=== PATIENT | female | born 1960 ===

== ENCOUNTER 2020-04-10 09:08 | Outpatient (REF) | payer MEDICAID, SELFPAY ==
--- NOTE | 2020-04-10 09:00 | EMG_ITS ---
HISTORY OF PRESENT ILLNESS: This is a 59-year-old woman with a 30-year history of bilateral hand pain and numbness. She also has pain in her upper arms. MEDICATIONS: List of medications not known. PHYSICAL EXAMINATION: On examination, she is alert and oriented with normal intellectual functions. Cranial nerves II through XII are normal. Muscle tone and strength are normal in all 4 extremities. No Tinel or Phalen sign. IMPRESSION: Rule out carpal tunnel syndrome, rule out trigger finger and tendinitis. Nerve conduction EMG study: Normal electrodiagnostic study of both upper extremities with no evidence of carpal tunnel syndrome or nerve entrapment. Normal EMG of the C5-T1 innervated muscles bilaterally. MD RONALD Meadows/ZAHEER / [id number]
== END 2020-04-10 09:09 | disposition home or self-care (01) ==
LOC: HO.NEURO 09:08
PROVIDERS: Visit Provider Family Medicine
DX: M25.532 Pain in left wrist (principal)
CPT/HCPCS: 95886; 95913

== ENCOUNTER 2020-07-25 08:40 | Outpatient (REF) | payer MEDICAID, SELFPAY ==
[2020-07-25 10:48] LABS: Glucose Urine UA NEG (NEG); Leukocyte Esterase Urine NEG (NEG); Nitrite Urine NEG (NEG); PH 7.5 (5.0-8.0); Specific Gravity - Urine 1.015 (1.005-1.025); Urine Blood NEG (NEG); Urine Ketones NEG (NEG); Urine Protein NEG (NEG-TRACE)
[2020-07-25 10:49] LABS: Appearance Urine CLEAR; Color Urine YELLOW
[2020-07-25 10:49] LABS: MANUAL DIFF FLAG NO
[2020-07-25 10:58] LABS: Basophils Absolute Auto 0.1 X10*3/uL (0.0-0.2); Basophils Percent Auto 1.1 % (0-2); Eosinophils Absolute Auto 0.4 X10*3/uL (0.0-0.4); Eosinophils Percent Auto 3.9 % (0-4); Imm Gran Abs Auto 0.07 X10*3/uL (0.00-0.03); Imm Gran Pct Auto 0.8 % (0.0-0.4); Lymphocytes Absolute Auto 3.3 X10*3/uL (1.2-4.9); Lymphocytes Percent Auto 35.6 % (20-40); Mean Corpuscular HGB Conc 31.7 g/dl (31.0-35.0); Mean Corpuscular Hemoglobin 26.2 pg (27.0-33.0); Mean Corpuscular Volume 82.7 fL (80-98); Mean Platelet Volume 10.9 fL (9.4-12.3); Monocytes Absolute Auto 0.6 X10*3/uL (0.1-1.2); Monocytes Percent Auto 6.8 % (2-11); Neutrophils Absolute Auto 4.8 X10*3/uL (2.0-8.3); Neutrophils Percent Auto 51.8 % (45-73); Platelet Count 348 X10*3/uL (160-400); Red Blood Count 4.96 X10*6/uL (4.20-5.50); Red Cell Distribution Width 15.6 % (11.0-16.0); White Blood Count 9.2 X10*3/uL (4.8-10.8)
[2020-07-25 11:05] LABS: RBC Urine 0 /HPF (0); Squamous Epithelial Cell Urine 2+ /LPF; WBC Urine 0 /HPF (0-4)
[2020-07-25 11:19] LABS: Alanine Aminotransferase 24 U/L (0-31); Albumin Level 4.4 g/dL (3.5-5.0); Alkaline Phosphatase 120 U/L (39-117); Anion Gap 12 (12-20); Aspartate Amino Transferase 21 U/L (5-31); Blood Urea Nitrogen 12 mg/dL (9-16); C Reactive Protein 0.25 mg/dL (< or = 0.50); Calcium 9.9 mg/dL (8.4-10.2); Carbon Dioxide 29 mmol/L (22-29); Chloride 104 mmol/L (96-108); Estimated Glomerular Filt Rate > 60; Glucose Random 91 mg/dL (60-115); Potassium 4.3 mmol/L (3.3-5.1); Rheumatoid Factor < 15.0 IU/mL (<15.0); Sodium 141 mmol/L (135-145); Total Protein 7.1 g/dL (6.5-8.0)
[2020-07-25 12:24] LABS: Erythrocyte Sedimentation Rate 9 MM/HR (0-20)
[2020-07-26 11:26] LABS: Complement C3 155 mg/dL (83-193)
[2020-07-26 13:27] LABS: Beta-2 Microglobulin, Serum 1.98 mg/L (< OR = 2.51); Thyroglobulin Antibodies <1 IU/mL (< or = 1); Thyroid Peroxidase Antibodies <1 IU/mL (<9)
[2020-07-26 19:56] LABS: Cyclic Citrullinated Peptide <16 UNITS
[2020-07-29 14:57] LABS: Cardiolipin IgG Ab <14 GPL; Cardiolipin IgM Ab <12 MPL; PTT (LAC) Screen 31 sec (< OR = 40)
[2020-07-30 12:06] LABS: Anti DNA DS Antibody 1 IU/mL; Antibody to SS-A Antigen <1.0 NEG AI (<1.0 NEG); Antibody to SS-B Antigen <1.0 NEG AI (<1.0 NEG); SM/Ribonucleoprotein Ab <1.0 NEG AI (<1.0 NEG); Smith Protein <1.0 NEG AI (<1.0 NEG)
[2020-07-30 15:22] LABS: Anti Nuclear Antibody Screen POSITIVE (NEGATIVE)
== END 2020-07-25 08:41 | disposition home or self-care (01) ==
LOC: HO.LAB 08:40
PROVIDERS: PCP Family Medicine; Referring Provider Family Medicine; Visit Provider Student in an Organized Health Care Education/Training Program
DX: R76.8 Other specified abnormal immunological findings in serum (principal); M25.50 Pain in unspecified joint; F32.9 Major depressive disorder, single episode, unspecified; E78.5 Hyperlipidemia, unspecified; I10 Essential (primary) hypertension; F17.210 Nicotine dependence, cigarettes, uncomplicated; Z88.6 Allergy status to analgesic agent; Z79.899 Other long term (current) drug therapy
CPT/HCPCS: 36415; 80053; 81001; 82232; 85025; 85597; 85613; 85652; 85730; 86038; 86039; 86140; 86147; 86160; 86200; 86225; 86235; 86376; 86431; 86800; 99202

== ENCOUNTER → 2020-08-20 09:05 | Outpatient (BNVA) | payer MEDICAID, SELFPAY | PROVIDERS: PCP Family Medicine; Visit Provider Student in an Organized Health Care Education/Training Program | DX: R76.8 Other specified abnormal immunological findings in serum (principal); F17.200 Nicotine dependence, unspecified, uncomplicated; Z79.899 Other long term (current) drug therapy; Z71.6 Tobacco abuse counseling | CPT/HCPCS: 99212 ==

== ENCOUNTER → 2020-09-19 08:49 | Outpatient (BNVA) | payer MEDICAID, SELFPAY | PROVIDERS: PCP Family Medicine; Visit Provider Internal Medicine Pulmonary Disease | DX: G47.33 Obstructive sleep apnea (adult) (pediatric) (principal); J44.9 Chronic obstructive pulmonary disease, unspecified | CPT/HCPCS: 99212 ==

== ENCOUNTER 2020-12-09 10:19 | Outpatient (REF) | payer MEDICAID, SELFPAY ==
--- NOTE | ~2020-12-09 | CT_ITS ---
EXAMINATION: CT CHEST SCREENING CLINICAL INFORMATION: Nicotine dependence COMPARISON: None. TECHNIQUE: Multidetector volumetric CT imaging of the chest is performed without contrast using low dose technique. Additional 2D coronal and sagittal reformatted images and axial 3D maximum intensity projection (MIP) images are generated on the CT workstation. This CT examination was performed using dose optimization techniques as appropriate, variously including the following: *Automated exposure control *Adjustment of mA and/or kV according to patient size (this includes techniques or standardized protocols for targeted exams where dose is matched to indication/reason for exam; i.e. extremities or head) *Use of iterative reconstruction technique DLP: 62 mGy-cm FINDINGS: LUNGS: The lungs are well-expanded and clear of acute pneumonic process. There is no pulmonary nodule, mass or consolidation. Minimal atelectatic changes are seen in the lingula and right middle lobe MEDIASTINUM: The thyroid lobes are symmetric and normal. The central trachea and the bronchi are widely patent. The heart size and the great vessels are normal caliber. There is no pericardial effusion. No abnormal size mediastinal or hilar lymphadenopathy seen. PLEURA: There is no pleural effusion. No pleural mass or thickening. AXILLA: There are small shotty axillary lymph nodes. The chest wall is unremarkable. UPPER ABDOMEN: Visualized liver, spleen, pancreas and bilateral adrenal glands are unremarkable. OSSEOUS STRUCTURES: No lytic or sclerotic process seen. There is mild ventral spondylosis mid and lower dorsal spine. No lytic or sclerotic process seen. CT/CT lung screening IMPRESSION: Unremarkable examination. ASSESSMENT: Lung-RADS category 1: Negative RECOMMENDATION: Low-dose annual CT chest.
== END 2020-12-09 10:20 | disposition home or self-care (01) ==
LOC: HO.CT 10:19
PROVIDERS: PCP Family Medicine; Visit Provider Physician Assistant Medical
DX: Z12.2 Encounter for screening for malignant neoplasm of respiratory organs (principal); F17.210 Nicotine dependence, cigarettes, uncomplicated
CPT/HCPCS: 71271

== ENCOUNTER → 2021-01-27 09:42 | Outpatient (BNVA) | payer MEDICAID, SELFPAY | PROVIDERS: PCP Family Medicine; Visit Provider Internal Medicine Pulmonary Disease | DX: J44.9 Chronic obstructive pulmonary disease, unspecified (principal); G47.33 Obstructive sleep apnea (adult) (pediatric) | CPT/HCPCS: 99212 ==

== ENCOUNTER 2021-06-12 08:38 | Outpatient (REF) | payer MEDICAID, SELFPAY ==
--- NOTE | ~2021-06-12 | MM_ITS ---
EXAMINATION: MM SCREENING DIGITAL BREAST TOMOSYNTHESIS, BILATERAL CLINICAL INFORMATION: Screening. Asymptomatic. The lifetime risk of breast cancer based on the Tyrer-Cuzick Model is 5.9%. COMPARISON: Mammography: April 20, 2018 and studies dating back to August 05, 2013 TECHNIQUE: Digital breast tomosynthesis is performed in both the craniocaudal and mediolateral oblique views along with computer-aided detection (CAD). Synthesized 2D images are generated from the tomosynthesis. FINDINGS: The breasts are almost entirely fatty (ACR BI-RADS breast composition Category a). There are no significant masses, abnormal calcifications, or other abnormalities. MM/MM tomosynthesis screening BI IMPRESSION: There are no significant changes from prior study. ASSESSMENT: BI-RADS 1: Negative RECOMMENDATION: Routine annual mammography screening. This patient's information was entered into a reminder system with a target due date for their next mammogram.
== END 2021-06-12 08:39 | disposition home or self-care (01) ==
LOC: HO.MAMMO 08:38
PROVIDERS: PCP Family Medicine; Visit Provider Family Medicine
DX: Z12.31 Encounter for screening mammogram for malignant neoplasm of breast (principal)
CPT/HCPCS: 77063; 77067

== ENCOUNTER → 2021-06-27 09:52 | Outpatient (BNVA) | payer MEDICAID, SELFPAY | PROVIDERS: PCP Family Medicine; Visit Provider Hospitalist | DX: J44.9 Chronic obstructive pulmonary disease, unspecified (principal); G47.33 Obstructive sleep apnea (adult) (pediatric) | CPT/HCPCS: 99212 ==

== ENCOUNTER 2021-08-07 08:36 | Outpatient (REF) | payer MEDICAID, SELFPAY ==
--- NOTE | ~2021-08-07 | XR_ITS ---
EXAMINATION: XR CHEST CLINICAL INFORMATION: Dyspnea, shortness of breath. Prior history left lower lobectomy. COMPARISON: Chest radiographs 09/08/2019, CT lung screening 12/09/2020 TECHNIQUE: 2 views of the chest were obtained. FINDINGS: Heart size normal. Vascularity normal. No lobar or segmental airspace consolidation, effusion, or definite groundglass opacity. There is minor scarring left base. Hilar and mediastinal contours are unremarkable. There is mild levocurvature upper and mid thoracic spine. XR/XR chest 2V IMPRESSION: No acute intrathoracic disease.
== END 2021-08-07 08:37 | disposition home or self-care (01) ==
LOC: HO.XRAY 08:36
PROVIDERS: PCP Family Medicine; Visit Provider Family Medicine
DX: R06.00 Dyspnea, unspecified (principal); J44.9 Chronic obstructive pulmonary disease, unspecified; R05.9 Cough, unspecified; G47.33 Obstructive sleep apnea (adult) (pediatric)
CPT/HCPCS: 71046; 99212

== ENCOUNTER → 2021-10-01 08:44 | Outpatient (BNVA) | payer MEDICAID, SELFPAY | PROVIDERS: PCP Family Medicine; Visit Provider Internal Medicine Pulmonary Disease | DX: J44.9 Chronic obstructive pulmonary disease, unspecified (principal); J84.9 Interstitial pulmonary disease, unspecified; R05.9 Cough, unspecified; G47.33 Obstructive sleep apnea (adult) (pediatric); Z90.2 Acquired absence of lung [part of] | CPT/HCPCS: 99212 ==

== ENCOUNTER 2021-10-10 09:36 | Outpatient (REF) | payer MEDICAID, SELFPAY ==
--- NOTE | ~2021-10-10 | CT_ITS ---
EXAMINATION: CT CHEST WITHOUT CONTRAST CLINICAL INFORMATION: J84.9 - Interstitial pulmonary disease, unspecified. Additional information provided: History lobectomy. COMPARISON: CT screening 12/09/2020, CT chest noncontrast 05/31/2019, CT abdomen noncontrast 12/31/2016 TECHNIQUE: Multidetector volumetric CT imaging of the chest is performed without intravenous contrast. Axial MIP volume rendering provided. Sagittal and coronal reformatted images were obtained. Additional axial high resolution images are obtained through the upper, mid, and lower zones, respectively. This CT examination was performed using dose optimization techniques as appropriate, variously including the following: *Automated exposure control *Adjustment of mA and/or kV according to patient size (this includes techniques or standardized protocols for targeted exams where dose is matched to indication/reason for exam; i.e. extremities or head) *Use of iterative reconstruction technique DLP: 220 mGy-cm FINDINGS: LUNGS: The central airways are clear and there is no endobronchial lesion or bronchiectasis. There is no lobar or segmental airspace consolidation or groundglass opacity. There are some small right apical blebs. There is no interstitial fibrotic change and no air trapping. The 6 x 8 mm nodule described on prior CT 05/31/2019 is no longer demonstrated, likely resected. There is no recurrent mass. No interval new pulmonary nodule or mass. MEDIASTINUM: No hilar or mediastinal lymphadenopathy or mass. No pericardial effusion. There are some scattered atherosclerotic calcifications coronary arteries. Thoracic aorta are normal in caliber. PLEURA: There is no pleural effusion. No pleural mass or thickening. AXILLA: No lymphadenopathy. UPPER ABDOMEN: Unremarkable. OSSEOUS STRUCTURES: Unremarkable. CT/CT chest wo con IMPRESSION: -Lungs clear. No nodule, mass, infiltrate, or fibrotic changes. -No hilar or mediastinal adenopathy on noncontrast exam.
== END 2021-10-10 09:37 | disposition home or self-care (01) ==
LOC: HO.CT 09:36
PROVIDERS: PCP Family Medicine; Visit Provider Internal Medicine Pulmonary Disease
DX: J84.9 Interstitial pulmonary disease, unspecified (principal)
CPT/HCPCS: 71250

== ENCOUNTER 2021-10-10 11:55 | Emergency (ER) | payer MEDICAID, SELFPAY ==
--- NOTE | 2021-10-10 | ECG_ITS ---
Test Reason : chest pain Blood Pressure : / mmHG Vent. Rate : 078 BPM Atrial Rate : 078 BPM P-R Int : 176 ms QRS Dur : 090 ms QT Int : 418 ms P-R-T Axes : 028 077 069 degrees QTc Int : 476 ms Normal sinus rhythm Normal ECG When compared with ECG of 19-JUN-2003 15:10, No significant change was found Referred By: Generic ED Physician Electronically Signed By:Waylon Sanchez
--- NOTE | ~2021-10-10 | XR_ITS ---
EXAMINATION: XR CHEST CLINICAL INFORMATION: Chest pain COMPARISON: September 08, 2019 TECHNIQUE: PA view of the chest was obtained. FINDINGS: There is some pleural-parenchymal scarring seen at the left base. No new confluent parenchymal disease identified. No pneumothorax or significant pleural effusion. The cardiopericardial silhouette is upper limits of normal in size. No evidence of pulmonary edema. XR/XR chest 1V IMPRESSION: No significant acute parenchymal disease.
[2021-10-10 12:02] VITALS: BP 164/86; PULSE 78; RESP 20; TEMP 36.7; O2SAT 100; BMI 35.6
[2021-10-10 12:22] LABS: Basophils Absolute Auto 0.1 X10*3/uL (0.0-0.2); Basophils Percent Auto 0.5 % (0-2); Eosinophils Absolute Auto 0.1 X10*3/uL (0.0-0.4); Eosinophils Percent Auto 0.5 % (0-4); Hematocrit 45.3 % (37.0-47.0); Hemoglobin 14.8 g/dl (12.0-16.0); Imm Gran Abs Auto 0.12 X10*3/uL (0.00-0.03); Imm Gran Pct Auto 0.9 % (0.0-0.4); Lymphocytes Absolute Auto 2.8 X10*3/uL (1.2-4.9); MANUAL DIFF FLAG NO; Mean Corpuscular HGB Conc 32.7 g/dl (31.0-35.0); Mean Corpuscular Hemoglobin 27.8 pg (27.0-33.0); Mean Corpuscular Volume 85.2 fL (80.0-98.0); Mean Platelet Volume 9.9 fL (9.4-12.3); Monocytes Absolute Auto 0.7 X10*3/uL (0.1-1.2); Monocytes Percent Auto 5.1 % (2-11); Neutrophils Absolute Auto 9.5 x10*3/uL (2.0-8.3); Platelet Count 391 X10*3/uL (160-400); Red Blood Count 5.32 X10*6/uL (4.20-5.50); Red Cell Distribution Width 14.1 % (11.0-16.0); White Blood Count 13.2 X10*3/uL (4.8-10.8)
[2021-10-10 12:38] LABS: Anion Gap 12 (12-20); Blood Urea Nitrogen 13 mg/dL (9-16); Calcium 9.6 mg/dL (8.4-10.2); Carbon Dioxide 28 mmol/L (22-29); Chloride 104 mmol/L (96-108); Creatinine Clr Calc Pharmacy 85.1; Estimated Glomerular Filt Rate > 60; Glucose Random 114 mg/dL (60-115); Potassium 4.2 mmol/L (3.3-5.1); Sodium 140 mmol/L (135-145)
[2021-10-10 12:48] LABS: Troponin-I High Sensitivity 10.9 ng/L (<3.5-17.0)
--- NOTE | 2021-10-10 15:15 | ED_ITS ---
HPI - Chest Pain General Chief Complaint: Chest Pain Stated Complaint: chest pain ,L side body pain Time Seen by Provider: 10/10/21 15:15 Source: patient Mode of arrival: ambulatory Limitations: no limitations History of Present Illness HPI narrative: 60-year-old female who presents emergency department for evaluation of chest pain. The patient states she has been having intermittent chest pain since August 2021. She states she gets this chest pain daily. She states she gets 3 episodes per day. She states that the episodes last seconds and then resolved. She points to her left anterior chest wall asked to localize the pain. She states that yesterday she had disagreement with her son and this caused her to have chest pain which lasted approximately 1 hour. She states that she also felt very anxious and sad after the disagreement. She states that her left arm became numb and she also developed shortness of breath. She felt weak lightheaded and dizzy with that episode. She states this morning she again has chest pain which lasted seconds. She went to the [facility] and was evaluated for chest pain. She had an EKG and was referred to emergency department for evaluation. MD complaint: chest pain Pertinent past history: other (COPD) Onset (ago): month(s) (1) Timing of current episode: episodic Prior episodes: Yes Onset: during rest and during exertion Pain location: left chest Pain radiation: left arm Severity: severe Pain scale (0-10): 8 Quality: other (Stabbing) Relieving factors: nothing Exacerbating factors: nothing Associated symptoms: palpitations and other (Dizziness) Treatment prior to arrival: none Risk Factors Coronary artery disease risk factors: smoking history, hyperlipidemia and hypertension Related Data On Oral Contraceptives: No Home Medications Medication Instructions Recorded Confirmed albuterol sulfate 90 mcg/actuation 2 puff inhalation Q6H PRN 07/25/20 07/25/20 aerosol inhaler aspirin 81 mg tablet,delayed 81 mg PO DAILY 07/25/20 07/25/20 release atorvastatin 20 mg tablet 20 mg PO DAILY 07/25/20 07/25/20 lisinopril 40 mg tablet 40 mg PO DAILY 07/25/20 07/25/20 loratadine 10 mg tablet (Allergy 10 mg PO DAILY 07/25/20 07/25/20 Relief (loratadine)) pantoprazole 40 mg tablet,delayed 40 mg PO DAILY 07/25/20 07/25/20 release sertraline 50 mg tablet (Zoloft) 50 mg PO DAILY 07/25/20 07/25/20 Previous Rx's Medication Instructions Recorded arm brace (Wrist Brace) #1 ea 01/25/20 levofloxacin 750 mg tablet 750 mg PO DAILY 7 days #7 tabs 06/27/21 codeine 10 mg-guaifenesin 100 mg/5 10 ml PO Q4-6H PRN cold symptoms 08/07/21 mL oral liquid 15 days #473 mL fluticasone fur. 200 mcg-umeclid 1 inh inhalation DAILY 30 days #1 08/07/21 62.5 mcg-vilant 25 mcg ea inhalat.powder (Trelegy Ellipta) prednisone 10 mg tablet See Rx Instructions PO DAILY 28 10/01/21 days #70 tabs Allergies Allergy/AdvReac Type Severity Reaction Status Date / Time morphine [MORPHINE] Allergy Unknown HIVES AND Verified 10/01/21 08:57 RASH, hives Review of Systems Review of Systems: Yes all other systems are reviewed and are negative [facility] Past Medical History [facility] Narrative: Past medical history: Reviewed below, asthma COPD, obstructive sleep apnea. Past surgical history: Lung nodule removal, colon surgery. Social history: The patient smokes 15 cigarettes per day times many years. Denies alcohol use. She denies drug use. Medical History Depression Dyslipidemia Hypertension Surgical History History of carpal tunnel release S/P left rotator cuff repair Family History Family History (Updated 08/20/20 @ 09:15 by Cristel Stevens CMA) Mother HTN (hypertension) Maternal Grandfather HTN (hypertension) Son HTN (hypertension) Diabetes Father Diabetes Social History Social History (Updated 08/20/20 @ 09:16 by Cristel Stevens CMA) Household Members: Children Housing: House Alcohol intake: never Patient Tobacco Use Status: Current everyday Tobacco user Cigarettes Per Day: 8 Years Smoked: 40 Advance Directives: No Advance Directives Information Provided: Yes Physical Exam Vital Signs: Vital Signs: Last Vital Signs Temp 98.0 F 10/10/21 12:02 Pulse 78 10/10/21 12:02 Resp 20 10/10/21 12:02 BP 164/86 H 10/10/21 12:02 Pulse Ox 100 10/10/21 12:02 O2 Del Method 10/10/21 12:02 BMI result Body Mass Index 35.6 Const: Other: Awake, alert, he is a patient, very pleasant and cooperative, in no distress, elevated BMI 35.6. HEENT: Head: Yes normal to inspection, Yes normocephalic and Yes atraumatic Ears: external ears normal General nose exam: Normal external nose present Face and sinus: Yes normal facial exam Mouth: Normal oral and palatal muc shaggy present Throat: Yes posterior oropharynx normal Eyes: General: appearance normal, both eyes and all related structures Pupils: Equal, round and reactive pupils present Neck: Neck: Yes normal visual inspection, Yes no lymphadenopathy, Yes trachea midline and Yes supple Chest: Chest palpation & inspection: normal inspection of the chest, normal palpation of entire chest wall and tenderness (Left anterior chest) Resp: Effort & Inspection: normal respiratory effort and able to speak in complete sentences Auscultation: clear to auscultation bilaterally Cardio: Rate: regular rate Rhythm: regular rhythm Heart sounds: S1 normal heart sound present, S2 normal heart sound present and no murmurs GI: Inspection: Yes normal to inspection Palpation (GI): Soft to palpation, nontender and no guarding Auscultation: normal bowel sounds : General: Yes no CVA tenderness Back/Spine/Pelvis: Back: no CVA tenderness Skin: General skin exam: no rashes or lesions noted Neuro: Cranial nerves: Yes CN's II-XII intact bilaterally and Yes Equal, round and reactive pupils present Cognition (Neuro): normal cognition Motor exam (neuro): 5/5 motor strength present throughout Extrem: General: Yes normal to inspection Psych: Appearance: grossly normal Speech and movement: Normal speech and mo vement present Affect: normal affect Attitude: cooperative Thought process: Normal thought process present Thought content: Normal thought content present Course Course Course Narrative: 60-year-old female who presents emergency department for evaluation of intermittent, daily chest pain x1 month, patient states she has 3 episodes per day, they can come on at rest or with exertion and lasts seconds. She states that yesterday she had a misunderstanding with her son this caused her to have an episode of chest pain the last approximately 1 hour. She was seen at [facility] and referred to the emergency department for evaluation. The patient's vital signs did reveal an elevated blood pressure of 164/87 otherwise were unremarkable. Physical examination did reveal left-sided chest wall tenderness. 1545: Laboratory evaluation: WBC was elevated 13,200 but the patient states she was started on prednisone recently by her doctor for her lung problem. BMP was normal. High sensitivity troponin I was detectable but not elevated at 10.9. Radiology evaluation: Chest x-ray revealed no acute disease. EKG was unremarkable. Patient's chest pain most likely caused by musculoskeletal pain/costochondritis. I did discuss this with her. Patient was advised to take Tylenol and ibuprofen. She was given printed and verbal instructions and discharged home. MDM - Chest Pain Medical Records Data Attestation: I reviewed the patient's medical records. Lab Data Attestation: I reviewed the patient's lab results. Result diagrams: 10/10/21 12:17 10/10/21 12:17 Labs: Lab Results 10/10/21 10/10/21 10/10/21 Range/Units 12:17 12:17 12:17 WBC 13.2 H (4.8-10.8) X10*3/uL RBC 5.32 (4.20-5.50) X10*6/uL Hgb 14.8 (12.0-16.0) g/dl Hct 45.3 (37.0-47.0) % MCV 85.2 (80.0-98.0) fL MCH 27.8 (27.0-33.0) pg MCHC 32.7 (31.0-35.0) g/dl RDW 14.1 (11.0-16.0) % Plt Count 391 (160-400) X10*3/uL MPV 9.9 (9.4-12.3) fL Immature Gran % (Auto) 0.9 H (0.0-0.4) % Neut % (Auto) 72.0 (45-73) % Lymph % (Auto) 21.0 (20-40) % Spink % (Auto) 5.1 (2-11) % Eos % (Auto) 0.5 (0-4) % Baso % (Auto) 0.5 (0-2) % Lymph # (Auto) 2.8 (1.2-4.9) X10*3/uL Spink # (Auto) 0.7 (0.1-1.2) X10*3/uL Eos # (Auto) 0.1 (0.0-0.4) X10*3/uL Baso # (Auto) 0.1 (0.0-0.2) X10*3/uL Abs Immat Gran (auto) 0.12 H (0.00-0.03) X10*3/uL Absolute Neuts (auto) 9.5 H (2.0-8.3) x10*3/uL Absolute Nucleated RBC 0.000 (0.0-0.012) X10*3/uL Nucleated RBC % (auto) 0.0 (0.0-0.2) /100WBC Sodium 140 (135-145) mmol/L Potassium 4.2 (3.3-5.1) mmol/L Chloride 104 (96-108) mmol/L Carbon Dioxide 28 (22-29) mmol/L Anion Gap 12 (12-20) BUN 13 (9-16) mg/dL Creatinine 0.80 (0.5-1.4) mg/dL Estim Creat Clear Calc 85.1 Estimated GFR > 60 Random Glucose 114 (60-115) mg/dL Calcium 9.6 (8.4-10.2) mg/dL Troponin I High Sens 10.9 (<3.5-17.0) ng/L ECG Data ECG #1: Attestation: I personally reviewed and interpreted this ECG as follows: Interpretation: 1200: Normal sinus rhythm rate of 78, normal OK interval, QRS duration and QTC interval, no ST segment elevation, no ST segment depression, no PACs, no PVCs, this is a normal EKG Discharge Plan Discharge Clinical Impression: Chest pain Patient Disposition: Home, Self-Care Instructions: Costochondritis (ED) Additional Instructions: Your EKG was unremarkable. Your chest x-ray was unremarkable. Your white blood cell count was slightly elevated at 13,200 thousand two hundred but this is probably caused by the prednisone that you taking. Your troponin (marker of heart damage/heart attack) was not elevated which is reassuring. At this time, I believe that the chest pain that your experiencing is due to inflammation of the joints of your chest or muscles of your chest (costochondritis). Take ibuprofen 200 mg pills, 2 pills every 6 hours as needed for pain. Take Tylenol (acetaminophen) 500 mg pills, 2 pills every 4 to 6 hours as needed for pain. Follow-up with your doctor in 2 days. Please return to the emergency department if your symptoms get worse or if you develop any symptoms that are concerning to you. Prescriptions: No Action (DME) Wrist Brace Misc See Rx Instructions .MEDSUPPLY Qty: 1 0RF Rx Instructions: comfort form wrist/thumb, lt,m m65.321 lisinopril 40 mg tablet 40 mg PO DAILY aspirin 81 mg tablet,delayed release (DR/EC) 81 mg PO DAILY pantoprazole 40 mg tablet,delayed release (DR/EC) 40 mg PO DAILY albuterol sulfate 90 mcg/actuation HFA aerosol inhaler 2 puff inhalation Q6H PRN sertraline [Zoloft] 50 mg tablet 50 mg PO DAILY loratadine [Allergy Relief (loratadine)] 10 mg tablet 10 mg PO DAILY atorvastatin 20 mg tablet 20 mg PO DAILY levofloxacin 750 mg tablet 750 mg PO DAILY 7 Days Qty: 7 0RF Trelegy Ellipta 200-62.5-25 mcg blister with device 1 inh inhalation DAILY 30 Days Qty: 1 6RF codeine-guaifenesin 10-100 mg/5 mL liquid 10 ml PO Q4-6H PRN (Reason: cold symptoms) 15 Days Qty: 473 0RF prednisone 10 mg tablet See Rx Instructions PO DAILY 28 Days Qty: 70 0RF Rx Instructions: Take 4 tabs daily for 7 days, then go down by 1 tab every 7 days.
== END 2021-10-10 16:18 | disposition home or self-care (01) ==
PROVIDERS: Emergency Provider Emergency Medicine Emergency Medical Services; PCP Family Medicine
DX: R07.9 Chest pain, unspecified (principal); F41.9 Anxiety disorder, unspecified; F32.A Depression, unspecified; I10 Essential (primary) hypertension; E78.5 Hyperlipidemia, unspecified; F17.210 Nicotine dependence, cigarettes, uncomplicated; Z79.02 Long term (current) use of antithrombotics/antiplatelets; Z79.899 Other long term (current) drug therapy
CPT/HCPCS: 36415; 71045; 80048; 84484; 85025; 93005; 99283

== ENCOUNTER → 2021-11-12 09:09 | Outpatient (BNVA) | payer MEDICAID, SELFPAY | PROVIDERS: PCP Family Medicine; Visit Provider Internal Medicine Pulmonary Disease | DX: J44.9 Chronic obstructive pulmonary disease, unspecified (principal); G47.33 Obstructive sleep apnea (adult) (pediatric); R06.09 Other forms of dyspnea; R05.9 Cough, unspecified; Z79.899 Other long term (current) drug therapy; Z99.81 Dependence on supplemental oxygen | CPT/HCPCS: 99212 ==

== ENCOUNTER → 2022-01-29 12:50 | Outpatient (BNVA) | payer MEDICAID, SELFPAY | PROVIDERS: PCP Family Medicine; Visit Provider Internal Medicine Pulmonary Disease | DX: J44.9 Chronic obstructive pulmonary disease, unspecified (principal); G47.33 Obstructive sleep apnea (adult) (pediatric); R05.9 Cough, unspecified; R06.09 Other forms of dyspnea | CPT/HCPCS: 99212 ==

== ENCOUNTER → 2022-02-04 08:47 | Outpatient (BNVA) | payer MEDICAID, SELFPAY | PROVIDERS: PCP Family Medicine; Visit Provider Orthopaedic Surgery | DX: M79.641 Pain in right hand (principal) | CPT/HCPCS: 99202 ==

== ENCOUNTER 2022-02-09 08:52 | Outpatient (REF) | payer MEDICAID, SELFPAY ==
--- NOTE | ~2022-02-09 | XR_ITS ---
EXAMINATION: XR PELVIS CLINICAL INFORMATION: Pain COMPARISON: None TECHNIQUE: AP view of the pelvis. FINDINGS: Bone alignment is normal. No fracture or dislocation. Mild arthritis at both hip joints with small osteophytes. Bones of the pelvis are normal. Degenerative changes of the visualized lower lumbar spine. Atherosclerotic disease. Surgical clips in the left lower quadrant and pelvis. XR/XR pelvis 1-2V IMPRESSION: Mild bilateral hip osteoarthritis.
== END 2022-02-09 08:53 | disposition home or self-care (01) ==
LOC: HO.HOSX 08:52
PROVIDERS: Visit Provider Orthopaedic Surgery
DX: M16.0 Bilateral primary osteoarthritis of hip (principal); M70.71 Other bursitis of hip, right hip; M70.72 Other bursitis of hip, left hip
CPT/HCPCS: 72170; 99212

== ENCOUNTER → 2022-03-31 11:54 | Outpatient (BNVA) | payer MEDICAID, SELFPAY | PROVIDERS: PCP Family Medicine; Visit Provider Orthopaedic Surgery | DX: M79.641 Pain in right hand (principal); M79.89 Other specified soft tissue disorders | CPT/HCPCS: 99212 ==

== ENCOUNTER → 2022-04-07 11:05 | Outpatient (BNVA) | payer MEDICAID, SELFPAY | PROVIDERS: PCP Family Medicine; Visit Provider Orthopaedic Surgery | DX: M79.641 Pain in right hand (principal); M79.89 Other specified soft tissue disorders | CPT/HCPCS: 20550; 99212; J1100 ==

== ENCOUNTER 2022-04-17 10:37 | Outpatient (REF) | payer MEDICAID, SELFPAY ==
--- NOTE | ~2022-04-17 | XR_ITS ---
EXAMINATION: XR HAND, RIGHT CLINICAL INFORMATION: Pain COMPARISON: None TECHNIQUE: PA, lateral, and oblique views of the right hand. FINDINGS: Mild degenerative osteoarthritic changes distal interphalangeal joints. No fracture or dislocations. The bones and soft tissues are normal. No fracture. Alignment is anatomic. Joint spaces are maintained. No erosions or soft tissue calcifications. XR/XR hand RT min 3V IMPRESSION: * No fracture. * Mild DJD.
== END 2022-04-17 10:38 | disposition home or self-care (01) ==
LOC: HO.HOSX 10:37
PROVIDERS: PCP Family Medicine; Visit Provider Orthopaedic Surgery
DX: M79.641 Pain in right hand (principal)
CPT/HCPCS: 73130; 99212

== ENCOUNTER → 2022-05-07 08:47 | Outpatient (BNVA) | payer MEDICAID, SELFPAY | PROVIDERS: PCP Family Medicine; Visit Provider Internal Medicine Pulmonary Disease | DX: J44.9 Chronic obstructive pulmonary disease, unspecified (principal); G47.33 Obstructive sleep apnea (adult) (pediatric); Z79.899 Other long term (current) drug therapy; Z99.89 Dependence on other enabling machines and devices | CPT/HCPCS: 99212 ==

== ENCOUNTER 2022-06-09 12:42 | Outpatient (REF) | payer MEDICAID, SELFPAY ==
--- NOTE | ~2022-06-09 | XR_ITS ---
EXAMINATION: XR HAND, RIGHT CLINICAL INFORMATION: Pain COMPARISON: Hand radiographs 04/17/2022 TECHNIQUE: 3 views of the hand FINDINGS: No acute fracture or dislocation. Stable well corticated osseous fragment adjacent to the ulnar styloid which may reflect sequelae of remote avulsion injury. Minimal degenerative changes of the distal interphalangeal joints, similar to prior. No cortical erosion. Soft tissues are unremarkable. XR/XR hand RT min 3V IMPRESSION: 1. Minimal degenerative changes of the hand, similar to prior. 2. Stable well corticated osseous fragment adjacent to the ulnar styloid which may reflect sequelae of remote avulsion injury.
== END 2022-06-09 12:43 | disposition home or self-care (01) ==
LOC: HO.HOSX 12:42
PROVIDERS: Visit Provider Orthopaedic Surgery
DX: M79.641 Pain in right hand (principal)
CPT/HCPCS: 73130; 99212

== ENCOUNTER → 2022-06-10 08:55 | Outpatient (BNVA) | payer MEDICAID, SELFPAY | PROVIDERS: PCP Family Medicine; Visit Provider Orthopaedic Surgery | DX: M79.641 Pain in right hand (principal) | CPT/HCPCS: 99212 ==

== ENCOUNTER 2022-07-06 09:21 | Emergency (ER) | payer MEDICAID, SELFPAY ==
[2022-07-06 09:23] VITALS: BP 188/96; PULSE 76; RESP 18; TEMP 36.4; O2SAT 95; BMI 38.2
--- NOTE | 2022-07-06 10:09 | ED.GENADULT ---
HPI - General Adult General Chief complaint: Extremity Problem Stated complaint: Swollen R hand Time Seen by Provider: 07/06/22 09:42 Source: patient Mode of arrival: ambulatory Limitations: no limitations History of Present Illness HPI narrative: 61-year-old female with past medical history of COPD, obstructive sleep apnea, posterior arthritis, HARI positive, and bursitis of the hips presents to ED for chronic exacerbation of right hand swelling. Patient states this has been going on since December of last year has been followed up with Orthopedics. Patient states she has MRI scheduled for this . Patient states swelling had improved 3 weeks ago while being on steroids at prescribed from [facility] but now pain and swelling reoccurred. Patient states having normal x-rays at [facility] and normal blood work. Patient denies any forearm/arm swelling, fever, chest pain, shortness of breath, recent long travel, recent surgery, calf pain, or any history of blood clots. Patient requesting another steroid prescription. Patient states workup for lupus osteoarthritis has been negative. Patient states workup For gout and upper extremity DVT has been negative in the past. Patient has 1-2 episodes of physical therapy. Patient denies any trauma. Related Data Home Medications Medication Instructions Recorded Confirmed albuterol sulfate 90 mcg/actuation 2 puff inhalation Q6H PRN 07/25/20 07/25/20 aerosol inhaler aspirin 81 mg tablet,delayed 81 mg PO DAILY 07/25/20 07/25/20 release atorvastatin 20 mg tablet 20 mg PO DAILY 07/25/20 07/25/20 loratadine 10 mg tablet (Allergy 10 mg PO DAILY 07/25/20 07/25/20 Relief (loratadine)) pantoprazole 40 mg tablet,delayed 40 mg PO DAILY 07/25/20 07/25/20 release sertraline 50 mg tablet (Zoloft) 50 mg PO DAILY 07/25/20 07/25/20 acetaminophen 325 mg capsule 325 mg PO QID PRN 02/09/22 cyclobenzaprine 15 mg 15 mg PO BEDTIME PRN 02/09/22 capsule,extended release 24 hr oxycodone 5 mg capsule 5 mg PO BID PRN 02/09/22 Previous Rx's Medication Instructions Recorded arm brace (Wrist Brace) #1 ea 01/25/20 budesonide-formoterol HFA 160 2 puff inhalation BID 30 days 02/16/22 mcg-4.5 mcg/actuation aerosol #10.2 grams inhaler (Symbicort) tiotropium bromide 2.5 2 puff inhalation QAM 30 days #4 02/16/22 mcg/actuation mist for inhalation grams (Spiriva Respimat) prednisone 10 mg tablet 40 mg PO DAILY 5 days #20 tabs 05/07/22 prednisone 20 mg tablet 40 mg PO DAILY 7 days #14 tabs 07/06/22 Allergies Allergy/AdvReac Type Severity Reaction Status Date / Time morphine [MORPHINE] Allergy Unknown HIVES AND Verified 06/10/22 09:31 RASH, hives Review of Systems Review of Systems: Right hand swollen. Yes all other systems are reviewed and are negative [facility] Past Medical History Medical History Depression Dyslipidemia Hypertension Surgical History History of carpal tunnel release S/P left rotator cuff repair Family History Family History Mother HTN (hypertension) Maternal Grandfather HTN (hypertension) Son HTN (hypertension) Diabetes Father Diabetes Social History Social History Household Members: Children Housing: House Alcohol intake: never Patient Tobacco Use Status: Current everyday Tobacco user Cigarettes Per Day: 8 Years Smoked: 40 Advance Directives: No Advance Directives Information Provided: Yes Physical Exam ED Vital Signs: Vital Signs - 24 hr 07/06/22 09:23 Temperature 97.6 F Pulse Rate 76 Respiratory Rate 18 Blood Pressure 188/96 H Pulse Oximetry 95 Oxygen Delivery Method Room Air BMI result Body Mass Index 38.2 Const General: cooperative, healthy appearing, comfortable, no acute distress, well developed, alert, awake and Physically active Orientation/consciousness: oriented to person, oriented to place, oriented to time and patient oriented x3 HENMT Head: Yes normal to inspection, Yes No palpable skull fracture present, Yes normocephalic, Yes atraumatic and Yes abrasion Eyes General: appearance normal, both eyes and all related structures Neck Neck: Yes normal visual inspection, Yes full ROM, Yes no lymphadenopathy, Yes no meningeal signs, Yes trachea midline, Yes supple, No anterior neck swelling and No tender Chest Chest palpation & inspection: normal inspection of the chest and normal palpation of entire chest wall Resp Effort & Inspection: normal respiratory effort and able to speak in complete sentences Auscultation: clear to auscultation bilaterally Cardio Jugular venous distension: no JVD Heart sounds: S1 normal heart sound present and S2 normal heart sound present GI Inspection: Yes normal to inspection and No abdominal wall ecchymosis Palpation (GI): Soft to palpation, not firm, nontender, no guarding and not rigid General: No CVA tenderness and Yes no CVA tenderness Back/Spine/Pelvis Back: no CVA tenderness, No CVA tenderness and No back tenderness Skin General skin exam: no rashes or lesions noted and elasticity normal Neuro General: oriented to person, oriented to place, oriented to time, patient oriented x3, gait normal, tone normal, moves all extremities and no meningeal signs Extrem Other: Right Upper extremity: Swelling of right hand only ( middle finger and below it rest, of hand is normal). Negative for warmth or redness/stiffness of the hand. Negative for ecchymosis. Patient able to move fingers. Radial pulse intact. Capillary refills intact. Negative for blue blackness. Rest of upper extremity forearm, humerus, and shoulder negative for tenderness, swelling, redness, stiffness, bluish black discoloration, deformity, or ecchymosis. Brachial pulses intact. Motor/neuro/vascular exam of whole upper extremity intact. General: Yes normal to inspection and Yes full ROM Hand/finger images: 1. Swelling. Negative for erythema, deformity, bluish black discoloration, coolness, or de Quervain sign. Rest of hand and upper extremity is normal Psych Appearance: grossly normal, well kempt and not disheveled Course Course Course Narrative: Right hand swelling Reevaluation(s) Reevaluation #1: Patient will be discharged with another course of steroids. Not suspecting DVT, cellulitis, osteomyelitis, tenosynovitis, fracture, or arterial occlusion. Time: 10:19 Medical Decision Making Medical Decision Making [facility] Narrative: 61 yold female with chronic intermittent right hand swelling/right middle finger trigger pain since ocotober requesting another dose of steroids. Patient denies any recent trauma, fever, chills, redness, bluish black discoloration, chest pain, shortness of breath. Patient states swelling has improved before with steroids per patient Differential Diagnosis Differential Diagnoses: The differential diagnosis associated with the presentation includes (Fracture, cellulitis, osteomyelitis, DVT) Admission/Observation Consideration of admission/observation: Escalation of care including admission/observation considered Prescription Management I considered prescription management with: Pain Medication Patient already taking oxycodone and baclofen at home. Discharge Plan Discharge Clinical Impression: Finger pain, Swelling of right hand Patient Disposition: Home, Self-Care Instructions: Arthralgia (ED) Additional Instructions: Return to the ED immediately for increased swelling of extremity, redness, bluish black discoloration, red streaks, swelling of the forearm and humerus, chest pain, shortness of breath, weakness, dizziness, inability to move extremity, or any other concerning symptoms. Continue taking oxycodone have a home with baclofen. You will be discharged with steroids. Please follow-up with your primary care provider. Please keep your appointment for MRI this . Prescriptions: New prednisone 20 mg tablet 40 mg PO DAILY 7 Days Qty: 14 0RF No Action (DME) Wrist Brace Misc See Rx Instructions .MEDSUPPLY Qty: 1 0RF Rx Instructions: comfort form wrist/thumb, lt,m m65.321 budesonide-formoterol [Symbicort] 160-4.5 mcg/actuation HFA aerosol inhaler 2 puff inhalation BID 30 Days Qty: 10.2 6RF Spiriva Respimat 2.5 mcg/actuation mist 2 puff inhalation QAM 30 Days Qty: 4 6RF aspirin 81 mg tablet,delayed release (DR/EC) 81 mg PO DAILY pantoprazole 40 mg tablet,delayed release (DR/EC) 40 mg PO DAILY albuterol sulfate 90 mcg/actuation HFA aerosol inhaler 2 puff inhalation Q6H PRN sertraline [Zoloft] 50 mg tablet 50 mg PO DAILY loratadine [Allergy Relief (loratadine)] 10 mg tablet 10 mg PO DAILY atorvastatin 20 mg tablet 20 mg PO DAILY prednisone 10 mg tablet 40 mg PO DAILY 5 Days Qty: 20 0RF oxycodone 5 mg capsule 5 mg PO BID PRN acetaminophen 325 mg capsule 325 mg PO QID PRN cyclobenzaprine 15 mg capsule,extended release 24hr 15 mg PO BEDTIME PRN Stand Alone Forms: Work/School Release Interventions: ED Discharge Assessment Last Done: 07/06/22 10:40 Discharge Date/Time: 07/06/22 10:40 Print Language: German
== END 2022-07-06 10:40 | disposition home or self-care (01) ==
PROVIDERS: Emergency Provider Emergency Medicine; PCP Family Medicine
DX: M79.644 Pain in right finger(s) (principal); M79.89 Other specified soft tissue disorders; I10 Essential (primary) hypertension; E78.5 Hyperlipidemia, unspecified; F17.200 Nicotine dependence, unspecified, uncomplicated
CPT/HCPCS: 99282; 99283

== ENCOUNTER 2022-07-09 09:29 | Outpatient (REF) | payer MEDICAID, SELFPAY ==
--- NOTE | ~2022-07-09 | MR_ITS ---
EXAMINATION: MR HAND WITHOUT AND WITH CONTRAST, RIGHT CLINICAL INFORMATION: Third digit pain at the interphalangeal joint. Stiffness. Pain and swelling. Recurrent pain and swelling associated with the right third finger and flexor tendon sheath. Trigger finger surgery in 2017. COMPARISON: Most recent right hand radiographs dated 06/10/2022 and right wrist MRI dated 02/28/2016. TECHNIQUE: Multisequence MR images of the right hand were obtained before and after the IV administration of 10 mL Gadavist contrast on a high-field strength scanner. FINDINGS: BONE: No acute fracture or dislocation. Mild degenerative cystic change within the 3rd metacarpal head. No marrow edema or evidence of acute osseous injury. No post contrast marrow enhancement. MUSCLES/TENDONS: Prominent fluid within the 3rd flexor digitorum tendon sheath with mild adjacent soft tissue edema and prominent post contrast enhancement. No transverse tendon tear or tendon retraction. The remaining visualized flexor and extensor tendons are intact. LIGAMENTS: The collateral ligaments are intact. SOFT TISSUES: Trace 1st metacarpophalangeal joint effusion with circumferential soft tissue edema and mild postcontrast enhancement. MR/MR hand RT wo/w con IMPRESSION: 1. Prominent 3rd flexor digitorum tenosynovitis with mild adjacent soft tissue edema and enhancement. No transverse tendon tear or tendon retraction. 2. Trace 1st metacarpophalangeal joint effusion with circumferential soft tissue edema and mild postcontrast enhancement. 3. Mild degenerative cystic change within the 3rd metacarpal head.
== END 2022-07-09 09:30 | disposition home or self-care (01) ==
LOC: HO.MRI 09:29
PROVIDERS: PCP Family Medicine; Visit Provider Orthopaedic Surgery
DX: R60.0 Localized edema (principal); M79.89 Other specified soft tissue disorders
CPT/HCPCS: 73220; A9585

== ENCOUNTER 2022-07-20 08:48 | Outpatient (REF) | payer MEDICAID, SELFPAY ==
--- NOTE | ~2022-07-20 | US_ITS ---
EXAMINATION: US ABDOMEN COMPLETE CLINICAL INFORMATION: Fatty liver. COMPARISON: Ultrasound abdomen 11/09/2018. Renal ultrasound 12/07/2017. CT abdomen and pelvis 12/31/2016. TECHNIQUE: Real-time imaging of the abdominal viscera. FINDINGS: PANCREAS: Visualized portions of the pancreas are unremarkable. The pancreatic tail is obscured by bowel gas. ABDOMINAL AORTA: Visualized aorta is normal in caliber however portions are obscured by bowel gas. INFERIOR VENA CAVA: Visualized portions are normal. LIVER: Liver is enlarged measuring 18.5 cm in span. The liver contour is normal. There is diffuse increased liver parenchymal echogenicity, consistent with infiltrative hepatocellular disease. No focal hepatic lesion. There is no intrahepatic biliary duct dilatation seen. GALLBLADDER: Surgically absent. COMMON BILE DUCT: Common bile duct measures normal in caliber at 7 mm. RIGHT KIDNEY: Normal. No hydronephrosis. No renal calculi or focal parenchymal lesions. The kidney measures 11.3 cm in maximum dimension. LEFT KIDNEY: No hydronephrosis or focal parenchymal lesions. The kidney measures 11.0 cm in maximum dimension. 6 mm nonobstructing lower pole renal stone. SPLEEN: Normal. The spleen measures 7.8 cm in maximum dimension. FREE FLUID: None. US/US abdomen complete IMPRESSION: 1. Hepatomegaly and diffuse increased liver parenchymal echogenicity which can be seen in the setting of hepatic steatosis or underlying liver disease. 2. A 6 mm nonobstructing left lower pole renal stone.
== END 2022-07-20 08:49 | disposition home or self-care (01) ==
LOC: HO.US 08:48
PROVIDERS: PCP Family Medicine; Visit Provider Family Medicine
DX: K76.0 Fatty (change of) liver, not elsewhere classified (principal)
CPT/HCPCS: 76700

== ENCOUNTER → 2022-07-22 08:32 | Outpatient (BNVA) | payer MEDICAID, SELFPAY | PROVIDERS: PCP Family Medicine; Visit Provider Orthopaedic Surgery | DX: M79.641 Pain in right hand (principal); M65.9 Synovitis and tenosynovitis, unspecified | CPT/HCPCS: 99212 ==

== ENCOUNTER 2022-08-06 05:47 | Day surgery (SDC) | payer MEDICAID, SELFPAY ==
[2022-08-04 10:05] VITALS: BMI 38.3
--- NOTE | 2022-08-05 08:25 | HO.ANESPROP2 ---
Documented by User: Virginia Gary NP 08/05/22 12:24 HPI - Anesthesia Eval Consult details Narrative: 61yo F for Right I&D middle finger Telephone eval 08/05/22 - Pt states pulmo status at baseline. Denies chest pain with minimal activity, only with cough. No obvious SOB during phone call. Able to speak in complete sentences. COPD - follows [facility] [place] Pulmo - Last seen 04/2022 with [facility], prednisone rx. Continues to smoke. Follows [facility] cardiology. Per 11/2021 eval, unlikely chest pain is r/t CAD. Musculoskeletal component. Cardiopulm stress pending (pt scheduled 01/2022 but equipment issue). Case reviewed with Dr Akhtar. [facility] Active Problems Active Problems: All Active Problems (Updated 08/04/22 @ 10:09 by Sally Suarez RN) HARI positive (Acute) COPD (chronic obstructive pulmonary disease) (Acute) DANDRE (obstructive sleep apnea) (Acute) Cough (Acute) Dyspnea on exertion (Acute) Requires supplemental oxygen (Acute) Right hand pain (Acute) Bilateral hip bursitis (Acute) Bilateral primary osteoarthritis of hip (Acute) Swelling of right hand (Acute) Flexor tenosynovitis of finger (Acute) Past Medical History Medical History (Updated 08/06/22 @ 06:07 by Janet Carney RN) Asthma Costochondritis Depression Diabetes Dyslipidemia GERD (gastroesophageal reflux disease) History of salivary gland disease Hx of sleep apnea Hypertension Family History Family History Mother HTN (hypertension) Maternal Grandfather HTN (hypertension) Son HTN (hypertension) Diabetes Father Diabetes Surgical History Surgical History (Updated 08/06/22 @ 06:05 by Janet Carney RN) History of carpal tunnel release History of lung surgery History of surgery on arm Hx of arthroscopy of left knee Hx of cholecystectomy Hx of elbow surgery S/P left rotator cuff repair Social History Social History Household Members: Children Housing: House Alcohol intake: never Patient Tobacco Use Status: Current everyday Tobacco user Tobacco use type: Cigarette Cigarettes Per Day: 13 Years Smoked: 40 Use of substances other than those prescribed or required for medical reasons: No Are you DNR?: No Advance Directives: No Advance Directives Information Provided: Yes Meds Allergies Allergy/AdvReac Type Severity Reaction Status Date / Time morphine [MORPHINE] Allergy Unknown HIVES AND Verified 08/06/22 06:18 RASH, hives Home Medications Medication Instructions Recorded Confirmed Last Taken Type albuterol sulfate 90 mcg/actuation 2 puff inhalation Q6H PRN 07/25/20 08/06/22 Unknown History aerosol inhaler Shortness Of Breath Or Wheezing aspirin 81 mg tablet,delayed 81 mg PO DAILY 07/25/20 08/06/22 07/30/22 History release atorvastatin 20 mg tablet 20 mg PO DAILY 07/25/20 08/06/22 Unknown History loratadine 10 mg tablet (Allergy 10 mg PO DAILY 07/25/20 08/06/22 Unknown History Relief (loratadine)) pantoprazole 40 mg tablet,delayed 40 mg PO DAILY 07/25/20 08/06/22 Unknown History release acetaminophen 325 mg capsule 325 mg PO QID PRN Pain 02/09/22 08/06/22 Unknown History cyclobenzaprine 15 mg 15 mg PO BEDTIME PRN Muscle Spasm 02/09/22 08/06/22 Unknown History capsule,extended release 24 hr oxycodone 5 mg capsule 5 mg PO BID PRN Pain 02/09/22 08/06/22 Unknown History docusate sodium 100 mg capsule 100 mg PO BID PRN Constipation 08/06/22 08/06/22 Unknown History fluticasone propionate 50 2 spray intranasal DAILY 08/06/22 08/06/22 Unknown History mcg/actuation nasal spray,suspension hydralazine 50 mg tablet 75 mg PO 08/06/22 Unknown History hydrochlorothiazide 12.5 mg tablet 12.5 mg PO QAM 08/06/22 08/06/22 Unknown History lisinopril 40 mg tablet 40 mg PO BEDTIME 08/06/22 08/06/22 Unknown History metformin 500 mg tablet,extended 500 mg PO QPM 08/06/22 08/06/22 Unknown History release 24 hr zolpidem 10 mg tablet 10 mg PO BEDTIME insomnia 08/06/22 08/06/22 Unknown History Exam Exam Date and Time: August 05, 2022 0825 Height,Weight and Vital Signs: Height 5 ft 5 in Weight 104.326 kg Narrative Narrative: EKG 11/2021 NSR Poor R wave progression ECHO 07/2021 LV poorly visualized. LV size is nml. LV wall thickness moderately increased. LV systolic function appears low nml. Cannot assess LVEF d/t poor image quality. No /AR RV poorly visualized. RV nml in size/ RV systolic function is nml. Assessment and Plan Assessment Anesthesia Assessment: Chart Reviewed Documented by User: Yvette Aly MD 08/06/22 08:24 PMFSH Past Medical History Medical History (Updated 08/06/22 @ 06:07 by Janet Carney, RN) Asthma Costochondritis Depression Diabetes Dyslipidemia GERD (gastroesophageal reflux disease) History of salivary gland disease Hx of sleep apnea Hypertension Family History Family History Mother HTN (hypertension) Maternal Grandfather HTN (hypertension) Son HTN (hypertension) Diabetes Father Diabetes Family history of problems with anesthesia: No Surgical History Surgical History (Updated 08/06/22 @ 06:05 by Janet Carney RN) History of carpal tunnel release History of lung surgery History of surgery on arm Hx of arthroscopy of left knee Hx of cholecystectomy Hx of elbow surgery S/P left rotator cuff repair History of Problems with Anesthesia: No Social History Social History Household Members: Children Housing: House Alcohol intake: never Patient Tobacco Use Status: Current everyday Tobacco user Tobacco use type: Cigarette Cigarettes Per Day: 13 Years Smoked: 40 Use of substances other than those prescribed or required for medical reasons: No Are you DNR?: No Advance Directives: No Advance Directives Information Provided: Yes Meds Allergies Allergy/AdvReac Type Severity Reaction Status Date / Time morphine [MORPHINE] Allergy Unknown HIVES AND Verified 08/06/22 06:18 RASH, hives Home Medications Medication Instructions Recorded Confirmed Last Taken Type albuterol sulfate 90 mcg/actuation 2 puff inhalation Q6H PRN 07/25/20 08/06/22 Unknown History aerosol inhaler Shortness Of Breath Or Wheezing aspirin 81 mg tablet,delayed 81 mg PO DAILY 07/25/20 08/06/22 07/30/22 History release atorvastatin 20 mg tablet 20 mg PO DAILY 07/25/20 08/06/22 Unknown History loratadine 10 mg tablet (Allergy 10 mg PO DAILY 07/25/20 08/06/22 Unknown History Relief (loratadine)) pantoprazole 40 mg tablet,delayed 40 mg PO DAILY 07/25/20 08/06/22 Unknown History release acetaminophen 325 mg capsule 325 mg PO QID PRN Pain 02/09/22 08/06/22 Unknown History cyclobenzaprine 15 mg 15 mg PO BEDTIME PRN Muscle Spasm 02/09/22 08/06/22 Unknown History capsule,extended release 24 hr oxycodone 5 mg capsule 5 mg PO BID PRN Pain 02/09/22 08/06/22 Unknown History docusate sodium 100 mg capsule 100 mg PO BID PRN Constipation 08/06/22 08/06/22 Unknown History fluticasone propionate 50 2 spray intranasal DAILY 08/06/22 08/06/22 Unknown History mcg/actuation nasal spray,suspension hydralazine 50 mg tablet 75 mg PO 08/06/22 Unknown History hydrochlorothiazide 12.5 mg tablet 12.5 mg PO QAM 08/06/22 08/06/22 Unknown History lisinopril 40 mg tablet 40 mg PO BEDTIME 08/06/22 08/06/22 Unknown History metformin 500 mg tablet,extended 500 mg PO QPM 08/06/22 08/06/22 Unknown History release 24 hr zolpidem 10 mg tablet 10 mg PO BEDTIME insomnia 08/06/22 08/06/22 Unknown History Exam Airway Mallampati Class: II TM Dist: >3cm Neck ROM: Limited Heart: rrr Lungs: cta dim sounds Assessment and Plan Assessment Anesthesia Assessment: Anesthesia Plan Discussed and Smoking Cess. Discussed Final Anesthetic Review Family History of Problems with Anesthesia: No History of Problems with Anesthesia: No ASA Class: III Final Preanesthetic Review: No Changes in Pt Med Stat, Meds/Allgs Chart Reviewed, Consent Obtained/Reviewed and Anes Risks/Benef Reviewed Patient Risk: Intermediate Procedure Risk: Low Anesthetic Plan Anesthetic Plan: GA Disposition: Standard PACU
[2022-08-06] VITALS (10 sets, daily range): BP systolic 130–158; BP diastolic 71–97; PULSE 71–86; RESP 14–20; TEMP 36.2–36.4; O2SAT 93–97; BMI 35.6
[2022-08-06] MEDS: Lactated Ringers 1,000 ML 100 ML IVCONT (06:44)
[2022-08-06 06:50] LABS: Glucose, Whole Blood 125 mg/dL (60-115)
--- NOTE | 2022-08-06 07:57 | P.OP_ITS ---
Operative Note Operative Note Date of Service: 08/06/22 Narrative: Operative Note Narrative: Preop diagnosis: 1. Right middle finger flexor tenosynovitis, chronic 2. Right middle finger MCP joint synovitis Postop diagnosis: Same Procedure: 1. Right middle finger flexor tenosynovectomy of FDP and FDS tendons 2. Right middle finger MCP joint synovectomy Surgeon: Larisa Collins MD Anesthesia: General Anesthesia Findings: Barker-yellow soft tissue and more pigmented vascular looking soft tissue about the FDP and FDS tendons within the flexor tendon sheath of the right middle finger extending from the A1 sandy distally to distal to the A4 sandy. Tendons themselves appear to be in good condition. The tissue push through the proximal half of the A2 sandy, however the distal half of the A2 sandy was intact. A4 sandy also intact. Small amount of barker colored tissue also removed from right middle finger MCP joint Implants: None Tourniquet time: Tourniquet time 1. Sixty-three minutes, tourniquet time 2. 10 minutes for total of 73 minute tourniquet time with about 10 minutes of down time in between EBL: 5.0 ml Specimen: From the right middle finger flexor tendon sheath I sent a swab for routine culture of fluid. I also sent soft tissue specimens for AFB and fungus, anaerobic cultures, and then another specimen for histopathology. From the right 3rd MCP joint I sent a small amount of tissue for AFB and fungus. Drains: None Complications: None Disposition: Brought to the recovery room in stable condition Plan: Follow-up in about 5-10 days for wound check, suture removal and to check pathology and cultures She will in all likelihood need a consult with Infectious Disease, as I believe this is a good chance this is a mycobacterial infection. Early OT for range of motion if she is not moving her hand early on. Indications: The patient is a 61 year old woman with 6 months of swelling in her right middle finger and MCP joint . The risks and benefits of operative treatment, including but not limited to risk of damage to blood vessels, nerves, tendons, infection, recurrence, persistent pain or numbness, incomplete resolution of preoperative symptoms, or need for further surgery were discussed with the patient and they wished to proceed with surgery. Procedure: Once consent was obtained patient was brought back to the operating suite and placed in the operating table in a supine position. . Perioperative antibiotics and anesthesia was administered by the anesthesia team. A tourniquet was applied to the proximal aspect of the right upper extremity and the limb was prepped and draped in a standard surgical fashion. The limb was elevated exsanguinated with Esmarch bandage and the tourniquet inflated to 250 mm of mercury for a total tourniquet time of 73 minutes. A Zoey site incision was made over the volar aspect of the right middle finger extending from the A1 sandy to the middle phalanx. Incision was made through the skin the subcutaneous tissues using 15. Blade. I then dissected do wn to the level of the flexor sheath over the A1 sandy. The A1 sandy and tendon sheath were rather distended from the soft tissue growing within the flexor tendon sheath. Routine swab cultures were taken of the fluid from within the tendon sheath. Tannish pink tissue appeared to be pushing out from within the flexor tendon sheath along the course of the flexor tendon sheath extending distal to the A4 sandy from the A1 sandy. I began my flexor tenosynovectomy removing barker and pink soft tissue from about the FDP tendon and the FDS tendon. The tissue was placed on the back table to be sent for histopathology and then also for anaerobic and then AFB and fungal cultures. The proximal aspect of the A2 sandy was violated with this soft tissue pushing through that part of the A2 sandy. However the distal half of the A2 sandy appear to be intact. The A4 sandy was intact. Once our tenosynovectomy was complete the wound and flexor tendon sheath were copiously irrigated with normal saline. The tourniquet was deflated for 1st her to get time of 63 minutes. About 10 minutes later the tourniquet was reinflated. My tension was then turned to the dorsal aspect of the hand. I made a 2 cm slightly curved longitudinally oriented incision over the dorsal aspect of the 3rd MCP joint. I only opened a small amount of the sagittal band to allowed me to enter the dorsal aspect of the MCP joint. I obtained a small amount of inflamed synovial tissue this was removed and placed on the back table to be sent for AFB and fungal cultures. I was glad to see that there was not abundant inflamed synovial more tissue within the joint. The tourniquet was then deflated for a 2nd tourniquet time of 10 minutes and total tourniquet time of 73. Hemostasis obtained with a brief period of local pressure and bipolar electrocautery. The wounds were copiously irrigated with normal saline. The skin edges were reapproximated with 5-0 nylon suture. A carpal tunnel block had been performed by infiltrating at the carpal tunnel with 0.5% ropivacaine for intraoperative pain control. I then also infiltrated both wounds with 0.5% ropivacaine for postop pain control . A sterile dressing and volar splint holding the MCP joints in flexion was applied. The patient appears to have tolerated the procedure well and with no complications. All digits were well vascularized conclusion of the case.
--- NOTE | 2022-08-06 07:57 | MHC.SHP ---
Pre-Procedural Eval Section A Date of Service: 08/06/22 The patient is an INPATIENT: No Changes since office visit: No Cold of Flu in the past 2 weeks, No New Medical Problems, No Changes in Medication and No Patient answered all questions The History & Physical has been completed within 30 days and I have reviewed it.: Yes Section B Chief Complaint: Synovitis and tenosynovitis, unspecified Allergies: Allergies Allergy/AdvReac Type Severity Reaction Status Date / Time morphine [MORPHINE] Allergy Unknown HIVES AND Verified 08/06/22 06:18 RASH, hives Plan I have reviewed the history and physical and performed a pertinent physical examination on my patient. No changes have occurred unless specified. Time Spent With Patient Time: Total time managing care of this patient today ____ minutes.
[2022-08-06] MEDS: oxyCODONE HCl Immed Release 5 MG TABLET PO (11:09)
[2022-08-06] MEDS: fentaNYL citrate/PF 100 MCG/2 ML VIAL 25 MCG IVPUSH (11:11)
== END 2022-08-06 12:20 | disposition home or self-care (01) ==
PROVIDERS: PCP Family Medicine; Visit Provider Orthopaedic Surgery
PROC: (CPT 26145; principal; 2022-08-06 07:30)
DX: M65.841 Other synovitis and tenosynovitis, right hand (principal); M79.641 Pain in right hand; F32.A Depression, unspecified; E78.5 Hyperlipidemia, unspecified; I10 Essential (primary) hypertension; E11.9 Type 2 diabetes mellitus without complications; G47.33 Obstructive sleep apnea (adult) (pediatric); J44.9 Chronic obstructive pulmonary disease, unspecified; Z79.82 Long term (current) use of aspirin; Z79.84 Long term (current) use of oral hypoglycemic drugs; Z79.51 Long term (current) use of inhaled steroids; Z79.899 Other long term (current) drug therapy; Z99.81 Dependence on supplemental oxygen; F17.210 Nicotine dependence, cigarettes, uncomplicated; Z88.8 Allergy status to other drugs, medicaments and biological substances; Z98.890 Other specified postprocedural states
CPT/HCPCS: 26145 ×2; 26135; 82947; 87070; 87073; 87102; 87116; 87205; 87206; 88304; J0171; J0690; J1100; J2370; J2405; J2795; J3010

== ENCOUNTER → 2022-08-12 09:14 | Outpatient (BNVA) | payer MEDICAID, SELFPAY | PROVIDERS: PCP Family Medicine; Visit Provider Orthopaedic Surgery | DX: M25.641 Stiffness of right hand, not elsewhere classified (principal); M65.9 Synovitis and tenosynovitis, unspecified; R76.8 Other specified abnormal immunological findings in serum | CPT/HCPCS: 99212 ==

== ENCOUNTER → 2022-08-19 09:25 | Outpatient (BNVA) | payer MEDICAID, SELFPAY | PROVIDERS: PCP Family Medicine; Visit Provider Orthopaedic Surgery | DX: M25.641 Stiffness of right hand, not elsewhere classified (principal); M65.9 Synovitis and tenosynovitis, unspecified; R76.8 Other specified abnormal immunological findings in serum | CPT/HCPCS: 99212 ==

== ENCOUNTER 2022-08-21 11:07 | Outpatient (REF) | payer MEDICAID, SELFPAY ==
--- NOTE | ~2022-08-21 | XR_ITS ---
EXAMINATION: XR knee standing BI, XR knee LT 2V CLINICAL INFORMATION: Female of 61 years with history of Pain in left knee COMPARISON: Most recent left knee radiograph: 07/21/2017 TECHNIQUE: Four views of the left knee. . FINDINGS: Weightbearing view of both knees revealed mild narrowing of medial compartment of left knee joint with minimal valgus deformity. There is mild marginal spurring of the medial tibial plateau and medial femoral condyle. There is faint chondrocalcinosis in the medial compartment of right knee joint and less prominent left knee joint due to CPPD arthropathy. There is area of diffuse sclerosis in the medial aspect of the left tibial metaphysis. XR/XR knee LT 2V IMPRESSION: Degenerative changes in the medial compartment of left knee joint and CPPD arthropathy. Area of sclerosis in the medial aspect of the tibial metaphysis.
--- NOTE | ~2022-08-21 | XR_ITS ---
EXAMINATION: XR knee standing BI, XR knee LT 2V CLINICAL INFORMATION: Female of 61 years with history of Pain in left knee COMPARISON: Most recent left knee radiograph: 07/21/2017 TECHNIQUE: Four views of the left knee. . FINDINGS: Weightbearing view of both knees revealed mild narrowing of medial compartment of left knee joint with minimal valgus deformity. There is mild marginal spurring of the medial tibial plateau and medial femoral condyle. There is faint chondrocalcinosis in the medial compartment of right knee joint and less prominent left knee joint due to CPPD arthropathy. There is area of diffuse sclerosis in the medial aspect of the left tibial metaphysis. XR/XR knee standing BI IMPRESSION: Degenerative changes in the medial compartment of left knee joint and CPPD arthropathy. Area of sclerosis in the medial aspect of the tibial metaphysis.
== END 2022-08-21 11:08 | disposition home or self-care (01) ==
LOC: HO.HOSX 11:07
PROVIDERS: PCP Family Medicine; Visit Provider Orthopaedic Surgery
DX: M17.12 Unilateral primary osteoarthritis, left knee (principal); M25.462 Effusion, left knee; E11.9 Type 2 diabetes mellitus without complications; Z98.890 Other specified postprocedural states
CPT/HCPCS: 20610; 73560; 73565; 99212; J1100

== ENCOUNTER → 2022-08-28 10:49 | Outpatient (BNVA) | payer MEDICAID, SELFPAY | PROVIDERS: PCP Family Medicine; Visit Provider Internal Medicine | DX: M25.641 Stiffness of right hand, not elsewhere classified (principal) | CPT/HCPCS: 99202 ==

== ENCOUNTER 2022-09-03 09:47 | Outpatient (REF) | payer MEDICAID, SELFPAY ==
--- NOTE | ~2022-09-03 | MM_ITS ---
EXAMINATION: MM SCREENING DIGITAL BREAST TOMOSYNTHESIS, BILATERAL CLINICAL INFORMATION: Screening. Asymptomatic. The lifetime risk of breast cancer based on the Tyrer-Cuzick Model is 4%. COMPARISON: Mammography: 06/12/2021, 04/20/2018, 04/07/2017 TECHNIQUE: Digital breast tomosynthesis is performed in both the craniocaudal and mediolateral oblique views along with computer-aided detection (CAD). Synthesized 2D images are generated from the tomosynthesis. FINDINGS: There are scattered areas of fibroglandular density (ACR BI-RADS breast composition Category b). Breast tissue composition borders on predominantly fatty. No developing density or architectural abnormality. There are no significant masses, abnormal calcifications, or other abnormalities. There is minor deodorant artifact high right axilla on MLO view. The axilla and skin contours are unremarkable. No significant changes. MM/MM tomosynthesis screening BI IMPRESSION: No mammographic evidence of malignancy. ASSESSMENT: BI-RADS 2: Benign RECOMMENDATION: Routine annual mammography screening. This patient's information was entered into a reminder system with a target due date for their next mammogram.
== END 2022-09-03 09:48 | disposition home or self-care (01) ==
LOC: HO.MAMMO 09:47
PROVIDERS: PCP Family Medicine; Visit Provider Family Medicine
DX: Z12.31 Encounter for screening mammogram for malignant neoplasm of breast (principal)
CPT/HCPCS: 77063; 77067

== ENCOUNTER 2022-09-09 08:29 | Outpatient (REF) | payer MEDICAID, SELFPAY ==
--- NOTE | ~2022-09-09 | XR_ITS ---
EXAMINATION: XR HAND, RIGHT CLINICAL INFORMATION: Pain in right hand COMPARISON: X-rays of the right hand May 2022 and February 2016 TECHNIQUE: PA, lateral, and oblique views of the right hand. FINDINGS: Focal area of calcification or ossification along the ulnar carpal articulation unchanged dating back to 2015. Bones joints and soft tissues are unremarkable. XR/XR hand RT min 3V IMPRESSION: Stable focal calcification/ossification along the ulnar aspect of the wrist unchanged perhaps reflecting a small ossicle or old trauma No new or acute abnormality
== END 2022-09-09 08:30 | disposition home or self-care (01) ==
LOC: HO.HOSX 08:29
PROVIDERS: Visit Provider Orthopaedic Surgery
DX: M79.641 Pain in right hand (principal); M25.641 Stiffness of right hand, not elsewhere classified; M65.9 Synovitis and tenosynovitis, unspecified; R76.8 Other specified abnormal immunological findings in serum
CPT/HCPCS: 73130; 99212

== ENCOUNTER 2022-10-06 10:30 | Outpatient (RCR) | payer MEDICAID, SELFPAY ==
--- NOTE | 2022-09-03 16:31 | MHC.OT.EP ---
[address] [phone] Occupational Therapy Plan of Care Patient Name: Daly Neal Date of Evaluation: 09/03/22 Diagnosis: s/p R middle finger flexor tenosynovectomy s/p R middle finger MCP joint synovectomy Pain Location: Pain right dorsal hand and middle finger Current: 6/10 Best: 2/10 with medication Worst: 6/10 Pain Score: 6 Pain Scale Used: Numeric (0 - 10) Aggravating Factors: Grasp, full flex/ext of middle finger Alleviating Factors: Pain medication Heat, stretching, massage Assessment: Pt is a 61 y/o female w/ history of trigger finger surgery in 2017. Pt with ongoing pain and swelling in right middle finger, dorsal hand edema, and decreased joint ROM. Pt. underwent R middle finger MCP joint synovectomy and flexor tenosynovectomy on 08/06/[address] Collins. Pt reports she was unable to follow up sooner with OT following the surgery. She has been doing exercises on her own and has been experiencing stiffness, swelling, and pain in her right middle finger. A 54.5% limitation is reported per the Quick DASH assessment. Daly would benefit from skilled OT services to address noted barriers and assist in return to PLOF. Frequency and Duration: The patient will be seen 2x/wk for 6 weeks Short Term Goals: Decrease right hand pain >3/10 with functional activity IND with thermal modalities for pain management IND with scar massage and HEP Improve R middle finger MP/PIP flex by 10 degrees each Usp Goals: Pain free with ADL/IADL's Improve D3 AROM to be able to make full composite fist IND with progression of HEP Improve R gross grasp by 5# Quick DASH < 25% Treatment Plan: Therapeutic Exercise Therapeutic Activity Home Exercise Program Splinting Patient Education Edema Control Ultrasound Iontophoresis Paraffin Fluidotherapy MHP Joint Mobilization Soft Tissue Mobilization Kinesiotaping Electronically Signed By: Netta Urbano MS OTR/L Please Sign and return to therapist. Thank you once again for your referral.
--- NOTE | 2022-10-06 11:44 | MHC.OT.DC ---
[address] [phone] F: [phone] Occupational Therapy Discharge Note Patient Name: Daly Neal Provider: Larisa Collins Diagnosis: s/p R middle finger flexor tenosynovectomy s/p R middle finger MCP joint synovectomy Date of Surgery: 08/06/22 Date of Evaluation: 09/03/22 Date of Discharge: 10/06/22 Treatments to Date: 7 Discharge Status: Achieved Goals Improved Function Independent with HEP Discharge Summary: Daly has progressed well in OT. Improved edema of dorsal hand today. Pt with less pain and increased ease of movement. Veneer Drier Tailer strength improved to 25# bilaterally. Daly is able to make a full composite fist with ease and reports pain free at rest, slight pain with consistent use. At this time, pt. demonstrates good understanding of HEP and is in agreement with discharge. Electronically Signed By: Netta Urbano, MS OTR/L Reviewed/agree with student documentation: Therapist: Please Sign and return to therapist, thank you for your referral.
== END 2022-10-06 11:45 | disposition home or self-care (01) ==
LOC: HO.OT 10:30
PROVIDERS: PCP Family Medicine; Visit Provider Orthopaedic Surgery
DX: M25.641 Stiffness of right hand, not elsewhere classified (principal)
CPT/HCPCS: 97033; 97035; 97110; 97165

== ENCOUNTER 2022-10-27 13:49 | Outpatient (AMB) | payer MEDICAID, SELFPAY ==
--- NOTE | 2022-10-27 13:55 | A.OFFVIS_ITS ---
Intake Intake Visit Reasons: OV- RT MF I&D ROM check, 08/06/22 Intake Note: Daly 61 yr old female presents today for her P/O visit of her right MF I&D ROM check, 08/06/22. Patient states that she has completed OT and has had a little improvement with closing her fist. Allergies morphine [MORPHINE] Allergy (Unknown, Verified 10/27/22 13:57) HIVES AND RASH, hives HPI OV- RT MF I&D ROM check, 08/06/22 HPI Details Daly is a 61 year old right hand dominant woman who presents S/P Right middle finger flexor tenosynovectomy of FDP and FDS tendons & MCP joint synovectomy, DOS: 08/06/22.? She has completed OT and says she had some improvement in making a fist She continues to have pain and swelling mostly in her MCP joints, worse in the mornings. She is happy that her ROM has improved and her swelling is better overall however. As per her OT discharge note form 10/06/22 Improved edema of dorsal hand today. Pt with less pain and increased ease of movement. Consulting Solution Manager strength improved to 25# bilaterally. Daly is able to make a full composite fist with ease and reports pain free at rest, slight pain with consistent use. At this time, pt. demonstrates good understanding of HEP and is in agreement with discharge. She has polyarthralgia and is HARI positive. She complains of pain in her left shoulder, and says she had a shoulder in ~2003 at an outside clinic. [facility] Medical History Asthma Costochondritis Depression Diabetes Dyslipidemia GERD (gastroesophageal reflux disease) History of salivary gland disease Hx of sleep apnea Hypertension Surgical History History of carpal tunnel release History of lung surgery History of surgery on arm Hx of arthroscopy of left knee Hx of cholecystectomy Hx of elbow surgery S/P left rotator cuff repair Family History Mother HTN (hypertension) Maternal Grandfather HTN (hypertension) Son HTN (hypertension) Diabetes Father Diabetes Social History Household Members: Children Housing: House Alcohol intake: never Patient Tobacco Use Status: Current everyday Tobacco user Tobacco use type: Cigarette Cigarettes Per Day: 13 Years Smoked: 40 Physical Exam Const General: no acute distress and alert Orientation/consciousness: patient oriented x3 Neuro General: patient oriented x3 Extrem Other: The patient was alert oriented and in no acute distress She could actively bring her middle finger down to touch her thenar mass When her thenar mass is moved out of the way, she can bring her finger ~1cm from her palm actively Passively her fingertip can be brought down to touch her palm She has good wrinkles on the dorsum of her middle finger Her middle finger swelling has resolved. Her middle finger actually looks like it is normal, and this is the best it has looked since I have met her. All incisions well healed with no evidence of infection She has a well-healed longitudinal scar measuring ~7cm along the distal ulnar shaft She has a well-healed scar from a carpal tunnel surgery and middle trigger finger release. Pathology from 08/06/22: Diagnosis Flexor tendon sheath, right middle finger, excision:? Tenosynovium with chronic inflammation, focal myxoid degeneration, and fibrin. Microbiology from 08/06/22 AFB cultures negative AFB smear was negative All other cultures negative for any growth Psych Appearance: grossly normal Affect: normal affect Attitude: cooperative Assessment & Plan Assessment & Plan (1) Stiffness of right hand joint: Comment: Do not see infection evidence at this time Possible gout or other Follow with Orthopedics Code(s): M25.641 - Stiffness of right hand, not elsewhere classified (2) Flexor tenosynovitis of finger: Code(s): M65.9 - Synovitis and tenosynovitis, unspecified (3) HARI positive: Code(s): R76.8 - Other specified abnormal immunological findings in serum Plan Assessment & Plan: 1. Right middle finger flexor tenosynovitis, worrisome for possible my cobacterial infection No growth from any cultures 2. Right middle finger MCP joint synovitis S/P flexor tenosynovectomy of FDP and FDS tendons & MCP joint synovectomy DOS: 08/06/22 The patient appears to be doing well post-operatively Her swelling has almost completely resolved and she has significantly improved her ROM All cultures are negative for any infection, including AFB culture & smear I discussed activity modifications, she is to continue to work on ROM exercises at home I again stressed the importance of working on ROM She can follow up prn She has some left shoulder and arm pain, and would like to see Dr. Gipson for this problem She will make an appointment with him on her way out. Scribed for Larisa Collins MD by Meir Crane, medical services manager, on 10/27/22 at 2:10 PM, EST. Coding Level of Care Code Est Pt Level 3 (46553) Diagnoses Stiffness of right hand joint M25.641 Flexor tenosynovitis of finger M65.9 HARI positive R76.8
== END 2022-10-27 14:20 | disposition home or self-care (01) ==
PROVIDERS: PCP Family Medicine; Visit Provider Orthopaedic Surgery
DX: M25.641 Stiffness of right hand, not elsewhere classified (principal); M65.9 Synovitis and tenosynovitis, unspecified; R76.8 Other specified abnormal immunological findings in serum
CPT/HCPCS: 99024

== ENCOUNTER → 2022-10-27 13:49 | Outpatient (BNVA) | payer MEDICAID, SELFPAY | PROVIDERS: PCP Family Medicine; Visit Provider Orthopaedic Surgery ==

== ENCOUNTER 2022-10-29 09:53 | Outpatient (AMB) | payer MEDICAID, SELFPAY ==
[2022-10-29 10:12] VITALS: BP 178/102; PULSE 71; O2SAT 97
--- NOTE | 2022-10-29 10:12 | MHC.OFFVIS ---
Intake Vital Signs 10/29/22 10:12 Weight 214 lb 15.211 oz BP 178/102 H Blood Pressure Location Lt brachial Position Sitting Pulse 71 Pulse Source Pulse Oximeter Pulse Oximetry (%) 97 Oxygen Delivery Method Room Air Intake Visit Reasons: COPD Allergies morphine [MORPHINE] Allergy (Unknown, Verified 10/29/22 10:15) HIVES AND RASH, hives Medication List - Last Reconciled 10/29/22 by Vera Matthews LPN acetaminophen 325 mg PO QID PRN albuterol sulfate 90 mcg/actuation 2 puffs inhalation Q6H PRN aspirin 81 mg PO DAILY budesonide-formoterol 160-4.5 mcg/actuation (Symbicort) 2 puffs inhalation BID cyclobenzaprine ER 15 mg PO BEDTIME PRN docusate sodium 100 mg PO BID PRN fluticasone propionate 50 mcg/actuation 2 sprays intranasal DAILY hydralazine 75 mg PO hydrochlorothiazide 12.5 mg PO QAM lisinopril 40 mg PO BEDTIME loratadine (Allergy Relief (loratadine)) 10 mg PO DAILY metformin ER 500 mg PO QPM oxycodone 5 mg PO BID PRN oxycodone-acetaminophen 5-325 mg 1 - 2 tabs PO Q6H PRN zolpidem 10 mg PO BEDTIME HPI COPD HPI Details 61-year-old lady, active 45 pack-years+ smoker, status post left lower lobectomy in July of 2019 for growing pulmonary nodule (atypical adenomatous hyperplasia), followed for moderate COPD and obstructive sleep apnea. ? Patient continues to have significant cough, only control by systemic glucocorticoids.? Her CT chest showed no evidence of underlying interstitial lung disease.? She also complains of dyspnea on exertion after walking 1 block.? She continues to follow-up with her cardiology at [facility].? She has been using BrezTri, Spiriva, Flovent, and albuterol MDI with reasonable baseline control his symptoms.? Today she complains of bronchitic exacerbation with worsening productive cough. ? [facility] Medical History Asthma Costochondritis Depression Diabetes Dyslipidemia GERD (gastroesophageal reflux disease) History of salivary gland disease Hx of sleep apnea Hypertension Surgical History History of carpal tunnel release History of lung surgery History of surgery on arm Hx of arthroscopy of left knee Hx of cholecystectomy Hx of elbow surgery S/P left rotator cuff repair Family History Mother HTN (hypertension) Maternal Grandfather HTN (hypertension) Son HTN (hypertension) Diabetes Father Diabetes Social History Household Members: Children Housing: House Alcohol intake: never Patient Tobacco Use Status: Current everyday Tobacco user Tobacco use type: Cigarette Cigarettes Per Day: 13 Years Smoked: 40 Review of Systems Const Denies daytime sleepiness, Denies excessive sweating, Denies fatigue, Denies fever(s), Denies lethargy, Denies malaise, Denies night sweats, Denies snoring and Denies weight loss Eyes Denies blurry vision and Denies itchy eyes ENT Denies nasal congestion, Denies post nasal drip, Denies sinus pain, Denies sinus pressure and Denies other ( Thrush) Card Denies chest pain, Denies pedal edema, Denies dyspnea, Reports dyspnea on exertion, Denies orthopnea and Denies paroxysmal nocturnal dyspnea Resp Reports cough, Denies hemoptysis, Reports excessive phlegm production, Denies dyspnea, Reports dyspnea on exertion, Denies snoring and Denies wheezing GI Denies abdominal pain and Denies heartburn Musc Denies myalgias, Denies arthralgias and Denies joint swelling Skin/Breast Denies rash Neuro Denies memory loss and Denies seizure-like activity Psych Denies abnormal sleep pattern, Denies anxiety and Denies memory loss Endo Denies excessive sweating, Denies fatigue and Denies heat intolerance Simba/Lymph Denies easy bruising Aller/Immun Denies itchy eyes, Denies seasonal rhinorrhea and Denies wheezing Physical Exam Vital Signs: Last Vital Signs Pulse 71 10/29/22 10:12 BP 178/102 H 10/29/22 10:12 Pulse Ox 97 10/29/22 10:12 Oxygen Delivery Method Room Air 10/29/22 10:12 Const General: no acute distress and alert Nutritional Appearance: not obese Orientation/consciousness: Other orientation findings ( oriented) HEENT Head: Yes atraumatic Eyes General: appearance normal, both eyes and all related structures Sclerae: sclerae normal EOM: EOMs intact bilaterally Neck Neck: Yes supple Lymphatic: no lymphadenopathy noted Resp Effort & Inspection: normal respiratory effort and no use of accessory muscles Auscultation: rales bilateral Cardio Rate: regular rate Rhythm: regular rhythm Heart sounds: no gallops, no murmurs and no rubs Skin General skin exam: other ( warm) Extrem General: No clubbing, No cyanosis and No edema Assessment & Plan Assessment & Plan (1) COPD (chronic obstructive pulmonary disease): Code(s): J44.9 - Chronic obstructive pulmonary disease, unspecified Plan: reasonable baseline control on BrezTri, duo nebs, and albuterol MDI. Continue current regimen. (2) Acute bronchitis: Code(s): J20.9 - Acute bronchitis, unspecified Plan: Now with an acute exacerbation, will treat with a course of levofloxacin. Medications: New levofloxacin 750 mg PO DAILY 7 tabs 0RF Coding Level of Care Code Est Pt Level 4 (74185) Diagnoses COPD (chronic obstructive pulmonary disease) J44.9 Acute bronchitis J20.9
== END 2022-10-29 10:44 | disposition home or self-care (01) ==
PROVIDERS: PCP Family Medicine; Visit Provider Internal Medicine Pulmonary Disease
DX: J44.9 Chronic obstructive pulmonary disease, unspecified (principal); J20.9 Acute bronchitis, unspecified
CPT/HCPCS: 99214

== ENCOUNTER → 2022-10-29 09:53 | Outpatient (BNVA) | payer MEDICAID, SELFPAY | PROVIDERS: PCP Family Medicine; Visit Provider Internal Medicine Pulmonary Disease | DX: J44.9 Chronic obstructive pulmonary disease, unspecified (principal); J20.9 Acute bronchitis, unspecified; Z79.899 Other long term (current) drug therapy | CPT/HCPCS: 99212 ==

== ENCOUNTER 2022-12-16 17:39 | Outpatient (REF) | payer MEDICAID, SELFPAY | END 2022-12-16 17:40 | disposition home or self-care (01) | LOC: HO.HHCLNP 17:39 | PROVIDERS: Visit Provider Family Medicine | DX: L98.9 Disorder of the skin and subcutaneous tissue, unspecified (principal); N39.45 Continuous leakage | CPT/HCPCS: 36415; 81513; 87086; 87255 ==

== ENCOUNTER 2023-02-02 10:59 | Outpatient (AMB) | payer MEDICAID, SELFPAY ==
--- NOTE | 2023-02-02 11:13 | MHC.OFFVIS ---
Intake Vital Signs 02/02/23 11:25 Weight 214 lb Intake Visit Reasons: OV- RT MF I&D ROM check 08/06/22 Intake Note: Daly 61 yr old female presents today for her follow up visit for her S/P right MF I&D ROM check, 08/06/22. States her ROM has improved and is now having pain in her ring finger and index finger. States she has pain when bending. Also state she has tenderness in her dorsum aspect of wrist due to a lump also on her lateral aspect of bicep. 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 Her chief complaint today is of painful locking and catching of the right ring finger, as well as pain over the dorsal aspect of the ring finger, including the PIP and MCP joint extending over the dorsum of the hand, the pain that extends up the dorsum of the entire forearm across the elbow to the lateral aspect of her right upper arm. They were at the upper arm she feels like she has a knot that gets sore. Also feels like she has some swelling or a knot over the dorsal aspect of her right distal forearm can be painful. All in all she feels like her right middle finger is working well and her range of motion the right middle finger is good. Please see my previous note from 10/27/2022 for additional information.. PFSH Medical History Asthma Costochondritis Depression Diabetes Dyslipidemia GERD (gastroesophageal reflux disease) History of salivary gland disease Hx of sleep apnea Hypertension Surgical History History of carpal tunnel release History of lung surgery History of surgery on arm Hx of arthroscopy of left knee Hx of cholecystectomy Hx of elbow surgery S/P left rotator cuff repair Family History Mother HTN (hypertension) Maternal Grandfather HTN (hypertension) Son HTN (hypertension) Diabetes Father Diabetes Social History Household Members: Children Housing: House Alcohol intake: never Patient Tobacco Use Status: Current everyday Tobacco user Tobacco use type: Cigarette Cigarettes Per Day: 13 Years Smoked: 40 Physical Exam Extrem Other: The patient was alert and oriented. She did become tearful when talking about the pain in her right hand dorsal forearm and upper arm. Sensation was intact to the tips of her digits. She can bring all of her fingers closed to a fist and then back into full extension. I did appreciate some catching of the right ring finger and she did have some tenderness over the A1 sandy of the right ring finger. When she brought her fingers close to a fist she did appreciate some pain over the dorsal aspect of the right ring finger extending from the middle phalanx across the PIP joint and the MCP joint extending over the dorsal aspect of the 4th metacarpal and into the dorsal forearm. This pain in the dorsal aspect of her hand and forearm is perhaps more bothersome. She then showed me a the pain extended up beyond the lateral aspect of her elbow to the lateral aspect of the mid humeral area where she feels like she has a knot that is also often painful. She was able to demonstrate active wrist flexion and extension and prono-supination. She has good elbow range of motion. She has some mild swelling over the dorsal radial aspect of her hand perhaps over the 2nd and 3rd metacarpals. No erythema or warmth and no open wounds. The skin on the palm of her hands a somewhat dry. All surgical wounds are well healed and again she has excellent range of motion of the middle finger now. And no significant swelling in the middle finger.. Office Procedures Fracture Care Details: No fracture, injection [id number] Fracture Billing Code: Fracture Billing Code Results Reviewed Results Reviewed: 02/02/23 11:57 Lidocaine HCl 1 % [Xylocaine 1 %] 2 ml .ROUTE .STK-MED ONE dexAMETHasone sod phosphate [Decadron] 4 mg .ROUTE .STK-MED ONE Assessment & Plan Assessment & Plan (1) Right hand pain: Code(s): M79.641 - Pain in right hand (2) Right arm pain: Code(s): M79.601 - Pain in right arm (3) Trigger finger, right ring finger: Code(s): M65.341 - Trigger finger, right ring finger Plan Assessment and plan: 1. Right ring finger trigger finger She did have some visible palpable catching of the ring finger. She also had some mild tenderness over the A1 sandy. 2. Right hand pain extending over the dorsal aspect of the right ring finger when it is brought into flexion extending up the dorsal aspect of the right 4th metacarpal then up the wrist and the dorsal forearm. Some of this may be a little stiffness from perhaps not bringing her ring finger into frequent flexion. Finger was stable and not particularly swollen. 3. Pain extending up the dorsal aspect of the right forearm up to the dorsal lateral aspect of her mid humeral area. The etiology of this is unclear. I educated her about these issues. She definitely does have a right ring finger trigger finger, and it is possible that the discomfort over the dorsal aspect of the ring finger and hand could be due to some secondary stiffness. I educated her about treatment for the trigger finger in the form of injection or surgery. She would like to have an injection today. I did explain that the injection will likely not, at least directly, help with the discomfort on the dorsum of her hand, and certainly not the dorsal aspect of her forearm and lateral aspect of her upper arm. She wanted to try an injection today. Injection #1: The risks and benefits of a steroid injection including but not limited to risk of damage to blood vessels, nerves, tendons, infection, skin bleaching, failure to improve symptoms, increased pain, and possible need for further injections or other intervention were discussed with the patient and the patient wishes to proceed with the steroid injection. Once consent was obtained, I sterilely prepped the area over the A1 sandy of the flexor tendon sheath of the right ring finger. I then injected the flexor tendon sheath with a combination of 1 mL of dexamethasone (4mg/ml), and 1% lidocaine. The patient tolerated the procedure well with no complications. If the patient continues to have locking and catching 4-6 weeks following this injection, they may call to schedule appointment to be seen for possible A1 sandy release. At this point she says she has no interest in any kind of surgery. I also encouraged her to work on stretching exercises. 4. Right middle finger flexor tenosynovitis that was worrisome for possible mycobacterial infection Status post flexor tenosynovectomy with no growth from any cultures Date of surgery 08/06/2022 5. Right middle finger MCP joint synovitis Again status post MCP joint sign of ectomy with no growth from any cultures Date of surgery 08/06/2022 Regarding these last 2 issues, she no longer has swelling in the right middle finger and all surgical incisions are well healed. She now has very good range of motion and can bring the middle finger from full extension down to a tight fist and back again without difficulty. Please note that greater than 35 minutes was spent with this patient taking the history, performing the exam, formulating a treatment plan and discussing these options with the patient. Coding Level of Care Code Est Pt Level 4 (80266) Diagnoses Right hand pain M79.641 Right arm pain M79.601 Trigger finger, right ring finger M65.341 CPT Codes Fracture Care - Fracture Billing Code: Fracture Billing Code ([id number])
== END 2023-02-02 12:46 | disposition home or self-care (01) ==
PROVIDERS: PCP Family Medicine; Visit Provider Orthopaedic Surgery
DX: M65.341 Trigger finger, right ring finger (principal); M79.601 Pain in right arm
CPT/HCPCS: 20550; 99214

== ENCOUNTER → 2023-02-02 10:59 | Outpatient (BNVA) | payer MEDICAID, SELFPAY | PROVIDERS: PCP Family Medicine; Visit Provider Orthopaedic Surgery | DX: M79.641 Pain in right hand (principal); M79.601 Pain in right arm; M65.341 Trigger finger, right ring finger | CPT/HCPCS: 20550; 99212; J1100 ==

== ENCOUNTER 2023-03-03 11:34 | Outpatient (REF) | payer MEDICAID, SELFPAY ==
[2023-03-03 13:14] LABS: MANUAL DIFF FLAG NO
[2023-03-03 13:31] LABS: Basophils Absolute Auto 0.1 X10*3/uL (0.0-0.2); Basophils Percent Auto 1.4 % (0-2); Eosinophils Absolute Auto 0.4 X10*3/uL (0.0-0.4); Eosinophils Percent Auto 4.2 % (0-4); Hematocrit 44.1 % (37.0-47.0); Hemoglobin 14.6 g/dl (12.0-16.0); Imm Gran Abs Auto 0.04 X10*3/uL (0.00-0.03); Imm Gran Pct Auto 0.4 % (0.0-0.4); Lymphocytes Absolute Auto 3.6 X10*3/uL (1.2-4.9); Lymphocytes Percent Auto 37.2 % (20-40); Mean Corpuscular HGB Conc 33.1 g/dl (31.0-35.0); Mean Corpuscular Hemoglobin 28.2 pg (27.0-33.0); Mean Corpuscular Volume 85.1 fL (80.0-98.0); Monocytes Absolute Auto 0.6 X10*3/uL (0.1-1.2); Monocytes Percent Auto 6.7 % (2-11); Neutrophils Absolute Auto 4.8 x10*3/uL (2.0-8.3); Neutrophils Percent Auto 50.1 % (45-73); Platelet Count 325 X10*3/uL (160-400); Red Blood Count 5.18 X10*6/uL (4.20-5.50); Red Cell Distribution Width 13.9 % (11.0-16.0); White Blood Count 9.6 X10*3/uL (4.8-10.8)
[2023-03-03 13:34] LABS: Estimated Average Glucose 117 mg/dL; Hemoglobin A1c % 5.7 % (<6.0)
[2023-03-03 13:54] LABS: Alanine Aminotransferase 18 U/L (0-31); Albumin Level 4.3 g/dL (3.5-5.0); Alkaline Phosphatase 86 U/L (39-117); Anion Gap 14 (12-20); Aspartate Amino Transferase 20 U/L (5-31); Bilirubin Direct 0.3 mg/dL (0.0-0.5); Bilirubin Total 0.8 mg/dL (0.0-1.0); Blood Urea Nitrogen 11 mg/dL (9-16); Calcium 9.6 mg/dL (8.4-10.2); Carbon Dioxide 27 mmol/L (22-29); Chloride 106 mmol/L (96-108); Cholesterol 133 mg/dL (<200); Estimated Glomerular Filt Rate > 60; Glucose Random 95 mg/dL (60-115); HDL Cholesterol 34 mg/dL (>40); LDL Cholesterol Calculated 80 mg/dL (<100); Potassium 3.7 mmol/L (3.3-5.1); Sodium 143 mmol/L (135-145); Triglycerides 96 mg/dL (<150)
[2023-03-03 13:57] LABS: Free T4 (Free Thyroxine) 0.83 ng/dL (0.71-1.85)
[2023-03-03 14:00] LABS: Creatinine Urine 64.66 mg/dL; Microalbum/Creatinine Ratio Ur 26.2 ug/mg cr (<30)
[2023-03-03 16:25] LABS: CT PCR NOT DETECTED (Not Detect.); NG PCR NOT DETECTED (Not Detect.)
[2023-03-04 08:03] LABS: HIV AB/AG Nonreactive (Nonreactive); HIV Num 1 0.05 S/CO (0.00-0.99); Hepatitis B Surface Antigen Negative (Negative); ~HepC Num1 0.08 S/CO (0.00-0.79); ~Hepatitis B Surface Antibody REACTIVE (Nonreactive); ~Hepatitis C Antibody Nonreactive (Nonreactive)
[2023-03-05 08:44] LABS: RPR Rapid Plasma Reagin NON-REACTIVE (NON-REACTIVE)
== END 2023-03-03 11:35 | disposition home or self-care (01) ==
LOC: HO.HHCL 11:34
PROVIDERS: Visit Provider Family Medicine
DX: E11.9 Type 2 diabetes mellitus without complications (principal); K76.0 Fatty (change of) liver, not elsewhere classified
CPT/HCPCS: 0353U; 36415; 80048; 80061; 80076; 82043; 82105; 82306; 82570; 83036; 84439; 84443; 85025; 86592; 86706; 86803; 87340; 87389

== ENCOUNTER 2023-06-03 09:13 | Outpatient (AMB) | payer MEDICAID, SELFPAY ==
[2023-06-03 09:22] VITALS: BP 140/90; PULSE 75; O2SAT 95; BMI 36.9
--- NOTE | 2023-06-03 09:22 | A.OFFVIS_ITS ---
Intake Vital Signs 06/03/23 09:22 Height 5 ft 5 in Weight 221 lb 9.033 oz BMI 36.9 BP 140/90 H Blood Pressure Location Rt brachial Position Sitting Pulse 75 Pulse Source Doppler Pulse Oximetry (%) 95 Oxygen Delivery Method Room Air Intake Visit Reasons: COPD Allergies morphine [MORPHINE] Allergy (Unknown, Verified 06/03/23 09:30) HIVES AND RASH, hives HPI COPD HPI Details 62-year-old lady, active 45 pack-years+ smoker, status post left lower lobectomy in July of 2019 for growing pulmonary nodule (atypical adenomatous hyperplasia), followed for moderate COPD and obstructive sleep apnea. ? Patient continues to have significant cough, only control by systemic glucocorticoids.? Her CT chest showed no evidence of underlying interstitial lung disease.? She also complains of dyspnea on exertion after walking 1 block.? She continues to follow-up with her cardiology at [facility].? She has been using BrezTri, Spiriva, Flovent, and albuterol MDI with reasonable baseline control his symptoms.? Today she complains of bronchitic exacerbation with wheezing and productive cough. [facility] Medical History Asthma Costochondritis Depression Diabetes Dyslipidemia GERD (gastroesophageal reflux disease) History of salivary gland disease Hx of sleep apnea Hypertension Surgical History History of carpal tunnel release History of lung surgery History of surgery on arm Hx of arthroscopy of left knee Hx of cholecystectomy Hx of elbow surgery S/P left rotator cuff repair Family History Mother HTN (hypertension) Maternal Grandfather HTN (hypertension) Son HTN (hypertension) Diabetes Father Diabetes Social History Household Members: Children Housing: House Alcohol intake: never Patient Tobacco Use Status: Current everyday Tobacco user Tobacco use type: Cigarette Cigarettes Per Day: 13 Years Smoked: 40 Review of Systems Const Denies daytime sleepiness, Denies excessive sweating, Denies fatigue, Denies fever(s), Denies lethargy, Denies malaise, Denies night sweats, Denies snoring and Denies weight loss Eyes Denies blurry vision and Denies itchy eyes ENT Denies nasal congestion, Denies post nasal drip, Denies sinus pain, Denies sinus pressure and Denies other ( Thrush) Card Denies chest pain, Denies pedal edema, Denies dyspnea, Denies orthopnea and Denies paroxysmal nocturnal dyspnea Resp Reports cough, Denies hemoptysis, Reports excessive phlegm production, Denies dyspnea, Denies snoring and Reports wheezing GI Denies abdominal pain and Denies heartburn Musc Denies myalgias, Denies arthralgias and Denies joint swelling Skin/Breast Denies rash Neuro Denies memory loss and Denies seizure-like activity Psych Denies abnormal sleep pattern, Denies anxiety and Denies memory loss Endo Denies excessive sweating, Denies fatigue and Denies heat intolerance Simba/Lymph Denies easy bruising Aller/Immun Denies itchy eyes, Denies seasonal rhinorrhea and Reports wheezing Physical Exam Vital Signs: Last Vital Signs Pulse 75 06/03/23 09:22 BP 140/90 H 06/03/23 09:22 Pulse Ox 95 06/03/23 09:22 Oxygen Delivery Method Room Air 06/03/23 09:22 BMI result Body Mass Index 36.9 Const General: no acute distress and alert Nutritional Appearance: obese Orientation/consciousness: Other orientation findings ( oriented) HEENT Head: Yes atraumatic Eyes General: appearance normal, both eyes and all related structures Sclerae: sclerae normal EOM: EOMs intact bilaterally Neck Neck: Yes supple Lymphatic: no lymphadenopathy noted Resp Effort & Inspection: normal respiratory effort and no use of accessory muscles Auscultation: clear to auscultation bilaterally Cardio Rate: regular rate Rhythm: regular rhythm Heart sounds: no gallops, no murmurs and no rubs Skin General skin exam: other ( warm) Extrem General: No clubbing, No cyanosis and No edema Assessment & Plan Assessment & Plan (1) COPD (chronic obstructive pulmonary disease): Code(s): J44.9 - Chronic obstructive pulmonary disease, unspecified Plan: Well controlled on BrezTri and albuterol MDI. Continue current regimen. (2) Bronchitis, mucopurulent recurrent: Code(s): J41.1 - Mucopurulent chronic bronchitis Plan: Will treat with a course of amoxicillin and prednisone. Medications: New 2 amoxicillin 500 mg PO TID 30 caps 0RF 10 days prednisone 40 mg (2 x 20 mg) PO DAILY 10 tabs 0RF Discontinued prednisone Discontinued Reason: Doctor's Order 40 mg (2 x 20 mg) PO DAILY 10 tabs 0RF 5 days levofloxacin Discontinued Reason: Doctor's Order 750 mg PO DAILY 7 tabs 0RF Coding Level of Care Code Est Pt Level 4 (74553) Diagnoses COPD (chronic obstructive pulmonary disease) J44.9 Bronchitis, mucopurulent recurrent J41.1
== END 2023-06-03 09:53 | disposition home or self-care (01) ==
PROVIDERS: PCP Family Medicine; Visit Provider Internal Medicine Pulmonary Disease
DX: J44.9 Chronic obstructive pulmonary disease, unspecified (principal)
CPT/HCPCS: 99214

== ENCOUNTER → 2023-06-03 09:13 | Outpatient (BNVA) | payer MEDICAID, SELFPAY | PROVIDERS: PCP Family Medicine; Visit Provider Internal Medicine Pulmonary Disease | DX: J44.9 Chronic obstructive pulmonary disease, unspecified (principal); Z79.899 Other long term (current) drug therapy | CPT/HCPCS: 99212 ==

== ENCOUNTER 2023-08-23 08:31 | Outpatient (REF) | payer MEDICAID, SELFPAY ==
--- NOTE | ~2023-08-23 | XR_ITS ---
EXAMINATION: XR ANKLE, RIGHT CLINICAL INFORMATION: Pain COMPARISON: None available. TECHNIQUE: AP, lateral, and mortise views of the right ankle. FINDINGS: No acute fracture or dislocation. Joint spaces are maintained. Atherosclerotic vascular calcification. No tibiotalar joint effusion. Plantar calcaneal spurring and Achilles tendon enthesopathy. Mild soft tissue swelling about the ankle. XR/XR ankle RT min 3V IMPRESSION: 1. Mild soft tissue swelling about the ankle. No acute osseous abnormality. 2. Plantar calcaneal spurring and Achilles tendon enthesopathy. 3. Atherosclerotic vascular calcification.
== END 2023-08-23 08:32 | disposition home or self-care (01) ==
LOC: HO.HOSX 08:31
PROVIDERS: Visit Provider Orthopaedic Surgery
DX: M92.61 Juvenile osteochondrosis of tarsus, right ankle (principal)
CPT/HCPCS: 73610; 99212

== ENCOUNTER 2023-08-23 09:07 | Outpatient (AMB) | payer MEDICAID, SELFPAY ==
--- NOTE | 2023-08-23 09:35 | A.OFFVIS_ITS ---
Vital Signs 08/23/23 09:38 Height 5 ft 5 in Weight 221 lb BMI 36.8 Intake Visit Reasons: OV - new problem right ankle sprain Intake Note: Daly is a 62 year old female who presents today for a new problem visit with complaints of right ankle pain. Patient reports that she has been having pain since August 11, she denies any injury. She woke up with pain and was seen at an ED of unknown location where they ruled out gout and DVT. The pain is felt from mid arch around the heel and up the achilles is painful. She has increased pain with weight bearing, she has been avoiding putting weight on the lateral aspect of the heel as this causes increased pain. She has been taking prednisone, this did reduce swelling but not the pain. Allergies morphine [MORPHINE] Allergy (Unknown, Verified 06/03/23 09:30) HIVES AND RASH, hives HPI HPI OV - new problem right ankle sprain: Details: Daly is a 62 year old female who presents today for a new problem visit with complaints of right ankle pain. Patient reports that she has been having pain since August 11, she denies any injury. She woke up with pain and was seen at the [facility] where they ruled out gout and DVT. The pain is felt from mid arch around the heel and up the achilles is painful. She has increased pain with weight bearing, she has been avoiding putting weight on the lateral aspect of the heel as this causes increased pain. She has been taking prednisone, this did reduce swelling but not the pain. [facility] Medical History Asthma Costochondritis Depression Diabetes Dyslipidemia GERD (gastroesophageal reflux disease) History of salivary gland disease Hx of sleep apnea Hypertension Surgical History History of carpal tunnel release History of lung surgery History of surgery on arm Hx of arthroscopy of left knee Hx of cholecystectomy Hx of elbow surgery S/P left rotator cuff repair Family History Mother HTN (hypertension) Maternal Grandfather HTN (hypertension) Son HTN (hypertension) Diabetes Father Diabetes Social History Household Members: Children Housing: House Alcohol intake: never Patient Tobacco Use Status: Current everyday Tobacco user Tobacco use type: Cigarette Cigarettes Per Day: 13 Years Smoked: 40 Physical Exam Vital Signs: BMI result Body Mass Index 36.8 Extrem Other: + retrocalcaneal squeeze test TTP achilles insertion TTP plantar heel Results Reviewed Results Reviewed: I personally reviewed relevant radiographs. 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
[2023-08-23 09:38] VITALS: BMI 36.8
== END 2023-08-23 10:03 | disposition home or self-care (01) ==
PROVIDERS: PCP Family Medicine; Referring Provider Family Medicine; Visit Provider Orthopaedic Surgery
DX: M92.61 Juvenile osteochondrosis of tarsus, right ankle (principal)
CPT/HCPCS: 99213

== ENCOUNTER 2023-09-09 08:58 | Outpatient (REF) | payer MEDICAID, SELFPAY | END 2023-09-09 08:59 | disposition home or self-care (01) | LOC: HO.MAMMO 08:58 | PROVIDERS: PCP Family Medicine; Visit Provider Family Medicine | DX: Z12.31 Encounter for screening mammogram for malignant neoplasm of breast (principal) | CPT/HCPCS: 77063; 77067 ==

== ENCOUNTER → 2023-09-09 09:45 | Outpatient (BNV) | payer MEDICAID, SELFPAY | PROVIDERS: PCP Family Medicine; Visit Provider Radiology Diagnostic Radiology | DX: Z12.31 Encounter for screening mammogram for malignant neoplasm of breast (principal) | CPT/HCPCS: 77063; 77067 ==

== ENCOUNTER 2023-12-07 09:44 | Outpatient (AMB) | payer MEDICAID, SELFPAY ==
--- NOTE | 2023-12-07 09:45 | A.OFFVIS_ITS ---
Vital Signs 12/07/23 09:46 Height 5 ft 5 in Weight 206 lb 2.115 oz BMI 34.3 BP 158/98 H Blood Pressure Location Lt brachial Position Sitting Pulse 90 Pulse Source Doppler Pulse Oximetry (%) 96 Oxygen Delivery Method Room Air Intake Visit Reasons: Acute Bronchitis Allergies morphine [MORPHINE] Allergy (Unknown, Verified 06/03/23 09:30) HIVES AND RASH, hives HPI HPI Acute Bronchitis: Details: 63-year-old lady, active 45 pack-years+ smoker, status post left lower lobectomy in July of 2019 for growing pulmonary nodule (atypical adenomatous hyperplasia), followed for moderate COPD and obstructive sleep apnea. ? Patient continues to have significant cough, only control by systemic glucocorticoids.? Her CT chest showed no evidence of underlying interstitial lung disease.? She also complains of dyspnea on exertion after walking 1 block.? She continues to follow-up with her cardiology at [facility].? She has been using BrezTri, Spiriva, Flovent, and albuterol MDI with reasonable baseline control of her symptoms. However, she continues to complain of chronic bronchitic symptoms with poor response to empiric antibiotics and recurrence after prednisone courses. [facility] Medical History Asthma Costochondritis Depression Diabetes Dyslipidemia GERD (gastroesophageal reflux disease) History of salivary gland disease Hx of sleep apnea Hypertension Surgical History History of carpal tunnel release History of lung surgery History of surgery on arm Hx of arthroscopy of left knee Hx of cholecystectomy Hx of elbow surgery S/P left rotator cuff repair Family History Mother HTN (hypertension) Maternal Grandfather HTN (hypertension) Son HTN (hypertension) Diabetes Father Diabetes Social History Household Members: Children Housing: House Alcohol intake: never Patient Tobacco Use Status: Current everyday Tobacco user Tobacco use type: Cigarette Cigarettes Per Day: 13 Years Smoked: 40 Review of Systems Const Denies daytime sleepiness, Denies excessive sweating, Denies fatigue, Denies fever(s), Denies lethargy, Denies malaise, Denies night sweats, Denies snoring and Denies weight loss Eyes Denies blurry vision and Denies itchy eyes ENT Denies nasal congestion, Denies post nasal drip, Denies sinus pain, Denies sinus pressure and Denies other ( Thrush) Card Denies chest pain, Denies pedal edema, Denies dyspnea, Denies orthopnea and Denies paroxysmal nocturnal dyspnea Resp Reports cough, Denies hemoptysis, Reports excessive phlegm production, Denies dyspnea, Denies snoring and Denies wheezing GI Denies abdominal pain and Denies heartburn Musc Denies myalgias, Denies arthralgias and Denies joint swelling Skin/Breast Denies rash Neuro Denies memory loss and Denies seizure-like activity Psych Denies abnormal sleep pattern, Denies anxiety and Denies memory loss Endo Denies excessive sweating, Denies fatigue and Denies heat intolerance Simba/Lymph Denies easy bruising Aller/Immun Denies itchy eyes, Denies seasonal rhinorrhea and Denies wheezing Physical Exam Vital Signs: Last Vital Signs Pulse 90 12/07/23 09:46 BP 158/98 H 12/07/23 09:46 Pulse Ox 96 12/07/23 09:46 Oxygen Delivery Method Room Air 12/07/23 09:46 BMI result Body Mass Index 34.3 Const General: no acute distress and alert Nutritional Appearance: not obese Orientation/consciousness: Other orientation findings ( oriented) HEENT Head: Yes atraumatic Eyes General: appearance normal, both eyes and all related structures Sclerae: sclerae normal EOM: EOMs intact bilaterally Neck Neck: Yes supple Lymphatic: no lymphadenopathy noted Resp Effort & Inspection: normal respiratory effort and no use of accessory muscles Auscultation: rales (Diffuse bilateral) Cardio Rate: regular rate Rhythm: regular rhythm Heart sounds: no gallops, no murmurs and no rubs Skin General skin exam: other ( warm) Extrem General: No clubbing, No cyanosis and No edema Assessment & Plan Assessment & Plan (1) COPD (chronic obstructive pulmonary disease): Code(s): J44.9 - Chronic obstructive pulmonary disease, unspecified Category: Medical Plan: Baseline controlled on current regimen of Symbicort, Spiriva, and albuterol MDI. Continue current regimen. (2) DANDRE (obstructive sleep apnea): Code(s): G47.33 - Obstructive sleep apnea (adult) (pediatric) Category: Medical Plan: Reasonable control on current CPAP therapy. Continue CPAP therapy. (3) Bronchitis, mucopurulent recurrent: Code(s): J41.1 - Mucopurulent chronic bronchitis Category: Medical Plan: Poor response to empiric antibiotics. Recurs after prednisone courses. Will plan for bronchoscopic sampling. Medications: New prednisone Take 4 tabs daily for 5 days, then go down by 1 tab every 5 days. 10 mg PO DIRECTED 50 tabs 0RF Discontinued prednisone Discontinued Reason: Doctor's Order 40 mg (2 x 20 mg) PO DAILY 10 tabs 0RF Coding Level of Care Code Est Pt Level 4 (48660) Diagnoses COPD (chronic obstructive pulmonary disease) J44.9 DANDRE (obstructive sleep apnea) G47.33 Bronchitis, mucopurulent recurrent J41.1
[2023-12-07 09:46] VITALS: BP 158/98; PULSE 90; O2SAT 96; BMI 34.3
== END 2023-12-07 10:25 | disposition home or self-care (01) ==
PROVIDERS: PCP Family Medicine; Visit Provider Internal Medicine Pulmonary Disease
DX: J41.1 Mucopurulent chronic bronchitis (principal); G47.33 Obstructive sleep apnea (adult) (pediatric)
CPT/HCPCS: 99214

== ENCOUNTER → 2023-12-07 09:44 | Outpatient (BNVA) | payer MEDICAID, SELFPAY | PROVIDERS: PCP Family Medicine; Visit Provider Internal Medicine Pulmonary Disease | DX: J41.1 Mucopurulent chronic bronchitis (principal); G47.33 Obstructive sleep apnea (adult) (pediatric); F17.210 Nicotine dependence, cigarettes, uncomplicated | CPT/HCPCS: 99212 ==

== ENCOUNTER 2023-12-09 10:34 | Outpatient (REF) | payer MEDICAID, SELFPAY ==
--- NOTE | ~2023-12-09 | XR_ITS ---
EXAMINATION: XR CHEST CLINICAL INFORMATION: Persistent cough. Rule out pneumonia. COMPARISON: None available. TECHNIQUE: 2 views of the chest were obtained. FINDINGS: No significant abnormality is noted involving the heart, lungs, mediastinum, or soft tissues. Minimal blunting of the left costophrenic angle, unchanged. Mild thoracic levocurvature. XR/XR chest 2V IMPRESSION: No acute finding. Electronically signed by: Jefe Mcdermott MD 12/09/2023 12:56 PM EDT
== END 2023-12-09 10:35 | disposition home or self-care (01) ==
LOC: HO.HHCX 10:34
PROVIDERS: Visit Provider Family Medicine
DX: J40 Bronchitis, not specified as acute or chronic (principal)
CPT/HCPCS: 71046; 87491; 87591; 87624; 88175

== ENCOUNTER 2023-12-09 18:00 | Outpatient (REF) | payer MEDICAID, SELFPAY ==
[2023-12-10 12:11] LABS: CT PCR NOT DETECTED (Not Detect.); NG PCR NOT DETECTED (Not Detect.)
[2023-12-15 11:38] LABS: HPV mRNA E6/E7 Not Detected (Not Detected)
== END 2023-12-09 18:01 | disposition home or self-care (01) ==
LOC: HO.LNP 18:00
PROVIDERS: Visit Provider Family Medicine
DX: Z01.419 Encounter for gynecological examination (general) (routine) without abnormal findings (principal)
CPT/HCPCS: 87491; 87591; 87624; 88175

== ENCOUNTER 2023-12-17 11:56 | Day surgery (SDC) | payer MEDICAID, SELFPAY ==
--- NOTE | 2023-12-15 15:06 | P.CONAN_ITS ---
Documented by User: Virginia Gary NP 12/15/23 15:07 HPI - Anesthesia Eval Consult details Narrative: 63yo F for Bronchoscopy Fiberoptic s/p left lower lobectomy in July of 2019 for growing pulmonary nodule (atypical adenomatous hyperplasia) Anesthesia Pre-Procedure Meds Is the patient on any of the following meds?: GLP1/DPP4 PMFSH Active Problems Active Problems: All Active Problems Ousmane's deformity of right heel (Acute) Bronchitis, mucopurulent recurrent (Acute) Trigger finger, right ring finger (Acute) Right arm pain (Acute) Acute bronchitis (Acute) Diabetes mellitus (Acute) Osteoarthritis of left knee (Acute) Effusion, left knee (Acute) History of arthroscopy of left knee (Acute) Stiffness of right hand joint (Acute) HARI positive (Acute) COPD (chronic obstructive pulmonary disease) (Acute) DANDRE (obstructive sleep apnea) (Acute) Cough (Acute) Dyspnea on exertion (Acute) Requires supplemental oxygen (Acute) Right hand pain (Acute) Bilateral hip bursitis (Acute) Bilateral primary osteoarthritis of hip (Acute) Swelling of right hand (Acute) Flexor tenosynovitis of finger (Acute) Past Medical History Medical History GERD (gastroesophageal reflux disease) Hx of sleep apnea Asthma History of salivary gland disease Diabetes Costochondritis Depression Dyslipidemia Hypertension Family History Family History Mother HTN (hypertension) Maternal Grandfather HTN (hypertension) Son HTN (hypertension) Diabetes Father Diabetes Family history of problems with anesthesia: No Surgical History Surgical History Hx of cholecystectomy History of surgery on arm Hx of elbow surgery Hx of arthroscopy of left knee History of lung surgery S/P left rotator cuff repair History of carpal tunnel release History of Problems with Anesthesia: No Social History Social History Household Members: Children Housing: House Are you a primary long term acute care registered nurse to a significant other at home: No Do you presently have visiting nurse or other home services: No Alcohol intake: never Patient Tobacco Use Status: Current everyday Tobacco user Tobacco use type: Cigarette Cigarettes Per Day: 10 Years Smoked: 40 Use of substances other than those prescribed or required for medical reasons: No Have you been hit, kicked, punched, or otherwise hurt by someone within the past year? If so, by whom?: No Are you DNR?: No Advance Directives: No Advance Directives Information Provided: Yes Recently lost weight without trying: No Nutrition Risks: No Nutritional Risk Patient : No Meds Allergies Allergy/AdvReac Type Severity Reaction Status Date / Time morphine [MORPHINE] Allergy Unknown HIVES AND Verified 12/17/23 13:10 RASH, hives Home Medications ?Medication ?Instructions ?Recorded ?Confirmed ?Last Taken ?Type albuterol sulfate 90 mcg/actuation 2 puff inhalation Q6H PRN 07/25/20 10/29/22 Unknown History aerosol inhaler Shortness Of Breath Or Wheezing aspirin 81 mg tablet,delayed 81 mg PO DAILY 07/25/20 10/29/22 07/30/22 History release loratadine 10 mg tablet (Allergy 10 mg PO DAILY 07/25/20 10/29/22 Unknown History Relief (loratadine)) acetaminophen 325 mg capsule 325 mg PO QID PRN Pain 02/09/22 10/29/22 Unknown History cyclobenzaprine 15 mg 15 mg PO BEDTIME PRN Muscle Spasm 02/09/22 10/29/22 Unknown History capsule,extended release 24 hr oxycodone 5 mg capsule 5 mg PO BID PRN Pain 02/09/22 10/29/22 Unknown History docusate sodium 100 mg capsule 100 mg PO BID PRN Constipation 08/06/22 10/29/22 Unknown History fluticasone propionate 50 2 spray intranasal DAILY 08/06/22 10/29/22 Unknown History mcg/actuation nasal spray,suspension hydralazine 50 mg tablet 75 mg PO 08/06/22 10/29/22 Unknown History hydrochlorothiazide 12.5 mg tablet 12.5 mg PO QAM 08/06/22 10/29/22 Unknown History lisinopril 40 mg tablet 40 mg PO BEDTIME 08/06/22 10/29/22 Unknown History metformin 500 mg tablet,extended 500 mg PO QPM 08/06/22 10/29/22 Unknown History release 24 hr zolpidem 10 mg tablet 10 mg PO BEDTIME insomnia 05/18/23 08/10/23 Unknown History semaglutide 0.25 mg or 0.5 mg (2 0.25 mg subcut QWEEK 12/09/23 Unknown History mg/3 mL) subcutaneous pen injector (Ozempic) Assessment and Plan Assessment Anesthesia Assessment: Chart Reviewed Final Anesthetic Review Family History of Problems with Anesthesia: No History of Problems with Anesthesia: No Documented by User: Yvette Aly MD 12/17/23 13:34 PMFSH Past Medical History Medical History GERD (gastroesophageal reflux disease) Hx of sleep apnea Asthma History of salivary gland disease Diabetes Costochondritis Depression Dyslipidemia Hypertension Family History Family History Mother HTN (hypertension) Maternal Grandfather HTN (hypertension) Son HTN (hypertension) Diabetes Father Diabetes Surgical History Surgical History Hx of cholecystectomy History of surgery on arm Hx of elbow surgery Hx of arthroscopy of left knee History of lung surgery S/P left rotator cuff repair History of carpal tunnel release Social History Social History Household Members: Children Housing: House Are you a primary long term acute care registered nurse to a significant other at home: No Do you presently have visiting nurse or other home services: No Alcohol intake: never Patient Tobacco Use Status: Current everyday Tobacco user Tobacco use type: Cigarette Cigarettes Per Day: 10 Years Smoked: 40 Use of substances other than those prescribed or required for medical reasons: No Have you been hit, kicked, punched, or otherwise hurt by someone within the past year? If so, by whom?: No Are you DNR?: No Advance Directives: No Advance Directives Information Provided: Yes Recently lost weight without trying: No Nutrition Risks: No Nutritional Risk Patient : No Meds Allergies Allergy/AdvReac Type Severity Reaction Status Date / Time morphine [MORPHINE] Allergy Unknown HIVES AND Verified 12/17/23 13:10 RASH, hives Home Medications ?Medication ?Instructions ?Recorded ?Confirmed ?Last Taken ?Type albuterol sulfate 90 mcg/actuation 2 puff inhalation Q6H PRN 07/25/20 10/29/22 Unknown History aerosol inhaler Shortness Of Breath Or Wheezing aspirin 81 mg tablet,delayed 81 mg PO DAILY 07/25/20 10/29/22 07/30/22 History release loratadine 10 mg tablet (Allergy 10 mg PO DAILY 07/25/20 10/29/22 Unknown History Relief (loratadine)) acetaminophen 325 mg capsule 325 mg PO QID PRN Pain 02/09/22 10/29/22 Unknown History cyclobenzaprine 15 mg 15 mg PO BEDTIME PRN Muscle Spasm 02/09/22 10/29/22 Unknown History capsule,extended release 24 hr oxycodone 5 mg capsule 5 mg PO BID PRN Pain 02/09/22 10/29/22 Unknown History docusate sodium 100 mg capsule 100 mg PO BID PRN Constipation 08/06/22 10/29/22 Unknown History fluticasone propionate 50 2 spray intranasal DAILY 08/06/22 10/29/22 Unknown History mcg/actuation nasal spray,suspension hydralazine 50 mg tablet 75 mg PO 08/06/22 10/29/22 Unknown History hydrochlorothiazide 12.5 mg tablet 12.5 mg PO QAM 08/06/22 10/29/22 Unknown History lisinopril 40 mg tablet 40 mg PO BEDTIME 08/06/22 10/29/22 Unknown History metformin 500 mg tablet,extended 500 mg PO QPM 08/06/22 10/29/22 Unknown History release 24 hr zolpidem 10 mg tablet 10 mg PO BEDTIME insomnia 08/06/22 10/29/22 Unknown History semaglutide 0.25 mg or 0.5 mg (2 0.25 mg subcut QWEEK 12/09/23 Unknown History mg/3 mL) subcutaneous pen injector (Ozempic) Exam Airway Mallampati Class: III TM Dist: <=3cm Neck ROM: Full Heart: rrr Lungs: cta Assessment and Plan Assessment Anesthesia Assessment: Anesthesia Plan Discussed Final Anesthetic Review NPO: Yes ASA Class: III Final Preanesthetic Review: No Changes in Pt Med Stat, Meds/Allgs Chart Reviewed, Consent Obtained/Reviewed and Anes Risks/Benef Reviewed Patient Risk: Intermediate Procedure Risk: Low Anesthetic Plan Anesthetic Plan: GA Disposition: Standard PACU
--- NOTE | 2023-12-17 12:57 | MHC.SHP ---
Pre-Procedural Eval Section A - 24 Hr Update-Section A only Date of Service: 12/17/23 The patient is an INPATIENT: No Changes since office visit: No Cold of Flu in the past 2 weeks, No New Medical Problems, No Changes in Medication and No Patient answered all questions The patient has been examined within 24 hours of the surgical procedure. The History & Physical has been completed within 30 days and I have reviewed it.: Yes Section B - Complete if H&P > 30 days Chief Complaint: Mucopurulent chronic bronchitis Allergies: Allergies Allergy/AdvReac Type Severity Reaction Status Date / Time morphine [MORPHINE] Allergy Unknown HIVES AND Verified 06/03/23 09:30 RASH, hives Plan Diagnosis/Plan: Unchanged I have reviewed the history and physical and performed a pertinent physical examination on my patient. No changes have occurred unless specified. Time Spent With Patient Time: Total time managing care of this patient today ____ minutes.
[2023-12-17 13:13] VITALS: BMI 34.8
[2023-12-17 13:49] VITALS: BP 147/81; PULSE 67; RESP 14; TEMP 36; O2SAT 97
[2023-12-17 13:52] LABS: Glucose, Whole Blood 96 mg/dL (60-115)
[2023-12-17] MEDS: Lactated Ringers 1,000 ML 100 ML IVCONT (13:55)
[2023-12-17 14:45] VITALS: BP 158/77; PULSE 92; RESP 16; TEMP 36.4; O2SAT 99
[2023-12-17 14:50] VITALS: BP 144/79; PULSE 85; RESP 18; O2SAT 97
--- NOTE | 2023-12-17 14:50 | P.BOP_ITS ---
Brief Operative Note Date of Service: 12/17/23 Pre-op diagnosis: Chronic bronchitis Post-op diagnosis: same Procedure: flexible bronchoscope advanced through the LMA and 2 cc of 2% lidocaine used to anesthetize the vocal cords, after traversing vocal cords flexible bronchoscope advanced through the tracheobronchial tree with visualization of significant tracheobronchomalacia and moderate amount of thin secretions easily cleared with suctioning and with normal endobronchial mucosa identified underneath. Thereafter bronchoalveolar lavage of right middle lobe performed with 40 cc of saline with return of approximately 20-25 cc with sample sent for further testing. Patient tolerated procedure well and was returned to PACU in stable condition. Surgeon: Shane Brunner MD Anesthesia: GLMA Was an Animal Laboratory Helper used for this Procedure?: No Estimated blood loss (mL): 0 Condition: stable Disposition: PACU
[2023-12-17 14:55] VITALS: BP 142/89; PULSE 80; RESP 18; O2SAT 94
[2023-12-17 15:00] VITALS: BP 155/89; PULSE 78; RESP 20; O2SAT 96
[2023-12-17 15:16] VITALS: BP 147/59; PULSE 80; RESP 19; TEMP 36.1; O2SAT 96
== END 2023-12-17 15:56 | disposition home or self-care (01) ==
PROVIDERS: PCP Family Medicine; Visit Provider Internal Medicine Pulmonary Disease
PROC: 0BJ08ZZ Inspection of Tracheobronchial Tree, Via Natural or Artificial Opening Endoscopic (ICD-10-PCS; CPT 31622; principal; 2023-12-17 14:00)
DX: J41.1 Mucopurulent chronic bronchitis (principal); J39.8 Other specified diseases of upper respiratory tract; R09.3 Abnormal sputum; Z90.2 Acquired absence of lung [part of]; J45.909 Unspecified asthma, uncomplicated; R05.9 Cough, unspecified; E11.9 Type 2 diabetes mellitus without complications; E78.5 Hyperlipidemia, unspecified; G47.33 Obstructive sleep apnea (adult) (pediatric); Z79.52 Long term (current) use of systemic steroids; Z79.82 Long term (current) use of aspirin; Z79.84 Long term (current) use of oral hypoglycemic drugs; Z79.85 Long-term (current) use of injectable non-insulin antidiabetic drugs; Z79.899 Other long term (current) drug therapy; Z88.5 Allergy status to narcotic agent; F17.210 Nicotine dependence, cigarettes, uncomplicated; Z98.890 Other specified postprocedural states
CPT/HCPCS: 31624; 82947; 87070; 87102; 87116; 87205; 87206; 88112; 88305; J0171; J2250; J2704; J3010

== ENCOUNTER → 2023-12-17 11:56 | Outpatient (BNV) | payer MEDICAID, SELFPAY | PROVIDERS: PCP Family Medicine; Visit Provider Internal Medicine Pulmonary Disease | DX: J41.1 Mucopurulent chronic bronchitis (principal) | CPT/HCPCS: 31624 ==

== ENCOUNTER 2024-05-17 10:20 | Outpatient (REF) | payer MEDICAID, SELFPAY ==
--- NOTE | ~2024-05-17 | XR_ITS ---
EXAMINATION: XR HIP, RIGHT CLINICAL INFORMATION: right groin pain COMPARISON: February 09, 2022. TECHNIQUE: Two views of the right hip. FINDINGS: Sclerosis and the articular surface of the right acetabulum. Asymmetric joint space narrowing. No acute cortical disruption or malalignment. No lytic or blastic lesions. Vascular calcifications. Vascular clips overlapping the sacrum. XR/XR hip RT min 2V IMPRESSION: No acute fracture or dislocation, right hip. Mild to moderate osteoarthrosis, right hip. Peripheral vascular disease. Electronically signed by: Aldo Mc MD 05/17/2024 10:35 AM JENNIFER CASTRO
--- OUTSIDE RECORDS SUMMARY | 2024-05-17 12:37 | XMS_ITS | Encounter Summary ---
Author Organization [employer] Address [address] [facility] 7t [place] [address] Care Team Providers Care House Cleaner Supervisor Name Role Phone Rocio Christie DO Primary Care Provider [phone] Reason for Visit * Reason Comments Med Refill Encounter Details Date Type Department Care Team (Late st Contact Info) Description 05/17/2024 Refill [facility] [address] [place], [place] [phone] Rocio Christie DO [address] [place] [address] Chronic bilateral low back pain without sciatica Social History Tobacco Use Types Packs/Day Years Used Date Smoking Tobacco: Every Day Cigarettes Passive Smoke Exposure: Current Smokeless Tobacco: Never Alcohol Use Standard Drinks/Week Comments Never 0 (1 standard drink = 0.6 oz pur e alcohol) Depression Answer Date Recorded Patient Health Questionnaire-9 Score 16 07/20/2023 Patient Health Questionnaire-9 Score 16 07/20/2023 Last PHQ-9: Questionnaire Data Not on file 0 07/20/2023 Housing Stability Answer Date Recorded What is your housing situation today? I have heydi olivas 10/04/[address] you li ve. Do you have problems with any of the following? None of the above 10/04/2023 Food Insecurity Answer Date Recorded Within the past 12 months, y ou worried that your food would run out before you got money to buy more: Never True 10/04/2023 Within the past 12 months,th e food you bought just didn't last and you didn't have enough money to get more: Never True Transportation Answer Date Recorded In the past 12 months, has l ack of transportation kept you from medical appts, meetings, work or from getting things needed for daily living? No 10/04/2023 Utilities Answer Date Recorded In the past 12 months, has t he electric, gas, oil or water company threatened to shut off services in your home? No 10/04/2023 Depression Answer Date Recorded Patient Health Questionnaire-2 Score 4 07/20/2023 Internet Access Answer Date Recorded Internet Access Q1 Yes 11/19/2023 Internet Access Q2 Not on file 11/19/2023 Comments Unknown Sex and Gender Information Value Date Recorded Sex Assigned at Female 01/19/2022 10:16 AM EDT Legal Sex Female 10:16 AM EDT Gender Identity Female 01/19/2022 10:16 AM EDT Sexual Orientation Straight 01/19/2022 10 :16 AM EDT documented as of this encounter Plan of Treatment Upcoming Encounters Date Type Department Care Team (Late st Contact Info) Description 05/26/2024 9:15 AM EST Office Visit [facility] [address] [place] [phone] Joanie Curiel MD [address] [place] [address] 06/29/2024 9:00 AM EDT Telemedicine [facility] [address] [place] [address] Marisa Sims, RN documented as of this encounter Visit Diagnoses Diagnosis Chronic bilateral low back pain without sciatica documented in this encounter Additional Health Concerns Assessment Noted Time PHQ-9 Depression Total Score: 16 024 1:38 PM EDT documented as of this encounter Care Teams House Cleaner Supervisor Relationship Specialty Start Date End Date Rocio Christie DO [address] [place] [phone] PCP - General Family Medicine 03/22/18 documented as of this encounter
--- OUTSIDE RECORDS SUMMARY | 2024-05-17 12:37 | XMS_ITS | Encounter Summary ---
Author Organization [employer] [facility] Address [address] [place] [address] 7t [place] [address] Care Team Providers Care Complex Care Nurse Name Role Phone Rocio Christie DO Primary Care Provider [phone] Reason for Visit * Reason Comments Med Refill Encounter Details Date Type Department Care Team ([facility] Contact Info) Description 07/23/2022 Refill [facility] [address] [place], [place] [phone] Rocio Christie DO [address] [place] [address] Other chronic pain; Insomnia, unspecified type Social History Tobacco Use Types Packs/Day Years Used Date Smoking Tobacco: Every Day Cigarettes Smokeless Tobacco: Never Alcohol Use Standard Drinks/Week Comments Never 0 (1 standard drink = 0.6 oz pur e alcohol) Depression Answer Date Recorded Patient Health Questionnaire-9 Score 12 06/25/2022 Depression Answer Date Recorded Patient Health Questionnaire-2 Score 6 06/25/2022 Comments Unknown Sex and Gender Information Value Date Recorded Sex Assigned at Female 01/19/2022 10:16 AM EDT Legal Sex Female 10:16 AM EDT Gender Identity Female 01/19/2022 10:16 AM EDT Sexual Orientation Straight 01/19/2022 10 :16 AM EDT COVID-19 Exposure Response Date Recorded In the last 10 days, have yo u been in contact with someone who was confirmed or suspected to have Coronavirus/COVID-19? No / Unsure 07/23/2022 10:56 AM EDT documented as of this encounter Plan of Treatment Upcoming Encounters Date Type Department Care Team (Late Contact Info) Description 05/26/2024 9:15 AM EST Office Visit [address] [address] Joanie Curiel MD [address] [place] [phone] 06/29/2024 9:00 AM EDT Telemedicine [address] [address] Marisa Sims RN documented as of this encounter Visit Diagnoses Diagnosis Other chronic pain Insomnia, unspecified type documented in this encounter Additional Health Concerns Assessment Noted Time PHQ-9 Depression Total Score: 12 023 10:43 AM EDT documented as of this encounter Care Teams Complex Care Nurse Relationship Specialty Start Date End Date Rocio Christie DO [address] [place] [phone] PCP - General Family Medicine 03/22/18 documented as of this encounter
--- OUTSIDE RECORDS SUMMARY | 2024-05-17 12:37 | XMS_ITS | Encounter Summary ---
Author Organization [employer] Address [address] [facility] 7t [place] [address] Care Team Providers Care Roof Plumber Name Role Phone Rocio Christie DO Primary Care Provider + [phone] Reason for Visit * Reason Comments Med Refill Encounter Details Date Type Department Care Team (Late st Contact Info) Description 05/14/2024 Refill [facility] [address] [place], [place] [phone] Rocio Christie DO [address] [place], [place] [phone] Chronic constipation; Pain; Insomnia, unspecified type Social History Tobacco Use [...] Description 05/26/2024 9:15 AM EST Office Visit [facility] [address] [place] [address] Joanie Curiel MD [address] [place] [address] 06/29/2024 9:00 AM EDT Telemedicine [address] [address] Marisa Sims, RN documented as of this encounter Visit Diagnoses Diagnosis Chronic constipation Unspecified constipation Pain Generalized pain Insomnia, unspecified type documented in this encounter Additional Health Concerns Assessment Noted Time PHQ-9 Depression Total Score: 16 024 1:38 PM EDT documented as of this encounter Care Teams Roof Plumber Relationship Specialty Start Date End Date Rocio Christie DO [address] [place] [address] PCP - General Family Medicine 03/22/18 documented as of this encounter
--- OUTSIDE RECORDS SUMMARY | 2024-05-17 12:37 | XMS_ITS | Encounter Summary ---
Author Organization [employer] Address [address] [facility] 7t [place] [address] Care Team Providers Care Exchange Underwriting Consultant Name Role Phone Rocio Christie DO Primary Care Provider [phone] Encounter Details Date Type Department Care Team ([facility] st Contact Info) Description 05/10/2024 Refill [facility] [address] [place], [place] [phone] Rocio Christie DO [address] [place], [place] [phone] Chronic constipation Social History Tobacco Use Types Packs/Day Years [...] Description 05/26/2024 9:15 AM EST Office Visit [facility] [address] [place] [address] Joanie Curiel MD [address] [place] [phone] 06/29/2024 9:00 AM EDT Telemedicine [facility] [address] [place] [address] Marisa Sims, HOA documented as of this encounter Visit Diagnoses Diagnosis Chronic constipation Unspecified constipation documented in this encounter Additional Health Concerns Assessment Noted Time PHQ-9 Depression Total Score: 16 024 1:38 PM EDT documented as of this encounter Care Teams Exchange Underwriting Consultant Relationship Specialty Start Date End Date Rocio Christie DO [address] [place] [phone] PCP - General Family Medicine 03/22/18 documented as of this encounter
--- OUTSIDE RECORDS SUMMARY | 2024-05-17 12:37 | XMS_ITS | Encounter Summary ---
Author Organization [employer] Address [address] [facility] 7t [place] [address] Care Team Providers Care Rotary Bar Operator Name Role Phone Karina Christiefer Primary Care Provider + [phone] Encounter Details Date Type Department Care Team (Late st Contact Info) Description 07/01/[address] [facility] MED[facility] [address] [place] [address] ProviderSeb MD Social History Tobacco Use Types Packs/Day Years Used Date Smoking Tobacco: Every Day Cigarettes Passive Smoke Exposure: Current Smokeless Tobacco: Never Alcohol Use Standard Drinks/Week Comments Never 0 (1 standard drink = 0.6 oz pur e alcohol) Depression Answer Date Recorded Patient Health Questionnaire-9 Score 12 06/25/2022 Housing Stability Answer Date Recorded What is your housing situation today? I have heydi olivas 01/04/[address] you li ve. Do you have problems with any of the following? None of the above 01/04/2023 Food Insecurity Answer Date Recorded Within the past 12 months, y ou worried that your food would run out before you got money to buy more: Never True 01/04/2023 Within the past 12 months,th e food you bought just didn't last and you didn't have enough money to get more: Never True Transportation Answer Date Recorded In the past 12 months, has l ack of transportation kept you from medical appts, meetings, work or from getting things needed for daily living? No 01/04/2023 Utilities Answer Date Recorded In the past 12 months, has t he electric, gas, oil or water company threatened to shut off services in your home? No 01/04/2023 Depression Answer Date Recorded Patient Health Questionnaire-2 [...] Description 05/26/2024 9:15 AM EST Office Visit [address] [address] Joanie Curiel MD [address] [place] [address] 06/29/2024 9:00 AM EDT Telemedicine [address] [address] Marisa Sims RN documented as of this encounter Procedures Procedure Name Priority Date/Time Associated Diagnosis Comments HM COLONOSCOPY Routine 09/02/2012 11:00 AM EDT documented in this encounter Results * Hm Colonoscopy (09/02/2012 11:00 AM EDT) Historical Provider HEALTH MAINTENANCE Final Result documented in this encounter Visit Diagnoses Not on filedocumented in this encounter Additional Health Concerns Assessment Noted Time PHQ-9 Depression Total Score: 12 023 10:43 AM EDT documented as of this encounter Care Teams Rotary Bar Operator Relationship Specialty Start Date End Date Rocio Christie DO [address] [place] [phone] PCP - General Family Medicine 03/22/18 documented as of this encounter
--- OUTSIDE RECORDS SUMMARY | 2024-05-17 12:37 | XMS_ITS | Encounter Summary ---
Author Organization [facility] [facility] Address [address] [place] [address] 7 [place] [address] Care Team Providers Care Cushion Former Name Role Phone Rocio Christie DO Primary Care Provider [phone] Reason for Visit * Reason Comments Med Refill Encounter Details Date Type Department Care Team (Late Contact Info) Description 11/01/2022 Refill [facility] [address] [place] [phone] Rocio Christie DO [address] [place], [place] [phone] Essential hypertension Social History Tobacco Use Types Packs/Day Years [...] Description 05/26/2024 9:15 AM EST Office Visit [facility] [address] [place] [phone] Joanie Curiel MD [address] [place], [place] [phone] 06/29/2024 9:00 AM EDT Telemedicine [facility] [address] [place] [address] Marisa Sims, HOA documented as of this encounter Visit Diagnoses Diagnosis Essential hypertension Unspecified essential hypertension documented in this encounter Additional Health Concerns Assessment Noted Time PHQ-9 Depression Total Score: 12 023 10:43 AM EDT documented as of this encounter Care Teams Cushion Former Relationship Specialty Start Date End Date Rocio Christie DO [address] [place] [address] PCP - General Family Medicine 03/22/18 documented as of this encounter
--- OUTSIDE RECORDS SUMMARY | 2024-05-17 12:37 | XMS_ITS | Encounter Summary ---
Author Organization [employer] Address [address] [facility] 7t [place] [address] Care Team Providers Care Safe Deposit Box Rental Clerk Name Role Phone Rocio Christie DO Primary Care Provider [phone] Reason for Visit * Reason Comments Med Refill Encounter Details Date Type Department Care Team ([facility] st Contact Info) Description 02/15/2024 Refill [facility] 230 [place], [place] [phone] Rocio Christie DO [address] [place], [place] [phone] New onset type 2 diabetes mellitus (CMS/HCC) Social History Tobacco Use Types Packs/Day Years [...] Description 05/26/2024 9:15 AM EST Office Visit [facility] MED[facility] [address] [place] [address] Joanie Curiel MD [address] [place] [address] 06/29/2024 9:00 AM EDT Telemedicine [facility] [address] [place] [address] Marisa Sims, HOA documented as of this encounter Visit Diagnoses Diagnosis New onset type 2 diabetes mellitus (CMS/HCC) documented in this encounter Additional Health Concerns Assessment Noted Time PHQ-9 Depression Total Score: 16 024 1:38 PM EDT documented as of this encounter Care Teams Safe Deposit Box Rental Clerk Relationship Specialty Start Date End Date Rocio Christie DO [address] [place] [phone] PCP - General Family Medicine 03/22/18 documented as of this encounter
--- OUTSIDE RECORDS SUMMARY | 2024-05-17 12:37 | XMS_ITS | Clinical Summary ---
Author Organization [facility] Address [address] [place] [address] [address] [place] [address] Care Team Providers Care Rn Diabetes Educator Name Role Phone Pratik Rocio Primary Care Provider Allergies Active Allergy Reactions Criticality Noted Date Comments Morphine 12/14/2012 Other reaction(s): HIVES AND RASH, hives Medications * This document contains information received from the source organization and may not represent a complete record from that organization. amitriptyline (Elavil) 25 MG tablet Take 1 tablet by mouth at bed time. Active baclofen (Lioresal) 20 MG tablet Take 1 tablet by mouth in the morning and 1 tablet at noon and 1 tablet in the evening. Active Diclofenac Sodium 1 % gel Apply topically twice a day. Active lidocaine (Lidoderm) 5 % patch Place 1 patch on the skin in the morning. Active hydrOXYzine pamoate (Vistaril) 25 MG capsule Take 1 capsule by mouth every 6 (six) hours. Active naloxone (Narcan) 4 mg/0.1 mL nasal spray Administer 0.1 mL into affected nostril(s). Active nicotine (Nicoderm, Step 2) 14 MG/24HR patch Place 1 patch on the skin 1 (one) time each day. 022 Active docusate sodium (Colace) 100 MG capsule TAKE 1 CAPSULE BY MOUTH TWICE DAILY NEEDED 180 capsule 3 Active polyvinyl alcohol (Liquifilm Tears) 1.4 % ophthalmic solution INSTILL 1 DROP IN EACH EYE THREE TIMES DAILY NEEDED 023 Active cloNIDine (Catapres) 0.1 MG tabletIndicatio ns:Essential hypertension TAKE 1 TABLET BY MOUTH TWICE DAILY IN THE MORNING AND AT BEDTIME 180 tablet 023 Active fluticasone (Flonase) 50 MCG/ACT nasal spray INHALE 2 SPRAYS IN EACH NOSTRIL ONCE DAILY 48 g 3 024 Active loratadine (Claritin) 10 MG tablet TAKE 1 TABLET BY MOUTH ONCE DAILY DIRECTED 90 tablet 1 024 Active Ventolin HFA 108 (90 Base) MCG/ACT inhalerIndicati ons:Chronic obstructive pulmonary disease, unspecified COPD type ([facility]) INHALE 2 PUFFS BY MOUTH EVERY 4 HOURS NEEDED FOR WHEEZING OR SHORTNESS OF BREATH 18 g 2 024 Active nystatin (Mycostatin) 709576 UNIT/GM powderIndicatio ns:Candidal intertrigo APPLY TOPICALLY TO AFFECTED AREA(S) THREE TIMES DAILY 60 g 3 024 Active Symbicort 160-4.5 MCG/ACT inhaler Inhale 2 puffs 2 times daily. Rinse mouth with water after use to reduce aftertaste and incidence of candidiasis. Do not swallow. 3 each 3 024 Active Alcohol Swabs (Alcohol Prep) 70 % padsIndications :Type 2 diabetes mellitus without complication, without long-term current use of insulin ([facility]) USE DIRECTED TWICE DAILY 100 each 11 024 Active oxybutynin XL (Ditropan-XL) 5 MG 24 hr tablet TAKE 1 TABLET BY MOUTH EVERY MORNING DO NOT BREAK, CRUSH, DISSOLVE OR CHEW 90 tablet 3 024 Active nicotine (Nicoderm CQ) 14 MG/24HR patch Place 1 patch on the skin 1 (one) time each day at the same time. 42 patch 024 Active nicotine (Nicoderm CQ) 7 MG/24HR patch Place 1 patch on the skin 1 (one) time each day at the same time. 14 patch 024 Active albuterol (2.5 MG/3ML) 0.083% nebulizer solution Take 3 mL by nebulization every 4 (four) hours if needed for wheezing or shortness of breath. 75 mL 2 024 Active azithromycin (Zithromax) 250 MG tablet Take two tablets PO daily x one day then take one tablet daily x 4 days 6 tablet Active tacrolimus (Protopic) 0.1 % ointmentIndicat ions:Psoriasis Apply topically 2 times daily. 60 g 2 024 2024 Active Tirzepatide (Mounjaro) 2.5 MG/0.5ML solution auto-injectorIn dications:Type 2 diabetes mellitus without complication, without long-term current use of insulin ([facility]) Inject 2.5 mg under the skin 1 (one) time per week. 2 mL 3 Active simethicone (Mylicon,Gas-X) 125 MG capsule Take 1 capsule (125 mg) by mouth every 6 (six) hours if needed for flatulence. 60 capsule Active Blood Glucose Monitoring Suppl (FreeStyle Caliente Lite) w/Device kit Check BS twice a day as directed 1 kit Active Spiriva Respimat 1.25 MCG/ACT inhaler INHALE 2 PUFFS BY MOUTH ONCE DAILY 4 g 3 Active TRUEplus Lancets 33G miscIndications :Type 2 diabetes mellitus without complication, without long-term current use of insulin ([facility]) TEST BLOOD SUGAR TWICE DAILY 100 each 11 Active FREESTYLE LITE test strip TEST BLOOD SUGAR TWICE DAILY 100 strip 11 Active hydroCHLOROthia zide 12.5 MG tabletIndicatio ns:Essential hypertension TAKE 1 TABLET BY MOUTH EVERY MORNING 90 tablet 1 024 Active senna (Senokot) 8.6 MG tabletIndicatio ns:Chronic constipation TAKE 2 TABLETS BY MOUTH ONCE DAILY NEEDED FOR CONSTIPATION 180 tablet 1 024 Active halobetasol (UltraVATE) 0.05 % ointmentIndicat ions:Psoriasifo rm dermatitis Apply topically 2 times daily. 50 g 2 024 Active escitalopram (Lexapro) 10 MG tabletIndicatio ns:Depression, unspecified depression type TAKE 1 TABLET BY MOUTH EVERY MORNING 30 tablet 3 025 Active mirtazapine (Remeron) 15 MG tabletIndicatio ns:Insomnia, unspecified type TAKE 1 TABLET BY MOUTH AT BEDTIME 30 tablet 3 025 Active oxyCODONE (Roxicodone) 5 MG immediate release tabletIndicatio ns:Chronic bilateral low back pain without sciatica Take 1 tablet (5 mg) by mouth every 8 (eight) hours if needed for severe pain for up to 28 days. 84 tablet 025 Active pantoprazole (ProtoNix) 40 MG EC tablet TAKE 1 TABLET BY MOUTH EVERY MORNING 90 tablet 3 025 Active hydrALAZINE (Apresoline) 50 MG tablet TAKE 1 AND 1/2 TABLETS BY MOUTH IN THE MORNING AND AT BEDTIME 270 tablet 3 025 Active cholecalciferol VITAMIN D (Vitamin D-3) 50 MCG (1999) tablet TAKE 1 TABLET BY MOUTH EVERY MORNING 90 tablet 3 025 Active Aspirin Low Dose 81 MG EC tablet TAKE 1 TABLET BY MOUTH AT BEDTIME 90 tablet 3 025 Active lisinopril 40 MG tablet TAKE 1 TABLET BY MOUTH AT BEDTIME 90 tablet 3 025 Active Fiber-Lax 625 MG tabletIndicatio ns:Chronic constipation TAKE 1 TABLET BY MOUTH TWICE DAILY IN THE MORNING AND IN THE EVENING 180 tablet 3 025 Active atorvastatin (Lipitor) 20 MG tablet TAKE 1 TABLET BY MOUTH AT BEDTIME 90 tablet 3 025 Active acetaminophen (Tylenol 8 Hour) 650 MG ER tabletIndicatio ns:Pain Do not crush, chew, or split.TAKE 1 TABLET BY MOUTH EVERY 8 HOURS NEEDED FOR PAIN OR FEVER 60 tablet 2 025 Active zolpidem (Ambien) 10 MG tabletIndicatio ns:Insomnia, unspecified type Take 1 tablet (10 mg) by mouth at bedtime. 28 tablet 025 Active cholecalciferol (Vitamin D-3) 50 MCG (1999) tablet TAKE 1 TABLET BY MOUTH EVERY MORNING 90 tablet 3 024 2024 Discontinued Aspirin Low Dose 81 MG EC tablet TAKE 1 TABLET BY MOUTH AT BEDTIME 90 tablet 3 024 2024 Discontinued atorvastatin (Lipitor) 20 MG tablet TAKE 1 TABLET BY MOUTH AT BEDTIME 90 tablet 3 024 2024 Discontinued hydrALAZINE (Apresoline) 50 MG tablet TAKE 1 AND 1/2 TABLETS BY MOUTH IN THE MORNING AND AT BEDTIME 270 tablet 3 024 2024 Discontinued lisinopril 40 MG tablet TAKE 1 TABLET BY MOUTH AT BEDTIME 90 tablet 3 024 2024 Discontinued pantoprazole (ProtoNix) 40 MG EC tablet TAKE 1 TABLET BY MOUTH EVERY MORNING 90 tablet 3 024 2024 Discontinued Fiber-Lax 625 MG tabletIndicatio ns:Chronic constipation TAKE 1 TABLET BY MOUTH TWICE DAILY IN THE MORNING AND IN THE EVENING 180 tablet 3 024 2024 Discontinued acetaminophen (Tylenol 8 Hour) 650 MG ER tabletIndicatio ns:Pain TAKE 1 TABLET BY MOUTH EVERY 8 HOURS NEEDED FOR PAIN OR FEVER 60 tablet 2 024 2024 Discontinued(R eorder (will not trigger notification to Pharmacy)) Ozempic, 0.25 or 0.5 MG/DOSE, 2 MG/3ML solution pen-injector INJECT 0.25 MG SUBCUTANEOUSLY EVERY 7 DAYS IN THE ABDOMEN, THIGHS OR UPPER ARM. ROTATE INJECTION SITES. 3 mL 3 024 2024 Discontinued(M ed list cleanup (will not trigger notification to Pharmacy)) zolpidem (Ambien) 10 MG tabletIndicatio ns:Insomnia, unspecified type Take 1 tablet (10 mg) by mouth at bedtime. 28 tablet 025 2024 Discontinued(R eorder (will not trigger notification to Pharmacy)) Active Problems Problem Noted Date Diagnosed Date Right groin pain 05/17/2024 Assessment & Plan (05/17/2024 10:32 AM EST): Right groin pain x2 months worse with coughing. Symptoms and characteristics of pain suggest right inguinal hernia, although not significant on exam. -ordered right hip XR as well as US of the pelvis. -referred to General Surgery for further consultation. -recommended going to the ER if symptoms worsen or bulging occurs to get stat CT. Healthcare maintenance 02/14/2024 Tobacco dependence 12/02/2023 Mild anxiety 07/20/2023 Lung nodule 06/09/2023 Assessment & Plan (06/09/2023 12:58 PM EDT): s/p VATS LLL lobectomy July 2019 path with granulomatous nodules with atypical adenoma hyperplasia -CT chest with no new nodules or ILD September 2021, repeat as per pulm -f/u with pulm as shcheduled Peripheral vascular disease 06/09/2023 Assessment & Plan (06/09/2023 12:58 PM EDT): -advised schedule f/u eval with vascular Bilateral primary osteoarthritis of hip 09/02/19 Type 2 diabetes mellitus 09/01/2022 Assessment & Plan (06/09/2023 12:54 PM EDT): Slight bump in A1c -she agrees to trial trulicity weekly, reviewed potential SEs -encouraged dietary changes -cont regular BS monitoring -re-referred to sheeter machine operator for eval -cont lisinopril and lipitor daily -s/p optho eval DEC 2022 at [facility] for annual f/u -foot exam next visit* Chronic obstructive lung disease 02/24/2022 Assessment & Plan (06/09/2023 12:57 PM EDT): -change symbicort/spiriva to breztri as per pulm -cont albuterol prn -f/u with pulm as scheduled Insomnia 02/24/2022 Status post lobectomy of lung 02/24/2022 Fatty liver 02/24/2022 Assessment & Plan (06/09/2023 12:56 PM EDT): -abd US with HMG and echogenic liver with no focal lesion July 2022 -AFP, LFTs nml FEB 2023 -Hep A/B immune Chronic knee pain 09/02/2017 Chronic gastroesophageal reflux disease 05/14/19 16 Carpal tunnel syndrome 02/11/2015 Chronic low back pain 02/11/2015 Assessment & Plan (06/09/2023 12:59 PM EDT): -MRI L-spine with mild lumbar spondylosis, no severe canal or foraminal stenosis May 2015 -cont lidocaine patch and diclofenac gel prn -cont baclofen and tylenol as needed -cont oxycodone for severe pain, there is narcotic agreement in chart -cont HEP -advised RTC or go to ED if sx worsen Diastolic dysfunction 02/11/2015 Diverticulosis 02/11/2015 Essential hypertension 02/11/2015 Assessment & Plan (06/09/2023 12:55 PM EDT): BP controlled -cont lisinopril and HCTZ daily, advised split dosing -cont hydralazine BID -Cr/GFR and urine microalbumin wnl FEB 2023 -ECHO with mild LVH, EF 60-65%, grade 1 diastolic dysfunction, mild MR Oct 2018 -optho as above Hyperlipidemia 02/11/2015 Assessment & Plan (06/09/2023 12:55 PM EDT): LDL near-goal FEB 2023 -cont lipitor nightly and aspirin daily BMI 35.0-35.9,adult 02/11/2015 Obstructive sleep apnea 02/11/2015 Assessment & Plan (06/09/2023 12:58 PM EDT): -cont CPAP nightly Major depression, recurrent, chronic 02/11/2015 Assessment & Plan (07/20/2023 1:53 PM EDT): PROGRESS NOTE: ID: Daly is a 62 y.o. straight-identified cis-female with previous documented hx of Depression MH services including OP Psychotherapy psychopharmacology who presents for Anxiety and Depression. During IBH Consult Daly presenting with depressed mood, loss of interests/pleasure , changes in sleep difficulty staying asleep , change in appetite or weight reduce appetite, psychomotor retardation, trouble concentrating, fatigue/loss of energy, hopelessness and excessive worry/anxiety, difficulty controlling worry, restless/keyed up/On edge, easily fatigued, difficulty concentrating/Mind going blank , irritability, muscle tension, and sleep disturbance difficulty staying asleep ; for a period of 18+ mo, for all symptoms in the context of family stress relationship trying to get custody of adult foster son, trust issues, and health comorbidity. PLAN: New/Additional Services needed PCP management Off-site services for Behavioral Health Integration Plan External OP therapy referral and OP psychiatry Referral Patient Self Plan Patient to reach out to [facility] team as needed, Comply with medication , and Patient to engage in OP therapy Assessment & Plan (06/09/2023 12:57 PM EDT): -she denies any current SI/HI -she has the number for crisis and contracts for safety -cont lexapro daily -cont vistaril prn -cont remeron and ambien nightly -she agrees to referral to clinician for short-term counseling Resolved Problems Problem Noted Date Diagnosed Date Resolved Date Skin lesion 09/02/2017 04/07/2022 Encounters Date Type Department Care Team Description 05/17/2024 9:40 AM EST Office Visit [facility] [address] [place] [id number] Soraya Oneal MD Right groin pain (Primary Dx) 05/17/2024 Refill [facility] [address] [place] [address] Rocio Christie DO Chronic bilateral low back pain without sciatica 05/14/2024 Refill [facility] [address] [place] [address] Rocio Christie DO Chronic constipation; Pain; Insomnia, unspecified type 05/10/2024 Refill [facility] [address] [place] [address] Rocio Christie DO Chronic constipation 05/04/2024 Refill [facility] [address] [place] [address] Rocio Christie DO Insomnia, unspecified type; Chronic bilateral low back pain without sciatica 04/30/2024 Orders Only [facility] [address] [place] [address] Rocio Christie DO 04/13/2024 Refill [facility] [address] [place] [address] Rocio Christie DO Chronic bilateral low back pain without sciatica; Insomnia, unspecified type 04/08/2024 Refill [facility] [address] [facility] [place] [address] Rocio Christie DO Depression, unspecified depression type; Insomnia, unspecified type 04/03/2024 9:30 AM EST Clinical Support [facility] [address] [place] [address] Marisa Sims RN Chronic bilateral low back pain without sciatica (Primary Dx) 04/03/2024 Travel 04/03/2024 Telephone [facility] [address] [facility] [place] [address] Marisa Sims RN Recommend MACHINE CLOTH EXAMINER Tier 2 03/17/2024 9:30 AM EST Office Visit [facility] [address] [facility] [place] [address] Joanie Curiel MD Psoriasiform dermatitis (Primary Dx) 03/17/2024 Travel 03/14/2024 Refill [facility] [address] [facility] [place] [address] Rocio Christie DO Chronic bilateral low back pain without sciatica; Insomnia, unspecified type 03/14/2024 Refill [facility] [address] [facility] [place] [address] Rocio Christie DO Essential hypertension; Chronic constipation 02/23/2024 Refill [facility] [address] [place] [address] Rocio Christie DO Type 2 diabetes mellitus without complication, without long-term current use of insulin ([facility]) 02/22/2024 Telephone [facility] [place] [address] Rocio Christie DO Prior Authorization ([facility]ABTREE Request: Kavin) 02/21/2024 Telephone [facility] [place] [address] Rocio Christie DO Prior Authorization ([facility] Luna) 02/21/2024 Refill [facility] [place] [address] Jurcsak, Rocio, DO New onset type 2 diabetes mellitus (CMS/HCC) 02/16/2024 Refill [facility] [address] [place] [address] Rocio Christie, 02/15/2024 Refill [facility] [address] [place] [address] Rocio Christie, New onset type 2 diabetes mellitus (CMS/HCC) from Last 3 Months Immunizations Name Administration Dates Next Due Influenza injectable quadriv alent preservative free 03/03/2023,06/25/2022,12/13/2020 MMR 04/30/2000 Pfizer Covid-19 Vaccine 12+ 03/03/2023 Pneumococcal Conjugate PCV 20 06/25/2022 Pneumococcal Polysaccharide PPSV23 05/13/2011 RSV Bivalent 06/09/2023 TD (adult), 2 Lf tetanus tox oid, preservative free, adsorbed 08/04/2021,08/04/2007,04/30/2000 Tdap 05/13/2011 Zoster, Recombinant 07/02/2021,12/20/2020 Social History Tobacco Use Types Packs/Day Years Used Date Smoking Tobacco: Every Day Cigarettes Passive Smoke Exposure: Current Smokeless Tobacco: Never Tobacco Cessation:Ready to Q uit: Not Asked; Counseling Given: Not Answered Alcohol Use Standard Drinks/Week Comments Never 0 [...] Orientation Straight 01/19/2022 10 :16 AM EDT Last Filed Vital Signs Vital Sign Reading Time Taken Comments Blood Pressure 158/87 05/17/2024 9:43 AM EST Pulse 89 05/17/2024 9:43 AM EST Temperature 36.8 ??C (98.2 ??F) 05/17/2024 9:43 AM ES T Respiratory Rate 18 05/17/2024 9:43 AM EST Oxygen Saturation 96% 05/17/2024 9:43 AM EST Inhaled Oxygen Concentration - - Weight 90.7 kg (200 lb) 05/17/2024 9:43 AM EST Height 165.1 cm (5' 5 ) 02/14/2024 11:17 AM EST Body Mass Index 33.28 02/14/2024 11:17 AM EST Plan of Treatment Upcoming Encounters Date Type Department Care Team (Late st Contact Info) Description 05/26/2024 9:15 AM EST Office Visit [facility] [address] [place] [id number] Joanie Curiel MD [address] [place] [id number] 06/29/2024 9:00 AM EDT Telemedicine [facility] [address] [place] [id number] Marisa Sims, HOA Health Maintenance Due Date Last Done Comments CT Colonography 1959 FIT DNA/Cologuard 1959 FIT 1959 FOBT 1960 Sigmoidoscopy 1960 Diabetes: Foot Exam 12/05/1969 Eye Exam 12/05/1969 Alcohol/Substance Use Screening 1971 Hepatitis A Vaccines (1 of 2 - Risk 2-dose series) 12/05/1978 Hepatitis B Vaccines (1 of 3 - Risk 3-dose series) 2019 Colonoscopy 09/02/2022 09/02/2012 Colorectal Cancer Screening 09/02/2022 COVID-19 Vaccine ( season) 2023 03/03/2023, 10/17/2021, 03/03/2021, Additional history exists Influenza Vaccine (#1) 2023 , 06/25/2022, 12/13/2020 Depression Monitoring (PHQ-9) 01/19/2024 07/20/2023, 07/20/2023 Diabetes: Urine Protein Screening 03/03/2024 03/03/2023 Lipid Panel 03/03/2024 03/03/2023, 05/0 03/2022, 08/06/2021, Additional history exists Depression Screening 07/19/2024 07/20/2023, 07/20/19 Diabetes: Hemoglobin A1C 08/13/2024 024, 10/12/2023, 06/09/2023, Additional history exists SDOH Screening 10/03/2024 10/04/2023 Tobacco Screening 03/17/2025 03/17/2024 Mammogram 09/08/2025 09/09/2023, 08/20, 09/03/2022, Additional history exists Cervical Cancer Screening 12/08/2026 Pap Smear 12/08/2026 12/09/2023, 11/21, 12/13/2020 HPV/Cotest 12/08/2028 12/09/2023, 11/21, 11/19/2017 DTaP/Tdap/Td Vaccines (3 - Td or Tdap) 08/05/2031 08/04/2021, 05/13/2011, 08/04/2007, Additional history exists Zoster Vaccines Completed 07/02/2021, 12/20/2020 Pneumococcal Vaccine: 50+ Years Completed 06/25/2022, 05/13/2011 HIV Screening Completed 03/03/2023, 03/2022, 08/06/2021, Additional history exists Hepatitis C Screening Completed 03/03/2023 , 07/20/2022, 08/06/2021, Additional history exists RSV Patients and Patients Aged 60 years or older Completed 06/09/2023 HIB Vaccines Aged Out No longer eligi ble based on patient's age to complete this topic HPV Vaccines Aged Out No longer eligi ble based on patient's age to complete this topic IPV Vaccines Aged Out No longer eligi ble based on patient's age to complete this topic Meningococcal Vaccine Aged Out No carrington naveed eligible based on patient's age to complete this topic RSV under 20 months Aged Out No longe r eligible based on patient's age to complete this topic Rotavirus Vaccines Aged Out No longer eligible based on patient's age to complete this topic Procedures Procedure Name Priority Date/Time Associated Diagnosis Comments XR HIP 2 OR 3 VIEWS RIGHT Routine 05/17/2024 10:20 AM EST Right groin pain POCT ERICA-14 URINE DRUG SCREEN Routine 04/03/2024 9:34 AM EST Chronic bilateral low back pain without sciatica POCT GLYCATED HEMOGLOBIN, TOTAL Routine 02/14/2024 11:31 AM EST Type 2 diabetes mellitus without complication, without long-term current use of insulin (CMS/HCC) THINPREP IMAGING PAP AND HPV MRNA E6/E7 WITH REFLEX TO HPV 16,18/45 Routine 12/09/2023 12:00 AM EDT BI MAMMOGRAM SCREENING TOMOSYNTHESIS BILATERAL Routine 09/09/2023 9:49 AM EDT ALBUMIN, RANDOM URINE W/CREATININE Routine 03/03/2023 11:48 AM EST Type 2 diabetes mellitus without complication, without long-term current use of insulin (CMS/HCC) HEPATITIS C AB W/REFL TO HCV RNA, QN, PCR Routine 03/03/2023 11:41 AM EST Type 2 diabetes mellitus without complication, without long-term current use of insulin (CMS/HCC) HIV 1/2 ANTIGEN/ANTIBODY, FOURTH GENERATION W/RFL Routine 03/03/2023 11:41 AM EST Type 2 diabetes mellitus without complication, without long-term current use of insulin (CMS/HCC) LIPID PANEL, STANDARD Routine 03/03/2023 11:41 AM EST Type 2 diabetes mellitus without complication, without long-term current use of insulin (CMS/HCC) HM COLONOSCOPY Routine 09/02/2012 11:00 AM EDT from Last 3 Months or Most Recently Relevant to Health Maintenance Results * XR Hip 2 or 3 Views Right (05/17/2024 10:20 AM EST) Anatomical Region Laterality Modality Lower Extremities, Hip Right Radiograp hic Imaging 05/17/2024 10:2 0 AM EST Narrative 05/17/2024 10:38 AM EST ?[facility] ?[address] ?[place] [address] ?XRay Report ? Signed ? Patient: Daly Neal ?MR#: [id number] ? : 1960 ?Acct:[id number] ? Age/Sex: 63 / F ?ADM Date: 05/17/24 ? Loc: HO.HHCX ? Attending Dr: Soraya Oneal MD ? Ordering Physician: Soraya Oneal MD ?? Date of Service: 05/17/24 ?? Procedure(s): XR hip RT min 2V ?? Accession Number(s): [id number] ? cc: Soraya Oneal MD ? EXAMINATION: ?? XR HIP, RIGHT ? CLINICAL INFORMATION: ?? right groin pain ? COMPARISON: ?? February 09, 2022. ? TECHNIQUE: ?? Two views of the right hip. ? FINDINGS: ?? Sclerosis and the articular surface of the right acetabulum. Asymmetric ?? joint space narrowing. No acute cortical disruption or malalignment. No ?? lytic or blastic lesions. ?? Vascular calcifications. ?? Vascular clips overlapping the sacrum. ? XR/XR hip RT min 2V ?? IMPRESSION: ?? No acute fracture or dislocation, right hip. ?? Mild to moderate osteoarthrosis, right hip. ?? Peripheral vascular disease. ? Electronically signed by: ??Aldo Mc MD ??05/17/2024 10:35 AM ?? EST RP ? Dictated By: ?Aldo Stubbs MD ? Signed By: ?<Electronically signed by Aldo Mireles MD in OV> ? 05/17/24 1035 ? DD/ 1020 ? TD/TT: 05/17/24 1032 ? Vp Of Digital Marketing: ? Procedure Note Donotuseinterpreter, Image - 05/17/[address] [address] XRay Report Signed Patient: Daly Neal EMR#: [id number] : 1960Acct:[id number] Age/Sex: 63 / FADM Date: 05/17/24 Loc: HO.HHCX Attending Dr: Soraya Oneal MD Ordering Physician: Soraya Oneal MD Date of Service: 05/17/24 Procedure(s): XR hip RT min 2V Accession Number(s): [id number] cc: Soraya Oneal MD EXAMINATION: XR HIP, RIGHT CLINICAL INFORMATION: right groin pain COMPARISON: February 09, 2022. TECHNIQUE: Two views of the right hip. FINDINGS: Sclerosis and the articular surface of the right acetabulum. Asymmetric joint space narrowing. No acute cortical disruption or malalignment. No lytic or blastic lesions. Vascular calcifications. Vascular clips overlapping the sacrum. XR/XR hip RT min 2V IMPRESSION: No acute fracture or dislocation, right hip. Mild to moderate osteoarthrosis, right hip. Peripheral vascular disease. Electronically signed by: Aldo Mc MD 05/17/2024 10:35 AM EST Dictated By: Aldo Stubbs MD Signed By: <Electronically signed by Aldo Mireles MDin OV> 05/17/24 1035 DD/ 1020 TD/TT: 05/17/24 1032 Vp Of Digital Marketing: Soraya Oneal MD IMG XR PROCEDURES Final Re sult * POCT ERICA-14 Urine Drug Screen (04/03/2024 9:34 AM EST) Pathologist [facility] Positive Oxycodone Screen, Urine Positive Urine Urine specimen obtained by clean catch procedure / Unknown 04/03/2024 9:34 AM EST Narrative Marisa Sims RN - 04/03/2024 9:34 AM EST UTOX cup Lot#[id number] Exp. 12/14/25 Internal Pass Control Rocio Pratik BACH POINT OF CARE TEST ENTER/ADAM T ORDERABLES Final Result * (ABNORMAL) POCT HGB A1C (02/14/2024 11:31 AM EST) Pathologist [facility] Hemoglobin A1C 6.1(A) 4.0 - 6.0 % QC Media Lot # [id number] Lot# Expiration Date 2530,111 Blood 02/14/2024 11:3 1 AM EST Rocio Pratik DO POINT OF CARE TEST ENTER/ADAM T ORDERABLES Final Result * ThinPrep Imaging Pap and HPV mRNA E6/E7 with Reflex to HPV 16,18/45 (12/09/2023 12:00 AM EDT) Pathologist [facility] HPV 16 RNA [facility] HPV 18/45 RNA [facility] HPV nRNA E6/E7 Not Detected Not Detected [facility] Comment:Methodology: Transcr iption-Mediated AmplificationThis assay detects E6/E7 viral messenger RNA (mRNA) from 14high-risk HPV types (16,18,31,33,35,39,45,51,52,56,58,59,66,68).Cervical sources are required for HPV testing.If a vaginal source from a patient who has had atotal hysterectomy with removal of cervix wassubmitted, please contact the testing laboratoryfor alternative testing options.For additional information, please refer tohttp://education.questdiagnostics.com/faq/PMF232s9(This link if provided for information/educational purposes only.)THIS TEST WAS PERFORMED AT:[employer] [address] [id number] IVY MD SOURCE: SEE NOTE [facility] Comment:None given Report Status: [facility] Clinical Information: SEE NOTE [facility] Comment:None given LMP: SEE NOTE [facility] Comment:NONE GIVEN Prev. PAP: SEE NOTE [facility] Comment:NONE GIVEN Prev. BX: SEE NOTE [facility] Comment:NONE GIVEN Statement Of Adequacy: SEE NOTE [facility] Comment:Satisfactory for lyric luation.Endocervical/transformation zone componentpresent.Partially obscuring inflammation General Categorization: [facility] Interpretation/Result: SEE NOTE [facility] Comment:Cytology Results: Ne gative for intraepitheliallesion or malignancy. Cytology Comment SEE NOTE [facility] Comment:This Pap test has be en evaluated with computerassisted technology. Oil[employer] Plant And Field Operator: SEE NOTE [facility] Comment:RMM, CT(ASCP)CT scre ening location: [place] [address] Review [employer] Operator: SEE NOTE [facility] Comment:MPG, CT(ASCP)CT scre ening location: [place] [address] Pathologist [facility] PAP Infection [facility] See Note SEE [facility] Comment:EXPLANATORY NOTE:The Pap is a screening test for cervical cancer. It isnot a diagnostic test and is subject to false negativeand false positive results. It is most reliable when asatisfactory sample, regularly obtained, is submittedwith relevant clinical findings and history, and whenthe Pap result is evaluated along with historic andcurrent clinical information. 12/09/2023 12/09/2023 Narrative [facility] - 12/17/2023 12:02 PM EDT SEE SCANNED RESULTS IN EMR us Rocio Pratik DO LAB PATHOLOGY ORDERABLES Fin al Result [facility] [address] [place] [phone] [phone] * BI Mammogram Screening Tomosynthesis Bilateral (09/09/2023 9:49 AM EDT) Anatomical Region Laterality Modality Breast Bilateral Mammography 09/09/2023 9:49 AM EDT Narrative 10/08/2023 1:27 PM EDT ? [facility] [place] ? [address] ?[place] [address] ? Mammography Report ? Signed ? Patient: Daly Neal ?MR#: [id number] ?? [id number] ? : 1960 ?Acct:[id number] ? Age/Sex: 62 / F ?ADM Date: 09/09/23 ? Loc: HO.MAMMO ? Attending Dr: Rocio Christie DO ? Ordering Physician: Rocio Christie DO ?Results: 1N ?? egative ? Date of Service: 09/09/23 ?Follow Up: 1 Year From Orig ?? inal Mammogram ? Procedure(s): MM tomosynthesis screening BI ?? Accession Number(s): [id number] ? cc: Rocio Christie DO ? EXAMINATION: ?? MM SCREENING DIGITAL BREAST TOMOSYNTHESIS, BILATERAL ? CLINICAL INFORMATION: ? Screening. Asymptomatic. ? COMPARISON: ?? Mammography: This study is compared with prior exams dating back to ?? 2019. ? TECHNIQUE: ?? Digital breast tomosynthesis is performed in both the craniocaudal and ?? mediolateral oblique views along with computer-aided detection (CAD). ?? Synthesized 2D images are generated from the tomosynthesis. ? FINDINGS: ?? The breasts are almost entirely fatty (ACR BI-RADS breast composition ?? Category a). ? There are no significant masses, abnormal calcifications, or other ?? abnormalities. ? MM/MM tomosynthesis screening BI ?? IMPRESSION: ?? No mammographic evidence of malignancy. ? ASSESSMENT: ? BI-RADS BI-RADS 1 - Negative ? RECOMMENDATION: ?? Routine annual mammography screening. ? 1 year F/U ? This examination should not preclude the clinical evaluation of a ?? suspicious palpable abnormality. ? This patient's information was entered into a reminder system with a ?? target due date for their next mammogram. ? Dictated By: ?Melonie Zaragoza MD ? Signed By: ?<Electronically signed by Melonie Zaragoza MD in OV> ? 10/08/23 1323 ? DD/ 0949 ? TD/TT: ? Vp Of Digital Marketing: ? Procedure Note Tonio, Image - 10/08/2023 [facility] [address] [place] [address] Mammography Report Signed Patient: Daly Neal EMR#: [id number] : 1960Acct:[id number] Age/Sex: 62 / FADM Date: 09/09/23 Loc: MORTEZAO Attending Dr: Rocio Christie DO Ordering Physician: Rocio Christieults: 1N egative Date of Service: 09/09/23Follow Up: 1 Year From Orig inal Mammogram Procedure(s): MM tomosynthesis screening BI Accession Number(s): [id number] cc: Rocio Christie DO EXAMINATION: MM SCREENING DIGITAL BREAST TOMOSYNTHESIS, BILATERAL CLINICAL INFORMATION: Screening. Asymptomatic. COMPARISON: Mammography: This study is compared with prior exams dating back to 2019. TECHNIQUE: Digital breast tomosynthesis is performed in both the craniocaudal and mediolateral oblique views along with computer-aided detection (CAD). Synthesized 2D images are generated from the tomosynthesis. FINDINGS: The breasts are almost entirely fatty (ACR BI-RADS breast composition Category a). There are no significant masses, abnormal calcifications, or other abnormalities. MM/MM tomosynthesis screening BI IMPRESSION: No mammographic evidence of malignancy. ASSESSMENT: BI-RADS BI-RADS 1 - Negative RECOMMENDATION: Routine annual mammography screening. 1 year F/U This examination should not preclude the clinical evaluation of a suspicious palpable abnormality. This patient's information was entered into a reminder system with a target due date for their next mammogram. Dictated By: Melonie Zaragoza MD Signed By: <Electronically signed by Melonie Zaragoza MD in OV> 10/08/23 1323 DD/ 0949 TD/TT: Vp Of Digital Marketing: Rocio Christie DO IMG BI PROCEDURES Final Resu lt * Albumin, Random Urine W/Creatinine (03/03/2023 11:48 AM EST) Creatinine, Urine 64.66 mg/dL [facility] Microalbumin Urine 17.0 mg/L [facility] Microalbum Creatinine Ratio Ur 26.2 <30 ug/mg cr [facility] Comment:Albumin/Creatinine R atio Reference Ranges: Normal: < 30 ug/mg creatinine Microalbuminuria: 30 - 300 ug/mg creatinineClinical Albuminuria: > 300 ug/mg creatinine Urine (Urine, Random) 03/03/2023 11:48 AM EST 03/03/2023 1:14 PM EST us Rocio Christie DO LAB URINE ORDERABLES Final R esult [facility] [address] [place] [phone] * Hepatitis C Antibody with Reflex to HCV, RNA, Quantitative, Real-Time PCR (03/03/2023 11:41 AM EST) Hepatitis C Antibody Nonreactive Nonreactive [facility] Comment:Antibodies to HCV no t detected; does not exclude early acuteHCV infection. Blood Venous blood specimen / Unknown 03/03/2023 11:41 AM EST 03/03/2023 1:18 PM EST Rocio Christie DO LAB BLOOD ORDERABLES Final R esult Performing Organization Address City/[facility]/ZIP Co de Phone Number [facility] [address] [place] [phone] * HIV-1/2 Antigen and Antibodies, Fourth Generation, with Reflexes (03/03/2023 11:41 AM EST) Pathologist [facility] HIV AB/AG Nonreactive Nonreactive [facility] Comment:HIV-1 p24 Ag and/or HIV-1/HIV-2 Ab not detected.A test result that is nonreactive does not exclude thepossibility of exposure to or infection with HIV-1 and/orHIV-2. Nonreactive results in this assay for individualswith prior exposure to HIV-1 and/or HIV-2 may be due toantigen and antibody levels that are below the limit ofdetection of this assay.The [employer] HIV Ag/Ab Combo assay result andsupplemental assay results should be interpreted inconjunction with the patient's clinical presentation,history and other laboratory results. If the results areinconsistent with clinical evidence, additional testing issuggested to confirm the result. Blood Venous blood specimen / Unknown 03/03/2023 11:41 AM EST 03/03/2023 1:18 PM EST Rocio Christie DO LAB BLOOD ORDERABLES Final R esult Performing Organization Address City/[facility]/ZIP Co de Phone Number [facility] [address] [place] [phone] [phone] * (ABNORMAL) Lipid Panel, Standard (03/03/2023 11:41 AM EST) Triglycerides 96 <150 mg/dL [facility] Comment:Desirable Triglyceri de: less than 150 mg/dLBorderline High Triglyceride 150-199 mg/dLHigh Triglyceride: 200-499 mg/dLVery High Triglyceride: greater than or equal to 5OO mg/dL Cholesterol 133 <200 mg/dL [facility] Comment:Desirable Cholestero l: less than 200 mg/dLBorderline High Cholesterol: 200-239 mg/dLHigh Cholesterol: greater than 239 mg/dL LDL Cholesterol Calculated 80 <100 mg/dL [facility] Comment:Desirable LDL: less than 100 mg/dLNear Optimal/Above Optimal LDL: 110- 129 mg/dLBorderline High LDL: 130-159 mg/dLHigh LDL: 160-189 mg/dLVery High LDL: greater than or equal to 190 mg/dL HDL Cholesterol 34(L) >40 mg/dL [facility] Comment:Desirable HDL: great er than 40 mg/dL Note: This HDL assay may give artificially low results in patients with liver disease. Blood Venous blood specimen / Unknown 03/03/2023 11:41 AM EST 03/03/2023 1:18 PM EST us Rocio Christie DO LAB BLOOD ORDERABLES Final R esult [facility] [address] [place] [phone] * Hm Colonoscopy (09/02/2012 11:00 AM EDT) us Historical Provider HEALTH MAINTENANCE Final Result from Last 3 Months or Most Recently Relevant to Health Maintenance Insurance [address] [place] [id number] [place] C3 Care Teams Rn Diabetes Educator Relationship Specialty Start Date End Date Rocio Christie DO [address] [place] [phone] PCP - General Family Medicine 03/22/18
--- OUTSIDE RECORDS SUMMARY | 2024-05-17 12:37 | XMS_ITS | Encounter Summary ---
Author Organization [employer] Address [address] [facility] 7t [place] [address] Care Team Providers Care Trip Motor Operator Name Role Phone Rocio Christie DO Primary Care Provider [phone] Reason for Visit * Reason Comments Med Refill Encounter Details Date Type Department Care Team ([facility] st Contact Info) Description 02/21/2024 Refill [facility] [address] [place], [place] [phone] Rocio Christie DO [address] [place], [place] [phone] New onset type 2 diabetes mellitus (CMS/HCC) [...] Description 05/26/2024 9:15 AM EST Office Visit [facility] [address] [place] [phone] Joanie Curiel MD [address] [place] [phone] 06/29/2024 9:00 AM EDT Telemedicine [facility] [address] [place] [phone] Marisa Sims, HOA documented as of this encounter Visit Diagnoses Diagnosis New onset type 2 diabetes mellitus (CMS/HCC) documented in this encounter Additional Health Concerns Assessment Noted Time PHQ-9 Depression Total Score: 16 024 1:38 PM EDT documented as of this encounter Care Teams Trip Motor Operator Relationship Specialty Start Date End Date Rocio Chrsitie DO [address] [place] [phone] PCP - General Family Medicine 03/22/18 documented as of this encounter
--- OUTSIDE RECORDS SUMMARY | 2024-05-17 12:37 | XMS_ITS | Encounter Summary ---
Author Organization [employer] Address [address] [facility] 7t [place] [address] Care Team Providers Care Insulation Extruder Operator Name Role Phone Rocio Christie DO Primary Care Provider [phone] Encounter Details Date Type Department Care Team ([facility] st Contact Info) Description 04/30/2024 Orders Only [facility] [address] [place], [place] [phone] Rocio Christie DO [address] [place], [place] [phone] Social History Tobacco Use Types Packs/Day Years [...] AM EST Office Visit [facility] [address] [place] [phone] Joanie Curiel MD [address] [place] [phone] 06/29/2024 9:00 AM EDT Telemedicine [address] [address] Marisa Sims, HOA documented as of this encounter Visit Diagnoses Not on filedocumented in this encounter Additional Health Concerns Assessment Noted Time PHQ-9 Depression Total Score: 16 024 1:38 PM EDT documented as of this encounter Care Teams Insulation Extruder Operator Relationship Specialty Start Date End Date Rocio Christie DO [address] [place] [phone] PCP - General Family Medicine 03/22/18 documented as of this encounter
--- OUTSIDE RECORDS SUMMARY | 2024-05-17 12:37 | XMS_ITS | Encounter Summary ---
Author Organization [employer] [facility] Address [address] [place] [address] 7 [place] [address] Care Team Providers Care Rivet Sticker Name Role Phone Rocio Christie DO Primary Care Provider [phone] Reason for Referral * Consultation (Routine) - Pending Review Specialty Diagnoses / Procedures Referred By Contac t Referred To Contact General Surgery Diagnoses Right groin pain Soraya Oneal MD [address] [place] [address] Phone: tel: fax: Referral ID Status Reason Start Date Expiration Date Visits Requested Visits Authorized [id number] Pending Review Specialty Services Required 05/17/2024 05/17/2025 1 1 * Imaging (Urgent) - Authorized Specialty Diagnoses / Procedures Referred By Contnela t Referred To Contact Radiology Diagnoses Right groin pain Procedures Us Pelvis complete Soraya Oneal MD [address] [place] [address] Phone: tel: fax: [facility] [address] [facility], [address] [place] [address] Phone: tel: fax: Referral ID Status Reason Start Date Expiration Date V isits Requested Visits Authorized [id number] Authorized 05/17/2024 05/17/2025 1 1 Reason for Visit * Reason Comments Groin Pain Encounter Details Date Type Department Care Team (Late st Contact Info) Description 05/17/2024 9:40 AM EST Office Visit [facility] [address] [facility] [place] [address] Soraya Oneal MD [address] [place] [address] Right groin pain (Primary Dx) Social History Tobacco Use Types Packs/Day Years [...] AM EDT documented as of this encounter Last Filed Vital Signs Vital Sign Reading Time Taken Comments Blood Pressure 158/87 05/17/2024 9:43 AM EST Pulse 89 05/17/2024 9:43 AM EST Temperature 36.8 ??C (98.2 ??F) 05/17/2024 9:43 AM ES T Respiratory Rate 18 05/17/2024 9:43 AM EST Oxygen Saturation 96% 05/17/2024 9:43 AM EST Inhaled Oxygen Concentration - - Weight 90.7 kg (200 lb) 05/17/2024 9:43 AM EST Height - - Body Mass Index 33.28 02/14/2024 11:17 AM EST documented in this encounter Patient Instructions * Patient Instructions* Soraya Oneal MD - 05/17/2024 9:40 AM EST To schedule your test at [facility] please call [phone]. documented in this encounter Progress Notes * Hayley Browne - 05/17/2024 9:40 AM EST Subjective Patient ID: Daly Neal is a 63 y.o. female with past medical history of COPD, hypertension, type 2 diabetes, chronic back pain, hyperlipidemia, anxiety/depression, bilateral primary osteoarthritis of the hips and tobacco dependence who presents to walk in clinic for Groin Pain. Ab/Pelv CT from 2018: Small fat-containing umbilical hernia. Nonobstructing stone in the lower poleof the left kidney. Atherosclerotic changes. No evidence of inguinal hernia. Pt reports she has had pain in her groin for the past 2 months. Denies any falls or trauma that precipitated pain. Notes pain is on the right groin. Pt states it feels like a muscle. She notes the pain radiates down her leg. Pt says when she coughs the pain is worse and she needs to push on her thigh to alleviate pain. Review of Systems Constitutional: Negative for fever and unexpected weight change. Respiratory: Negative for shortness of breath. Cardiovascular: Negative for chest pain. Gastrointestinal: Negative for abdominal pain. Genitourinary: Negative for difficulty urinating. Musculoskeletal: Groin pain 05/17/24 XR right IMPRESSION: No acute fracture or dislocation, right hip. Mild to moderate osteoarthrosis, right hip. Peripheral vascular disease. Objective Visit Vitals BP (!) 158/87 (BP Location: Right arm, Patient Position: Sitting, BP Cuff Size: Large adult) Pulse 89 Temp 98.2 ??F (36.8 ??C) (Temporal) Resp 18 Body mass index is 33.28 kg/m??. Physical Exam Constitutional: Appearance: Normal appearance. Cardiovascular: Rate and Rhythm: Normal rate. Pulmonary: Effort: Pulmonary effort is normal. Abdominal: Tenderness: There is no abdominal tenderness. Hernia: No hernia is present. Neurological: General: No focal deficit present. Mental Status: She is alert. Psychiatric: Behavior: Behavior normal. Problem List Items Addressed This Visit Right groin pain - Primary Right groin pain x2 months worse with coughing. Symptoms and characteristics of pain suggest right inguinal hernia, although not significant on exam. -ordered right hip XR as well as US of the pelvis. -referred to General Surgery for further consultation. -recommended going to the ER if symptoms worsen or bulging occurs to get stat CT. Relevant Orders Us Pelvis complete Referral to General Surgery XR Hip 2 or 3 Views Right -No evidence of acute disease process. Suspect possibly inguinal hernia, although no significant findings on exam. Symptoms mild. -Ordered US and XR. -Referred to specialist. -ER precautions discussed. -Seek medical attention for worsening symptoms. I, Hayley Browne, am serving as a scribe to document services personally performed by Dr. Adams, based on the patient's response to questions by provider and providers statements to me. documented in this encounter Miscellaneous Notes * Assessment & Plan Note - Hayley Browne - 05/17/2024 10:31 AM ESTAssociated Problem(s): Right groin pain Right groin pain x2 months worse with coughing. Symptoms and characteristics of pain suggest right inguinal hernia, although not significant on exam. -ordered right hip XR as well as US of the pelvis. -referred to General Surgery for further consultation. -recommended going to the ER if symptoms worsen or bulging occurs to get stat CT. documented in this encounter Plan of Treatment Upcoming Encounters Date Type Department Care Team ([facility] st Contact Info) Description 05/26/2024 9:15 AM EST Office Visit [facility] [address] [place] [address] Joanie Curiel MD [address] [place] [address] 06/29/2024 9:00 AM EDT Telemedicine [facility] [address] [place] [address] Marisa Sims RN Scheduled Orders Name Type Priority Associated Diagnoses Orde r Schedule Us Pelvis complete Imaging Urgent Right groin pain Expected: 05/17/2024, Expires: 05/17/2025 Scheduled Referrals Name Type Priority Associated Diagnoses Orde r Schedule Referral to General Surgery Outpatient Referral Routine Right groin pain Expected: 05/17/2024 (Approximate), Expires: 05/17/2025 documented as of this encounter Procedures Procedure Name Priority Date/Time Associated Diagnosis Comments XR HIP 2 OR 3 VIEWS RIGHT Routine 05/17/2024 10:20 AM EST Right groin pain documented in this encounter Results * XR Hip 2 or 3 Views Right (05/17/2024 10:20 AM EST) Anatomical Region Laterality Modality Lower Extremities, Hip Right Radiograp hic Imaging 05/17/2024 10:2 0 AM EST Narrative 05/17/2024 10:38 AM EST ?[facility] ?[address] ?[place] [address] ?XRay Report ? Signed ? Patient: Neal,Daly E ?MR#: [id number] ?? [id number] ? : 1960 ?Acct:[id number] ? Age/Sex: 63 / F ?ADM Date: 02/26/25 ? Loc: HO.HHCX ? Attending Dr: Soraya Oneal MD ? Ordering Physician: Soraya Oneal MD ?? Date of Service: 05/17/24 ?? Procedure(s): XR hip RT min 2V ?? Accession Number(s): [id number] ? cc: Soraya Oneal MD ? EXAMINATION: [...] Mc MD ??05/17/2024 10:35 AM ?? EST ? Dictated By: ?Aldo Stubbs MD ? Signed By: ?<Electronically signed by Aldo Mireles MD in OV> ? 05/17/24 1035 ? DD/ 1020 ? TD/TT: 05/17/24 1032 ? Rn Vascular: ? Procedure Note Tonio, Image - 05/17/[address] [address] XRay Report Signed Patient: Daly Neal EMR#: [id number] : 1960Acct:[id number] Age/Sex: 63 / FADM Date: 05/17/24 Loc: HO.HHCX Attending Dr: Soraya Oneal MD Ordering Physician: Soraya Oneal MD Date of Service: 05/17/24 Procedure(s): XR hip RT min 2V Accession Number(s): [id number] cc: Soraya Oneal MD EXAMINATION: XR HIP, [...] 05/17/24 1035 DD/ 1020 TD/TT: 05/17/24 1032 Rn Vascular: Soraya Oneal MD IMG XR PROCEDURES Final Re sult documented in this encounter Visit Diagnoses Diagnosis Right groin pain- Primary Abdominal pain, right lower quadrant documented in this encounter Additional Health Concerns Assessment Noted Time PHQ-9 Depression Total Score: 16 024 1:38 PM EDT documented as of this encounter Care Teams Rivet Sticker Relationship Specialty Start Date End Date Rocio Christie DO [address] [place] [address] PCP - General Family Medicine 03/22/18 documented as of this encounter
--- OUTSIDE RECORDS SUMMARY | 2024-05-17 12:37 | XMS_ITS | Encounter Summary ---
Author Organization [employer] Address [address] [facility] 7t [place] [address] Care Team Providers Care Programmer Analyst Name Role Phone Rocio Christie DO Primary Care Provider [phone] Reason for Visit * Reason Comments Med Refill Encounter Details Date Type Department Care Team ([facility] st Contact Info) Description 05/04/2024 Refill [facility] [address] [place], [place] [phone] Rocio Christie DO [address] [place] [address] Insomnia, unspecified type; Chronic bilateral low back [...] Description 05/26/2024 9:15 AM EST Office Visit [facility] [address] [place] [phone] Joanie Curiel MD [address] [place] [phone] 06/29/2024 9:00 AM EDT Telemedicine [address] [address] Marisa Sims, HOA documented as of this encounter Visit Diagnoses Diagnosis Insomnia, unspecified type Chronic bilateral low back pain without sciatica documented in this encounter Additional Health Concerns Assessment Noted Time PHQ-9 Depression Total Score: 16 024 1:38 PM EDT documented as of this encounter Care Teams Programmer Analyst Relationship Specialty Start Date End Date Rocio Christie DO [address] [place] [phone] PCP - General Family Medicine 03/22/18 documented as of this encounter
--- OUTSIDE RECORDS SUMMARY | 2024-05-17 12:37 | XMS_ITS | Encounter Summary ---
Author Organization [employer] Address [address] [facility] 7t [place] [address] Care Team Providers Care Linux Programmer Name Role Phone Rocio Christie DO Primary Care Provider +[phone] Reason for Visit * Reason Onset Date Comments Call Back Request 09/10/2023 Encounter Details Date Type Department Care Team ([facility] st Contact Info) Description 09/10/2023 Telephone [facility] [address] [place], [place] [phone] Rocio Christie DO [address] [place], [place] [phone] Call Back Request Social History Tobacco Use Types Packs/Day Years [...] Recorded Patient Health Questionnaire-2 Score 4 07/20/2023 Comments Unknown Sex and Gender Information Value Date Recorded Sex Assigned at Female 01/19/2022 10:16 AM EDT Legal Sex Female 10:16 AM EDT Gender Identity Female 01/19/2022 10:16 AM EDT Sexual Orientation Straight 01/19/2022 10 :16 AM EDT documented as of this encounter Miscellaneous Notes * Telephone Encounter - Marisa Sims RN - 09/10/2023 12:06 PM EDT Return TC to patient, patients son taking her on vacation. [employer] RV rescheduled for 10/25/23. Pt c/o new diabetic medication is 'eating her fingernails.' She's also asking about when she's due for more labs. Will send message to PCP and [place]. * Telephone Encounter - Ashley Sheets - 09/10/2023 10:33 AM EDT Tc from pt requesting a call back pt is requesting r/s appt. documented in this encounter Plan of Treatment Upcoming Encounters Date Type Department Care Team (Late st Contact Info) Description 05/26/2024 9:15 AM EST Office Visit [facility] [address] [place] [phone] Joanie Curiel MD [address] [place] [address] 06/29/2024 9:00 AM EDT Telemedicine [facility] [address] [place] [address] Bethany, Marisa, RN documented as of this encounter Visit Diagnoses Not on filedocumented in this encounter Additional Health Concerns Assessment Noted Time PHQ-9 Depression Total Score: 16 024 1:38 PM EDT documented as of this encounter Care Teams Linux Programmer Relationship Specialty Start Date End Date Rocio Christie DO [address] [place] [address] PCP - General Family Medicine 03/22/18 documented as of this encounter
--- OUTSIDE RECORDS SUMMARY | 2024-05-17 12:37 | XMS_ITS | Clinical Summary ---
Author Organization [facility] Address [address] [place] [address] Care Team Providers Care Reel Cutter Name Role Phone Rocio Christie DO Primary Care Provider [phone] Surgical History Surgery Date Site/Laterality Comments COLONOSCOPY PROCEDURE: HISTORICAL COLONOSCOPY ABDOMINAL SURGERY PROCEDURE: HISTORICAL ABDOMINAL SURGERY OTHER SURGICAL HISTORY 2017 PROCEDURE: DE COLECTOMY PARTIAL W/ANASTOMOSIS; COMMENT: sigmoid/descending colon OTHER SURGICAL HISTORY PROCEDURE: PARTIAL REMOVAL OF LUNG Medical History Medical History Date Comments Asthma DX:Asthma History of diverticulitis of colon DX:History of diverticulitis of colon; COMMENT: surg repair 05/2017; sigmoid and descendign colon Lung nodule 2017 DX:Lung nodule; COMMENT: folllowed by PCP @ [facility] DANDRE (obstructive sleep apnea) DX :DANDRE (obstructive sleep apnea) Chronic lower back pain DX:Chron ic lower back pain Major depression, recurrent, chronic (CMS/HCC) DX:Major depression, recurre nt, chronic (HCC) Family History Medical History Relation Name Comments Stroke Mother Diabetes Son Hypertension Son Breast cancer Neg Hx Ovarian cancer Neg Hx Uterine cancer Neg Hx Relation Name Status Comments Mother Son Alive Social History Tobacco Use Types Packs/Day Years Used Date Smoking Tobacco: Every Day Cigarettes Last attempted to quit: 08/08/2019 Smokeless Tobacco: Never Alcohol Use Standard Drinks/Week Comments No 0 (1 standard drink = 0.6 oz pur e alcohol) Comments Unknown Sex and Gender Information Value Date Recorded Sex Assigned at Not on file Legal Sex Female 12:18 AM EST Gender Identity Not on file Sexual Orientation Not on file Obstetrics History Plan of Treatment Health Maintenance Due Date Last Done Comments Breast Cancer Screening 1960 DTaP,Tdap,and Td Vaccines (1 - Tdap) 12/05/1978 Pneumococcal Vaccine: 50+ Ye ars (1 of 2 - PCV) 12/05/1978 Pneumococcal Vaccine: Pediat rics (0 to 5 Years) and At-Risk Patients (6 to 64 Years) (1 of 2 - PCV) 12/05/1978 Cervical Cancer Screening: P ap Smear 12/05/1980 Zoster Vaccines (1 of 2) 12/05/2009 Colorectal Cancer Screening: Colonoscopy 02/28/2022 Depression Screening 02/28/2022 HIV Screening 02/28/2022 Hepatitis C Screening 02/28/2022 Social Influencers of Health Screening 02/28/2022 COVID-19 Vaccine ( - 2023-2 5 season) 2023 Influenza Vaccine (#1) 2023 RSV Immunization Patients 60 + Years Old (1 - 1-dose 75+ series) 12/05/2034 HIB Vaccines Aged Out No longer eligi ble based on patient's age to complete this topic HPV Vaccines Aged Out No longer eligi ble based on patient's age to complete this topic Hepatitis A Vaccines Aged Out No long er eligible based on patient's age to complete this topic Hepatitis B Vaccines Aged Out No long er eligible based on patient's age to complete this topic IPV Vaccines Aged Out No longer eligi ble based on patient's age to complete this topic MMR Vaccines Aged Out No longer eligi ble based on patient's age to complete this topic Meningococcal ACWY Vaccine Aged Out N o longer eligible based on patient's age to complete this topic Meningococcal B Vacine Aged Out No lo nger eligible based on patient's age to complete this topic RSV Immunization Patients Un iza 20 months Aged Out No longer eligible b ased on patient's age to complete this topic Varicella Vaccines Aged Out No longer eligible based on patient's age to complete this topic Care Teams Reel Cutter Relationship Specialty Start Date End Date Rocio Christie DO [address] [place] [address] PCP - General Internal Medicine 05/27/11
--- OUTSIDE RECORDS SUMMARY | 2024-05-17 12:38 | XMS_ITS | Encounter Summary ---
Author Organization [employer] Address [address] [facility] 7t [place] [address] Care Team Providers Care Geotechnical Intern Name Role Phone Rocio Christie DO Primary Care Provider [phone] Reason for Visit * Reason Comments Med Refill Encounter Details Date Type Department Care Team ([facility] st Contact Info) Description 11/30/2023 Refill [facility] [address] [place], [place] [phone] Rocio Christie DO [address] [place] [address] Insomnia, unspecified type; Chronic bilateral low back [...] Description 05/26/2024 9:15 AM EST Office Visit [facility] [address] [place] [phone] Joanie Curiel MD [address] [place] [phone] 06/29/2024 9:00 AM EDT Telemedicine [address] [address] Marisa Sims, HOA documented as of this encounter Visit Diagnoses Diagnosis Insomnia, unspecified type Chronic bilateral low back pain without sciatica documented in this encounter Additional Health Concerns Assessment Noted Time PHQ-9 Depression Total Score: 16 024 1:38 PM EDT documented as of this encounter Care Teams Geotechnical Intern Relationship Specialty Start Date End Date Rocio Christie DO [address] [place] [phone] PCP - General Family Medicine 03/22/18 documented as of this encounter
--- OUTSIDE RECORDS SUMMARY | 2024-05-17 12:38 | XMS_ITS | Encounter Summary ---
Author Organization [employer] [facility] Address [address] [place] [address] 7 [place] [address] Care Team Providers Care Welding Lead Burner Name Role Phone Rocio Christie DO Primary Care Provider [phone] Encounter Details Date Type Department Care Team (Late st Contact Info) Description 05/18/2022 Abstract [facility] [address] [place] [address] [phone] Rocio Christie DO [address] [place] [address] [phone] Social History Tobacco Use Types Packs/Day Years Used Date Smoking Tobacco: Every Day Cigarettes Alcohol Use Standard Drinks/Week Comments Never 0 [...] Description 05/26/2024 9:15 AM EST Office Visit [facility] [address] [place] [address] [phone] Joanie Curiel MD [address] [place] [address] [phone] 06/29/2024 9:00 AM EDT Telemedicine [facility] [address] [place] [address] [phone] Marisa Sims RN documented as of this encounter Visit Diagnoses Not on filedocumented in this encounter Care Teams Welding Lead Burner Relationship Specialty Start Date End Date Rocio Christie DO [address] [place] [address] PCP - General Family Medicine 03/22/18 documented as of this encounter
--- OUTSIDE RECORDS SUMMARY | 2024-05-17 12:38 | XMS_ITS | Encounter Summary ---
Author Organization [employer] Address [address] [facility] 7t [place] [address] Care Team Providers Care Hydrology Teacher Name Role Phone Pratik Rocio Primary Care Provider + [phone] Reason for Visit * Reason Comments Med Refill Encounter Details Date Type Department Care Team ([facility] st Contact Info) Description 09/23/2023 Refill [facility] [address] [place], [place] [phone] Jania Mcduffie MD [address] [place] [address] Other chronic pain Social History Tobacco Use Types Packs/Day Years [...] Description 05/26/2024 9:15 AM EST Office Visit [facility] [address] [place] [phone] Joanie Curiel MD [address] [place] [address] 06/29/2024 9:00 AM EDT Telemedicine [facility] [address] [place] [phone] Marisa Sims RN documented as of this encounter Visit Diagnoses Diagnosis Other chronic pain documented in this encounter Additional Health Concerns Assessment Noted Time PHQ-9 Depression Total Score: 16 024 1:38 PM EDT documented as of this encounter Care Teams Hydrology Teacher Relationship Specialty Start Date End Date Rocio Christie DO [address] [place] [phone] PCP - General Family Medicine 03/22/18 documented as of this encounter
--- OUTSIDE RECORDS SUMMARY | 2024-05-17 12:38 | XMS_ITS | Encounter Summary ---
Author Organization [facility] Address [address] [place] [address] 7t [place] [address] Care Team Providers Care Medical Staff Services Coordinator Name Role Phone Rocio Christie DO Primary Care Provider [phone] Encounter Details Date Type Department Care Team (Late st Contact Info) Description 04/01/2022 [facility] Only [facility] [address] [place], [place] [phone] Rocio Christie DO [address] [place], [place] [phone] Social History Tobacco Use Types Packs/Day Years Used Date Smoking Tobacco: Never Assessed Comments Unknown Sex and Gender Information Value [...] Description 05/26/2024 9:15 AM EST Office Visit [facility] [address] [place] [address] [phone] Joanie Curiel MD [address] [place] [address] [phone] 06/29/2024 9:00 AM EDT Telemedicine [facility] [address] [place] [address] [phone] Marisa Sims RN documented as of this encounter Visit Diagnoses Not on filedocumented in this encounter Care Teams Medical Staff Services Coordinator Relationship Specialty Start Date End Date Rocio Christie DO [address] [place] [phone] PCP - General Family Medicine 03/22/18 documented as of this encounter
--- OUTSIDE RECORDS SUMMARY | 2024-05-17 12:38 | XMS_ITS | Encounter Summary ---
Author Organization [employer] Address [address] [facility] 7t [place] [address] Care Team Providers Care Preparation Room Worker Name Role Phone Rocio Christie DO Primary Care Provider + [phone] Reason for Visit * Reason Comments Med Refill Encounter Details Date Type Department Care Team (Late st Contact Info) Description 10/13/2023 Refill [facility] [address] [place], [place] [phone] Rocio Christie DO [address] [place], [place] [phone] Hand dermatitis Social History Tobacco Use Types Packs/Day Years [...] Description 05/26/2024 9:15 AM EST Office Visit [facility] [address] [place] [phone] Joanie Curiel MD [address] [place] [phone] 06/29/2024 9:00 AM EDT Telemedicine [facility] [address] [place] [phone] Marisa Sims RN documented as of this encounter Visit Diagnoses Diagnosis Hand dermatitis Contact dermatitis and other eczema, due to unspecified cause documented in this encounter Additional Health Concerns Assessment Noted Time PHQ-9 Depression Total Score: 16 024 1:38 PM EDT documented as of this encounter Care Teams Preparation Room Worker Relationship Specialty Start Date End Date Rocio Christie DO [address] [place] [phone] PCP - General Family Medicine 03/22/18 documented as of this encounter
== END 2024-05-17 10:21 | disposition home or self-care (01) ==
LOC: HO.HHCX 10:20
PROVIDERS: Visit Provider Family Medicine
DX: R10.31 Right lower quadrant pain (principal)
CPT/HCPCS: 73502

== ENCOUNTER → 2024-05-17 10:20 | Outpatient (BNV) | payer MEDICAID, SELFPAY | PROVIDERS: Visit Provider Radiology Diagnostic Radiology | DX: R10.31 Right lower quadrant pain (principal) | CPT/HCPCS: 73502 ==

== ENCOUNTER 2024-06-12 10:08 | Outpatient (AMB) | payer MEDICAID, SELFPAY ==
--- NOTE | 2024-06-12 10:12 | MHC.OFFVIS ---
Intake Visit Reasons: New Prob - Right Hip OA/Bursitis Intake Note: Daly is a 63 year old female who presents today for a new problem visit with complaints of bilateral hip OA. She was last seen for these concerns in 2021 where it was determined that her symptoms were more consistent with bursitis. Sent for PT. Pt states she did not go to physical therapy.Today patient complains of mostly right hip pain that is worse when weight bearing. Allergies morphine [MORPHINE] Allergy (Unknown, Verified 06/12/24 10:12) HIVES AND RASH, hives HPI HPI New Prob - Right Hip OA/Bursitis: Details: Daly is a 63 year old female who presents today for a new problem visit with complaints of bilateral hip OA. She was last seen for these concerns in 2021 where it was determined that her symptoms were more consistent with bursitis. Sent for PT. Pt states she did not go to physical therapy.Today patient complains of mostly right hip pain that is worse when weight bearing. Pain is in her right groin. It bothers her when she is getting into and out of automobiles. It extends into her groin and sometimes posteriorly and/or buttock. She also has ongoing left knee pain. I have seen her for her left knee in the past. PFS Medical History GERD (gastroesophageal reflux disease) Hx of sleep apnea Asthma History of salivary gland disease Diabetes Costochondritis Depression Dyslipidemia Hypertension Surgical History Hx of cholecystectomy History of surgery on arm Hx of elbow surgery Hx of arthroscopy of left knee History of lung surgery S/P left rotator cuff repair History of carpal tunnel release Family History Mother HTN (hypertension) Maternal Grandfather HTN (hypertension) Son HTN (hypertension) Diabetes Father Diabetes Social History Household Members: Children Housing: House Are you a primary plant health care technician to a significant other at home: No Do you presently have visiting nurse or other home services: No Alcohol intake: never Patient Tobacco Use Status: Current everyday Tobacco user Tobacco use type: Cigarette Cigarettes Per Day: 10 Years Smoked: 40 Physical Exam Extrem Other: Positive Stinchfield and impingement test right hip. Positive Trendelenburg gait. (Uses a cane). Left knee left knee with tenderness to palpation medial joint line. No effusion. Full range of motion. Office Procedures Joint Inj/Aspir; Non-Pain Clin Joint Injection/Drain Details: Injected 1 mL of Decadron and 3 mL 1% lidocaine and 3 mL of 0.25% Marcaine. Site was prepped using aseptic technique. Patient tolerated the procedure well. Shoulders, Hips, Knees, Knee Large Joint Injection : Left Knee Coding Procedure code (CPT) selection complete Results Reviewed Results Reviewed: I personally reviewed relevant radiographs. Right hip with focal subchondral cyst in the superior weight-bearing portion of the acetabulum. This is consistent with moderate arthrosis Assessment & Plan Assessment & Plan (1) Osteoarthritis of left knee: Code(s): M17.12 - Unilateral primary osteoarthritis, left knee Category: Medical Plan: I injected her left knee. Continue activity as tolerated. (2) Osteoarthritis of right hip: Code(s): M16.11 - Unilateral primary osteoarthritis, right hip Category: Medical Plan: 63-year-old woman with significant subchondral cyst and sclerosis formation of the acetabulum of the right hip consistent with moderate to severe osteoarthritis. I discussed treatment options with her including surgery and nonoperative interventions like therapy and injections. We elected to go forward with a hip injection. This was ordered. She will follow up with me 3 months after the injection. Orders: Referrals Pain Management Referral M16.11 - Unilateral primary osteoarthritis, right hip Coding Level of Care Code Est Pt Level 4 (32528) Complex EM visit Add On G2211 Diagnoses Osteoarthritis of left knee M17.12 Osteoarthritis of right hip M16.11 CPT Codes Shoulders, Hips, Knees, - Knee Large Joint Injection : Left Knee ([id number])
== END 2024-06-12 10:58 | disposition home or self-care (01) ==
LOC: HO.HOS 10:09
PROVIDERS: PCP Family Medicine; Visit Provider Orthopaedic Surgery
DX: M17.12 Unilateral primary osteoarthritis, left knee (principal); M16.11 Unilateral primary osteoarthritis, right hip
CPT/HCPCS: 20610; 99214

== ENCOUNTER → 2024-06-12 10:08 | Outpatient (BNVA) | payer MEDICAID, SELFPAY | PROVIDERS: PCP Family Medicine; Visit Provider Orthopaedic Surgery | DX: M16.0 Bilateral primary osteoarthritis of hip (principal); M17.12 Unilateral primary osteoarthritis, left knee | CPT/HCPCS: 20610; 99212; J0665; J1100; J2003 ==

== ENCOUNTER 2024-07-04 06:31 | Outpatient (REF) | payer MEDICAID, SELFPAY ==
--- NOTE | ~2024-07-04 | FL_ITS ---
EXAMINATION: XR FLUOROSCOPY WITH IMAGES CLINICAL INFORMATION: Right hip pain management injection. COMPARISON: None available. TECHNIQUE: Fluoroscopy provided to: Dr. Montoya Fluoroscopy time: 0.1 minutes DAP: 1.06 Gycm2 Images: 2 FINDINGS: 2 spot images taken during pain management injection right hip. Please refer to full procedural report for details. FL/FL guidance in treatment room IMPRESSION: Fluoroscopic guidance. Electronically signed by: Efren Vazquez MD 07/06/2024 08:50 AM EDT
--- OUTSIDE RECORDS SUMMARY | 2024-07-04 06:34 | XMS_ITS | Patient Health Record ---
Author Organization [facility] Address [address] [place] [address] Care Team Providers Care Software Test Developer Name Role Phone Rocio Christie M.D. Primary Care Provider Rakel vailable Mick Cook Unavailable [phone] Reason For Referral Referring Provider First Name Rocio Referring Provider Last Name Pratik Referred Organization [facility] Referred Provider Mick Cook Referred Address [address] [place] [address],[facility] [address],[place], [place],[address], Referred Provider Specialty Gastroentero logy Referral Priority Routine Encounters Encounter Location Date Provider Diagnosis [facility] [address] [place] [address] 06/06/2024 Mick Cook Plan Of Treatment No Information Insurance Providers Payer Name Payer Address Payer Phone Subscriber Number Group Number Insured Name Patient Relationship to Insured Coverage Start Date Coverage End Date MEDICAID OF [employer] [address] [place] [phone] [id number] VON ORTIZ Self - patient is the insured
--- OUTSIDE RECORDS SUMMARY | 2024-07-04 06:34 | XMS_ITS ---
Author Organization [facility] Address [address] [place] [phone] Care Team Providers Care Cloth Finishing Range Operator Name Role Phone Pratik Ritchie, Rocio Primary Care Provider Rakel Mick Bates [phone] REASON FOR VISIT Patient presents today for EPIGASTRIC PAIN, COLON SCREENING Encounters Encounter Location Date Provider Diagnosis [facility] [address] [place] [phone] 06/06/2024 Mick Cook Plan Of Treatment No Information Progress Notes * VON ORTIZDOB:[birth year] (63 yo F)Acc No.[id number]:06/06/2024 Progress Notes Patient:?VON ORTIZ Provider:?Mick Cook MD :1960???Age:63 Y???Sex:Female D ate:06/06/2024 Address:[address] [place] [address] [address] [facility] Pcp:Rocio Christie M.D. Subjective: * Chief Complaints: * ???1. Patient presents today for EPIGASTRIC PAIN, COLON SCREENING. * Medical History:? Objective: * Vitals:? Assessment: Plan: * Treatment: * * The named appointment provid er may or may not be the originator of this progress note, and it is not deemed complete until electronically signed by the appointment provider. Sign off status: Pending * Provider:?Mick Cook MD Date:? 025 Generated for Codyi dotty/Shyanne/eTransmitting on:?07/04/2024 06:34 AM EDT
--- OUTSIDE RECORDS SUMMARY | 2024-07-04 06:34 | XMS_ITS ---
Author Organization [facility] Address [address] [place] [phone] Care Team Providers Care One Piece Expansion Maker Hand Name Role Phone Rocio Christie M.D. Primary Care Provider Rakel vailable Mick Cook Unavailable [phone] REASON FOR VISIT no call/no show Encounters Encounter Location Date Provider Diagnosis [facility] [address] [place] [phone] 06/06/2024 Mick Cook Plan Of Treatment No Information Progress Notes * DIANA VONDOB:[birth year] (63 yo F)Acc No.[id number]:06/06/2024 Patient:?VON ORTIZ :1960???Age:63 Y???Sex:Female Address:[address] [facility] [address] , [place] [address] * * Date:?
--- OUTSIDE RECORDS SUMMARY | 2024-07-04 06:34 | XMS_ITS | Clinical Summary ---
Author Organization [facility] Address [address] [place] [address] Phone Care Team Providers Care Rental Sales Representative Name Role Phone Rocio Christie DO Primary Care Provider [phone] Allergies Active Allergy Reactions Criticality Noted Date Comments Morphine Hives 05/19/2024 Encounters Date Type Department Care Team Description 05/19/2024 9:09 AM EST - 05/19/2024 12:56 PM EST Emergency [facility] Emergency [address] [place] [address] Groin pain, right (Primary Dx) Discharge Disposition: Home or Self Care from Last 3 Months Surgical History Surgery Date Site/Laterality Comments COLONOSCOPY PROCEDURE: HISTORICAL COLONOSCOPY ABDOMINAL SURGERY PROCEDURE: HISTORICAL ABDOMINAL SURGERY OTHER SURGICAL HISTORY 2017 PROCEDURE: TX COLECTOMY PARTIAL W/ANASTOMOSIS; COMMENT: sigmoid/descending colon OTHER SURGICAL HISTORY PROCEDURE: PARTIAL REMOVAL OF LUNG Medical History Medical History Date Comments Asthma DX:Asthma History of diverticulitis of colon DX:History of diverticulitis of colon; COMMENT: surg repair 05/2017; sigmoid and descendign colon Lung nodule 2017 DX:Lung nodule; COMMENT: folllowed by PCP @ [facility] DANDRE (obstructive sleep apnea) DX :DANDRE (obstructive sleep apnea) Chronic lower back pain DX:Chron ic lower back pain Major depression, recurrent, chronic (CMS/HCC V24) DX:Major depression, recurre nt, chronic (HCC) Family [...] Value Date Recorded Sex Assigned at Female 05/19/2024 9:52 AM EST Legal Sex Female 12:18 AM EST Gender Identity Female 05/19/2024 9:52 AM EST Sexual Orientation Straight 05/19/2024 9: 52 AM EST Obstetrics History Last Filed Vital Signs Vital Sign Reading Time Taken Comments Blood Pressure 166/92 05/19/2024 8:07 AM EST Pulse 75 05/19/2024 8:07 AM EST Temperature 37.2 ??C (99 ??F) 05/19/2024 8:07 AM EST Respiratory Rate 16 05/19/2024 8:07 AM EST Oxygen Saturation 97% 05/19/2024 8:07 AM EST Inhaled Oxygen Concentration - - Weight 90.7 kg (200 lb) 05/19/2024 8:07 AM EST Height 165.1 cm (5' 5 ) 05/19/2024 8:07 AM EST Body Mass Index 33.28 05/19/2024 8:07 AM EST Plan of Treatment Health Maintenance Due Date Last Done Comments Breast Cancer Screening 1960 Diabetes: Annual Foot Exam 12/05/1969 Diabetes: Annual Retina Eye Exam 12/05/1969 Hepatitis A Vaccines (1 of 2 - Risk 2-dose series) 12/05/1978 Cervical Cancer Screening: Pap Smear 12/05/1980 Hepatitis B Vaccines (1 of 3 - Risk 3-dose series) 2019 Colorectal Cancer Screening: Colonoscopy 02/28/2022 Social Influencers of Health Screening 02/28/2022 COVID-19 Vaccine ( season) 2023 03/03/2023, 10/17/2021, 03/03/2021, Additional history exists Diabetes: Annual Urine Albumin-Creatinine Ratio (uACR) 05/19/2024 Depression Screening 07/19/2024 07/20/2023 Diabetes: Blood Sugar Control Test (HGBA1C) 08/13/2024 02/14/2024 Influenza Vaccine (Season Ended) 2024 03/03/2023, 06/25/2022, 12/13/2020 Diabetes: Annual GFR (Glomerular Filtration Rate) 05/19/2025 05/19/2024 Hypertension/CHF/CAD Annual BMP Blood Test 05/19/2025 05/19/2024 Cholesterol Screening (Lipid Panel) 03/03/2028 03/03/2023 DTaP,Tdap,and Td Vaccines (5 - Td or Tdap) 08/05/2031 08/04/2021, 05/13/2011, 08/04/2007, Additional history exists MMR Vaccines Aged Out 04/30/2000 No longer eligi ble based on patient's age to complete this topic Zoster Vaccines Completed 07/02/2021, 12/20/2020 Pneumococcal Vaccine: 50+ Years Completed 06/25/2022, 05/13/2011 Pneumococcal Vaccine: Pediatrics (0 to 5 Years) and At-Risk Patients (6 to 64 Years) Completed 06/25/2022, 05/13/2011 HIV Screening Completed 03/03/2023 Hepatitis C Screening Completed 03/03/2023 RSV Immunization Adult Patients Completed 06/09/2023 HIB Vaccines Aged Out No [...] age to complete this topic Meningococcal B Vaccine Aged Out No l onger eligible based on patient's age to complete this topic RSV Immunization Patients Under 20 months Aged Out No longer eligible based on patient's age to complete this topic Varicella Vaccines Aged Out No longer eligible based on patient's age to complete this topic Procedures Procedure Name Priority Date/Time Associated Diagnosis Comments CT ABDOMEN PELVIS W CONTRAST STAT 05/19/2024 10:38 AM EST PEÑA URINE CULTURE TUBE STAT 05/19/2024 9:27 AM EST URINALYSIS WITH REFLEX MICROSCOPIC AND CULTURE STAT 05/19/2024 9:27 AM EST URINALYSIS WITH REFLEX MICROSCOPIC AND CULTURE STAT 05/19/2024 9:27 AM EST CULTURE URINE STAT 05/19/2024 9:27 AM EST CBC WITH AUTO DIFFERENTIAL STAT 05/19/2024 9:18 AM EST COMPREHENSIVE METABOLIC PANEL STAT 05/19/2024 9:18 AM EST CBC AND DIFFERENTIAL STAT 05/19/2024 9:18 AM EST from Last 3 Months Results * CT Abdomen Pelvis w Contrast (05/19/2024 10:38 AM EST) Anatomical Region Laterality Modality Body Computed Tomogra phy 05/19/2024 10:5 9 AM EST Impressions 05/19/2024 11:14 AM EST No acute findings in the abdomen/pelvis. -------- FINAL REPORT -------- Dictated By: GUDELIA LEVIN Dictated Date: 05/19/2024 10:59 ET Assigned Physician: GUDELIA LEIVN Reviewed and Electronically Signed By: GUDELIA LEVIN Signed Date: 05/19/2024 11:14 ET Workstation ID: [id number] Transcribed By: Self Edit Transcribed Date: 05/19/2024 10:59 ET Narrative 05/19/2024 11:14 AM EST PROCEDURE: CT ABDOMEN/PELVIS INDICATION: Pain TECHNIQUE: CT of the abdomen and pelvis following the intravenous administration of 90cc Isovue 370. Multiplanar reformats. The examination was performed utilizing dose reduction techniques. Total DLP 1484 COMPARISON: ??02/29/2020 FINDINGS: ?? LOWER THORAX: Elevated left diaphragm with bibasilar atelectasis. ??Atelectasis/scar noted in the medial aspect of the right middle lobe. ??Coronary artery calcifications. HEPATOBILIARY: No focal liver lesions. ??Cholecystectomy. ??Biliary duct dilatation, without obstructing stone or mass, most likely related to postcholecystectomy state. SPLEEN: No splenomegaly. PANCREAS: No focal mass or ductal dilatation. ADRENALS: Small left adrenal adenoma is unchanged. ??No right adrenal nodules. KIDNEYS/URETERS: Nonobstructive left lower pole calculus measures 5 mm. ??No ureteral calculi or hydronephrosis. ??No solid renal mass. PELVIC ORGANS/BLADDER: Bladder is decompressed and within normal limits. ??Small calcified uterine fibroid. ??No adnexal mass. PERITONEUM / RETROPERITONEUM: No ascites or free air. No retroperitoneal lymphadenopathy. VESSELS: Portal vein is patent. ??Abdominal aorta is normal in size. ??Moderate arterial calcifications throughout the abdomen/pelvis GI TRACT: Sigmoidectomy. ??No bowel obstruction or wall thickening. ??Normal appendix. BONES AND SOFT TISSUES: Rectus diastases with wide mouth ventral hernia around the umbilicus. ??No inguinal hernia. ??Degenerative changes in the lower lumbar spine. Procedure Note Gudelia Levin MD - 05/19/2024 PROCEDURE: CT ABDOMEN/PELVIS INDICATION: Pain TECHNIQUE: CT of the abdomen and pelvis following the intravenousadministration of 90cc Isovue 370. Multiplanar reformats. The examinationwas performed utilizing dose reduction techniques. Total DLP 1484 COMPARISON: 02/29/2020 FINDINGS: LOWER THORAX: Elevated left diaphragm with bibasilar atelectasis.Atelectasis/scar noted in the medial aspect of the right middle lobe.Coronary artery calcifications. HEPATOBILIARY: No focal liver lesions. Cholecystectomy. Biliary ductdilatation, without obstructing stone or mass, most likely related topostcholecystectomy state. SPLEEN: No splenomegaly. PANCREAS: No focal mass or ductal dilatation. ADRENALS: Small left adrenal adenoma is unchanged. No right adrenalnodules. KIDNEYS/URETERS: Nonobstructive left lower pole calculus measures 5 mm.No ureteral calculi or hydronephrosis. No solid renal mass. PELVIC ORGANS/BLADDER: Bladder is decompressed and within normal limits.Small calcified uterine fibroid. No adnexal mass. PERITONEUM / RETROPERITONEUM: No ascites or free air. No retroperitoneallymphadenopathy. VESSELS: Portal vein is patent. Abdominal aorta is normal in size.Moderate arterial calcifications throughout the abdomen/pelvis GI TRACT: Sigmoidectomy. No bowel obstruction or wall thickening. Normalappendix. BONES AND SOFT TISSUES: Rectus diastases with wide mouth ventral herniaaround the umbilicus. No inguinal hernia. Degenerative changes in thelower lumbar spine. IMPRESSION: No acute findings in the abdomen/pelvis. -------- FINAL REPORT -------- Dictated By: GUDELIA LEVIN Dictated Date: 05/19/2024 10:59 ET Assigned Physician: GUDELIA LEVIN Reviewed and Electronically Signed By: GUDELIA LEVIN Signed Date: 05/19/2024 11:14 ET Workstation ID: [id number] Transcribed By: Self Edit Transcribed Date: 05/19/2024 10:59 ET Derek [facility] IMG CT PROCEDURES Final Resu lt * (ABNORMAL) Urinalysis with reflex microscopic and culture (05/19/2024 9:27 AM EST) Specific [place] Urine 1.023 1.003 - 1.030 LAB URINALYSIS - AUTOMATED METHOD 05/19/2024 10:[address] [facility] pH, Urine 6.0 5.0 - 8.0 pH LAB URINALYSIS - AUTOMATED METHOD 05/19/2024 10:[address] [facility] Leukocytes, Urine Small(A) Negative LAB URINALYSIS - AUTOMATED METHOD 05/19/2024 10:[address] [facility] Nitrite, Urine Negative Negative LAB URINALYSIS - AUTOMATED METHOD 05/19/2024 10:[address] [facility] Protein, Urine 100(A) <=Trace mg/dL LAB URINALYSIS - AUTOMATED METHOD 05/19/2024 10:[address] [facility] Glucose, Urine Negative Negative mg/dL LAB URINALYSIS - AUTOMATED METHOD 05/19/2024 10:[address] [facility] Ketones, Urine Trace(A) Negative mg/dL LAB URINALYSIS - AUTOMATED METHOD 05/19/2024 10:[address] [facility] Urobilinogen, Urine 1.0 0.2 - 1.0 mg/dL LAB URINALYSIS - AUTOMATED METHOD 05/19/2024 10:[address] [facility] Bilirubin, Urine Negative Negative LAB URINALYSIS - AUTOMATED METHOD 05/19/2024 10:[address] [facility] Blood, Urine Trace(A) Negative LAB URINALYSIS - AUTOMATED METHOD 05/19/2024 10:[address] [facility] RBC, Urine 5.0(H) 0 - 4 /HPF LAB URINALYSIS - AUTOMATED METHOD 05/19/2024 10:[address] [facility] WBC, Urine 8.0(H) 0 - 4 /HPF LAB URINALYSIS - AUTOMATED METHOD 05/19/2024 10:[address] [facility] Squamous Epithelial, Urine >100(H) 0 - 60 /LPF LAB URINALYSIS - AUTOMATED METHOD 05/19/2024 10:[address] [facility] Bacteria, Urine Few(A) Negative /HPF LAB URINALYSIS - AUTOMATED METHOD 05/19/2024 10:[address] [facility] Hyaline Casts, Urine 3.2(H) 0 - 3 /LPF LAB URINALYSIS - AUTOMATED METHOD 05/19/2024 10:[address] [facility] Urine Urine specimen obtained by clean catch procedure / Unknown Non-blood Collection / Unknown 05/19/2024 9:27 AM EST 05/19/2024 9:48 AM EST Rodney Silverman MD LAB URINE ORDERABLES Final R esult [facility] [address] [place] [address], * Peña urine culture tube (05/19/2024 9:27 AM EST) Extra Tube Hold for add-ons. 05/19/2024 11:[address] [facility] Comment:Auto resulted. Urine Urine specimen obtained by clean catch procedure / Unknown Non-blood Collection / Unknown 05/19/2024 9:27 AM EST 05/19/2024 9:48 AM EST us Rodney Silverman MD LAB URINE ORDERABLES Final R esult [facility] [address] [place] [address], [place] [phone] * Culture urine (05/19/2024 9:27 AM EST) Culture, Urine <10,000 cfu/mL Mixed bacterial jill 05/20/2024 10:[address] [facility] Urine Urine specimen obtained by clean catch procedure / Unknown Non-blood Collection / Unknown 05/19/2024 9:27 AM EST 05/19/2024 10:12 AM EST us Rodney Silverman MD LAB MICROBIOLOGY - GENERAL O RDERABLES Final Result Performing Organization Address City/[facility]/ZIP Co de Phone Number [facility] [address] [place] [address], [place] [phone] * (ABNORMAL) CBC auto differential (05/19/2024 9:18 AM EST) WBC 11.1(H) 4.8 - 10.8 K/mcL LAB HEMETOLOGY METHOD 05/19/2024 9:[address] [facility] RBC 5.70(H) 3.80 - 4.80 M/mcL LAB HEMETOLOGY METHOD 05/19/2024 9:[address] [facility] Hemoglobin 16.3(H) 11.5 - 16.0 g/dL LAB HEMETOLOGY METHOD 05/19/2024 9:[address] [facility] Hematocrit 48.6(H) 35.0 - 47.0 % LAB HEMETOLOGY METHOD 05/19/2024 9:[address] [facility] MCV 85.0 79.0 - 98.0 FL LAB HEMETOLOGY METHOD 05/19/2024 9:[address] [facility] MCH 28.5 27.0 - 32.0 pcg LAB HEMETOLOGY METHOD 05/19/2024 9:[address] [facility] MCHC 33.5 32.0 - 37.0 g/dL LAB HEMETOLOGY METHOD 05/19/2024 9:[address] [facility] RDW 13.6 11.0 - 15.0 % LAB HEMETOLOGY METHOD 05/19/2024 9:[address] [facility] Platelets 327 130 - 400 K/mcL LAB HEMETOLOGY METHOD 05/19/2024 9:[address] [facility] MPV 10.8 7.0 - 11.0 FL LAB HEMETOLOGY METHOD 05/19/2024 9:[address] [facility] NRBC 0.0 <1.0 % LAB HEMETOLOGY METHOD 05/19/2024 9:[address] [facility] NRBC Absolute 0.00 <0.10 K/mcL LAB HEMETOLOGY METHOD 05/19/2024 9:[address] [facility] Neutrophils Relative 57.2 % LAB HEMETOLOGY METHOD 05/19/2024 9:[address] [facility] Lymphocytes Relative 30.2 % LAB HEMETOLOGY METHOD 05/19/2024 9:[address] [facility] Monocytes Relative 6.6 % LAB HEMETOLOGY METHOD 05/19/2024 9:[address] [facility] Eosinophils Relative 4.6 % LAB HEMETOLOGY METHOD 05/19/2024 9:[address] [facility] Basophils Relative 1.1 % LAB HEMETOLOGY METHOD 05/19/2024 9:[address] [facility] Immature Granulocytes Relative 0.3 % LAB HEMETOLOGY METHOD 05/19/2024 9:[address] [facility] Neutrophils Absolute 6.36 1.50 - 7.00 K/mcL LAB HEMETOLOGY METHOD 05/19/2024 9:34 AM EST [facility] Lymphocytes Absolute 3.35 1.00 - 5.00 K/[facility] LAB HEMETOLOGY METHOD 05/19/2024 9:34 AM EST [facility] Monocytes Absolute 0.73 0.20 - 1.00 K/[facility] LAB HEMETOLOGY METHOD 05/19/2024 9:34 AM EST [facility] Eosinophils Absolute 0.51(H) 0.00 - 0.50 K/[facility] LAB HEMETOLOGY METHOD 05/19/2024 9:34 AM EST [facility] Basophils Absolute 0.12 0.00 - 0.20 K/[facility] LAB HEMETOLOGY METHOD 05/19/2024 9:[address] [facility] Immature Granulocytes Absolute 0.03 0.00 - 0.03 K/[facility] LAB HEMETOLOGY METHOD 05/19/2024 9:34 AM EST [facility] Blood Venous blood specimen / Unknown Venipuncture / Unknown 05/19/2024 9:18 AM EST 05/19/2024 9:26 AM EST us Rodney Silverman MD LAB BLOOD ORDERABLES Final R esult [facility] [address] [place] [address], * Comprehensive metabolic panel (05/19/2024 9:18 AM EST) Sodium 139 133 - 145 mmol/L LAB CHEMISTRY METHOD 05/19/2024 10:19 AM EST [facility] Potassium 4.2 3.5 - 5.5 mmol/L LAB CHEMISTRY METHOD 05/19/2024 10:[address] [facility] Chloride 106 96 - 110 mmol/L LAB CHEMISTRY METHOD 05/19/2024 10:19 AM EST [facility] CO2 27 21 - 32 mmol/L LAB CHEMISTRY METHOD 05/19/2024 10:[address] [facility] Anion Gap 6 3 - 11 LAB CHEMISTRY METHOD 05/19/2024 10:[address] [facility] Glucose 96 70 - 100 mg/dL LAB CHEMISTRY METHOD 05/19/2024 10:[address] [facility] BUN 12 5 - 25 mg/dL LAB CHEMISTRY METHOD 05/19/2024 10:[address] [facility] Creatinine 0.84 0.50 - 1.10 mg/dL LAB CHEMISTRY METHOD 05/19/2024 10:[address] [facility] eGFR 78 >=60 mL/min/1. 73m2 LAB CHEMISTRY METHOD 05/19/2024 10:[address] [facility] Comment:Calculation based on the??Chronic Kidney Disease Epidemiology Collaboration (CKD-EPI) equation refit??without adjustment for race. BUN/Creatinine Ratio 14.3 LAB CHEMISTRY METHOD 05/19/2024 10:[address] [facility] Calcium 9.9 8.5 - 10.5 mg/dL LAB CHEMISTRY METHOD 05/19/2024 10:[address] [facility] AST (SGOT) 22 10 - 42 unit/L LAB CHEMISTRY METHOD 05/19/2024 10:[address] [facility] ALT (SGPT) 22 10 - 60 unit/L LAB CHEMISTRY METHOD 05/19/2024 10:[address] [facility] Alkaline Phosphatase 118 42 - 121 unit/L LAB CHEMISTRY METHOD 05/19/2024 10:[address] [facility] Total Protein 7.3 6.0 - 8.0 g/dL LAB CHEMISTRY METHOD 05/19/2024 10:[address] [facility] Albumin 4.3 3.2 - 5.0 g/dL LAB CHEMISTRY METHOD 05/19/2024 10:[address] [facility] Total Bilirubin 1.0 0.0 - 1.4 mg/dL LAB CHEMISTRY METHOD 05/19/2024 10:19 AM EST [facility] Blood Venous blood specimen / Unknown Venipuncture / Unknown 05/19/2024 9:18 AM EST 05/19/2024 9:26 AM EST us Rodney Silverman MD LAB BLOOD ORDERABLES Final R esult [facility] [address] [place] [address], from Last 3 Months Insurance MEDICAID - [place] Care Teams Rental Sales Representative Relationship Specialty Start Date End Date Rocio Christie DO [address] [place] [address] PCP - General Internal Medicine 05/27/11
== END 2024-07-04 06:32 | disposition home or self-care (01) ==
LOC: CF 06:31
PROVIDERS: Visit Provider Anesthesiology
DX: M16.11 Unilateral primary osteoarthritis, right hip (principal)
CPT/HCPCS: 20610; J2003; J2795; J3301; Q9967

== ENCOUNTER 2024-07-04 12:28 | Outpatient (AMB) | payer MEDICAID, SELFPAY ==
[2024-07-04 12:39] VITALS: BP 159/84; PULSE 98; RESP 16; O2SAT 97
--- NOTE | 2024-07-04 12:39 | A.OFFVIS_ITS ---
Vital Signs 07/04/24 12:39 07/04/24 13:02 BP 159/84 H 154/88 H Blood Pressure Location Lt brachial Lt brachial Position Sitting Sitting Respiration 16 16 Pulse 98 91 Pulse Source Pulse Oximeter Pulse Oximeter Pulse Oximetry (%) 97 98 Oxygen Delivery Method Room Air Room Air Intake Visit Reasons: RIGHT HIP INJECTION Senior Water/Wastewater Engineer Required: No Allergies morphine [MORPHINE] Allergy (Unknown, Verified 07/04/24 12:39) HIVES AND RASH, hives Medication List - Last Reconciled 07/04/24 by Sri Figueroa LPN acetaminophen 325 mg PO QID PRN albuterol sulfate 90 mcg/actuation 2 puffs inhalation Q6H PRN aspirin 81 mg PO DAILY budesonide-formoterol 160-4.5 mcg/actuation (Symbicort) 2 puffs inhalation BID cyclobenzaprine ER 15 mg PO BEDTIME PRN docusate sodium 100 mg PO BID PRN fluticasone propionate 50 mcg/actuation 2 sprays intranasal DAILY hydralazine 75 mg PO DIRECTED hydrochlorothiazide 12.5 mg PO QAM lisinopril 40 mg PO BEDTIME loratadine (Allergy Relief (loratadine)) 10 mg PO DAILY metformin ER 500 mg PO QPM oxycodone 5 mg PO BID PRN prednisone 10 mg PO DIRECTED semaglutide (Ozempic) 0.25 mg subcut QWEEK zolpidem 10 mg PO BEDTIME PFSH Medical History GERD (gastroesophageal reflux disease) Hx of sleep apnea Asthma History of salivary gland disease Diabetes Costochondritis Depression Dyslipidemia Hypertension Surgical History Hx of cholecystectomy History of surgery on arm Hx of elbow surgery Hx of arthroscopy of left knee History of lung surgery S/P left rotator cuff repair History of carpal tunnel release Family History Mother HTN (hypertension) Maternal Grandfather HTN (hypertension) Son HTN (hypertension) Diabetes Father Diabetes Social History Household Members: Children Housing: House Are you a primary janitor caretaker to a significant other at home: No Do you presently have visiting nurse or other home services: No Alcohol intake: never Patient Tobacco Use Status: Current everyday Tobacco user Tobacco use type: Cigarette Cigarettes Per Day: 10 Years Smoked: 40 Physical Exam Vital Signs: Last Vital Signs Pulse 91 07/04/24 13:02 Resp 16 07/04/24 13:02 BP 154/88 H 07/04/24 13:02 Pulse Ox 98 07/04/24 13:02 Oxygen Delivery Method Room Air 07/04/24 13:02 Assessment & Plan Assessment & Plan (1) Osteoarthritis of left knee: Code(s): M17.12 - Unilateral primary osteoarthritis, left knee Category: Medical Plan: I injected her left knee. Continue activity as tolerated. (2) Osteoarthritis of right hip: Code(s): M16.11 - Unilateral primary osteoarthritis, right hip Category: Medical Plan Intra-articular right hip steroid injection. Informed consent was explained to the patient. All questions were explained and? answered. The patient was taken inside the operating room where she was positioned left lateral decubitus on the operating table.? Time-out was performed delineating correct site, side, the nature of the procedure, patient's allergy, preoperative antibiotic if needed.? All operating room staff was participating in OR time-out procedure.? The patient stated his name. Non dependent right hip was prepped with ChloraPrep and draped with sterile towels.? The C-arm was brought over the operating field and the picture of bilateral hip joints were obtained on the screen.? The smaller right hip joint was chosen as the target for the injection.? The trochanter position was noted on the screen.? The projection of the trochanter to the skin was noted, the direction of the femoral neck was noted.? The skin was anesthetized using 2% lidocaine at the trochanter area.? 22 gauge 5 in needle was inserted through the skin and advanced to the hip joint silhouette on under intermittent lateral and anterior posterior views.? When needle entered the Silhouette of the joint injection of the contrast Omnipaque was performed demonstrating intra-articular spread of the contrast.? After that 4 cc of ropivacaine 0.5% mixed with Kenalog 40 mg was injected into the area.?,upon completion of the procedure the needle was removed and Band-Aid was applied. Orders: Orders FL guidance in treatment room Today M16.11 - Unilateral primary osteoarthritis, right hip Coding Level of Care Code Procedure Only Diagnoses Osteoarthritis of left knee M17.12 Osteoarthritis of right hip M16.11
[2024-07-04 13:02] VITALS: BP 154/88; PULSE 91; RESP 16; O2SAT 98
--- OUTSIDE RECORDS SUMMARY | 2024-07-04 15:18 | XMS_ITS | Encounter Summary ---
Author Organization [employer] Address [address] [facility] [address] [place] [address] Care Team Providers Care Medical Education Specialist Name Role Phone Karina Christiefer Primary Care Provider + [phone] Reason for Visit * Reason Comments Med Refill Encounter Details Date Type Department Care Team ([facility] st Contact Info) Description 09/23/[address] [facility] [address], [place] [phone] Jania Mcduffie MD [address] [place], [place] [phone] Other chronic pain Social History Tobacco Use [...] Care Team (Late st Contact Info) Description 08/07/2024 10:15 AM EDT Office Visit [facility] [address] [place] [phone] Rocio Christie DO [address] [place] [phone] 09/01/2024 10:30 AM EDT Telemedicine [address] [address] Marisa Sims RN documented as of this encounter Visit Diagnoses Diagnosis Other chronic pain documented in this encounter Additional Health Concerns Assessment Noted Time PHQ-9 Depression Total Score: 16 07/19/ 024 1:38 PM EDT documented as of this encounter Care Teams Medical Education Specialist Relationship Specialty Start Date End Date Rocio Christie DO [address] [place] [phone] PCP - General Family Medicine 03/22/18 documented as of this encounter
--- OUTSIDE RECORDS SUMMARY | 2024-07-04 15:18 | XMS_ITS | Encounter Summary ---
Author Organization [employer] Address [address] [facility] [address] [place] [address] Care Team Providers Care Spinning Mule Operator Name Role Phone Rocio Christie DO Primary Care Provider + [phone] Reason for Visit * Reason Comments Med Refill Encounter Details Date Type Department Care Team (Late st Contact Info) Description 10/13/[address] [facility]INE [address] [place], [place] [phone] Rocio Christie DO [address] [place], [place] [phone] Hand dermatitis Social History Tobacco Use Types [...] AM EDT Office Visit [facility] [address] [place] [phone] Rocio Christie DO [address] [place] [phone] 09/01/2024 10:30 AM EDT Telemedicine [address] [address] Marisa Sims RN documented as of this encounter Visit Diagnoses Diagnosis Hand dermatitis Contact dermatitis and other eczema, due to unspecified cause documented in this encounter Additional Health Concerns Assessment Noted Time PHQ-9 Depression Total Score: 16 024 1:38 PM EDT documented as of this encounter Care Teams Spinning Mule Operator Relationship Specialty Start Date End Date Rocio Christie DO [address] [place] [phone] PCP - General Family Medicine 03/22/18 documented as of this encounter
--- OUTSIDE RECORDS SUMMARY | 2024-07-04 15:18 | XMS_ITS | Encounter Summary ---
Author Organization [employer] Address [address] [facility] 7t [place] [address] Care Team Providers Care Sales Lead Name Role Phone Rocio Christie DO Primary Care Provider [phone] Reason for Visit * Reason Comments Med Refill Encounter Details Date Type Department Care Team ([facility] st Contact Info) Description 02/15/2024 Refill [facility] [address] [place], [place] [phone] Rocio Christie DO [address] [place], [place] [phone] New onset type 2 diabetes mellitus (CMS/HCC) [...] Description 08/07/2024 10:15 AM EDT Office Visit [facility] [address] [place] [address] Rocio Christie DO [address] [place] [phone] 09/01/2024 10:30 AM EDT Telemedicine [address] [address] Marisa Sims, HOA documented as of this encounter Visit Diagnoses Diagnosis New onset type 2 diabetes mellitus (CMS/HCC) documented in this encounter Additional Health Concerns Assessment Noted Time PHQ-9 Depression Total Score: 16 024 1:38 PM EDT documented as of this encounter Care Teams Sales Lead Relationship Specialty Start Date End Date Rocio Christie DO [address] [place] [phone] PCP - General Family Medicine 03/22/18 documented as of this encounter
--- OUTSIDE RECORDS SUMMARY | 2024-07-04 15:18 | XMS_ITS | Encounter Summary ---
Author Organization [employer] [facility] Address [address] [place] [address] 7[address] [place] [address] Care Team Providers Care Glass Etcher Helper Name Role Phone Rocio Christie DO Primary Care Provider [phone] Encounter Details Date Type Department Care Team (Late st Contact Info) Description 05/18/2022 Abstract [facility] [address] [place] [phone] Rocio Christie DO [address] [place] [phone] Social History Tobacco Use Types Packs/Day Years [...] 08/07/2024 10:15 AM EDT Office Visit [facility] [address] [place] [address] [phone] Rocio Christie DO [address] [place] [address] 09/01/2024 10:30 AM EDT Telemedicine [facility] [address] [place] [address] [phone] Bethany, Marisa, RN documented as of this encounter Visit Diagnoses Not on filedocumented in this encounter Care Teams Glass Etcher Helper Relationship Specialty Start Date End Date Rocio Christie DO [address] [place] [phone] PCP - General Family Medicine 03/22/18 documented as of this encounter
--- OUTSIDE RECORDS SUMMARY | 2024-07-04 15:18 | XMS_ITS | Encounter Summary ---
Author Organization [facility] Address [address] [place] [address] 7t [place] [address] Care Team Providers Care Family Literacy Coordinator Name Role Phone Rocio Christie DO Primary Care Provider [phone] Reason for Visit * Reason Comments Med Refill Encounter Details Date Type Department Care Team ([facility] Contact Info) Description 07/23/2022 Refill [facility] [address] [place], [place] [phone] Rocio Christie DO 230 [place], [place] [phone] Other chronic pain; Insomnia, unspecified type Social [...] Upcoming Encounters Date Type Department Care Team ([facility] Contact Info) Description 08/07/2024 10:15 AM EDT Office Visit [address] [address] Rocio Christie DO [address] [place] [address] 09/01/2024 10:30 AM EDT Telemedicine [address] [address] Marisa Sims RN documented as of this encounter Visit Diagnoses Diagnosis Other chronic pain Insomnia, unspecified type documented in this encounter Additional Health Concerns Assessment Noted Time PHQ-9 Depression Total Score: 12 023 10:43 AM EDT documented as of this encounter Care Teams Family Literacy Coordinator Relationship Specialty Start Date End Date Rocio Christie DO [address] [place] [phone] PCP - General Family Medicine 03/22/18 documented as of this encounter
--- OUTSIDE RECORDS SUMMARY | 2024-07-04 15:18 | XMS_ITS | Encounter Summary ---
Author Organization [employer] [facility] Address [address] [place] [address] [address] [place] [address] Care Team Providers Care Flask Cleaner Name Role Phone Rocio Christie DO Primary Care Provider Encounter Details Date Type Department Care Team (Late st Contact Info) Description 04/01/2022 [facility] Only [facility] [address] [place], [place] [phone] Rocio Christie DO [address] [place], [place] [phone] Social History Tobacco Use Types Packs/Day Years [...] Description 08/07/2024 10:15 AM EDT Office Visit [facility] [address] [place] [address] [phone] Rocio Christie DO [address] [place], [place] [phone] 09/01/2024 10:30 AM EDT Telemedicine [address] [phone] Marisa Sims RN documented as of this encounter Visit Diagnoses Not on filedocumented in this encounter Care Teams Flask Cleaner Relationship Specialty Start Date End Date Rocio Christie DO [address] [place] [phone] PCP - General Family Medicine 03/22/18 documented as of this encounter
--- OUTSIDE RECORDS SUMMARY | 2024-07-04 15:18 | XMS_ITS | Encounter Summary ---
Author Organization [employer] Address [address] [facility] 7t [place] [address] Care Team Providers Care Print Decorator Name Role Phone Rocio Christie DO Primary Care Provider + [phone] Encounter Details Date Type Department Care Team (Late st Contact Info) Description 07/01/2023 Orders Only [facility] [address] [place], [place] [phone] ProviderSeb MD Social History Tobacco Use Types [...] Description 08/07/2024 10:15 AM EDT Office Visit [facility] [address] [place] [phone] Rocio Christie DO [address] [place] [address] 09/01/2024 10:30 AM EDT Telemedicine [address] [address] Marisa Sims RN documented as of this [...] documented as of this encounter Care Teams Print Decorator Relationship Specialty Start Date End Date Rocio Christie DO [address] [place] [phone] PCP - General Family Medicine 03/22/18 documented as of this encounter
--- OUTSIDE RECORDS SUMMARY | 2024-07-04 15:18 | XMS_ITS | Clinical Summary ---
Author Organization [employer] Address [address] [place] [address] 7[address] [place] [address] Care Team Providers Care Senior Instructor Name Role Phone Pratik Rocio Primary Care [...] the skin 1 (one) time each day. Active docusate sodium (Colace) 100 MG capsule TAKE 1 CAPSULE BY MOUTH TWICE DAILY NEEDED 180 capsule 3 Active polyvinyl alcohol (Liquifilm Tears) 1.4 % ophthalmic solution INSTILL 1 DROP IN EACH EYE THREE TIMES DAILY NEEDED 04/14/2 023 Active cloNIDine (Catapres) 0.1 MG tabletIndications:E ssential hypertension TAKE 1 TABLET BY MOUTH TWICE DAILY IN THE MORNING AND AT BEDTIME 180 tablet 023 Active fluticasone (Flonase) 50 MCG/ACT nasal spray INHALE 2 SPRAYS IN EACH NOSTRIL ONCE DAILY 48 g 3 024 Active loratadine (Claritin) 10 MG tablet TAKE 1 TABLET BY MOUTH ONCE DAILY DIRECTED 90 tablet 1 024 Active Ventolin HFA 108 (90 Base) MCG/ACT inhalerIndications: Chronic obstructive pulmonary disease, unspecified COPD type ([facility]) INHALE 2 PUFFS BY MOUTH EVERY 4 HOURS NEEDED FOR WHEEZING OR SHORTNESS OF BREATH 18 g 2 024 Active nystatin (Mycostatin) 926185 UNIT/GM powderIndications:C andidal intertrigo APPLY TOPICALLY TO AFFECTED AREA(S) THREE TIMES DAILY 60 g 3 024 Active Symbicort 160-4.5 MCG/ACT inhaler Inhale 2 puffs 2 times daily. Rinse mouth with water after use to reduce aftertaste and incidence of candidiasis. Do not swallow. 3 each 3 024 Active Alcohol Swabs (Alcohol Prep) 70 % padsIndications:Typ e 2 diabetes mellitus without complication, without long-term current use of insulin ([facility]) USE DIRECTED TWICE DAILY 100 each [...] 6 tablet Active tacrolimus (Protopic) 0.1 % ointmentIndications :Psoriasis Apply topically 2 times daily. 60 g 2 024 2024 Active Tirzepatide (Mounjaro) 2.5 MG/0.5ML solution auto-injectorIndica tions:Type 2 diabetes mellitus without complication, without long-term current use of insulin ([facility]) Inject 2.5 mg under the skin 1 (one) time per week. 2 mL 3 Active simethicone (Mylicon,Gas-X) 125 MG capsule Take 1 capsule (125 mg) by mouth every 6 (six) hours if needed for flatulence. 60 capsule Active Blood Glucose Monitoring Suppl (FreeStyle [place] Lite) w/Device kit Check BS twice a day as directed 1 kit Active TRUEplus Lancets 33G miscIndications:Typ e 2 diabetes mellitus without complication, without long-term current use of insulin ([facility]) TEST BLOOD SUGAR TWICE DAILY 100 each 11 Active FREESTYLE LITE test strip TEST BLOOD SUGAR TWICE DAILY 100 strip 11 Active hydroCHLOROthiazide 12.5 MG tabletIndications:E ssential hypertension TAKE 1 TABLET BY MOUTH EVERY MORNING 90 tablet 1 024 Active senna (Senokot) 8.6 MG tabletIndications:C hronic constipation TAKE 2 TABLETS BY MOUTH ONCE DAILY NEEDED FOR CONSTIPATION 180 tablet 1 024 Active halobetasol (UltraVATE) 0.05 % ointmentIndications :Psoriasiform dermatitis Apply topically 2 times daily. 50 g 2 024 Active escitalopram (Lexapro) 10 MG tabletIndications:D epression, unspecified depression type TAKE 1 TABLET BY MOUTH EVERY MORNING 30 tablet 3 025 Active mirtazapine (Remeron) 15 MG tabletIndications:I nsomnia, unspecified type TAKE 1 TABLET BY MOUTH AT BEDTIME 30 tablet 3 025 Active pantoprazole (ProtoNix) 40 MG EC [...] tablet 3 025 Active Fiber-Lax 625 MG tabletIndications:C hronic constipation TAKE 1 TABLET BY MOUTH TWICE DAILY IN THE MORNING AND IN THE EVENING 180 tablet 3 025 Active atorvastatin (Lipitor) 20 MG tablet TAKE 1 TABLET BY MOUTH AT BEDTIME 90 tablet 3 025 Active acetaminophen (Tylenol 8 Hour) 650 MG ER tabletIndications:P ain Do not crush, chew, or split.TAKE 1 TABLET BY MOUTH EVERY 8 HOURS NEEDED FOR PAIN OR FEVER 60 tablet 2 025 Active triamcinolone (Kenalog) 0.1 % creamIndications:Po st-inflammatory hyperpigmentation Apply topically 2 times daily. Inframammary areas for itching 30 g 2 025 Active Spiriva Respimat 1.25 MCG/ACT inhaler INHALE 2 PUFFS BY MOUTH EVERY DAY 4 g 3 025 Active zolpidem (Ambien) 10 MG tabletIndications:I nsomnia, unspecified type TAKE 1 TABLET BY MOUTH AT BEDTIME 28 tablet 025 Active oxyCODONE (Roxicodone) 5 MG immediate release tabletIndications:C hronic bilateral low back pain without sciatica Take 1 tablet (5 mg) by mouth every 8 (eight) hours if needed for severe pain. 84 tablet 025 Active Spiriva Respimat 1.25 MCG/ACT inhaler INHALE 2 PUFFS BY MOUTH ONCE DAILY 4 g 3 024 2024 Discontinued zolpidem (Ambien) 10 MG tabletIndications:I nsomnia, unspecified type Take 1 tablet (10 mg) by mouth at bedtime. 28 tablet 025 2024 Discontinued oxyCODONE (Roxicodone) 5 MG immediate release tabletIndications:C hronic bilateral low back pain without sciatica TAKE 1 TABLET BY MOUTH EVERY 8 HOURS NEEDED FOR SEVERE PAIN FOR UP TO 28 DAYS 84 tablet 025 2024 Discontinued( Reorder (will not trigger notification to Pharmacy)) Active [...] vascular Bilateral primary osteoarthritis of hip 09/02/19 23 Type 2 diabetes mellitus 09/01/2022 Assessment & Plan (06/09/2023 12:54 PM EDT): Slight bump in A1c -she agrees to trial trulicity weekly, reviewed potential SEs -encouraged dietary changes -cont regular BS monitoring -re-referred to [employer] for eval -cont lisinopril and lipitor daily -s/p optho eval DEC 2022 at [facility] for annual f/u -foot exam next visit* [...] cis-female with previous documented hx of Depression services including OP Psychotherapy psychopharmacology who presents [...] Self Plan Patient to reach out to [facility] team as needed, Comply with medication , [...] Encounters Date Type Department Care Team Description 06/22/2024 Telephone [facility] [address] [place] [address] Rocio Christie DO Call Back Request 06/15/2024 Telephone [facility] [address] [place] [address] Rocio Christie DO 06/15/2024 Refill [facility] [address] [place] [address] Rocio Christie DO Chronic bilateral low back pain without sciatica 06/07/2024 Refill [facility] [address] [place] [address] Soraya Oneal MD Insomnia, unspecified type 06/04/2024 Refill [facility] [address] [place], [place] [phone] Rocio Christie DO 06/02/2024 Population Health Risk Score [facility] ([facility]) Department [address] [place] [phone] Provider, Population Health Generic 05/26/2024 9:15 AM EST Office Visit [facility] [address] [place] [phone] Joanie Curiel MD Psoriasiform dermatitis (Primary Dx); Post-inflammatory hyperpigmentation; Xerosis of skin 05/26/2024 Travel 05/25/2024 Telephone [facility] [address] [place] [address] Rocio Christie DO Recall Appt. 05/25/2024 Travel 05/19/2024 Orders Only [facility] [address] [place] [address] ProviderSeb MD 05/18/2024 Orders Only [facility] [address] [place] [address] Soraya Oneal MD 05/18/2024 Telephone [facility] [address] [place] [address] Rocio Christie DO Referral 05/17/2024 9:40 AM EST Office Visit [facility] [address] [place] [address] Soraya Oneal MD Right groin pain (Primary Dx) 05/17/2024 Refill [facility] [address] [place] [address] Rocio Christie DO Chronic bilateral low back pain without sciatica 05/14/2024 Refill [facility] [address] [place] [address] Rocio Christie DO Chronic constipation; Pain; Insomnia, unspecified type 05/10/2024 Refill [facility] [address] [place] [address] Rocio Christie DO Chronic constipation 05/04/2024 Refill [facility] [address] [place] [address] Rocio Christie DO Insomnia, unspecified type; Chronic bilateral low back pain without sciatica 04/30/2024 Orders Only [facility] [address] [place] [address] Rocio Christie DO 04/13/2024 Refill [facility] [address] [place], [place] [phone] Rocio Christie DO Chronic bilateral low back pain without sciatica; Insomnia, unspecified type 04/08/2024 Refill [facility] [address] [place] [address] Rocio Christie DO Depression, unspecified depression type; Insomnia, unspecified type from Last 3 Months Immunizations Name Administration [...] Description 08/07/2024 10:15 AM EDT Office Visit [facility] [address] [place] [address] Rocio Christie DO [address] [place] [address] 09/01/2024 10:30 AM EDT Telemedicine [facility] [address] [place] [address] Marisa Sims, RN Health Maintenance Due Date Last Done Comments [...] (#1) 2023 , 06/25/2022, 12/13/2020 Depression Monitoring 01/19/2024 07/20/2023, 024 Diabetes: Urine Protein Screening 03/03/2024 03/03/2023 Lipid Panel 03/03/2024 03/03/2023, 05/0 03/2022, 08/06/2021, Additional history exists Depression Screening 07/19/2024 07/20/2023, 07/20/19 24 Diabetes: Hemoglobin A1C 08/13/202402/13/2 024, 10/12/2023, 06/09/2023, Additional history exists SDOH [...] Procedure Name Priority Date/Time Associated Diagnosis Comments US PELVIS COMPLETE Urgent 06/16/[address] ABD AND PELVIS Routine 05/19/2024 2:2 7 PM EST XR HIP 2 OR 3 VIEWS RIGHT Routine 05/17/2024 10:20 AM EST Right groin pain POCT GLYCATED HEMOGLOBIN, TOTAL Routine 02/14/2024 11:31 AM EST Type 2 diabetes mellitus without complication, without long-term current use of insulin ([facility]) THINPREP IMAGING PAP AND HPV MRNA E6/E7 [...] Recently Relevant to Health Maintenance Results * Us Pelvis complete (06/16/2024) Anatomical Region Laterality Modality Pelvis Ultrasound Soraya Oneal MD IMG US PROCEDURES Final Re sult * CT ABD AND PELVIS (05/19/2024 2:27 PM EST) Anatomical Region Laterality Modality Body, Pelvis, Abdomen Computed T omography us Historical Provider IMAugust CT PROCEDURES Final R esult * XR Hip 2 or 3 Views Right (05/17/2024 10:20 AM EST) Anatomical Region Laterality Modality Lower Extremities, Hip Right Radiograp hic Imaging 05/17/2024 10:2 0 AM EST Narrative 05/17/2024 10:38 AM EST ?[facility] ?[address] ?[place] [address] ?XRay Report ? Signed ? Patient: Neal,Daly E ?MR#: [id number] ?? [id number] ? : 1960 ?Acct:[id number] ? Age/Sex: 63 / F ?ADM Date: 05/17/24 ? Loc: HO.HHCX ? Attending Dr: Soraya Oneal MD ? Ordering Physician: Soraya Oneal MD ?? Date of Service: 05/17/24 ?? Procedure(s): XR hip RT min 2V ?? Accession Number(s): [id number] ? cc: Soraya Oneal MD ? EXAMINATION: [...] DD/ 1020 ? TD/TT: 05/17/24 1032 ? Mine Supervisor: ? Procedure Note Tonio, Image - 05/17/2024 [facility] [address] [place] [address] XRay Report Signed Patient: Daly Neal EMR#: [id number] : 1960Acct:[id number] Age/Sex: 63 / FADM Date: 05/17/24 Loc: HO.HHCX Attending Dr: Soraya Oneal MD Ordering Physician: Soraya Oneal MD Date of Service: 05/17/24 Procedure(s): XR hip RT min 2V Accession Number(s): [id number] cc: Soraya Oneal MD EXAMINATION: XR HIP, [...] 05/17/24 1035 DD/ 1020 TD/TT: 05/17/24 1032 Mine Supervisor: Soraya Oneal MD IMG XR PROCEDURES Final Re sult * (ABNORMAL) POCT HGB A1C (02/14/2024 11:31 AM EST) Pathologist [facility] Hemoglobin A1C 6.1(A) 4.0 - 6.0 % QC Media Lot # [id number] Lot# Expiration Date [id number] Blood 02/14/2024 11:3 1 AM EST Rocio Christie DO POINT OF CARE TEST ENTER/ADAM T ORDERABLES Final Result * ThinPrep Imaging Pap and HPV mRNA E6/E7 with Reflex to HPV 16,18/45 (12/09/2023 12:00 AM EDT) Pathologist [facility] HPV 16 RNA IDP [facility] HPV 18/45 RNA [facility] HPV nRNA E6/E7 Not Detected Not Detected [facility] Comment:Methodology: Transcr iption-Mediated AmplificationThis assay detects E6/E7 viral messenger RNA (mRNA) from 14high-risk HPV types (16,18,31,33,35,39,45,51,52,56,58,59,66,68).Cervical sources are required for HPV testing.If a vaginal source from a patient who has had atotal hysterectomy with removal of cervix wassubmitted, please contact the testing laboratoryfor alternative testing options.For additional information, please refer tohttp://education.WaveCheck/faq/QBS804x9(This link if provided for information/educational purposes only.)THIS TEST WAS PERFORMED AT:[employer] [address] [phone] IVY MD SOURCE: SEE NOTE [facility] Comment:None given Report Status: [facility] Clinical Information: SEE NOTE [facility] Comment:None given LMP: SEE NOTE [facility] Comment:NONE GIVEN Prev. PAP: SEE NOTE [facility] Comment:NONE GIVEN Prev. BX: SEE NOTE [facility] Comment:NONE GIVEN Statement Of Adequacy: SEE NOTE [facility] Comment:Satisfactory for lyric luation.Endocervical/transformation zone componentpresent.Partially obscuring inflammation General Categorization: [facility] Interpretation/Result: SEE NOTE [facility] Comment:Cytology Results: Ne gative for intraepitheliallesion or malignancy. Cytology Comment SEE NOTE [facility] Comment:This Pap test has be en evaluated with computerassisted technology. Spooler: SEE NOTE [facility] Comment:RMM, CT(ASCP)CT scre ening location: [place] [address] Review Spooler: SEE NOTE [facility] Comment:MPG, CT(ASCP)CT scre ening location: [place] [address] Pathologist [facility] PAP Infection [facility] See Note SEE [facility] Comment:EXPLANATORY NOTE:The Pap is a screening test for cervical cancer. It isnot a diagnostic test and is subject to false negativeand false positive results. It is most reliable when asatisfactory sample, regularly obtained, is submittedwith relevant clinical findings and history, and whenthe Pap result is evaluated along with historic andcurrent clinical information. 12/09/2023 12/09/2023 Narrative [facility] - 12/17/2023 12:02 PM EDT SEE SCANNED RESULTS IN EMR us Rocio Christie DO LAB PATHOLOGY ORDERABLES Fin al Result [facility] [address] [place] [phone] * BI Mammogram Screening Tomosynthesis Bilateral (09/09/2023 9:49 AM EDT) Anatomical Region Laterality Modality Breast Bilateral Mammography 09/09/2023 9:49 AM EDT Narrative 10/08/2023 1:27 PM EDT ? [facility] ? [address] ?[place] [address] ? Mammography Report ? Signed ? Patient: Daly Neal E ?MR#: [id number] ?? [id number] ? : 1960 ?Acct:[id number] ? Age/Sex: 62 / F ?ADM Date: 09/09/23 ? Loc: HO.MAMMO ? Attending Dr: Rocio Christie DO ? Ordering Physician: Rocio Christie DO ?Results: 1N ?? egative ? Date of Service: 09/09/23 ?Follow Up: 1 Year From Orig ?? inal Mammogram ? Procedure(s): MM tomosynthesis screening BI ?? Accession Number(s): [id number] ? cc: Rocio Christie DO ? EXAMINATION: [...] 1323 ? DD/ 0949 ? TD/TT: ? Mine Supervisor: ? Procedure Note Lambert Elizalde - 10/08/2023 [facility] [address] [place], [place] [address] Mammography Report Signed Patient: Daly Neal EMR#: [id number] : 1960Acct:[id number] Age/Sex: 62 / FADM Date: 09/09/23 Loc: HO.MAMMO Attending Dr: Rocio Christie DO Ordering Physician: Rocio Christieults: 1N egative Date of Service: 09/09/23Follow Up: 1 Year From Orig ina Mammogram Procedure(s): MM tomosynthesis screening BI Accession Number(s): [id number] cc: Rocio Christie DO EXAMINATION: MM SCREENING [...] in OV> 10/08/23 1323 DD/ 0949 TD/TT: Mine Supervisor: us Rocio Christie DO IMG BI PROCEDURES Final Resu lt * Albumin, Random Urine W/Creatinine (03/03/2023 11:48 AM EST) Creatinine, Urine 64.66 mg/dL [facility] Microalbumin Urine 17.0 mg/L [facility] Microalbum Creatinine Ratio Ur 26.2 <30 ug/mg cr [facility] Comment:Albumin/Creatinine R atio Reference Ranges: Normal: < 30 ug/mg creatinine Microalbuminuria: 30 - 300 ug/mg creatinineClinical Albuminuria: > 300 ug/mg creatinine Urine (Urine, Random) 03/03/2023 11:48 AM EST 03/03/2023 1:14 PM EST Rocio Bartholomewraza DO LAB URINE ORDERABLES Final R esult Performing Organization Address [facility]/ZIP Co de Phone Number [facility] [address] [place] [phone] * Hepatitis C Antibody with Reflex to HCV, RNA, Quantitative, Real-Time PCR (03/03/2023 11:41 AM EST) Hepatitis C Antibody Nonreactive Nonreactive [facility] Comment:Antibodies to HCV no t detected; does not exclude early acuteHCV infection. Blood Venous blood specimen / Unknown 03/03/2023 11:41 AM EST 03/03/2023 1:18 PM EST Rocio Bartholomewraza LAB BLOOD ORDERABLES Final R esult Performing Organization Address [facility] Co de Phone Number [facility] [address] [place] [phone] * HIV-1/2 Antigen and Antibodies, Fourth Generation, with Reflexes (03/03/2023 11:41 AM EST) HIV AB/AG Nonreactive Nonreactive [facility] Comment:HIV-1 p24 Ag and/or HIV-1/HIV-2 Ab not detected.A test result that is nonreactive does not exclude thepossibility of exposure to or infection with HIV-1 and/orHIV-2. Nonreactive results in this assay for individualswith prior exposure to HIV-1 and/or HIV-2 may be due toantigen and antibody levels that are below the limit ofdetection of this assay.The Stayzilla HIV Ag/Ab Combo assay result andsupplemental assay results should be interpreted inconjunction with the patient's clinical presentation,history and other laboratory results. If the results areinconsistent with clinical evidence, additional testing issuggested to confirm the result. Blood Venous blood specimen / Unknown 03/03/2023 11:41 AM EST 03/03/2023 1:18 PM EST Rocio Pratik LAB BLOOD ORDERABLES Final R esult Performing Organization Address [facility] Co de Phone Number [facility] [address] [place] [phone] * (ABNORMAL) Lipid Panel, Standard (03/03/2023 11:41 AM EST) Triglycerides 96 <150 mg/dL [facility] Comment:Desirable Triglyceri de: less than 150 mg/dLBorderline High Triglyceride 150-199 mg/dLHigh Triglyceride: 200-499 mg/dLVery High Triglyceride: greater than or equal to 5OO mg/dL Cholesterol 133 <200 mg/dL [facility] Comment:Desirable Cholestero l: less than 200 mg/dLBorderline High Cholesterol: 200-239 mg/dLHigh Cholesterol: greater than 239 mg/dL LDL Cholesterol Calculated 80 <100 mg/dL [facility] Comment:Desirable LDL: less than 100 mg/dLNear Optimal/Above Optimal LDL: 110- 129 mg/dLBorderline High LDL: 130-159 mg/dLHigh LDL: 160-189 mg/dLVery High LDL: greater than or equal to 190 mg/dL HDL Cholesterol 34(L) >40 mg/dL [facility] Comment:Desirable HDL: great er than 40 mg/dL Note: This HDL assay may give artificially low results in patients with liver disease. Blood Venous blood specimen / Unknown 03/03/2023 11:41 AM EST 03/03/2023 1:18 PM EST us Rocio Christie DO LAB BLOOD ORDERABLES Final R esult Performing Organization Address [facility]/ZIP Co de Phone Number [facility] [address] [place] [phone] * Hm Colonoscopy (09/02/2012 11:00 AM EDT) us Historical Provider HEALTH MAINTENANCE Final Result from Last 3 Months or Most Recently Relevant to Health Maintenance Insurance C3 Care Teams Senior Instructor Relationship Specialty Start Date End Date Rocio Christie DO [address] [place] [phone] PCP - General Family Medicine 03/22/18
--- OUTSIDE RECORDS SUMMARY | 2024-07-04 15:18 | XMS_ITS | Encounter Summary ---
Author Organization [employer] [facility] Address [address] [place] [address] Care Team Providers Care Plating Inspector Name Role Phone Rocio Christie DO Primary Care Provider + [phone] Encounter Details Date Type Department Care Team (Late st Contact Info) Description 05/19/2024 Orders Only [facility] [address] [place] [address] Provider, MD Seb Social History Tobacco Use Types Packs/Day Years [...] t he electric, gas, oil or water [employer] threatened to shut off services in your [...] Description 08/07/2024 10:15 AM EDT Office Visit [address] [address] Rocio Christie DO [address] [place] [phone] 09/01/2024 10:30 AM EDT Telemedicine [address] [address] Marisa Sims RN documented as of this encounter Procedures Procedure Name Priority Date/Time Associated Diagnosis Comments CT ABD AND PELVIS Routine 05/19/2024 2:27 PM EST documented in this encounter Results * CT ABD AND PELVIS (05/19/2024 2:27 PM EST) Anatomical Region Laterality Modality Body, Pelvis, Abdomen Computed T omography us Historical Provider MD CABAN CT PROCEDURES Final R esult documented in this encounter Visit Diagnoses Not on filedocumented in this encounter Additional Health Concerns Assessment Noted Time PHQ-9 Depression Total Score: 16 024 1:38 PM EDT documented as of this encounter Care Teams Plating Inspector Relationship Specialty Start Date End Date Rocio Christie DO [address] [place] [phone] PCP - General Family Medicine 03/22/18 documented as of this encounter
--- OUTSIDE RECORDS SUMMARY | 2024-07-04 15:18 | XMS_ITS | Encounter Summary ---
Author Organization [employer] Address [address] [place] [address] Care Team Providers Care Social Services Aide Name Role Phone Karina Christiefer Primary Care Provider + [phone] Encounter Details Date Type Department Care Team ([facility] st Contact Info) Description 05/18/2024 Orders Only [facility] [address] [place], [place] [phone] Soraya Oneal MD [address] [place], [place] [phone] Social History Tobacco Use Types Packs/Day Years [...] Description 08/07/2024 10:15 AM EDT Office Visit [facility] [address] [place] [phone] Rocio Christie DO [address] [place] [phone] 09/01/2024 10:30 AM EDT Telemedicine [facility] [address] [place] [phone] Marisa Sims RN documented as of this encounter Visit Diagnoses Not on filedocumented in this encounter Additional Health Concerns Assessment Noted Time PHQ-9 Depression Total Score: 16 024 1:38 PM EDT documented as of this encounter Care Teams Social Services Aide Relationship Specialty Start Date End Date Rocio Christie DO [address] [place] [phone] PCP - General Family Medicine 03/22/18 documented as of this encounter
--- OUTSIDE RECORDS SUMMARY | 2024-07-04 15:18 | XMS_ITS | Encounter Summary ---
Author Organization [employer] Address 75 [facility] 7t [place] [address] Care Team Providers Care Dairy Consultant Name Role Phone Rocio Christie DO Primary Care Provider [phone] Reason for Visit * Reason Comments Med Refill Encounter Details Date Type Department Care Team ([facility] st Contact Info) Description 11/30/2023 Refill [facility] MED & PEDS [address] [place], [place] [phone] Rocio Christie DO [address] [place] [address] Insomnia, unspecified type; Chronic bilateral low back [...] Description 08/07/2024 10:15 AM EDT Office Visit [address] [address] Rocio Christie DO [address] [place] [address] 09/01/2024 10:30 AM EDT Telemedicine [address] [address] Marisa Sims, HOA documented as of this encounter Visit Diagnoses Diagnosis Insomnia, unspecified type Chronic bilateral low back pain without sciatica documented in this encounter Additional Health Concerns Assessment Noted Time PHQ-9 Depression Total Score: 16 024 1:38 PM EDT documented as of this encounter Care Teams Dairy Consultant Relationship Specialty Start Date End Date Rocio Christie DO [address] [place] [address] PCP - General Family Medicine 03/22/18 documented as of this encounter
--- OUTSIDE RECORDS SUMMARY | 2024-07-04 15:18 | XMS_ITS | Encounter Summary ---
Author Organization [employer] [facility] Address [address] [place] [address] 7 [place] [address] Care Team Providers Care Manager Electrical Name Role Phone Rocio Christie DO Primary Care Provider [phone] Reason for Visit * Reason Comments Med Refill Encounter Details Date Type Department Care Team (Late Contact Info) Description 11/01/2022 Refill [facility] [address] [place] [address] [phone] Rocio Christie DO [address] [place], [place] [phone] Essential hypertension Social History Tobacco Use Types [...] Department Care Team (Late Contact Info) Description 08/07/2024 10:15 AM EDT Office Visit [facility] [address] [place] [address] [phone] Rocio Christie DO [address] [place], [place] [phone] 09/01/2024 10:30 AM EDT Telemedicine [facility] [address] [place] [address] Marisa Sims, HOA documented as of this encounter Visit Diagnoses Diagnosis Essential hypertension Unspecified essential hypertension documented in this encounter Additional Health Concerns Assessment Noted Time PHQ-9 Depression Total Score: 12 023 10:43 AM EDT documented as of this encounter Care Teams Manager Electrical Relationship Specialty Start Date End Date Rocio Christie DO [address] [place] [address] PCP - General Family Medicine 03/22/18 documented as of this encounter
--- OUTSIDE RECORDS SUMMARY | 2024-07-04 15:18 | XMS_ITS | Encounter Summary ---
Author Organization [employer] Address 75 [facility] 7t [place] [address] Care Team Providers Care Manager Trading Name Role Phone Rocio Christie DO Primary Care Provider [phone] Reason for Visit * Reason Comments Med Refill Encounter Details Date Type Department Care Team ([facility] st Contact Info) Description 02/21/2024 Refill [facility] [address] [place], [place] [phone] Rocio Christie DO [address] [place], [place] [phone] New onset type 2 diabetes mellitus (CMS/HCC) [...] Description 08/07/2024 10:15 AM EDT Office Visit [facility] [address] [place] [address] Rocio Christie DO [address] [place] [address] 09/01/2024 10:30 AM EDT Telemedicine [address] [address] Marisa Sims, HOA documented as of this encounter Visit Diagnoses Diagnosis New onset type 2 diabetes mellitus (CMS/HCC) documented in this encounter Additional Health Concerns Assessment Noted Time PHQ-9 Depression Total Score: 16 024 1:38 PM EDT documented as of this encounter Care Teams Manager Trading Relationship Specialty Start Date End Date Rocio Christie DO [address] [place] [address] PCP - General Family Medicine 03/22/18 documented as of this encounter
--- OUTSIDE RECORDS SUMMARY | 2024-07-04 15:18 | XMS_ITS | Encounter Summary ---
Author Organization [employer] Address 75 [facility] 7t [place] [address] Care Team Providers Care Head Turning Machine Operator Name Role Phone Rocio Christie DO Primary Care Provider [phone] Reason for Visit * Reason Comments Med Refill Encounter Details Date Type Department Care Team ([facility] st Contact Info) Description 05/04/2024 Refill [facility] CHC MED & PEDS [address] [place], [place] [phone] Rocio Christie DO [address] [place] [address] Insomnia, unspecified type; Chronic bilateral low back [...] Description 08/07/2024 10:15 AM EDT Office Visit [address] [address] Rocio Christie DO [address] [place] [address] 09/01/2024 10:30 AM EDT Telemedicine [address] [address] Marisa Sims, HOA documented as of this encounter Visit Diagnoses Diagnosis Insomnia, unspecified type Chronic bilateral low back pain without sciatica documented in this encounter Additional Health Concerns Assessment Noted Time PHQ-9 Depression Total Score: 16 024 1:38 PM EDT documented as of this encounter Care Teams Head Turning Machine Operator Relationship Specialty Start Date End Date Rocio Christie DO [address] [place] [address] PCP - General Family Medicine 03/22/18 documented as of this encounter
--- OUTSIDE RECORDS SUMMARY | 2024-07-04 15:18 | XMS_ITS | Clinical Summary ---
Author Organization [facility] Address [address] [place] [address] Phone Care Team Providers Care Newspaper Deliverer Name Role Phone Rocio Christie DO Primary Care Provider [phone] Allergies Active Allergy Reactions Criticality Noted Date Comments Morphine Hives 05/19/2024 Encounters Date Type Department Care Team Description 05/19/2024 9:09 AM EST - 05/19/2024 12:56 PM EST Emergency [facility] Emergency [address] [place] [address] Groin pain, right (Primary Dx) Discharge Disposition: Home or Self Care from Last 3 Months Surgical History Surgery Date Site/Laterality Comments COLONOSCOPY PROCEDURE: HISTORICAL COLONOSCOPY ABDOMINAL SURGERY PROCEDURE: HISTORICAL ABDOMINAL SURGERY OTHER SURGICAL HISTORY 2017 PROCEDURE: NV COLECTOMY PARTIAL W/ANASTOMOSIS; COMMENT: sigmoid/descending colon OTHER SURGICAL HISTORY PROCEDURE: PARTIAL REMOVAL OF LUNG Medical History Medical History Date Comments Asthma DX:Asthma History of diverticulitis of colon DX:History of diverticulitis of colon; COMMENT: surg repair 05/2017; sigmoid and descendign colon Lung nodule 2017 DX:Lung nodule; COMMENT: folllowed by PCP @ [facility] DANDRE (obstructive sleep apnea) DX :DANDRE (obstructive [...] W CONTRAST STAT 05/19/2024 10:38 AM EST PEAÑ URINE CULTURE TUBE STAT 05/19/2024 9:27 AM [...] Signed Date: 05/19/2024 11:14 ET Workstation ID: [id number] Transcribed By: Self Edit Transcribed Date: 05/19/2024 [...] Signed Date: 05/19/2024 11:14 ET Workstation ID: [id number] Transcribed By: Self Edit Transcribed Date: 05/19/2024 10:59 ET Derek [facility] IMG CT PROCEDURES Final Resu lt * (ABNORMAL) Urinalysis with reflex microscopic and culture (05/19/2024 9:27 AM EST) Specific [place] Urine 1.023 1.003 - 1.030 LAB URINALYSIS - AUTOMATED METHOD 05/19/2024 10:12 AM [facility] pH, Urine 6.0 5.0 - 8.0 pH LAB URINALYSIS - AUTOMATED METHOD 05/19/2024 10:12 AM [facility] Leukocytes, Urine Small(A) Negative LAB URINALYSIS - AUTOMATED METHOD 05/19/2024 10:12 AM [facility] Nitrite, Urine Negative Negative LAB URINALYSIS - AUTOMATED METHOD 05/19/2024 10:12 AM [facility] Protein, Urine 100(A) <=Trace mg/dL LAB URINALYSIS - AUTOMATED METHOD 05/19/2024 10:12 AM [facility] Glucose, Urine Negative Negative mg/dL LAB URINALYSIS - AUTOMATED METHOD 05/19/2024 10:12 AM [facility] Ketones, Urine Trace(A) Negative mg/dL LAB URINALYSIS - AUTOMATED METHOD 05/19/2024 10:12 AM [facility] Urobilinogen, Urine 1.0 0.2 - 1.0 mg/dL LAB URINALYSIS - AUTOMATED METHOD 05/19/2024 10:12 AM [facility] Bilirubin, Urine Negative Negative LAB URINALYSIS - AUTOMATED METHOD 05/19/2024 10:12 AM [facility] Blood, Urine Trace(A) Negative LAB URINALYSIS - AUTOMATED METHOD 05/19/2024 10:12 AM [facility] RBC, Urine 5.0(H) 0 - 4 /HPF LAB URINALYSIS - AUTOMATED METHOD 05/19/2024 10:12 AM [facility] WBC, Urine 8.0(H) 0 - 4 /HPF LAB URINALYSIS - AUTOMATED METHOD 05/19/2024 10:12 AM [facility] Squamous Epithelial, Urine >100(H) 0 - 60 /LPF LAB URINALYSIS - AUTOMATED METHOD 05/19/2024 10:12 AM [facility] Bacteria, Urine Few(A) Negative /HPF LAB URINALYSIS - AUTOMATED METHOD 05/19/2024 10:12 AM [facility] Hyaline Casts, Urine 3.2(H) 0 - 3 /LPF LAB URINALYSIS - AUTOMATED METHOD 05/19/2024 10:12 AM [facility] Urine Urine specimen obtained by clean catch procedure / Unknown Non-blood Collection / Unknown 05/19/2024 9:27 AM EST 05/19/2024 9:48 AM EST Rodney Silverman MD LAB URINE ORDERABLES Final R esult [facility] [address] [place] [address], * Peña urine culture tube (05/19/2024 9:27 AM EST) Extra Tube Hold for add-ons. 05/19/2024 11:01 AM [facility] Comment:Auto resulted. Urine Urine specimen obtained by clean catch procedure / Unknown Non-blood Collection / Unknown 05/19/2024 9:27 AM EST 05/19/2024 9:48 AM EST us Rodney Silverman MD LAB URINE ORDERABLES Final R esult [facility] [address] [place] [address], [place] [phone] * Culture urine (05/19/2024 9:27 AM EST) Culture, Urine <10,000 cfu/mL Mixed bacterial jill 05/20/2024 10:10 AM [facility] Urine Urine specimen obtained by clean catch procedure / Unknown Non-blood Collection / Unknown 05/19/2024 9:27 AM EST 05/19/2024 10:12 AM EST us Rodney Silverman MD LAB MICROBIOLOGY - GENERAL O RDERABLES Final Result Performing Organization Address City/[facility]/ZIP Co de Phone Number [facility] [address] [place] [address], [place] [phone] * (ABNORMAL) CBC auto differential (05/19/2024 9:18 AM EST) WBC 11.1(H) 4.8 - 10.8 K/mcL LAB HEMETOLOGY METHOD 05/19/2024 9:34 AM [facility] RBC 5.70(H) 3.80 - 4.80 M/mcL LAB HEMETOLOGY METHOD 05/19/2024 9:34 AM [facility] Hemoglobin 16.3(H) 11.5 - 16.0 g/dL LAB HEMETOLOGY METHOD 05/19/2024 9:34 AM [facility] Hematocrit 48.6(H) 35.0 - 47.0 % LAB HEMETOLOGY METHOD 05/19/2024 9:34 AM [facility] MCV 85.0 79.0 - 98.0 FL LAB HEMETOLOGY METHOD 05/19/2024 9:34 AM [facility] MCH 28.5 27.0 - 32.0 pcg LAB HEMETOLOGY METHOD 05/19/2024 9:34 AM [facility] MCHC 33.5 32.0 - 37.0 g/dL LAB HEMETOLOGY METHOD 05/19/2024 9:34 AM [facility] RDW 13.6 11.0 - 15.0 % LAB HEMETOLOGY METHOD 05/19/2024 9:34 AM [facility] Platelets 327 130 - 400 K/mcL LAB HEMETOLOGY METHOD 05/19/2024 9:34 AM [facility] MPV 10.8 7.0 - 11.0 FL LAB HEMETOLOGY METHOD 05/19/2024 9:34 AM [facility] NRBC 0.0 <1.0 % LAB HEMETOLOGY METHOD 05/19/2024 9:34 AM [facility] NRBC Absolute 0.00 <0.10 K/mcL LAB HEMETOLOGY METHOD 05/19/2024 9:34 AM [facility] Neutrophils Relative 57.2 % LAB HEMETOLOGY METHOD 05/19/2024 9:34 AM [facility] Lymphocytes Relative 30.2 % LAB HEMETOLOGY METHOD 05/19/2024 9:34 AM [facility] Monocytes Relative 6.6 % LAB HEMETOLOGY METHOD 05/19/2024 9:34 AM [facility] Eosinophils Relative 4.6 % LAB HEMETOLOGY METHOD 05/19/2024 9:34 AM [facility] Basophils Relative 1.1 % LAB HEMETOLOGY METHOD 05/19/2024 9:34 AM [facility] Immature Granulocytes Relative 0.3 % LAB HEMETOLOGY METHOD 05/19/2024 9:34 AM [facility] Neutrophils Absolute 6.36 1.50 - 7.00 K/mcL LAB HEMETOLOGY METHOD 05/19/2024 9:34 AM EST [facility] Lymphocytes Absolute 3.35 1.00 - 5.00 K/[facility] LAB HEMETOLOGY METHOD 05/19/2024 9:34 AM EST [facility] Monocytes Absolute 0.73 0.20 - 1.00 K/[facility] LAB HEMETOLOGY METHOD 05/19/2024 9:34 AM EST [facility] Eosinophils Absolute 0.51(H) 0.00 - 0.50 K/[facility] LAB HEMETOLOGY METHOD 05/19/2024 9:34 AM EST [facility] Basophils Absolute 0.12 0.00 - 0.20 K/[facility] LAB HEMETOLOGY METHOD 05/19/2024 9:34 AM [facility] Immature Granulocytes Absolute 0.03 0.00 - 0.03 K/[facility] LAB HEMETOLOGY METHOD 05/19/2024 9:34 AM EST [facility] Blood Venous blood specimen / Unknown Venipuncture / Unknown 05/19/2024 9:18 AM EST 05/19/2024 9:26 AM EST us Rodney Silverman MD LAB BLOOD ORDERABLES Final R esult [facility] [address] [place] [address], * Comprehensive metabolic panel (05/19/2024 9:18 AM EST) Sodium 139 133 - 145 mmol/L LAB CHEMISTRY METHOD 05/19/2024 10:19 AM EST [facility] Potassium 4.2 3.5 - 5.5 mmol/L LAB CHEMISTRY METHOD 05/19/2024 10:19 AM [facility] Chloride 106 96 - 110 mmol/L LAB CHEMISTRY METHOD 05/19/2024 10:19 AM EST [facility] CO2 27 21 - 32 mmol/L LAB CHEMISTRY METHOD 05/19/2024 10:19 AM [facility] Anion Gap 6 3 - 11 LAB CHEMISTRY METHOD 05/19/2024 10:19 AM [facility] Glucose 96 70 - 100 mg/dL LAB CHEMISTRY METHOD 05/19/2024 10:19 AM [facility] BUN 12 5 - 25 mg/dL LAB CHEMISTRY METHOD 05/19/2024 10:19 AM [facility] Creatinine 0.84 0.50 - 1.10 mg/dL LAB CHEMISTRY METHOD 05/19/2024 10:19 AM [facility] eGFR 78 >=60 mL/min/1. 73m2 LAB CHEMISTRY METHOD 05/19/2024 10:19 AM [facility] Comment:Calculation based on the??Chronic Kidney Disease Epidemiology Collaboration (CKD-EPI) equation refit??without adjustment for race. BUN/Creatinine Ratio 14.3 LAB CHEMISTRY METHOD 05/19/2024 10:19 AM [facility] Calcium 9.9 8.5 - 10.5 mg/dL LAB CHEMISTRY METHOD 05/19/2024 10:19 AM [facility] AST (SGOT) 22 10 - 42 unit/L LAB CHEMISTRY METHOD 05/19/2024 10:19 AM [facility] ALT (SGPT) 22 10 - 60 unit/L LAB CHEMISTRY METHOD 05/19/2024 10:19 AM [facility] Alkaline Phosphatase 118 42 - 121 unit/L LAB CHEMISTRY METHOD 05/19/2024 10:19 AM [facility] Total Protein 7.3 6.0 - 8.0 g/dL LAB CHEMISTRY METHOD 05/19/2024 10:19 AM [facility] Albumin 4.3 3.2 - 5.0 g/dL LAB CHEMISTRY METHOD 05/19/2024 10:19 AM [facility] Total Bilirubin 1.0 0.0 - 1.4 mg/dL LAB CHEMISTRY METHOD 05/19/2024 10:19 AM EST [facility] Blood Venous blood specimen / Unknown Venipuncture / Unknown 05/19/2024 9:18 AM EST 05/19/2024 9:26 AM EST us Rodney Silverman MD LAB BLOOD ORDERABLES Final R esult [facility] [address] [place] [address], from Last 3 Months Insurance MEDICAID - [place] Care Teams Newspaper Deliverer Relationship Specialty Start Date End Date Rocio Christie DO [address] [place] [address] PCP - General Internal Medicine 05/27/11
--- OUTSIDE RECORDS SUMMARY | 2024-07-04 15:18 | XMS_ITS | Encounter Summary ---
Author Organization [employer] Address 75 [facility] 7t [place] [address] Care Team Providers Care Bag Loader Machine Operator Name Role Phone Rocio Christie DO Primary Care Provider [phone] Encounter Details Date Type Department Care Team ([facility] st Contact Info) Description 05/10/2024 Refill [facility] [address] [place], [place] [phone] Rocio Christie DO [address] [place], [place] [phone] Chronic constipation Social History Tobacco Use Types [...] encounter Miscellaneous Notes * Telephone Encounter - Rocio Christie DO - 05/17/2024 2:51 PM EST Rx's already sent by Dr. Oneal. documented in this encounter Plan of Treatment Upcoming Encounters Date Type Department Care Team (Late st Contact Info) Description 08/07/2024 10:15 AM EDT Office Visit [facility] [address] [place] [phone] Rocio Christie DO [address] [place] [address] 09/01/2024 10:30 AM EDT Telemedicine [facility] [address] [place] [address] Marisa Sims RN documented as of this encounter Visit Diagnoses Diagnosis Chronic constipation Unspecified constipation documented in this encounter Additional Health Concerns Assessment Noted Time PHQ-9 Depression Total Score: 16 024 1:38 PM EDT documented as of this encounter Care Teams Bag Loader Machine Operator Relationship Specialty Start Date End Date Rocio Christie DO [address] [place] [phone] PCP - General Family Medicine 03/22/18 documented as of this encounter
--- OUTSIDE RECORDS SUMMARY | 2024-07-04 15:18 | XMS_ITS | Encounter Summary ---
Author Organization [employer] Address 75 [facility] 7t [place] [address] Care Team Providers Care Railroad Wheels And Axle Inspector Name Role Phone Rocio Christie DO Primary Care Provider [phone] Reason for Visit * Reason Onset Date Comments Call Back Request 09/10/2023 Encounter Details Date Type Department Care Team ([facility] st Contact Info) Description 09/10/2023 Telephone [facility] [address] [place], [place] [phone] Rocio Christie DO [address] [place], [place] [phone] Call Back Request Social History Tobacco Use [...] patient, patients son taking her on vacation. 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 Pt c/o new [...] Description 08/07/2024 10:15 AM EDT Office Visit [facility] [address] [place] [phone] Rocio Christie DO [address] [place] [address] 09/01/2024 10:30 AM EDT Telemedicine [facility] [address] [place] [address] Marisa Sims, RN documented as of this encounter Visit Diagnoses Not on filedocumented in this encounter Additional Health Concerns Assessment Noted Time PHQ-9 Depression Total Score: 16 024 1:38 PM EDT documented as of this encounter Care Teams Railroad Wheels And Axle Inspector Relationship Specialty Start Date End Date Rocio Christie DO [address] [place] [address] PCP - General Family Medicine 03/22/18 documented as of this encounter
== END 2024-07-04 13:03 | disposition home or self-care (01) ==
LOC: HO.PMCPRC 12:28
PROVIDERS: PCP Family Medicine; Visit Provider Anesthesiology
DX: M16.11 Unilateral primary osteoarthritis, right hip (principal)
CPT/HCPCS: 20610; 77002

== ENCOUNTER 2024-07-26 13:54 | Outpatient (AMB) | payer MEDICAID, SELFPAY ==
[2024-07-26 13:56] VITALS: BP 156/86; PULSE 81; O2SAT 96; BMI 32.8
--- NOTE | 2024-07-26 13:56 | MHC.OFFVIS ---
Vital Signs 07/26/24 13:56 Height 5 ft 5 in Weight 197 lb BMI 32.8 BP 156/86 H Blood Pressure Location Rt brachial Position Sitting Pulse 81 Pulse Source Doppler Pulse Oximetry (%) 96 Oxygen Delivery Method Room Air Intake Visit Reasons: RIGHT HIP INJECTION/08/08/24 Allergies morphine [MORPHINE] Allergy (Unknown, Verified 07/26/24 14:01) HIVES AND RASH, hives HPI Comments Details: Daly is very pleasant 63 years old female who presents in my office with complains on right hip pain. He was referred to my service by Orthopedic surgeon Dr. Gipson to perform intra-articular right hip steroid injection. She reports that her pain is result of severe osteoarthritis. She reports today that her pain after the injection is 3/10 for the past 1 month. Before the procedure she reported her pain was ?100/10. ?She reports better mobility better activities of daily living better social interactions. She is unable to sleep normally because of her pain but now she can do activities of daily living and she can take care of herself. She can not function normally. Weather changes aggravate her pain. Heat applications and oxycodone prescribed to her by primary care physician alleviate her pain. She reports her pain in terms of tissue damage as stabbing and lancinating. She had multiple images of her painful area in [facility] as well as [facility]. She denies chiropractic manipulations she never had physical therapy she is very negative about it. Her past medical history significant for shortness of breath fatigue diabetes and arthritis. Her past surgical history significant for lung biopsy, colon resection, knee arthroscopy, shoulder surgery, elbow surgery, carpal tunnel bilateral surgeries. Social history she admits smoking cigarettes. She denies drinking alcohol. She drinks 1 cup of coffee every morning and she denies recreational drugs. [facility]LY [facility] Medical History GERD (gastroesophageal reflux disease) Hx of sleep apnea Asthma History of salivary gland disease Diabetes Costochondritis Depression Dyslipidemia Hypertension Surgical History Hx of cholecystectomy History of surgery on arm Hx of elbow surgery Hx of arthroscopy of left knee History of lung surgery S/P left rotator cuff repair History of carpal tunnel release Family History Mother HTN (hypertension) Maternal Grandfather HTN (hypertension) Son HTN (hypertension) Diabetes Father Diabetes Social History Household Members: Children Housing: House Are you a primary disabilities caregiver to a significant other at home: No Do you presently have visiting nurse or other home services: No Alcohol intake: never Patient Tobacco Use Status: Current everyday Tobacco user Tobacco use type: Cigarette Cigarettes Per Day: 10 Years Smoked: 40 Review of Systems Const All systems reviewed & are unremarkable except as noted in HPI and below Physical Exam Vital Signs: Last Vital Signs Pulse 81 07/26/24 13:56 BP 156/86 H 07/26/24 13:56 Pulse Ox 96 07/26/24 13:56 Oxygen Delivery Method Room Air 07/26/24 13:56 BMI result Body Mass Index 32.8 Const General: cooperative and comfortable Nutritional Appearance: average body habitus Orientation/consciousness: patient oriented x3 Neck Neck: Yes normal visual inspection and Yes full ROM Chest Chest palpation & inspection: normal inspection of the chest Resp Effort & Inspection: normal respiratory effort, able to speak in complete sentences, normal respiratory pattern and no audible wheezes Cardio Jugular venous distension: no JVD General: Yes no CVA tenderness Back/Spine/Pelvis Back: no CVA tenderness Cervical Spine: normal cervical lordosis Thoracic/Lumbar Spine: thoracic and lumbar spine normal to inspection Pelvis: no pain with anterior-posterior compression Neuro General: patient oriented x3 Extrem Other: Positive Stinchfield and impingement test right hip. Positive Trendelenburg gait. (Uses a cane). Left knee left knee with tenderness to palpation medial joint line. No effusion. Full range of motion. Psych Appearance: grossly normal Speech and movement: Normal speech and movement present Affect: normal affect Attitude: cooperative Thought process: Normal thought process present Thought content: Normal thought content present Insight: Good insight present (Psych) Judgement: Good judgement present (Psych) Assessment & Plan Assessment & Plan (1) Osteoarthritis of left knee: Code(s): M17.12 - Unilateral primary osteoarthritis, left knee Category: Medical (2) Osteoarthritis of right hip: Code(s): M16.11 - Unilateral primary osteoarthritis, right hip Category: Medical Plan: Daly presents in my office with diagnosis of significant subchondral cyst and sclerosis formation of the acetabulum of the right hip consistent with moderate to severe osteoarthritis. Was referred to us by Dr. Gipson. She is negative about total hip replacement. She reports excellent pain relief from the injection lasting for up to 1 month. Briefly spinal cord stimulation to help pain in the knee was described to the patient. If patient would like to continue the injection and they the results of the injections lasting more than 3 months we certainly can perform intra-articular hip injections for her. She is recommended to give us a call when pain will start to come back. We will schedule her for another hip injection. Plan No new appointment at this time. Coding Level of Care Code New Pt Level 3 (39143) Diagnoses Osteoarthritis of left knee M17.12 Osteoarthritis of right hip M16.11
--- OUTSIDE RECORDS SUMMARY | 2024-07-26 15:12 | XMS_ITS | Clinical Summary ---
Author Organization [employer] Address [address] [place] [address] [address] [place] [address] Care Team Providers Care Pest Locator Name Role Phone PratikRocio Primary Care Provider [phone] Allergies Active Allergy Reactions Criticality Noted Date [...] Chronic obstructive pulmonary disease, unspecified COPD type ([facility]) INHALE 2 PUFFS BY MOUTH EVERY 4 HOURS NEEDED FOR WHEEZING OR SHORTNESS OF BREATH 18 g 2 024 Active nystatin (Mycostatin) 469100 UNIT/GM powderIndications:C andidal intertrigo APPLY TOPICALLY TO [...] complication, without long-term current use of insulin ([facility]) USE DIRECTED TWICE DAILY 100 each 11 Active oxybutynin XL (Ditropan-XL) 5 MG 24 [...] tablet daily x 4 days 6 tablet 024 Active tacrolimus (Protopic) 0.1 % ointmentIndications :Psoriasis Apply topically 2 times daily. 60 g 2 024 2024 Active simethicone (Mylicon,Gas-X) 125 MG capsule Take 1 capsule (125 mg) by mouth every 6 (six) hours if needed for flatulence. 60 capsule Active Blood Glucose Monitoring Suppl (Speech KingdomStyle [place]ett Lite) w/Device kit Check BS twice a day as directed 1 kit Active TRUEplus Lancets 33G miscIndications:Typ e 2 diabetes mellitus without complication, without long-term current use of insulin ([facility]) TEST BLOOD SUGAR TWICE DAILY 100 [...] cholecalciferol VITAMIN D (Vitamin D-3) 50 MCG (1999 UT) tablet TAKE 1 TABLET BY MOUTH EVERY [...] AT BEDTIME 90 tablet 3 025 Active triamcinolone (Kenalog) 0.1 % creamIndications:Po st-inflammatory hyperpigmentation Apply topically 2 times daily. Inframammary areas for itching 30 g 2 025 Active Spiriva Respimat 1.25 MCG/ACT inhaler INHALE 2 PUFFS BY MOUTH EVERY DAY 4 g 3 025 Active zolpidem (Ambien) 10 MG tabletIndications:I nsomnia, unspecified type Take 1 tablet (10 mg) by mouth at bedtime. 28 tablet 025 Active Tirzepatide (Mounjaro) 2.5 MG/0.5ML solution auto-injectorIndica tions:Type 2 diabetes mellitus without complication, without long-term current use of insulin (CMS/HCC) Inject 2.5 mg under the skin 1 (one) time per week. 2 mL 3 025 Active oxyCODONE (Roxicodone) 5 MG immediate release tabletIndications:C hronic bilateral low back pain without sciatica Take 1 tablet (5 mg) by mouth every 8 (eight) hours if needed for severe pain. 84 tablet 025 Active acetaminophen (Tylenol 8 Hour) 650 MG ER tabletIndications:P ain TAKE 1 TABLET BY MOUTH EVERY 8 HOURS NEEDED FOR PAIN OR FEVER DO NOT BREAK, CRUSH, DISSOLVE OR CHEW 60 tablet 2 025 Active Tirzepatide (Mounjaro) 2.5 MG/0.5ML solution auto-injectorIndica tions:Type 2 diabetes mellitus without complication, without long-term current use of insulin (CMS/HCC) Inject 2.5 mg under the skin 1 (one) time per week. 2 mL 3 024 2024 Discontinued( Reorder (will not trigger notification to Pharmacy)) acetaminophen (Tylenol 8 Hour) 650 MG ER tabletIndications:P ain Do not crush, chew, or split.TAKE 1 TABLET BY MOUTH EVERY 8 HOURS NEEDED FOR PAIN OR FEVER 60 tablet 2 025 2024 Discontinued zolpidem (Ambien) 10 MG tabletIndications:I nsomnia, unspecified type TAKE 1 TABLET BY MOUTH AT BEDTIME 28 tablet 025 2024 Discontinued( Reorder (will not trigger notification to Pharmacy)) oxyCODONE (Roxicodone) 5 MG immediate release tabletIndications:C hronic bilateral low back pain without sciatica Take 1 tablet (5 mg) by mouth every 8 (eight) hours if needed for severe pain. 84 tablet 025 2024 Discontinued( Reorder (will not trigger notification to Pharmacy)) oxyCODONE (Roxicodone) 5 MG immediate release tabletIndications:C hronic bilateral low back pain without sciatica Take 1 tablet (5 mg) by mouth every 8 (eight) hours if needed for severe pain. 84 tablet 025 2024 Discontinued( Reorder (will [...] changes -cont regular BS monitoring -re-referred to health/safety job titles for eval -cont lisinopril and lipitor daily -s/p optho eval DEC 2022 at [facility] for annual f/u -foot exam next [...] Self Plan Patient to reach out to [facility] team as needed, Comply with medication [...] Encounters Date Type Department Care Team Description 07/25/2024 Refill [facility] [address] [place] [address] Soraya Oneal MD Pain 07/12/2024 Telephone [facility] [address] [place] [address] Rocio Christie, Med Refill 07/12/2024 Refill [facility] [address] [place] [address] Rocio Christie DO Insomnia, unspecified type; Type 2 diabetes mellitus without complication, without long-term current use of insulin ([facility]) 07/12/2024 Refill [facility] [address] [place] [address] Rocio Christie DO Chronic bilateral low back pain without sciatica 07/12/2024 Refill [facility] [address] [place] [address] Rocio Christie DO Chronic bilateral low back pain without sciatica; Insomnia, unspecified type 06/22/2024 Telephone [facility] [address] [place] [address] Rocio Christie DO Call Back Request 06/15/2024 Telephone [facility] [address] [place] [address] Rocio Christie DO 06/15/2024 Refill [facility] [address] [place] [address] Rocio Christie DO Chronic bilateral low back pain without sciatica 06/07/2024 Refill [facility] [address] [place] [address] Soraya Oneal MD Insomnia, unspecified type 06/04/2024 Refill [facility] [address] [place] [address] Rocio Christie DO 06/02/2024 Population Health Risk Score [facility] [address] [phone] Provider, Population Health Generic 05/26/2024 9:15 AM EST Office Visit [facility] [address] [place] [address] Joanie Curiel MD Psoriasiform dermatitis (Primary Dx); Post-inflammatory hyperpigmentation; Xerosis of skin 05/26/2024 Travel 05/25/2024 Telephone [facility] [address] [place] [address] Rocio Christie DO Recall Appt. 05/25/2024 Travel 05/19/2024 Orders Only [facility] [address] [place] [address] ProviderSeb MD 05/18/2024 Orders Only [facility] [address] [place] [phone] Soraya Oneal MD 05/18/2024 Telephone [facility] [address] [place] [address] Rocio Christie DO Referral 05/17/2024 9:40 AM EST Office Visit [facility] [address] [place] [phone] Soraya Oneal MD Right groin pain (Primary Dx) 05/17/2024 Refill [facility] [address] [place], [place] [phone] Rocio Christie DO Chronic bilateral low back pain without sciatica 05/14/2024 Refill [facility] [address] [place] [address] Rocio Christie DO Chronic constipation; Pain; Insomnia, unspecified type 05/10/2024 Refill [facility] [address] [place] [address] Rocio Christie DO Chronic constipation 05/04/2024 Refill [facility] [address] [facility] [place] [place] [address] Rocio Christie DO Insomnia, unspecified type; Chronic bilateral low back pain without sciatica 04/30/2024 Orders Only [facility] [address] [place] [address] Rocio Christie DO from Last 3 Months Immunizations Name Administration [...] Description 08/07/2024 10:15 AM EDT Office Visit [facility] [address] [place] [phone] Rocio Christie DO [address] [place] [address] 09/01/2024 10:30 AM EDT Telemedicine [facility] [address] [place] [phone] Marisa Sims, HOA Health Maintenance Due Date [...] Influenza Vaccine (#1) 2023 , 06/25/2022, 12/13/2020 Diabetes: Urine Protein Screening 03/03/2024 03/03/2023 Lipid [...] Completed 06/25/2022, 05/13/2011 HIV Screening Completed 03/03/2023, 05/0 03/2022, 08/06/2021, Additional history exists Hepatitis C [...] (06/16/2024) Anatomical Region Laterality Modality Pelvis Ultrasound us Soraya Oneal MD IMG US PROCEDURES Final [...] AM EST Narrative 05/17/2024 10:38 AM EST ?[facility] ?[address] ?[place] [address] ?XRay Report ? Signed ? Patient: Daly Neal E ?MR#: [id number] ?? [id number] ? : 1960 ?Acct:[id number] ? Age/Sex: 63 / F ?ADM Date: //25 ? Loc: HO.HHCX ? Attending Dr: Soraya Oneal MD ? Ordering Physician: Soraya Oneal MD ?? Date of Service: 05/17/24 ?? Procedure(s): XR hip RT min 2V ?? Accession Number(s): [id number] ? cc: Soraya Oneal MD ? EXAMINATION: [...] DD/ 1020 ? TD/TT: 05/17/24 1032 ? Drum Tester: ? Procedure Note Donjosieter, Image - 05/17/[address] [address] XRay Report Signed Patient: Daly Neal EMR#: [id number] : 1960Acct:[id number] Age/Sex: 63 / FADM Date: 05/17/24 Loc: HO.HHCX Attending Dr: Soraya Oneal MD Ordering Physician: Soraya Oneal MD Date of Service: 05/17/24 Procedure(s): XR hip RT min 2V Accession Number(s): [id number] cc: Soraya Oneal MD EXAMINATION: XR HIP, [...] 05/17/24 1035 DD/ 1020 TD/TT: 05/17/24 1032 Drum Tester: Soraya Oneal MD IMG XR PROCEDURES Final Re sult * (ABNORMAL) POCT HGB A1C (02/14/2024 11:31 AM EST) Hemoglobin A1C 6.1(A) 4.0 - 6.0 % QC Media Lot # [id number] Lot# Expiration Date [id number] Blood 02/14/2024 11:3 1 AM EST Rocio Christie DO POINT OF CARE TEST ENTER/ADAM T ORDERABLES Final Result * ThinPrep Imaging Pap and HPV mRNA E6/E7 with Reflex to HPV 16,18/45 (12/09/2023 12:00 AM EDT) HPV 16 RNA [facility] HPV 18/45 RNA [facility] HPV nRNA E6/E7 Not Detected Not Detected [facility] Comment:Methodology: Transcr iption-Mediated AmplificationThis assay detects E6/E7 viral messenger RNA (mRNA) from 14high-risk HPV types (16,18,31,33,35,39,45,51,52,56,58,59,66,68).Cervical sources are required for HPV testing.If a vaginal source from a patient who has had atotal hysterectomy with removal of cervix wassubmitted, please contact the testing laboratoryfor alternative testing options.For additional information, please refer [email or web address](This link if provided for information/educational purposes only.)THIS TEST WAS PERFORMED AT:[facility] [place] [phone] IVY MD SOURCE: SEE NOTE [facility] Comment:None given Report Status: [facility] Clinical Information: SEE NOTE [facility] Comment:None given LMP: SEE NOTE [facility] Comment:NONE GIVEN Prev. PAP: SEE NOTE [facility] Comment:NONE GIVEN Prev. BX: SEE NOTE [facility] Comment:NONE GIVEN Statement Of Adequacy: SEE NOTE [facility] Comment:Satisfactory for lyric luation.Endocervical/transformation zone componentpresent.Partially obscuring inflammation General Categorization: [facility] Interpretation/Result: SEE NOTE [facility] Comment:Cytology Results: Ne gative for intraepitheliallesion or malignancy. Cytology Comment SEE NOTE [facility] Comment:This Pap test has be en evaluated with computerassisted technology. District Medical Examiner: SEE NOTE [facility] Comment:RMM, CT(ASCP)CT scre ening location: [place] [address] Review District Medical Examiner: SEE NOTE [facility] Comment:MPG, CT(ASCP)CT scre ening location: [place] [address] Pathologist [facility] PAP Infection [facility] See Note SEE NOTE [facility] Comment:EXPLANATORY NOTE:The Pap is a screening test for cervical cancer. It isnot a diagnostic test and is subject to false negativeand false positive results. It is most reliable when asatisfactory sample, regularly obtained, is submittedwith relevant clinical findings and history, and whenthe Pap result is evaluated along with historic andcurrent clinical information. 12/09/2023 12/09/2023 Narrative [facility] - 12/17/2023 12:02 PM EDT SEE SCANNED RESULTS IN EMR us Rocio Christie DO LAB PATHOLOGY ORDERABLES Fin al Result [facility] [address] [place] [address] [phone] * BI Mammogram Screening Tomosynthesis Bilateral (09/09/2023 9:49 AM EDT) Anatomical Region Laterality Modality Breast Bilateral Mammography 09/09/2023 9:49 AM EDT Narrative 10/08/2023 1:27 PM EDT ? [facility] ? [address] ?[place], [place] [address] ? Mammography Report ? Signed ? Patient: Neal,Daly E ?MR#: [id number] ?? [id number] ? : 1960 ?Acct:[id number] ? Age/Sex: 62 / F ?ADM Date: 09/09/23 ? Loc: HO.MAMMO ? Attending DrFelipa Christie DO ? Ordering Physician: Rocio Christie DO ?Results: 1N ?? egative ? Date of Service: 09/09/23 ?Follow Up: 1 Year From Orig ?? inal Mammogram ? Procedure(s): MM tomosynthesis screening BI ?? Accession Number(s): [id number] ? cc: Rocio Christie DO ? EXAMINATION: [...] 1323 ? DD/ 0949 ? TD/TT: ? Drum Tester: ? Procedure Note Tonio, Image - 10/08/2023 [place] [facility] [address] [place] [address] Mammography Report Signed Patient: Daly Neal EMR#: [id number] : 1960Acct:[id number] Age/Sex: 62 / FADM Date: 09/09/23 Loc: HO.MAMMO Attending Dr: Rocio Christie DO Ordering Physician: Rocio Christieults: 1N egative Date of Service: 09/09/23Follow Up: 1 Year From Orig inal Mammogram Procedure(s): MM tomosynthesis screening BI Accession Number(s): [id number] cc: Rcoio Christie DO EXAMINATION: MM SCREENING DIGITAL BREAST [...] in OV> 10/08/23 1323 DD/ 0949 TD/TT: Drum Tester: Rocio Christie DO IMG BI PROCEDURES Final Resu lt * Albumin, Random Urine W/Creatinine (03/03/2023 11:48 AM EST) Creatinine, Urine 64.66 mg/dL [facility] Microalbumin Urine 17.0 mg/L [facility] Microalbum Creatinine Ratio Ur 26.2 <30 ug/mg cr [facility] Comment:Albumin/Creatinine R atio Reference Ranges: Normal: < 30 ug/mg creatinine Microalbuminuria: 30 - 300 ug/mg creatinineClinical Albuminuria: > 300 ug/mg creatinine Urine (Urine, Random) 03/03/2023 11:48 AM EST 03/03/2023 1:14 PM EST Rocio Christie DO LAB URINE ORDERABLES Final R esult [facility] [address] [place] [phone] * Hepatitis C Antibody with Reflex to HCV, RNA, Quantitative, Real-Time PCR (03/03/2023 11:41 AM EST) Hepatitis C Antibody Nonreactive Nonreactive [facility] Comment:Antibodies to HCV no t detected; does not exclude early acuteHCV infection. Blood Venous blood specimen / Unknown 03/03/2023 11:41 AM EST 03/03/2023 1:18 PM EST Rocio Christie [employer] LAB BLOOD ORDERABLES Final R esult Performing Organization Address [facility] [[email or web address]] Co de Phone Number [facility] [address] [place] [address] [phone] * HIV-1/2 Antigen and Antibodies, Fourth Generation, with Reflexes (03/03/2023 11:41 AM EST) HIV AB/AG Nonreactive Nonreactive [facility] Comment:HIV-1 p24 Ag and/or HIV-1/HIV-2 Ab not detected.A test result that is nonreactive does not exclude thepossibility of exposure to or infection with HIV-1 and/orHIV-2. Nonreactive results in this assay for individualswith prior exposure to HIV-1 and/or HIV-2 may be due toantigen and antibody levels that are below the limit ofdetection of this assay.The hereO HIV Ag/Ab Combo assay result andsupplemental assay results should be interpreted inconjunction with the patient's clinical presentation,history and other laboratory results. If the results areinconsistent with clinical evidence, additional testing issuggested to confirm the result. Blood Venous blood specimen / Unknown 03/03/2023 11:41 AM EST 03/03/2023 1:18 PM EST Rocio Christie LAB BLOOD ORDERABLES Final R esult Performing Organization Address City/[facility]/ZIP Co de Phone Number [facility] [address] [place] [address] [phone] * (ABNORMAL) Lipid Panel, Standard (03/03/2023 11:41 AM EST) Triglycerides 96 <150 mg/dL [facility] Comment:Desirable Triglyceri de: less than 150 mg/dLBorderline High Triglyceride 150-199 mg/dLHigh Triglyceride: 200-499 mg/dLVery High Triglyceride: greater than or equal to 5OO mg/dL Cholesterol 133 <200 mg/dL [facility] Comment:Desirable Cholestero l: less than 200 mg/dLBorderline High Cholesterol: 200-239 mg/dLHigh Cholesterol: greater than 239 mg/dL LDL Cholesterol Calculated 80 <100 mg/dL [facility] Comment:Desirable LDL: less than 100 mg/dLNear Optimal/Above Optimal LDL: 110- 129 mg/dLBorderline High LDL: 130-159 mg/dLHigh LDL: 160-189 mg/dLVery High LDL: greater than or equal to 190 mg/dL HDL Cholesterol 34(L) >40 mg/dL [facility] Comment:Desirable HDL: great er than 40 mg/dL Note: This HDL assay may give artificially low results in patients with liver disease. Blood Venous blood specimen / Unknown 03/03/2023 11:41 AM EST 03/03/2023 1:18 PM EST Rocio Christie DO LAB BLOOD ORDERABLES Final R esult [facility] [address] [place] [address] [phone] * Hm Colonoscopy (09/02/2012 11:00 AM EDT) Historical Provider MD HEALTH MAINTENANCE Final Result from Last 3 Months or Most Recently Relevant to Health Maintenance Insurance [address] [place] [id number] [place] [address] C3 Care Teams Pest Locator Relationship Specialty Start Date End Date Rocio Christie DO [address] [place] [phone] PCP - General Family Medicine 03/22/18
--- OUTSIDE RECORDS SUMMARY | 2024-07-26 15:12 | XMS_ITS | Encounter Summary ---
Author Organization [employer] Address 75 [facility] [address] [place] [address] Care Team Providers Care Flume Tender Name Role Phone Rocio Christie DO Primary Care Provider +[phone] Reason for Visit * Reason Onset Date Comments Call Back Request 09/10/2023 Encounter Details Date Type Department Care Team ([facility] st Contact Info) Description 09/10/2023 Telephone [facility] MEDICINE [address] [place], [place] [phone] Rocio Christie DO [address] [place], [place] [phone] Call Back Request Social History Tobacco Use [...] patient, patients son taking her on vacation. MORTGAGE LOAN ORIGINATOR RV rescheduled for 10/25/23. Pt c/o new [...] Description 08/07/2024 10:15 AM EDT Office Visit [facility] MEDICINE [address] [place] [address] Rocio Christie DO [address] [place] [address] 09/01/2024 10:30 AM EDT Telemedicine [facility] MEDICINE [address] [place] [address] Marisa Sims, RN documented as of this encounter Visit Diagnoses Not on filedocumented in this encounter Additional Health Concerns Assessment Noted Time PHQ-9 Depression Total Score: 16 024 1:38 PM EDT documented as of this encounter Care Teams Flume Tender Relationship Specialty Start Date End Date Rocio Christie DO [address] [place] [address] PCP - General Family Medicine 03/22/18 documented as of this encounter
--- OUTSIDE RECORDS SUMMARY | 2024-07-26 15:12 | XMS_ITS | Encounter Summary ---
Author Organization [employer] Address 75 [facility] 7t [place] [address] Care Team Providers Care Assault Amphibious Vehicle Crewman Name Role Phone Rocio Christie DO Primary Care Provider + [phone] Reason for Visit * Reason Comments Med Refill Encounter Details Date Type Department Care Team (Late st Contact Info) Description 02/21/2024 Refill [facility] [address] [place], [place] [phone] Rocio Christie DO [address] [place], [place] [phone] New onset type 2 diabetes mellitus (CMS/HCC) [...] Description 08/07/2024 10:15 AM EDT Office Visit [facility] MEDICINE [address] [place] [address] Rocio Christie DO [address] [place] [address] 09/01/2024 10:30 AM EDT Telemedicine [address] [address] Marisa Sims, RN documented as of this encounter Visit Diagnoses Diagnosis New onset type 2 diabetes mellitus (CMS/HCC) documented in this encounter Additional Health Concerns Assessment Noted Time PHQ-9 Depression Total Score: 16 024 1:38 PM EDT documented as of this encounter Care Teams Assault Amphibious Vehicle Crewman Relationship Specialty Start Date End Date Rocio Christie DO [address] [place] [address] PCP - General Family Medicine 03/22/18 documented as of this encounter
--- OUTSIDE RECORDS SUMMARY | 2024-07-26 15:12 | XMS_ITS | Encounter Summary ---
Author Organization [employer] Address 75 [facility] 7t [place] [address] Care Team Providers Care Parts And Service Manager Name Role Phone Rocio Christie DO Primary Care Provider + [phone] Encounter Details Date Type Department Care Team (Late st Contact Info) Description 05/10/2024 Refill [facility] MEDICINE [address] [place], [place] [phone] Rocio Christie DO 230 [place], [place] [phone] Chronic constipation Social History Tobacco Use Types [...] Description 08/07/2024 10:15 AM EDT Office Visit [facility] MEDICINE [address] [place] [address] Rocio Christie DO [address] [address] 09/01/2024 10:30 AM EDT Telemedicine [facility] MED[facility]INE [address] [place] [address] Marisa Sims RN documented as of this encounter Visit Diagnoses Diagnosis Chronic constipation Unspecified constipation documented in this encounter Additional Health Concerns Assessment Noted Time PHQ-9 Depression Total Score: 16 024 1:38 PM EDT documented as of this encounter Care Teams Parts And Service Manager Relationship Specialty Start Date End Date Rocio Christie DO [address] [place] [address] PCP - General Family Medicine 03/22/18 documented as of this encounter
--- OUTSIDE RECORDS SUMMARY | 2024-07-26 15:12 | XMS_ITS | Patient Health Record ---
Author Organization [facility] Address [address] [place] [address] Care Team Providers Care Fleecer Name Role Phone Rocio Christie M.D. Primary Care Provider Rakel vailable Mick Cook Unavailable [phone] Reason For Referral Referring Provider First Name Rocio Referring Provider Last Name Pratik Referred Organization [facility] Referred Provider Mick Cook Referred Address [address] [address],[facility] [address],[place], [place],[address], Referred Provider Specialty Gastroentero logy Referral Priority Routine Encounters Encounter Location Date Provider Diagnosis [facility] [address] [place] [address] 06/06/2024 Mick Cook Plan Of Treatment No Information Insurance Providers Payer Name Payer Address Payer Phone Subscriber Number Group Number Insured Name Patient Relationship to Insured Coverage Start Date Coverage End Date MEDICAID OF [facility] [address] [place] [phone] [id number] VON ORTIZ Self - patient is the insured
--- OUTSIDE RECORDS SUMMARY | 2024-07-26 15:12 | XMS_ITS | Encounter Summary ---
Author Organization [employer] Address 75 [facility] 7t [place] [address] Care Team Providers Care Photogrammetric Stereo Compiler Name Role Phone Rocio Christie DO Primary Care Provider + [phone] Reason for Visit * Reason Comments Med Refill Encounter Details Date Type Department Care Team (Late Contact Info) Description 07/23/2022 Refill [facility] MED[facility]INE 230 [place], [place] [phone] Rocio Christie DO 230 [place], [place] [phone] Other chronic pain; Insomnia, unspecified type Social [...] Description 08/07/2024 10:15 AM EDT Office Visit [address] [address] Rocio Christie DO 230 [place] [address] 09/01/2024 10:30 AM EDT Telemedicine [address] [address] Marisa Sims RN documented as of this encounter Visit Diagnoses Diagnosis Other chronic pain Insomnia, unspecified type documented in this encounter Additional Health Concerns Assessment Noted Time PHQ-9 Depression Total Score: 12 023 10:43 AM EDT documented as of this encounter Care Teams Photogrammetric Stereo Compiler Relationship Specialty Start Date End Date Rocio Christie DO [address] [place] [address] PCP - General Family Medicine 03/22/18 documented as of this encounter
--- OUTSIDE RECORDS SUMMARY | 2024-07-26 15:12 | XMS_ITS ---
Author Organization [facility] Address [address] [place] [phone] Care Team Providers Care Rn Hospital Name Role Phone Pratik Ritchie, Rocio Primary Care Provider Rakel Mick Bates [phone] REASON FOR VISIT Patient presents today for EPIGASTRIC PAIN, COLON SCREENING Encounters Encounter Location Date Provider Diagnosis [facility] [address] [place] [phone] 06/06/2024 Mick Cook Plan Of Treatment No Information Progress Notes * VON ORTIZDOB:[birth year] (63 yo F)Acc No.[id number]:06/06/2024 Progress Notes Patient:?VON ORTIZ Provider:?Mikc Cook MD :[id number]???Age:63 Y???Sex:Female D ate:06/06/2024 Address:[address] [place] [address] [address] , [facility] Pcp:Rocio Christie M.D. Subjective: * Chief Complaints: [...] MD Date:? 025 Generated for Codyi dotty/Shyanne/eTransmitting on:?07/26/2024 03:12 PM EDT
--- OUTSIDE RECORDS SUMMARY | 2024-07-26 15:12 | XMS_ITS | Encounter Summary ---
Author Organization [employer] Address [address] [place] [address] [place], [place] [address] Care Team Providers Care Rn First Assist Name Role Phone Rocio Christie DO Primary Care Provider [phone] Reason for Visit * Reason Comments Med Refill Encounter Details Date Type Department Care Team (Late st Contact Info) Description 11/01/2022 Refill [facility] MEDICINE [address] [place] [phone] Rocio Christie DO 230 [place], [place] [phone] Essential hypertension Social History Tobacco Use Types [...] 10:15 AM EDT Office Visit [facility] MEDICINE [address] [place] [address] Rocio Christie DO 230 [place] [address] 09/01/2024 10:30 AM EDT Telemedicine [facility] MEDICINE 230 [place], [place] [phone] Marisa Sims RN documented as of this encounter Visit Diagnoses Diagnosis Essential hypertension Unspecified essential hypertension documented in this encounter Additional Health Concerns Assessment Noted Time PHQ-9 Depression Total Score: 12 023 10:43 AM EDT documented as of this encounter Care Teams Rn First Assist Relationship Specialty Start Date End Date Rocio Christie DO 230 [place] [address] PCP - General Family Medicine 03/22/18 documented as of this encounter
--- OUTSIDE RECORDS SUMMARY | 2024-07-26 15:12 | XMS_ITS | Encounter Summary ---
Author Organization [employer] Address 75 [facility] 7t [place] [address] Care Team Providers Care Change Room Attendant Name Role Phone PratikRocio Primary Care Provider + [phone] Reason for Visit * Reason Comments Med Refill Encounter Details Date Type Department Care Team (Late st Contact Info) Description 07/25/2024 Refill [facility] [address] [place], [place] [phone] Soraya Oneal MD 230 [place], [place] [phone] Pain Social History Tobacco Use Types Packs/Day Years [...] Description 08/07/2024 10:15 AM EDT Office Visit [facility] [address] [place] [address] Rocio Christie DO [address] [place] [address] 09/01/2024 10:30 AM EDT Telemedicine [facility] [address] [place] [address] Marisa Sims, HOA documented as of this encounter Visit Diagnoses Diagnosis Pain Generalized pain documented in this encounter Additional Health Concerns Assessment Noted Time PHQ-9 Depression Total Score: 16 024 1:38 PM EDT documented as of this encounter Care Teams Change Room Attendant Relationship Specialty Start Date End Date Rocio Christie DO [address] [place] [address] PCP - General Family Medicine 03/22/18 documented as of this encounter
--- OUTSIDE RECORDS SUMMARY | 2024-07-26 15:12 | XMS_ITS | Encounter Summary ---
Author Organization [employer] Address 75 [facility] 7t [place] [address] Care Team Providers Care Automotive Buyer Name Role Phone Karina Christiefer Primary Care Provider + [phone] Encounter Details Date Type Department Care Team (Late st Contact Info) Description 07/01/2023 Orders Only [facility] MEDICINE 230 [place], [place] [phone] ProviderSeb MD Social History Tobacco Use Types [...] 08/07/2024 10:15 AM EDT Office Visit [facility] MEDICINE [address] [place] [address] Rocio Christie DO [address] [place] [address] 09/01/2024 10:30 AM EDT Telemedicine [address] [address] Marisa Sims RN documented as of this encounter Procedures Procedure Name Priority Date/Time Associated Diagnosis Comments HM COLONOSCOPY Routine 09/02/2012 11:00 AM EDT documented in this encounter Results * Hm Colonoscopy (09/02/2012 11:00 AM EDT) us Historical Provider HEALTH MAINTENANCE Final Result documented in this encounter Visit Diagnoses Not on filedocumented in this encounter Additional Health Concerns Assessment Noted Time PHQ-9 Depression Total Score: 12 023 10:43 AM EDT documented as of this encounter Care Teams Automotive Buyer Relationship Specialty Start Date End Date Rocio Christie DO [address] [place] [address] PCP - General Family Medicine 03/22/18 documented as of this encounter
--- OUTSIDE RECORDS SUMMARY | 2024-07-26 15:12 | XMS_ITS | Clinical Summary ---
Author Organization [facility] Address [address] [place] [address] Phone Care Team Providers Care Linen Keeper Name Role Phone Rocio Christie DO Primary Care Provider [phone] Allergies Active Allergy Reactions Criticality Noted Date Comments Morphine Hives 05/19/2024 Encounters Date Type Department Care Team Description 05/19/2024 9:09 AM EST - 05/19/2024 12:56 PM EST Emergency [facility] [address] [place] [address] Groin pain, right (Primary Dx) Discharge Disposition: Home or Self Care from Last 3 Months Surgical History Surgery Date Site/Laterality Comments COLONOSCOPY PROCEDURE: HISTORICAL COLONOSCOPY ABDOMINAL SURGERY PROCEDURE: HISTORICAL ABDOMINAL SURGERY OTHER SURGICAL HISTORY 2017 PROCEDURE: [place] COLECTOMY PARTIAL W/ANASTOMOSIS; COMMENT: sigmoid/descending colon OTHER SURGICAL HISTORY PROCEDURE: PARTIAL REMOVAL OF LUNG Medical History Medical History Date Comments Asthma DX:Asthma History of diverticulitis of colon DX:History of diverticulitis of colon; COMMENT: surg repair 05/2017; sigmoid and descendign colon Lung nodule 2017 DX:Lung nodule; COMMENT: folllowed by PCP @ [facility] DANDRE (obstructive sleep apnea) DX :DANDRE (obstructive [...] Signed Date: 05/19/2024 11:14 ET Workstation ID: [id number] Transcribed By: Self Edit Transcribed Date: 05/19/2024 [...] Signed Date: 05/19/2024 11:14 ET Workstation ID: [id number] Transcribed By: Self Edit Transcribed Date: 05/19/2024 10:59 ET Derek [facility] IMG CT PROCEDURES Final Resu lt * (ABNORMAL) Urinalysis with reflex microscopic and culture (05/19/2024 9:27 AM EST) Specific [place] Urine 1.023 1.003 - 1.030 LAB URINALYSIS - AUTOMATED METHOD 05/19/2024 10:12 AM [facility] pH, Urine 6.0 5.0 - 8.0 pH LAB URINALYSIS - AUTOMATED METHOD 05/19/2024 10:12 AM [facility] Leukocytes, Urine Small(A) Negative LAB URINALYSIS - AUTOMATED METHOD 05/19/2024 10:12 AM [facility] Nitrite, Urine Negative Negative LAB URINALYSIS - AUTOMATED METHOD 05/19/2024 10:12 AM [facility] Protein, Urine 100(A) <=Trace mg/dL LAB URINALYSIS - AUTOMATED METHOD 05/19/2024 10:12 AM [facility] Glucose, Urine Negative Negative mg/dL LAB URINALYSIS - AUTOMATED METHOD 05/19/2024 10:12 AM [facility] Ketones, Urine Trace(A) Negative mg/dL LAB URINALYSIS - AUTOMATED METHOD 05/19/2024 10:12 AM [facility] Urobilinogen, Urine 1.0 0.2 - 1.0 mg/dL LAB URINALYSIS - AUTOMATED METHOD 05/19/2024 10:12 AM [facility] Bilirubin, Urine Negative Negative LAB URINALYSIS - AUTOMATED METHOD 05/19/2024 10:12 AM [facility] Blood, Urine Trace(A) Negative LAB URINALYSIS - AUTOMATED METHOD 05/19/2024 10:12 AM [facility] RBC, Urine 5.0(H) 0 - 4 /HPF LAB URINALYSIS - AUTOMATED METHOD 05/19/2024 10:12 AM [facility] WBC, Urine 8.0(H) 0 - 4 /HPF LAB URINALYSIS - AUTOMATED METHOD 05/19/2024 10:12 AM [facility] Squamous Epithelial, Urine >100(H) 0 - 60 /LPF LAB URINALYSIS - AUTOMATED METHOD 05/19/2024 10:12 AM [facility] Bacteria, Urine Few(A) Negative /HPF LAB URINALYSIS - AUTOMATED METHOD 05/19/2024 10:12 AM [facility] Hyaline Casts, Urine 3.2(H) 0 - 3 /LPF LAB URINALYSIS - AUTOMATED METHOD 05/19/2024 10:12 AM [facility] Urine Urine specimen obtained by clean catch procedure / Unknown Non-blood Collection / Unknown 05/19/2024 9:27 AM EST 05/19/2024 9:48 AM EST Rodney Silverman MD LAB URINE ORDERABLES Final R esult [facility] [address] [place] [address], * Peña urine culture tube (05/19/2024 9:27 AM EST) Extra Tube Hold for add-ons. 05/19/2024 11:01 AM [facility] Comment:Auto resulted. Urine Urine specimen obtained by clean catch procedure / Unknown Non-blood Collection / Unknown 05/19/2024 9:27 AM EST 05/19/2024 9:48 AM EST us Rodney Silverman MD LAB URINE ORDERABLES Final R esult [facility] [address] [place] [address], [place] [phone] * Culture urine (05/19/2024 9:27 AM EST) Culture, Urine <10,000 cfu/mL Mixed bacterial jill 05/20/2024 10:10 AM [facility] Urine Urine specimen obtained by clean catch procedure / Unknown Non-blood Collection / Unknown 05/19/2024 9:27 AM EST 05/19/2024 10:12 AM EST us Rodney Silverman MD LAB MICROBIOLOGY - GENERAL O RDERABLES Final Result Performing Organization Address City/[facility]/ZIP Co de Phone Number [facility] [address] [place] [address], [place] [phone] * (ABNORMAL) CBC auto differential (05/19/2024 9:18 AM EST) WBC 11.1(H) 4.8 - 10.8 K/mcL LAB HEMETOLOGY METHOD 05/19/2024 9:34 AM [facility] RBC 5.70(H) 3.80 - 4.80 M/mcL LAB HEMETOLOGY METHOD 05/19/2024 9:34 AM [facility] Hemoglobin 16.3(H) 11.5 - 16.0 g/dL LAB HEMETOLOGY METHOD 05/19/2024 9:34 AM [facility] Hematocrit 48.6(H) 35.0 - 47.0 % LAB HEMETOLOGY METHOD 05/19/2024 9:34 AM [facility] MCV 85.0 79.0 - 98.0 FL LAB HEMETOLOGY METHOD 05/19/2024 9:34 AM [facility] MCH 28.5 27.0 - 32.0 pcg LAB HEMETOLOGY METHOD 05/19/2024 9:34 AM [facility] MCHC 33.5 32.0 - 37.0 g/dL LAB HEMETOLOGY METHOD 05/19/2024 9:34 AM [facility] RDW 13.6 11.0 - 15.0 % LAB HEMETOLOGY METHOD 05/19/2024 9:34 AM [facility] Platelets 327 130 - 400 K/mcL LAB HEMETOLOGY METHOD 05/19/2024 9:34 AM [facility] MPV 10.8 7.0 - 11.0 FL LAB HEMETOLOGY METHOD 05/19/2024 9:34 AM [facility] NRBC 0.0 <1.0 % LAB HEMETOLOGY METHOD 05/19/2024 9:34 AM [facility] NRBC Absolute 0.00 <0.10 K/mcL LAB HEMETOLOGY METHOD 05/19/2024 9:34 AM [facility] Neutrophils Relative 57.2 % LAB HEMETOLOGY METHOD 05/19/2024 9:34 AM [facility] Lymphocytes Relative 30.2 % LAB HEMETOLOGY METHOD 05/19/2024 9:34 AM [facility] Monocytes Relative 6.6 % LAB HEMETOLOGY METHOD 05/19/2024 9:34 AM [facility] Eosinophils Relative 4.6 % LAB HEMETOLOGY METHOD 05/19/2024 9:34 AM [facility] Basophils Relative 1.1 % LAB HEMETOLOGY METHOD 05/19/2024 9:34 AM [facility] Immature Granulocytes Relative 0.3 % LAB HEMETOLOGY METHOD 05/19/2024 9:34 AM [facility] Neutrophils Absolute 6.36 1.50 - 7.00 K/mcL LAB HEMETOLOGY METHOD 05/19/2024 9:34 AM EST [facility] Lymphocytes Absolute 3.35 1.00 - 5.00 K/[facility] LAB HEMETOLOGY METHOD 05/19/2024 9:34 AM EST [facility] Monocytes Absolute 0.73 0.20 - 1.00 K/[facility] LAB HEMETOLOGY METHOD 05/19/2024 9:34 AM EST [facility] Eosinophils Absolute 0.51(H) 0.00 - 0.50 K/[facility] LAB HEMETOLOGY METHOD 05/19/2024 9:34 AM EST [facility] Basophils Absolute 0.12 0.00 - 0.20 K/[facility] LAB HEMETOLOGY METHOD 05/19/2024 9:34 AM [facility] Immature Granulocytes Absolute 0.03 0.00 - 0.03 K/[facility] LAB HEMETOLOGY METHOD 05/19/2024 9:34 AM EST [facility] Blood Venous blood specimen / Unknown Venipuncture / Unknown 05/19/2024 9:18 AM EST 05/19/2024 9:26 AM EST us Rodney Silverman MD LAB BLOOD ORDERABLES Final R esult [facility] [address] [place] [address], * Comprehensive metabolic panel (05/19/2024 9:18 AM EST) Sodium 139 133 - 145 mmol/L LAB CHEMISTRY METHOD 05/19/2024 10:19 AM EST [facility] Potassium 4.2 3.5 - 5.5 mmol/L LAB CHEMISTRY METHOD 05/19/2024 10:19 AM [facility] Chloride 106 96 - 110 mmol/L LAB CHEMISTRY METHOD 05/19/2024 10:19 AM EST [facility] CO2 27 21 - 32 mmol/L LAB CHEMISTRY METHOD 05/19/2024 10:19 AM [facility] Anion Gap 6 3 - 11 LAB CHEMISTRY METHOD 05/19/2024 10:19 AM [facility] Glucose 96 70 - 100 mg/dL LAB CHEMISTRY METHOD 05/19/2024 10:19 AM [facility] BUN 12 5 - 25 mg/dL LAB CHEMISTRY METHOD 05/19/2024 10:19 AM [facility] Creatinine 0.84 0.50 - 1.10 mg/dL LAB CHEMISTRY METHOD 05/19/2024 10:19 AM [facility] eGFR 78 >=60 mL/min/1. 73m2 LAB CHEMISTRY METHOD 05/19/2024 10:19 AM [facility] Comment:Calculation based on the??Chronic Kidney Disease Epidemiology Collaboration (CKD-EPI) equation refit??without adjustment for race. BUN/Creatinine Ratio 14.3 LAB CHEMISTRY METHOD 05/19/2024 10:19 AM [facility] Calcium 9.9 8.5 - 10.5 mg/dL LAB CHEMISTRY METHOD 05/19/2024 10:19 AM [facility] AST (SGOT) 22 10 - 42 unit/L LAB CHEMISTRY METHOD 05/19/2024 10:19 AM [facility] ALT (SGPT) 22 10 - 60 unit/L LAB CHEMISTRY METHOD 05/19/2024 10:19 AM [facility] Alkaline Phosphatase 118 42 - 121 unit/L LAB CHEMISTRY METHOD 05/19/2024 10:19 AM [facility] Total Protein 7.3 6.0 - 8.0 g/dL LAB CHEMISTRY METHOD 05/19/2024 10:19 AM [facility] Albumin 4.3 3.2 - 5.0 g/dL LAB CHEMISTRY METHOD 05/19/2024 10:19 AM [facility] Total Bilirubin 1.0 0.0 - 1.4 mg/dL LAB CHEMISTRY METHOD 05/19/2024 10:19 AM EST [facility] Blood Venous blood specimen / Unknown Venipuncture / Unknown 05/19/2024 9:18 AM EST 05/19/2024 9:26 AM EST us Rodney Silverman MD LAB BLOOD ORDERABLES Final R esult [facility] [address] [place] [address], from Last 3 Months Insurance MEDICAID - [place] Care Teams Linen Keeper Relationship Specialty Start Date End Date Rocio Christie DO [address] [place] [address] PCP - General Internal Medicine 05/27/11
--- OUTSIDE RECORDS SUMMARY | 2024-07-26 15:12 | XMS_ITS | Encounter Summary ---
Author Organization [employer] Address 75 [facility] 7t [place] [address] Care Team Providers Care Accounts Payable Processor Name Role Phone PratikRocio Primary Care Provider + [phone] Reason for Visit * Reason Comments Med Refill Encounter Details Date Type Department Care Team (Late st Contact Info) Description 09/23/2023 Refill [facility] [address] [place], [place] [phone] Jania Mcduffie MD [address] [place], [place] [phone] Other chronic pain Social History Tobacco Use [...] Description 08/07/2024 10:15 AM EDT Office Visit [facility] [address] [place] [address] Rocio Christie DO [address] [place] [address] 09/01/2024 10:30 AM EDT Telemedicine [address] [address] Marisa Sims RN documented as of this encounter Visit Diagnoses Diagnosis Other chronic pain documented in this encounter Additional Health Concerns Assessment Noted Time PHQ-9 Depression Total Score: 16 024 1:38 PM EDT documented as of this encounter Care Teams Accounts Payable Processor Relationship Specialty Start Date End Date Rocio Christie DO [address] [place] [address] PCP - General Family Medicine 03/22/18 documented as of this encounter
--- OUTSIDE RECORDS SUMMARY | 2024-07-26 15:12 | XMS_ITS | Encounter Summary ---
Author Organization [employer] Address [address] [facility] 7[address] [place] [address] Care Team Providers Care Metal Tester Name Role Phone Rocio Christie DO Primary Care Provider +[phone] Reason for Visit * Reason Onset Date Comments Med Refill 07/12/2024 Encounter Details Date Type Department Care Team ([facility] st Contact Info) Description 07/12/2024 Telephone [facility] [address] [place], [place] [phone] Rocio Christie DO [address] [place], [place] [phone] Med Refill Social History Tobacco Use Types Packs/Day Years [...] encounter Miscellaneous Notes * Telephone Encounter - Indigo Chambers - 07/12/2024 4:32 PM EDT TC from pt requesting medication refill. Medications needing refill : Tirzepatide (Mounjaro) 2.5 MG/0.5ML solution auto-injector To be sent to: [facility] documented in this encounter Plan of Treatment Upcoming Encounters Date Type Department Care Team (Late st Contact Info) Description 08/07/2024 10:15 AM EDT Office Visit [facility] [address] [place] [address] Rocio Christie DO [address] [place] [address] 09/01/2024 10:30 AM EDT Telemedicine [facility] [address] [place] [address] Marisa Sims RN documented as of this encounter Visit Diagnoses Not on filedocumented in this encounter Additional Health Concerns Assessment Noted Time PHQ-9 Depression Total Score: 16 024 1:38 PM EDT documented as of this encounter Care Teams Metal Tester Relationship Specialty Start Date End Date Rocio Christie DO [address] [place] [address] PCP - General Family Medicine 03/22/18 documented as of this encounter
--- OUTSIDE RECORDS SUMMARY | 2024-07-26 15:12 | XMS_ITS | Encounter Summary ---
Author Organization [employer] Address 75 [facility] 7t [place] [address] Care Team Providers Care Bump Grader Operator Name Role Phone Rocio Christie DO Primary Care Provider + [phone] Reason for Visit * Reason Comments Med Refill Encounter Details Date Type Department Care Team (Late st Contact Info) Description 05/04/2024 Refill [facility] [address] [place], [place] [phone] Rocio Christie DO 230 [place] [address] Insomnia, unspecified type; Chronic bilateral low back [...] is your housing situation today? I have heydideepika olivas 10/04/[address] you [...] Description 08/07/2024 10:15 AM EDT Office Visit [address] [address] Rocio Christie DO [address] [place] [address] 09/01/2024 10:30 AM EDT Telemedicine [address] [address] Marisa Sims, HOA documented as of this encounter Visit Diagnoses Diagnosis Insomnia, unspecified type Chronic bilateral low back pain without sciatica documented in this encounter Additional Health Concerns Assessment Noted Time PHQ-9 Depression Total Score: 16 024 1:38 PM EDT documented as of this encounter Care Teams Bump Grader Operator Relationship Specialty Start Date End Date Rocio Christie DO [address] [place] [address] PCP - General Family Medicine 03/22/18 documented as of this encounter
--- OUTSIDE RECORDS SUMMARY | 2024-07-26 15:12 | XMS_ITS | Encounter Summary ---
Author Organization [employer] Address 75 [facility] 7t [place] [address] Care Team Providers Care Energy And Conservation Technician Name Role Phone Rocio Christie DO Primary Care Provider + [phone] Reason for Visit * Reason Comments Med Refill Encounter Details Date Type Department Care Team ([facility] st Contact Info) Description 02/15/2024 Refill [facility] [address] [place], [place] [phone] Rocio Christie DO 230 [place], [place] [phone] New onset type 2 diabetes mellitus (CMS/HCC) [...] Description 08/07/2024 10:15 AM EDT Office Visit [facility] [address] [place] [address] Rocio Christie DO [address] [place] [address] 09/01/2024 10:30 AM EDT Telemedicine [address] [address] Marisa Sims, RN documented as of this encounter Visit Diagnoses Diagnosis New onset type 2 diabetes mellitus (CMS/HCC) documented in this encounter Additional Health Concerns Assessment Noted Time PHQ-9 Depression Total Score: 16 024 1:38 PM EDT documented as of this encounter Care Teams Energy And Conservation Technician Relationship Specialty Start Date End Date Rocio Christie DO [address] [place] [address] PCP - General Family Medicine 03/22/18 documented as of this encounter
--- OUTSIDE RECORDS SUMMARY | 2024-07-26 15:13 | XMS_ITS | Encounter Summary ---
Author Organization [employer] Address 75 [facility] 7t [place] [address] Care Team Providers Care Brattice Builder Name Role Phone Rocio Christie DO Primary Care Provider + [phone] Reason for Visit * Reason Comments Med Refill Encounter Details Date Type Department Care Team (Late st Contact Info) Description 11/30/2023 Refill [facility] [address] [place], [place] [phone] Rocio Christie DO 230 [place] [address] Insomnia, unspecified type; Chronic bilateral low back [...] Description 08/07/2024 10:15 AM EDT Office Visit [address] [address] Rocio Christie DO [address] [place] [address] 09/01/2024 10:30 AM EDT Telemedicine [address] [address] Marisa Sims, HOA documented as of this encounter Visit Diagnoses Diagnosis Insomnia, unspecified type Chronic bilateral low back pain without sciatica documented in this encounter Additional Health Concerns Assessment Noted Time PHQ-9 Depression Total Score: 16 024 1:38 PM EDT documented as of this encounter Care Teams Brattice Builder Relationship Specialty Start Date End Date Rocio Christie DO [address] [place] [address] PCP - General Family Medicine 03/22/18 documented as of this encounter
--- OUTSIDE RECORDS SUMMARY | 2024-07-26 15:13 | XMS_ITS | Encounter Summary ---
Author Organization [employer] Address [address] [facility] 7t [place] [address] Care Team Providers Care Volunteer Services Supervisor Name Role Phone PratikRocio Primary Care Provider + [phone] Encounter Details Date Type Department Care Team (Late st Contact Info) Description 05/18/2024 Orders Only [facility] [address] [place], [place] [phone] Soraya Oneal MD 230 [place], [place] [phone] Social History Tobacco Use Types Packs/Day Years [...] Description 08/07/2024 10:15 AM EDT Office Visit [facility] [address] [place] [address] Rocio Christie DO [address] [place] [address] 09/01/2024 10:30 AM EDT Telemedicine [facility] [address] [place] [address] Marisa Sims RN documented as of this encounter Visit Diagnoses Not on filedocumented in this encounter Additional Health Concerns Assessment Noted Time PHQ-9 Depression Total Score: 16 024 1:38 PM EDT documented as of this encounter Care Teams Volunteer Services Supervisor Relationship Specialty Start Date End Date Rocio Christie DO [address] [place] [address] PCP - General Family Medicine 03/22/18 documented as of this encounter
--- OUTSIDE RECORDS SUMMARY | 2024-07-26 15:13 | XMS_ITS | Encounter Summary ---
Author Organization [employer] [facility] [employer] Address [address] [place] [address] 7[address] [place] [address] Care Team Providers Care Offset Lithographic Press Setter Name Role Phone Rocio Christie DO Primary Care Provider [phone] Encounter Details Date Type Department Care Team (Late st Contact Info) Description 04/01/2022 [facility] Only [facility] [address] [place], [place] [phone] Rocio Christie DO 230 [place], [place] [phone] Social History Tobacco Use Types Packs/Day Years [...] Description 08/07/2024 10:15 AM EDT Office Visit [facility] [address] [place] [phone] Rocio Christie DO 230 [place], [place] [phone] 09/01/2024 10:30 AM EDT Telemedicine [address] [phone] Marisa Sims RN documented as of this encounter Visit Diagnoses Not on filedocumented in this encounter Care Teams Offset Lithographic Press Setter Relationship Specialty Start Date End Date Rocio Christie DO [address] [place] [address] PCP - General Family Medicine 03/22/18 documented as of this encounter
--- OUTSIDE RECORDS SUMMARY | 2024-07-26 15:13 | XMS_ITS | Encounter Summary ---
Author Organization [employer] Address [address] [place] [address] 7 [place] [address] Care Team Providers Care Miller Head Assistant Wet Process Name Role Phone Rocio Christie DO Primary Care Provider [phone] Encounter Details Date Type Department Care Team (Late st Contact Info) Description 05/18/2022 Abstract [facility] [address] [place] [address] Rocio Christie DO [address] [place] [address] Social History Tobacco Use Types Packs/Day Years [...] Description 08/07/2024 10:15 AM EDT Office Visit [facility] [address] [place] [address] [phone] Rocio Christie DO [address] [place] [phone] 09/01/2024 10:30 AM EDT Telemedicine [facility] [address] [place] [address] [phone] Bethany, Marisa, RN documented as of this encounter Visit Diagnoses Not on filedocumented in this encounter Care Teams Miller Head Assistant Wet Process Relationship Specialty Start Date End Date Rocio Christie DO [address] [place] [phone] PCP - General Family Medicine 03/22/18 documented as of this encounter
--- OUTSIDE RECORDS SUMMARY | 2024-07-26 15:13 | XMS_ITS ---
Author Organization [facility] Address [address] [place] [phone] Care Team Providers Care Vending Service Technician Name Role Phone Rocio Christie M.D. Primary Care Provider Rakel vailable Mick Cook Unavailable [phone] REASON FOR VISIT no call/no show Encounters Encounter Location Date Provider Diagnosis [facility] [address] [place] [phone] 06/06/2024 Mick Cook Plan Of Treatment No Information Progress Notes * VON [birth year]DOB:[birth year] (63 yo F)Acc No.[id number]:06/06/2024 Patient:?VON ORTIZ :1960???Age:63 Y???Sex:Female Address:[address] [facility] [address] , [place] [address] * true * Date:? Generated for Codyi dotty/Shyanne/eTransmitting on:?07/26/2024 03:12 PM EDT
--- OUTSIDE RECORDS SUMMARY | 2024-07-26 15:13 | XMS_ITS | Encounter Summary ---
Author Organization [employer] Address [address] [facility] 7t [place] [address] Care Team Providers Care Production Scheduler Name Role Phone Karina Christiefer Primary Care Provider + [phone] Encounter Details Date Type Department Care Team (Late st Contact Info) Description 05/19/2024 Orders Only [facility] [address] [place] [address] Provider, MD Seb Social History Tobacco Use [...] Description 08/07/2024 10:15 AM EDT Office Visit [address] [address] Rocio Christie DO [address] [place] [address] 09/01/2024 10:30 AM EDT Telemedicine [address] [address] Marisa Sims RN documented as of this encounter Procedures Procedure Name Priority Date/Time Associated Diagnosis Comments CT ABD AND PELVIS Routine 05/19/2024 2:27 PM EST documented in this encounter Results * CT ABD AND PELVIS (05/19/2024 2:27 PM EST) Anatomical Region Laterality Modality Body, Pelvis, Abdomen Computed T omography Historical Provider MD CABAN CT PROCEDURES Final R esult documented in this encounter Visit Diagnoses Not on filedocumented in this encounter Additional Health Concerns Assessment Noted Time PHQ-9 Depression Total Score: 16 024 1:38 PM EDT documented as of this encounter Care Teams Production Scheduler Relationship Specialty Start Date End Date Rocio Christie DO [address] [place] [address] PCP - General Family Medicine 03/22/18 documented as of this encounter
--- OUTSIDE RECORDS SUMMARY | 2024-07-26 15:13 | XMS_ITS | Encounter Summary ---
Author Organization [employer] Address 75 [facility] 7t [place] [address] Care Team Providers Care Keg Filler Name Role Phone Rocio Christie DO Primary Care Provider + [phone] Reason for Visit * Reason Comments Med Refill Encounter Details Date Type Department Care Team (Late st Contact Info) Description 10/13/2023 Refill [facility] [address] [place], [place] [phone] Rocio Christie DO 230 [place], [place] [phone] Hand dermatitis Social History Tobacco Use Types [...] Description 08/07/2024 10:15 AM EDT Office Visit [facility] [address] [place] [address] Rocio Christie DO [address] [place] [address] 09/01/2024 10:30 AM EDT Telemedicine [facility] [address] [place] [address] Marisa Sims RN documented as of this encounter Visit Diagnoses Diagnosis Hand dermatitis Contact dermatitis and other eczema, due to unspecified cause documented in this encounter Additional Health Concerns Assessment Noted Time PHQ-9 Depression Total Score: 16 024 1:38 PM EDT documented as of this encounter Care Teams Keg Filler Relationship Specialty Start Date End Date Rocio Christie DO [address] [place] [address] PCP - General Family Medicine 03/22/18 documented as of this encounter
== END 2024-07-26 14:28 | disposition home or self-care (01) ==
LOC: HO.PMC 13:55
PROVIDERS: PCP Family Medicine; Visit Provider Anesthesiology
DX: M17.12 Unilateral primary osteoarthritis, left knee (principal); M16.11 Unilateral primary osteoarthritis, right hip
CPT/HCPCS: 99213

== ENCOUNTER → 2024-07-26 13:54 | Outpatient (BNVA) | payer MEDICAID, SELFPAY | PROVIDERS: PCP Family Medicine; Visit Provider Anesthesiology | DX: M17.12 Unilateral primary osteoarthritis, left knee (principal); M16.11 Unilateral primary osteoarthritis, right hip | CPT/HCPCS: 99212 ==

== ENCOUNTER 2024-09-13 14:32 | Outpatient (AMB) | payer MEDICAID, SELFPAY ==
--- NOTE | 2024-09-13 14:35 | A.OFFVIS_ITS ---
Vital Signs 09/13/24 14:37 Weight 201 lb Blood Pressure Location Lt brachial Position Sitting Respiration 18 Pulse 82 Pulse Source Pulse Oximeter Pulse Oximetry (%) 96 Oxygen Delivery Method Room Air Intake Visit Reasons: Increasing Hip Pain:Inj Relief > 2 Mo:Inj on 07/04 Completions Engineer Required: No Allergies morphine (MORPHINE) Allergy (Unknown, Verified 09/13/24 14:39) HIVES AND RASH, hives HPI Comments Details: Daly is back in my office after 7-8 weeks only after the procedure of intra- articular right hip steroid injection. She reports that the pain is back with a vengeance. She insists on performing another therapeutic injection. I explained to the patient that this is too small a period of time that her pain came back after the procedure. Originally she reported about 70% pain reduction after the injection. I explained to the patient that we could wait 1 more month and then perform the injection however if the total hip replacement is not contraindicated to this patient it would be a better modality to treat her pain. I recommended her to go to Dr. Gipson and receive yet another consult. If total hip replacement is contraindicated for the patient I recommend her to come back here and we will treat her pain with neuromodulation such as spinal cord stimulation. [facility] Medical History GERD (gastroesophageal reflux disease) Hx of sleep apnea Asthma History of salivary gland disease Diabetes Costochondritis Depression Dyslipidemia Hypertension Surgical History Hx of cholecystectomy History of surgery on arm Hx of elbow surgery Hx of arthroscopy of left knee History of lung surgery S/P left rotator cuff repair History of carpal tunnel release Family History Mother HTN (hypertension) Maternal Grandfather HTN (hypertension) Son HTN (hypertension) Diabetes Father Diabetes Social History Household Members: Children Housing: House Are you a primary ambulatory care coordinator to a significant other at home: No Do you presently have visiting nurse or other home services: No Alcohol intake: never Patient Tobacco Use Status: Current everyday Tobacco user Tobacco use type: Cigarette Cigarettes Per Day: 10 Years Smoked: 40 Review of Systems Const All systems reviewed & are unremarkable except as noted in HPI and below Physical Exam Vital Signs: Last Vital Signs Pulse 82 09/13/24 14:37 Resp 18 09/13/24 14:37 Pulse Ox 96 09/13/24 14:37 Oxygen Delivery Method Room Air 09/13/24 14:37 Const General: cooperative and comfortable Nutritional Appearance: average body habitus Orientation/consciousness: patient oriented x3 Neck Neck: Yes normal visual inspection and Yes full ROM Chest Chest palpation & inspection: normal inspection of the chest Resp Effort & Inspection: normal respiratory effort, able to speak in complete sentences, normal respiratory pattern and no audible wheezes Cardio Jugular venous distension: no JVD General: Yes no CVA tenderness Back/Spine/Pelvis Back: no CVA tenderness Cervical Spine: normal cervical lordosis Thoracic/Lumbar Spine: thoracic and lumbar spine normal to inspection Pelvis: no pain with anterior-posterior compression Neuro General: patient oriented x3 Extrem Other: Positive Stinchfield and impingement test right hip. Positive Trendelenburg gait. (Uses a cane). Left knee left knee with tenderness to palpation medial joint line. No effusion. Full range of motion. Psych Appearance: grossly normal Speech and movement: Normal speech and movement present Affect: normal affect Attitude: cooperative Thought process: Normal thought process present Thought content: Normal thought content present Insight: Good insight present (Psych) Judgement: Good judgement present (Psych) Assessment & Plan Assessment & Plan (1) Osteoarthritis of left knee: Code(s): M17.12 - Unilateral primary osteoarthritis, left knee Category: Medical (2) Osteoarthritis of right hip: Code(s): M16.11 - Unilateral primary osteoarthritis, right hip Category: Medical Plan: Initial good results of therapeutic intra-articular hip injection at the 1 month after the procedure demonstrating 70% pain improvement. However now patient is back in my office with complain on very severe pain. I recommended her to consider orthopedic surgery consult with Dr. Gipson. If total hip replacement is not contraindicated for the patient it could be a better way to treat her pain than series of frequent steroid injections. If the total hip replacement is not indicated or contraindicated for this patient I recommended her to come back and we will discuss neuromodulation treatment for her pain such as DRG stimulation spinal cord stimulation peripheral nerve stimulation. Plan The patient will call for the next appointment after she will get a consult from Dr. Gipson. Coding Level of Care Code Est Pt Level 3 (06846) Diagnoses Osteoarthritis of left knee M17.12 Osteoarthritis of right hip M16.11
[2024-09-13 14:37] VITALS: PULSE 82; RESP 18; O2SAT 96
--- OUTSIDE RECORDS SUMMARY | 2024-09-13 17:24 | XMS_ITS | Clinical Summary ---
Author Organization [facility] Address [address] [place] [address] Phone Care Team Providers Care Utilization Manager Name Role Phone Rocio Christie DO Primary Care Provider +[phone] Allergies Active Allergy Reactions Criticality Noted Date Comments Morphine Hives 05/19/2024 Surgical History Surgery Date Site/Laterality Comments COLONOSCOPY PROCEDURE: HISTORICAL COLONOSCOPY ABDOMINAL SURGERY PROCEDURE: HISTORICAL ABDOMINAL SURGERY OTHER SURGICAL HISTORY 2017 PROCEDURE: IA COLECTOMY PARTIAL W/ANASTOMOSIS; COMMENT: sigmoid/descending colon OTHER SURGICAL HISTORY PROCEDURE: PARTIAL REMOVAL OF LUNG Medical History Medical History Date Comments Asthma DX:Asthma History of diverticulitis of colon DX:History of diverticulitis of colon; COMMENT: surg repair 05/2017; sigmoid and descendign colon Lung nodule 2017 DX:Lung nodule; COMMENT: folllowed by PCP @ [facility] DANDRE (obstructive sleep apnea) DX :DANDRE (obstructive [...] 75 05/19/2024 8:07 AM EST Temperature 37.2 C (99 F) 05/19/2024 8:07 AM EST Respiratory Rate 16 [...] Procedure Name Priority Date/Time Associated Diagnosis Comments COMPREHENSIVE METABOLIC PANEL STAT 05/19/2024 9:18 AM EST from Last 3 Months or Most Recently Relevant to Health Maintenance Results * Comprehensive metabolic panel (05/19/2024 9:18 AM EST) Sodium 139 133 - 145 mmol/L LAB CHEMISTRY METHOD 05/19/2024 10:19 AM EST [facility] Potassium 4.2 3.5 - 5.5 mmol/L LAB CHEMISTRY METHOD 05/19/2024 10:19 AM EST [facility] Chloride 106 96 - 110 mmol/L LAB CHEMISTRY METHOD 05/19/2024 10:19 AM EST [facility] CO2 27 21 - 32 mmol/L LAB CHEMISTRY METHOD 05/19/2024 10:19 AM EST [facility] Anion Gap 6 3 - 11 LAB CHEMISTRY METHOD 05/19/2024 10:19 AM [facility] Glucose 96 70 - 100 mg/dL LAB CHEMISTRY METHOD 05/19/2024 10:19 AM [facility] BUN 12 5 - 25 mg/dL LAB CHEMISTRY METHOD 05/19/2024 10:19 AM [facility] Creatinine 0.84 0.50 - 1.10 mg/dL LAB CHEMISTRY METHOD 05/19/2024 10:19 AM [facility] eGFR 78 >=60 mL/min/1. 73m2 LAB CHEMISTRY METHOD 05/19/2024 10:19 AM [facility] Comment:Calculation based on the Chronic Kidney Disease Epidemiology Collaboration (CKD-EPI) equation refit without adjustment for race. BUN/Creatinine Ratio 14.3 LAB CHEMISTRY METHOD 05/19/2024 10:19 AM [facility] Calcium 9.9 8.5 - 10.5 mg/dL LAB CHEMISTRY METHOD 05/19/2024 10:19 AM [facility] AST (SGOT) 22 10 - 42 unit/L LAB CHEMISTRY METHOD 05/19/2024 10:19 AM [facility] ALT (SGPT) 22 10 - 60 unit/L LAB CHEMISTRY METHOD 05/19/2024 10:19 AM [facility] Alkaline Phosphatase 118 42 - 121 unit/L LAB CHEMISTRY METHOD 05/19/2024 10:19 AM [facility] Total Protein 7.3 6.0 - 8.0 g/dL LAB CHEMISTRY METHOD 05/19/2024 10:19 AM [facility] Albumin 4.3 3.2 - 5.0 g/dL LAB CHEMISTRY METHOD 05/19/2024 10:19 AM [facility] Total Bilirubin 1.0 0.0 - 1.4 mg/dL LAB CHEMISTRY METHOD 05/19/2024 10:19 AM [facility] Blood Venous blood specimen / Unknown Venipuncture / Unknown 05/19/2024 9:18 AM EST 05/19/2024 9:26 AM EST us Rodney Silverman MD LAB BLOOD ORDERABLES Final R esult [facility] [address] [place] [address], from Last 3 Months or Most Recently Relevant to Health Maintenance Insurance MEDICAID - [place] Care Teams Utilization Manager Relationship Specialty Start Date End Date Rocio Christie DO [address] [place] [address] PCP - General Internal Medicine 05/27/11
== END 2024-09-13 14:54 | disposition home or self-care (01) ==
LOC: HO.PMC 14:32
PROVIDERS: PCP Family Medicine; Visit Provider Anesthesiology
DX: M17.12 Unilateral primary osteoarthritis, left knee (principal); M16.11 Unilateral primary osteoarthritis, right hip
CPT/HCPCS: 99213

== ENCOUNTER → 2024-09-13 14:32 | Outpatient (BNVA) | payer MEDICAID, SELFPAY | PROVIDERS: PCP Family Medicine; Visit Provider Anesthesiology | DX: M17.12 Unilateral primary osteoarthritis, left knee (principal); M17.11 Unilateral primary osteoarthritis, right knee | CPT/HCPCS: 99212 ==

== ENCOUNTER 2024-09-14 09:53 | Outpatient (REF) | payer MEDICAID, SELFPAY ==
--- OUTSIDE RECORDS SUMMARY | 2024-09-14 11:17 | XMS_ITS | Clinical Summary ---
Author Organization [facility] Address [address] [place] [address] Phone Care Team Providers Care Order Taker Name Role Phone Rocio Christie DO Primary Care Provider +1- [phone] Allergies Active Allergy Reactions Criticality Noted Date Comments Morphine Hives 05/19/2024 Surgical History Surgery Date Site/Laterality Comments COLONOSCOPY PROCEDURE: HISTORICAL COLONOSCOPY ABDOMINAL SURGERY PROCEDURE: HISTORICAL ABDOMINAL SURGERY OTHER SURGICAL HISTORY 2017 PROCEDURE: [place] COLECTOMY PARTIAL W/ANASTOMOSIS; COMMENT: sigmoid/descending colon OTHER SURGICAL HISTORY PROCEDURE: PARTIAL REMOVAL OF LUNG Medical History Medical History Date Comments Asthma DX:Asthma History of diverticulitis of colon DX:History of diverticulitis of colon; COMMENT: surg repair 05/2017; sigmoid and descendign colon Lung nodule 2017 DX:Lung nodule; COMMENT: folllowed by PCP @ [facility] DANDRE (obstructive sleep apnea) DX :DANDRE [...] LAB CHEMISTRY METHOD 05/19/2024 10:19 AM EST [facility] Potassium 4.2 3.5 - 5.5 mmol/L LAB CHEMISTRY METHOD 05/19/2024 10:19 AM EST [facility] Chloride 106 96 - 110 mmol/L LAB CHEMISTRY METHOD 05/19/2024 10:19 AM EST [facility] CO2 27 21 - 32 mmol/L LAB CHEMISTRY METHOD 05/19/2024 10:19 AM EST [facility] Anion Gap 6 3 - 11 LAB CHEMISTRY METHOD 05/19/2024 10:19 AM [facility] Glucose 96 70 - 100 mg/dL LAB CHEMISTRY METHOD 05/19/2024 10:19 AM [facility] BUN 12 5 - 25 mg/dL LAB CHEMISTRY METHOD 05/19/2024 10:19 AM [facility] Creatinine 0.84 0.50 - 1.10 mg/dL LAB CHEMISTRY METHOD 05/19/2024 10:19 AM [facility] eGFR 78 >=60 mL/min/1. 73m2 LAB CHEMISTRY METHOD 05/19/2024 10:19 AM [facility] Comment:Calculation based on the Chronic Kidney Disease Epidemiology Collaboration (CKD-EPI) equation refit without adjustment for race. BUN/Creatinine Ratio 14.3 LAB CHEMISTRY METHOD 05/19/2024 10:19 AM [facility] Calcium 9.9 8.5 - 10.5 mg/dL LAB CHEMISTRY METHOD 05/19/2024 10:19 AM [facility] AST (SGOT) 22 10 - 42 unit/L LAB CHEMISTRY METHOD 05/19/2024 10:19 AM [facility] ALT (SGPT) 22 10 - 60 unit/L LAB CHEMISTRY METHOD 05/19/2024 10:19 AM [facility] Alkaline Phosphatase 118 42 - 121 unit/L LAB CHEMISTRY METHOD 05/19/2024 10:19 AM [facility] Total Protein 7.3 6.0 - 8.0 g/dL LAB CHEMISTRY METHOD 05/19/2024 10:19 AM [facility] Albumin 4.3 3.2 - 5.0 g/dL LAB CHEMISTRY METHOD 05/19/2024 10:19 AM [facility] Total Bilirubin 1.0 0.0 - 1.4 mg/dL LAB CHEMISTRY METHOD 05/19/2024 10:19 AM [facility] Blood Venous blood specimen / Unknown Venipuncture / Unknown 05/19/2024 9:18 AM EST 05/19/2024 9:26 AM EST us Rodney Silverman MD LAB BLOOD ORDERABLES Final R esult [facility] [address] [place] [address], from Last 3 Months or Most Recently Relevant to Health Maintenance Insurance MEDICAID - [place] Care Teams Order Taker Relationship Specialty Start Date End Date Rocio Christie DO [address] [place] [address] PCP - General Internal Medicine 05/27/11
== END 2024-09-14 09:54 | disposition home or self-care (01) ==
LOC: HO.MAMMO 09:53
PROVIDERS: PCP Family Medicine; Visit Provider Family Medicine
DX: Z12.31 Encounter for screening mammogram for malignant neoplasm of breast (principal)
CPT/HCPCS: 77063; 77067

== ENCOUNTER → 2024-09-14 10:15 | Outpatient (BNV) | payer MEDICAID, SELFPAY | PROVIDERS: PCP Family Medicine; Visit Provider Internal Medicine | DX: Z12.31 Encounter for screening mammogram for malignant neoplasm of breast (principal) | CPT/HCPCS: 77063; 77067 ==

== ENCOUNTER 2024-10-03 16:37 | Outpatient (REF) | payer MEDICAID, SELFPAY ==
--- OUTSIDE RECORDS SUMMARY | 2024-10-03 16:51 | XMS_ITS | Clinical Summary ---
Author Organization [facility] Address [address] [place] [address] Phone Care Team Providers Care Wood Mechanist Name Role Phone Rocio Christie DO Primary Care Provider +1- [phone] Allergies Active Allergy Reactions Criticality Noted Date Comments Morphine Hives 05/19/2024 Surgical History Surgery Date Site/Laterality Comments COLONOSCOPY PROCEDURE: HISTORICAL COLONOSCOPY ABDOMINAL SURGERY PROCEDURE: HISTORICAL ABDOMINAL SURGERY OTHER SURGICAL HISTORY 2017 PROCEDURE: [place] COLECTOMY PARTIAL W/ANASTOMOSIS; COMMENT: sigmoid/descending colon OTHER SURGICAL HISTORY PROCEDURE: PARTIAL REMOVAL OF LUNG Medical History Medical History Date Comments Asthma DX:Asthma History of diverticulitis of colon DX:History of diverticulitis of colon; COMMENT: surg repair 05/2017; sigmoid and descendign colon Lung nodule 2017 DX:Lung nodule; COMMENT: folllowed by PCP @ [facility] DANDRE (obstructive sleep apnea) DX :DANDRE [...] Control Test (HGBA1C) 08/13/2024 02/14/2024 Influenza Vaccine (#1) 2024 , 06/25/2022, 12/13/2020 Diabetes: Annual GFR (Glomerular Filtration [...] Years Completed 06/25/2022, 05/13/2011 HIV Screening Completed 03/03/2023 [...] mmol/L LAB CHEMISTRY METHOD 05/19/2024 10:19 AM [facility] Potassium 4.2 3.5 - 5.5 mmol/L LAB CHEMISTRY METHOD 05/19/2024 10:19 AM EST [facility] Chloride 106 96 - 110 mmol/L LAB CHEMISTRY METHOD 05/19/2024 10:19 AM EST [facility] CO2 27 21 - 32 mmol/L LAB CHEMISTRY METHOD 05/19/2024 10:19 AM EST [facility] Anion Gap 6 3 - 11 LAB CHEMISTRY METHOD 05/19/2024 10:19 AM [facility] Glucose 96 70 - 100 mg/dL LAB CHEMISTRY METHOD 05/19/2024 10:19 AM [facility] BUN 12 5 - 25 mg/dL LAB CHEMISTRY METHOD 05/19/2024 10:19 AM [facility] Creatinine 0.84 0.50 - 1.10 mg/dL LAB CHEMISTRY METHOD 05/19/2024 10:19 AM [facility] LAB eGFR 78 >=60 mL/min/1. 73m2 LAB CHEMISTRY METHOD 05/19/2024 10:19 AM [facility] LAB Comment:Calculation based on the Chronic Kidney Disease Epidemiology Collaboration (CKD-EPI) equation refit without adjustment for race. BUN/Creatinine Ratio 14.3 LAB CHEMISTRY METHOD 05/19/2024 10:19 AM [facility] Calcium 9.9 8.5 - 10.5 mg/dL LAB CHEMISTRY METHOD 05/19/2024 10:19 AM [facility] AST (SGOT) 22 10 - 42 unit/L LAB CHEMISTRY METHOD 05/19/2024 10:19 AM [facility] ALT (SGPT) 22 10 - 60 unit/L LAB CHEMISTRY METHOD 05/19/2024 10:19 AM [facility] Alkaline Phosphatase 118 42 - 121 unit/L LAB CHEMISTRY METHOD 05/19/2024 10:19 AM [facility] Total Protein 7.3 6.0 - 8.0 g/dL LAB CHEMISTRY METHOD 05/19/2024 10:19 AM [facility] Albumin 4.3 3.2 - 5.0 g/dL LAB CHEMISTRY METHOD 05/19/2024 10:19 AM [facility] Total Bilirubin 1.0 0.0 - 1.4 mg/dL LAB CHEMISTRY METHOD 05/19/2024 10:19 AM [facility] Blood Venous blood specimen / Unknown Venipuncture / Unknown 05/19/2024 9:18 AM EST 05/19/2024 9:26 AM EST us Rodney Silverman MD LAB BLOOD ORDERABLES Final [facility] [address] [place] [address], from Last 3 Months or Most Recently Relevant to Health Maintenance Insurance MEDICAID - [place] Care Teams Wood Mechanist Relationship Specialty Start Date End Date Rocio Christie DO [address] [place] [address] PCP - General Internal Medicine 05/27/11
--- OUTSIDE RECORDS SUMMARY | 2024-10-03 16:52 | XMS_ITS | Patient Health Record ---
Author Organization [facility] Address [address] [place] [address] Care Team Providers Care Angle Dozer Operator Name Role Phone Rocio Christie M.D. Primary Care Provider Rakel vailable Mick Cook Unavailable [phone] Reason For Referral Referring Provider First Name Rocio Referring Provider Last Name Pratik Referred Organization [facility] Referred Provider Mick Cook Referred Address [address] [place] [address],[facility] [address],[place], [place],[address], Referred Provider Specialty Gastroentero logy Referral Priority Routine Encounters Encounter Location Date Provider Diagnosis [facility] [address] [place] [address] 06/06/2024 Mick Cook Plan Of Treatment No Information Insurance Providers Payer Name Payer Address Payer Phone Subscriber Number Group Number Insured Name Patient Relationship to Insured Coverage Start Date Coverage End Date MEDICAID OF [facility] [address] [place] [id number] [id number] VON ORTIZ Self - patient is the insured
--- OUTSIDE RECORDS SUMMARY | 2024-10-03 16:52 | XMS_ITS | Encounter Summary ---
Author Organization [employer] Address [address] [facility] 7[address] [place] [address] Care Team Providers Care Chemical Process Equipment Operator Name Role Phone Rocio Christie DO Primary Care Provider + [phone] Reason for Visit * Reason Comments Med Refill Encounter Details Date Type Department Care Team ([facility] st Contact Info) Description 02/15/[address] [facility] [address] [place], [place] [phone] Rocio Christie DO [address] [place], [place] [phone] New onset type 2 diabetes mellitus (CMS/HCC) [...] Care Team (Late st Contact Info) Description 10/17/2024 11:00 AM EDT Office Visit [facility] [address] [place] [address] 12/13/2024 10:00 AM EDT Clinical Support [facility] [address] [place] [address] Marisa Sims RN documented as of this encounter Visit Diagnoses Diagnosis New onset type 2 diabetes mellitus (CMS/HCC) documented in this encounter Additional Health Concerns Assessment Noted Time PHQ-9 Depression Total Score: 16 024 1:38 PM EDT documented as of this encounter Care Teams Chemical Process Equipment Operator Relationship Specialty Start Date End Date Rocio Christie DO [address] [place] [address] PCP - General Family Medicine 03/22/18 documented as of this encounter
[2024-10-05 12:26] LABS: Lorazepam GCMS Urine NEGATIVE; Nordiazepam, GCMS Urine NEGATIVE; Oxazepam, GCMS Urine NEGATIVE
[2024-10-05 12:27] LABS: Alprazolam, GCMS Urine NEGATIVE
[2024-10-05 12:28] LABS: Alphahydroxytriazolam, GCMS Ur NEGATIVE; Aminoclonazepam, GCMS Urine NEGATIVE; Temazepam, GCMS Urine NEGATIVE
[2024-10-05 12:29] LABS: Alphahydroxymidazolam,GCMS Ur NEGATIVE; Flurazepam Metabolite,GCMS Ur NEGATIVE
== END 2024-10-03 16:38 | disposition home or self-care (01) ==
LOC: HO.HHCLNP 16:37
PROVIDERS: Visit Provider Family Medicine
DX: Z79.891 Long term (current) use of opiate analgesic (principal)
CPT/HCPCS: 80346

== ENCOUNTER → 2024-10-07 10:45 | Outpatient (BNV) | payer MEDICAID, SELFPAY | PROVIDERS: PCP Family Medicine; Visit Provider Radiology Diagnostic Radiology | DX: M70.70 Other bursitis of hip, unspecified hip (principal) | CPT/HCPCS: 73721 ==

== ENCOUNTER 2024-10-07 11:18 | Outpatient (REF) | payer MEDICAID, SELFPAY ==
--- NOTE | ~2024-10-07 | MR_ITS ---
CLINICAL HISTORY: persistent anterior R hip pain MR right hip without gadolinium Comparison: CR/SR - XR HIP 2 OR MORE VIEWS RIGHT - 05/17/24 10:41 EST Findings: No acute fracture, dislocation, or pathologic bone lesion. Small right hip effusion. Mild degenerative change. Acetabular labrum intact. Ligamentum teres intact. The right iliopsoas bursa is distended, and demonstrates a small amount of internal debris. Slight edema within the deep fibers of the right iliacus muscle. The iliopsoas tendon is intact. The pelvic contents are unremarkable. Impression: 1. Iliopsoas bursitis. Associated slight edema within the iliacus muscle deep fibers. 2. Small right hip effusion of uncertain etiology. This could be reactive. This document has been electronically signed by: Karma Toribio MD on 10/11/2024 05:06:03
== END 2024-10-07 11:19 | disposition home or self-care (01) ==
LOC: HO.MRI 11:18
PROVIDERS: PCP Family Medicine; Visit Provider Family Medicine
DX: M25.551 Pain in right hip (principal); G89.29 Other chronic pain
CPT/HCPCS: 73721

== ENCOUNTER 2024-10-31 10:46 | Outpatient (REF) | payer MEDICAID, SELFPAY ==
--- NOTE | ~2024-10-31 | MM_ITS ---
EXAMINATION: DXA BONE DENSITY AXIAL HISTORY: osteoporosis screening TECHNIQUE: [employer] Dual energy absorptiometry (DEXA) of the lumbar spine, total left hip, and femoral neck was performed. COMPARISON: There are no prior studies for comparison. FINDINGS: The bone mineral density of the lumbar spine is 1.087 g/cm2, corresponding to a T-score of -0.7, and a Z-score of 0.0. This is indicative of normal bone mineral density. The bone mineral density of the left total hip is 1.046 g/cm2, corresponding to a T-score of 0.3, and a Z-score of 0.8. This is indicative of normal bone mineral density. The bone mineral density of the left femoral neck is 1.261 g/cm2, corresponding to a T-score of 1.6, and a Z-score of 2.5. This is indicative of normal bone mineral density. FRACTURE RISK: The FRAX index suggests a risk of major osteoporotic fracture of 4.1%, and of hip fracture 0.1%. MM/XR DEXA axial skeleton IMPRESSION: Based on bone mineral density, and according to World Health Organization (WHO) criteria, the diagnosis is consistent with normal bone mineral density. Statistically, 68% of repeat scans fall within 1 SD (+/- 0.010 g/cm2 for AP spine L1-L4) and 1 SD (+/- 0.012 g/cm2 for femur total) FRAX is a trademark of the [employer] [place] for Metabolic Bone Disease, a World Health Organization (WHO) Collaborating Center. Electronically signed by: Mick Gillespie MD 10/31/2024 12:33 PM EDT
--- OUTSIDE RECORDS SUMMARY | 2024-10-31 11:53 | XMS_ITS | Encounter Summary ---
Author Organization [employer] Address [address] [facility] [address] [place] [address] Care Team Providers Care Retail Greeting Card Merchandiser Name Role Phone Rocio Christie DO Primary Care Provider + [phone] Reason for Visit * Reason Comments Med Refill Encounter Details Date Type Department Care Team ([facility] st Contact Info) Description 02/15/2024 Refill [facility] [address] [place], [place] [phone] Rocio Christie DO [address] [place], [place] [phone] New onset type 2 diabetes mellitus (CMS/HCC) [...] Care Team (Late st Contact Info) Description 12/13/2024 10:00 AM EDT Clinical Support [facility] [address] [place] [address] Marisa Sims RN documented as of this encounter Visit Diagnoses Diagnosis New onset type 2 diabetes mellitus (CMS/HCC) documented in this encounter Additional Health Concerns Assessment Noted Time PHQ-9 Depression Total Score: 16 024 1:38 PM EDT documented as of this encounter Care Teams Retail Greeting Card Merchandiser Relationship Specialty Start Date End Date Rocio Christie DO [address] [place] [address] PCP - General Family Medicine 03/22/18 documented as of this encounter
--- OUTSIDE RECORDS SUMMARY | 2024-10-31 11:53 | XMS_ITS | Clinical Summary ---
Author Organization [facility] Address [address] [place] [address] Phone Care Team Providers Care Medical Review Specialist Name Role Phone Rocio Christie DO Primary Care Provider +1- [phone] Allergies Active Allergy Reactions Criticality Noted Date Comments Morphine Hives 05/19/2024 Surgical History Surgery Date Site/Laterality Comments COLONOSCOPY PROCEDURE: HISTORICAL COLONOSCOPY ABDOMINAL SURGERY PROCEDURE: HISTORICAL ABDOMINAL SURGERY OTHER SURGICAL HISTORY 2017 PROCEDURE: [place] COLECTOMY PARTIAL W/ANASTOMOSIS; COMMENT: sigmoid/descending colon OTHER SURGICAL HISTORY PROCEDURE: PARTIAL REMOVAL OF LUNG Medical History Medical History Date Comments Asthma DX:Asthma History of diverticulitis of colon DX:History of diverticulitis of colon; COMMENT: surg repair 05/2017; sigmoid and descendign colon Lung nodule 2017 DX:Lung nodule; COMMENT: folllowed by PCP @ [facility] DANDRE (obstructive sleep apnea) [...] 2023 03/03/2023, 10/17/2021, 03/03/2021, Additional history exists Depression Screening 03/22/2024 Diabetes: Annual Urine Albumin-Creatinine Ratio (uACR) 05/19/2024 Diabetes: Blood Sugar Control Test (HGBA1C) 08/13/2024 [...] LAB CHEMISTRY METHOD 05/19/2024 10:19 AM EST [facility] Potassium 4.2 3.5 - 5.5 mmol/L LAB CHEMISTRY METHOD 05/19/2024 10:19 AM EST [facility] Chloride 106 96 - 110 mmol/L LAB CHEMISTRY METHOD 05/19/2024 10:19 AM EST [facility] CO2 27 21 - 32 mmol/L LAB CHEMISTRY METHOD 05/19/2024 10:19 AM [facility] Anion Gap 6 3 - 11 LAB CHEMISTRY METHOD 05/19/2024 10:19 AM [facility] Glucose 96 70 - 100 mg/dL LAB CHEMISTRY METHOD 05/19/2024 10:19 AM [facility] BUN 12 5 - 25 mg/dL LAB CHEMISTRY METHOD 05/19/2024 10:19 AM [facility] Creatinine 0.84 0.50 - 1.10 mg/dL LAB CHEMISTRY METHOD 05/19/2024 10:19 AM [facility] eGFR 78 >=60 mL/min/1. 73m2 LAB CHEMISTRY METHOD 05/19/2024 10:19 AM [facility] Comment:Calculation based on the Chronic Kidney Disease Epidemiology Collaboration (CKD-EPI) equation refit without adjustment for race. BUN/Creatinine Ratio 14.3 LAB CHEMISTRY METHOD 05/19/2024 10:19 AM [facility] Calcium 9.9 8.5 - 10.5 mg/dL LAB CHEMISTRY METHOD 05/19/2024 10:19 AM [facility] AST (SGOT) 22 10 - 42 unit/L LAB CHEMISTRY METHOD 05/19/2024 10:19 AM [facility] ALT (SGPT) 22 10 - 60 unit/L LAB CHEMISTRY METHOD 05/19/2024 10:19 AM [facility] Alkaline Phosphatase 118 42 - 121 unit/L LAB CHEMISTRY METHOD 05/19/2024 10:19 AM [facility] Total Protein 7.3 6.0 - 8.0 g/dL LAB CHEMISTRY METHOD 05/19/2024 10:19 AM [facility] Albumin 4.3 3.2 - 5.0 g/dL LAB CHEMISTRY METHOD 05/19/2024 10:19 AM [facility] Total Bilirubin 1.0 0.0 - 1.4 mg/dL LAB CHEMISTRY METHOD 05/19/2024 10:19 AM [facility] Blood Venous blood specimen / Unknown Venipuncture / Unknown 05/19/2024 9:18 AM EST 05/19/2024 9:26 AM EST us Rodney Silverman MD LAB BLOOD ORDERABLES Final R esult [facility] [address] [place] [address], from Last 3 Months or Most Recently Relevant to Health Maintenance Insurance MEDICAID - [place] Care Teams Medical Review Specialist Relationship Specialty Start Date End Date Rocio Christie DO [address] [place], [place] PCP - General Internal Medicine 05/27/11
--- OUTSIDE RECORDS SUMMARY | 2024-10-31 11:53 | XMS_ITS | Patient Health Record ---
Author Organization [facility] Address [address] [place] [address] Care Team Providers Care Separations Scientist Name Role Phone Rocio Christie M.D. Primary Care Provider Rakel vailable Mikc Cook Unavailable [phone] Reason For Referral Referring Provider First Name Rocio Referring Provider Last Name Pratik Referred Organization [facility] Referred Provider Mick Cook Referred Address [address] [place] [address],[facility] [address],[place], [place],[address], Referred Provider Specialty Gastroentero logy Referral Priority Routine Encounters Encounter Location Date Provider Diagnosis [facility] [address] [place] [address] 06/06/2024 Mick Cook Plan Of Treatment No Information Insurance Providers Payer Name Payer Address Payer Phone Subscriber Number Group Number Insured Name Patient Relationship to Insured Coverage Start Date Coverage End Date MEDICAID OF [facility] [address] [place] [phone] [id number] VON ORTIZ Self - patient is the insured
== END 2024-10-31 10:47 | disposition home or self-care (01) ==
LOC: HO.MAMMO 10:46
PROVIDERS: PCP Family Medicine; Visit Provider Family Medicine
DX: Z13.820 Encounter for screening for osteoporosis (principal); Z92.241 Personal history of systemic steroid therapy
CPT/HCPCS: 77080

== ENCOUNTER → 2024-10-31 11:30 | Outpatient (BNV) | payer MEDICAID, SELFPAY | PROVIDERS: PCP Family Medicine; Visit Provider Radiology Diagnostic Radiology | DX: E28.39 Other primary ovarian failure (principal) | CPT/HCPCS: 77080 ==

== ENCOUNTER 2024-11-21 09:33 | Outpatient (REF) | payer MEDICAID, SELFPAY ==
--- OUTSIDE RECORDS SUMMARY | 2024-06-06 09:20 | XMS_ITS ---
Author Organization [facility] Address [address] [place] [phone] Care Team Providers Care Technical Developer Name Role Phone Pratik Ritchie, Rocio Primary Care Provider Rakel Mick Bates [phone] REASON FOR VISIT Patient presents today for EPIGASTRIC PAIN, COLON SCREENING Encounters Encounter Location Date Provider Diagnosis [facility] [address] [place] [phone] 06/06/2024 Mick Cook Plan Of Treatment No Information Progress Notes * VON ORTIZDOB:[birth year] (63 yo F)Acc No.[id number]:06/06/2024 Progress Notes Patient: VON DIETRICH Provider: Gigi Cook MD :1960 A ge:63 Y S ex:Female Date:06/06/2024 Address:[address] [place] [address] [address] , [facility] Pcp:Rocio Christie M.D. Subjective: * Chief Complaints: * 1 . Patient presents today for EPIGASTRIC PAIN, COLON SCREENING. * Medical History: Objective: * Vitals: Assessment: Plan: * Treatment: * * The named appointment provid er may or may not be the originator of this progress note, and it is not deemed complete until electronically signed by the appointment provider. Sign off status: Pending * Provider: Gigi Cook MD Date: 06/06/2024 Generated for Es storm/Shyanne/eTransmitting on: 0 11/21/2024 08:39 AM EDT
--- NOTE | ~2024-11-21 | XR_ITS ---
EXAMINATION: XR CHEST CLINICAL INFORMATION: cough and chest tightness COMPARISON: 12/09/2023. TECHNIQUE: 2 views of the chest were obtained. FINDINGS: There is cardiac enlargement. Mediastinal and hilar contours appear normal. Aortic mural calcifications. Lungs are hyperaerated consistent with COPD. There is stable blunting of the left costophrenic angle, reflective of chronic pleural scarring. There are no consolidations. There is no pneumothorax or pleural effusion. There is no focal osseous or soft tissue abnormality. Mild levoconvex scoliosis of the thoracic spine. XR/XR chest 2V IMPRESSION: COPD. Cardiac enlargement. Stable pleural scarring in the left base. No active superimposed disease. Electronically signed by: Efren Vazquez MD 11/21/2024 10:05 AM EDT
--- OUTSIDE RECORDS SUMMARY | 2024-11-21 08:40 | XMS_ITS | Encounter Summary ---
Author Organization [employer] Address [address] [facility] [address] [place] [address] Care Team Providers Care Amf Mechanic Name Role Phone Rocio Christie DO Primary Care Provider [phone] Reason for Referral * Medications - Closed Specialty Diagnoses / Procedures Referred By Jahaira t Referred To Contact Diagnoses COPD exacerbation (CMS/[facility]) Rocio Christie DO [address] [place] [address] Phone: tel: fax: Referral ID Status Reason Start Date Expiration Date Visits Re quested Visits Authorized [id number] Closed 1 1 Reason for Visit * Reason Comments Asthma Encounter Details Date Type Department Care Team (Latest Contact Info) Description 11/21/2024 8:40 AM EDT Office Visit [facility] [address] [place], [place] [phone] COPD exacerbation ([facility]) (Primary Dx); Acute conjunctivitis of both eyes, unspecified acute conjunctivitis type Social History Tobacco Use Types Packs/Day [...] Access Q2 Not on file 11/19/2023 Comments No Sex and Gender Information Value Date Recorded Sex Assigned at Female 01/19/2022 10:16 AM EDT Legal Sex Female 10:16 AM EDT Gender Identity Female 01/19/2022 10:16 AM EDT Sexual Orientation Straight 01/19/2022 10 :16 AM EDT documented as of this encounter Last Filed Vital Signs Vital Sign Reading Time Taken Comments Blood Pressure 159/92 11/21/2024 8:56 AM EDT Pulse 76 11/21/2024 8:56 AM EDT Temperature 36.7 C (98 F) 11/21/2024 8:56 AM EDT Respiratory Rate 18 11/21/2024 8:56 AM EDT Oxygen Saturation 96% 11/21/2024 8:56 AM EDT Inhaled Oxygen Concentration - - Weight 96.2 kg (212 lb) 11/21/2024 8:56 AM EDT Height - - Body Mass Index 35.28 08/07/2024 10:26 AM EDT documented in this encounter Plan of Treatment Upcoming Encounters Date Type Department Care Team (Late st Contact Info) Description 12/13/2024 10:00 AM EDT Clinical Support [facility] [address] [place] [address] Marisa Sims RN 02/27/2025 3:00 PM EST Office Visit [facility] [address] [place] [address] Biajulio Karen, OD [address] [place], [place] documented as of this encounter Procedures Procedure Name Priority Date/Time Associated Diagnosis Comments POCT RAPID COVID ANTIGEN Routine 11/21/2024 9:18 AM EDT COPD exacerbation ([facility]) XR CHEST 2 VIEWS STAT 11/21/2024 8:55 AM EDT COPD exacerbation ([facility]) documented in this encounter Results * POCT Rapid COVID Ag (11/21/2024 9:18 AM EDT) Pathologist [facility] Rapid COVID Ag Negative Swab 11/21/2024 9:18 AM EDT Rocio Christie DO POINT OF CARE TEST ENTER/ADAM T ORDERABLES Final Result * XR Chest 2 Views (11/21/2024 8:55 AM EDT) Anatomical Region Laterality Modality Chest Radiographic Rosamaria ging 11/21/2024 8:55 AM EDT Narrative 11/21/2024 10:08 AM EDT [facility] [address] [place] [address] XRay Report Signed Patient: Daly Neal MR#: [id number] : 1960 Acct:[id number] Age/Sex: 63 / F ADM Date: 11/21/24 [facility] Attending Dr: Rocio Christie DO Ordering Physician: Rocio Christie DO Date of Service: 11/21/24 Procedure(s): XR chest 2V Accession Number(s): [id number] cc: Rocio Christie DO Reason for Exam: cough and chest tightness EXAMINATION: XR CHEST CLINICAL INFORMATION: cough and chest tightness COMPARISON: 12/09/2023. TECHNIQUE: 2 views of the chest were obtained. FINDINGS: There is cardiac enlargement. Mediastinal and hilar contours appear normal. Aortic mural calcifications. Lungs are hyperaerated consistent with COPD. There is stable blunting of the left costophrenic angle, reflective of chronic pleural scarring. There are no consolidations. There is no pneumothorax or pleural effusion. There is no focal osseous or soft tissue abnormality. Mild levoconvex scoliosis of the thoracic spine. XR/XR chest 2V IMPRESSION: COPD. Cardiac enlargement. Stable pleural scarring in the left base. No active superimposed disease. Electronically signed by: Efren Vazquez MD 11/21/2024 10:05 AM EDT RP Dictated By: Efren Vazquez MD Signed By: <Electronically signed by Efren Vazquez MD in OV> 11/21/24 1005 DD/ 0855 TD/TT: 11/21/24 0900 Energy Efficiency Specialist: Procedure Note Donotuseinterpreter, Image - 11/21/[address] [address] XRay Report Signed Patient: Daly Neal EMR#: [id number] : 1960Acct:[id number] Age/Sex: 63 / FADM Date: 11/21/24 Loc: [facility] Attending Dr: Rocio Christie DO Ordering Physician: Rocio Christie DO Date of Service: 11/21/24 Procedure(s): XR chest 2V Accession Number(s): [id number] cc: Rocio Christie DO Reason for Exam: cough and chest tightness EXAMINATION: XR CHEST CLINICAL INFORMATION: cough and chest tightness COMPARISON: 12/09/2023. TECHNIQUE: 2 views of the chest were obtained. FINDINGS: There is cardiac enlargement. Mediastinal and hilar contours appear normal. Aortic mural calcifications. Lungs are hyperaerated consistent with COPD. There is stable blunting of the left costophrenic angle, reflective of chronic pleural scarring. There are no consolidations. There is no pneumothorax or pleural effusion. There is no focal osseous or soft tissue abnormality. Mild levoconvex scoliosis of the thoracic spine. XR/XR chest 2V IMPRESSION: COPD. Cardiac enlargement. Stable pleural scarring in the left base. No active superimposed disease. Electronically signed by: Efren Vazquez MD 11/21/2024 10:05 AM EDT RP Dictated By: Efren Vazquez MD Signed By: <Electronically signed by Efren Vazquez MD in OV> 11/21/24 1005 DD/ 0855 TD/TT: 11/21/24 0900 Energy Efficiency Specialist: Rocio Christie DO IMG XR PROCEDURES Edited Res ult - Final documented in this encounter Visit Diagnoses Diagnosis COPD exacerbation (CMS/HCC)- Primary Obstructive chronic bronchitis with exacerbation Acute conjunctivitis of both eyes, unspecified acute conjunctivitis type documented in this encounter Administered Medications Inactive Administered Medications - up to 3 most recent administrations Medication Order MAR Action Action Date Dose Rate Site ipratropium-albuterol (Duo-Neb) 0.5-2.5 mg/3 mL nebulizer solution 3 mg 3 mg, Nebulization, Once, On Wed11/21/24 at 0915, For 1 doseIndications:COPD exacerbation (CMS/HCC) Given 11/21/2024 9:15 AM EDT 3 mg documented in this encounter Additional Health Concerns Assessment Noted Time PHQ-9 Depression Total Score: 16 07/19/2 024 1:38 PM EDT documented as of this encounter Care Teams Amf Mechanic Relationship Specialty Start Date End Date Rocio Christie DO [address] [place] [address] PCP - General Family Medicine 03/22/18 documented as of this encounter
--- OUTSIDE RECORDS SUMMARY | 2024-11-21 10:38 | XMS_ITS | Patient Health Record ---
Author Organization [facility] Address [address] [place] [address] Care Team Providers Care Threader Operator Name Role Phone Rocio Christie M.D. Primary Care Provider Rakel vailable Mick Cook Unavailable [phone] Reason For Referral Referring Provider First Name Rocio Referring Provider Last Name Pratik Referred Organization [facility] Referred Provider Mick Cook Referred Address [address] [place] [address],[facility] [address],[place], [place],[address], Referred Provider Specialty Gastroentero logy Referral Priority Routine Encounters Encounter Location Date Provider Diagnosis [facility] [address] [place] [address] 06/06/2024 Mick Cook Plan Of Treatment No Information Insurance Providers Payer Name Payer Address Payer Phone Subscriber Number Group Number Insured Name Patient Relationship to Insured Coverage Start Date Coverage End Date MEDICAID OF [facility] [address] [place] [id number] [id number] VON ORTIZ Self - patient is the insured
--- OUTSIDE RECORDS SUMMARY | 2024-11-21 10:38 | XMS_ITS | Clinical Summary ---
Author Organization [facility] Address [address] [place] [address] Phone Care Team Providers Care Waste Removalist Name Role Phone Rocio Christie DO Primary Care Provider [phone] Allergies Active Allergy Reactions Criticality Noted Date Comments Morphine Hives 05/19/2024 Surgical History Surgery Date Site/Laterality Comments COLONOSCOPY PROCEDURE: HISTORICAL COLONOSCOPY ABDOMINAL SURGERY PROCEDURE: HISTORICAL ABDOMINAL SURGERY OTHER SURGICAL HISTORY 2017 PROCEDURE: ME COLECTOMY PARTIAL W/ANASTOMOSIS; COMMENT: sigmoid/descending colon OTHER SURGICAL HISTORY PROCEDURE: PARTIAL REMOVAL OF LUNG Medical History Medical History Date Comments Asthma DX:Asthma History of diverticulitis of colon DX:History of diverticulitis of colon; COMMENT: surg repair 05/2017; sigmoid and descendign colon Lung nodule 2017 DX:Lung nodule; COMMENT: folllowed by PCP @ [facility] DANDRE (obstructive sleep apnea) DX :DANDRE [...] 02/28/2022 Social Influencers of Health Screening 02/28/2022 Depression Screening 03/22/2024 Diabetes: Annual Urine Albumin-Creatinine Ratio (uACR) 05/19/2024 Diabetes: Blood Sugar Control Test (HGBA1C) 08/13/2024 02/14/2024 COVID-19 Vaccine ( season) 2024 03/03/2023, 10/17/2021, 03/03/2021, Additional history exists Influenza Vaccine (#1) 2024 , 06/25/2022, 12/13/2020 [...] LAB CHEMISTRY METHOD 05/19/2024 10:19 AM EST [facility] Potassium 4.2 3.5 - 5.5 mmol/L LAB CHEMISTRY METHOD 05/19/2024 10:19 AM EST [facility] Chloride 106 96 - 110 mmol/L LAB CHEMISTRY METHOD 05/19/2024 10:19 AM EST [facility] CO2 27 21 - 32 mmol/L LAB CHEMISTRY METHOD 05/19/2024 10:19 AM [facility] Anion Gap 6 3 - 11 LAB CHEMISTRY METHOD 05/19/2024 10:19 AM [facility] Glucose 96 70 - 100 mg/dL LAB CHEMISTRY METHOD 05/19/2024 10:19 AM [facility] BUN 12 5 - 25 mg/dL LAB CHEMISTRY METHOD 05/19/2024 10:19 AM [facility] Creatinine 0.84 0.50 - 1.10 mg/dL LAB CHEMISTRY METHOD 05/19/2024 10:19 AM [facility] eGFR 78 >=60 mL/min/1. 73m2 LAB CHEMISTRY METHOD 05/19/2024 10:19 AM [facility] Comment:Calculation based on the Chronic Kidney Disease Epidemiology Collaboration (CKD-EPI) equation refit without adjustment for race. BUN/Creatinine Ratio 14.3 LAB CHEMISTRY METHOD 05/19/2024 10:19 AM [facility] Calcium 9.9 8.5 - 10.5 mg/dL LAB CHEMISTRY METHOD 05/19/2024 10:19 AM [facility] AST (SGOT) 22 10 - 42 unit/L LAB CHEMISTRY METHOD 05/19/2024 10:19 AM [facility] ALT (SGPT) 22 10 - 60 unit/L LAB CHEMISTRY METHOD 05/19/2024 10:19 AM [facility] Alkaline Phosphatase 118 42 - 121 unit/L LAB CHEMISTRY METHOD 05/19/2024 10:19 AM [facility] Total Protein 7.3 6.0 - 8.0 g/dL LAB CHEMISTRY METHOD 05/19/2024 10:19 AM [facility] Albumin 4.3 3.2 - 5.0 g/dL LAB CHEMISTRY METHOD 05/19/2024 10:19 AM [facility] Total Bilirubin 1.0 0.0 - 1.4 mg/dL LAB CHEMISTRY METHOD 05/19/2024 10:19 AM [facility] Blood Venous blood specimen / Unknown Venipuncture / Unknown 05/19/2024 9:18 AM EST 05/19/2024 9:26 AM EST us Rodney Silverman MD LAB BLOOD ORDERABLES Final R esult [facility] [address] [place] [address], from Last 3 Months or Most Recently Relevant to Health Maintenance Insurance MEDICAID - [place] Care Teams Waste Removalist Relationship Specialty Start Date End Date Rocio Christie DO [address] [place], [place] PCP - General Internal Medicine 05/27/11
--- OUTSIDE RECORDS SUMMARY | 2024-11-21 10:39 | XMS_ITS | Encounter Summary ---
Author Organization [employer] Address [address] [facility] 7t [place] [address] Care Team Providers Care Drafter Assistant Name Role Phone Rocio Christie DO Primary Care Provider [phone] Reason for Visit * Reason Comments Med Refill Encounter Details Date Type Department Care Team ([facility] st Contact Info) Description 05/04/2024 Refill [facility] [address] [place], [place] [phone] Rocio Christie DO [address] [place] [address] Insomnia, unspecified type; Chronic bilateral low back [...] Description 12/13/2024 10:00 AM EDT Clinical Support [facility] [address] [place] [address] Marisa Sims RN 02/27/2025 3:00 PM EST Office Visit [facility] [address] [place], [place] [phone] Karen Acuña, OD [address] [place] [address] documented as of this encounter Visit Diagnoses Diagnosis Insomnia, unspecified type Chronic bilateral low back pain without sciatica documented in this encounter Additional Health Concerns Assessment Noted Time PHQ-9 Depression Total Score: 16 024 1:38 PM EDT documented as of this encounter Care Teams Drafter Assistant Relationship Specialty Start Date End Date Rocio Christie DO [address] [place] [address] PCP - General Family Medicine 03/22/18 documented as of this encounter
--- OUTSIDE RECORDS SUMMARY | 2024-11-21 10:39 | XMS_ITS | Encounter Summary ---
Author Organization [employer] Address [address] [facility] 7t [place] [address] Care Team Providers Care Radiography Technician Name Role Phone Rocio Christie DO Primary Care Provider + [phone] Reason for Visit * Reason Comments Med Refill Encounter Details Date Type Department Care Team ([facility] st Contact Info) Description 02/15/2024 Refill [facility] [address] [place], [place] [phone] Rocio Christie DO [address] [place], [place] [phone] New onset type 2 diabetes mellitus (CMS/HCC) [...] Description 12/13/2024 10:00 AM EDT Clinical Support [facility] [address] [place] [address] Marisa Sims RN 02/27/2025 3:00 PM EST Office Visit [facility] [address] [place], [place] [phone] Karen Acuña, SHANTELLE [address] [place] [address] documented as of this encounter Visit Diagnoses Diagnosis New onset type 2 diabetes mellitus (CMS/HCC) documented in this encounter Additional Health Concerns Assessment Noted Time PHQ-9 Depression Total Score: 16 024 1:38 PM EDT documented as of this encounter Care Teams Radiography Technician Relationship Specialty Start Date End Date Rocio Christie DO [address] [place] [address] PCP - General Family Medicine 03/22/18 documented as of this encounter
--- OUTSIDE RECORDS SUMMARY | 2024-11-21 10:39 | XMS_ITS | Encounter Summary ---
Author Organization [employer] Address [address] [facility] 7t [place] [address] Care Team Providers Care Double Backer Name Role Phone PratikRocio Primary Care Provider [phone] Encounter Details Date Type Department Care Team (Latest Contact Info) Description 11/21/2024 Travel Social History Tobacco Use Types Packs/Day Years [...] Description 12/13/2024 10:00 AM EDT Clinical Support [facility] [address] [place] [address] Marisa Sims RN 02/27/2025 3:00 PM EST Office Visit [facility] [address] [place] [address] Karen Acuña, OD [address] [place] [address] documented as of this encounter Visit Diagnoses Not on filedocumented in this encounter Additional Health Concerns Assessment Noted Time PHQ-9 Depression Total Score: 16 024 1:38 PM EDT documented as of this encounter Care Teams Double Backer Relationship Specialty Start Date End Date Rocio Christie DO [address] [place] [address] PCP - General Family Medicine 03/22/18 documented as of this encounter
--- OUTSIDE RECORDS SUMMARY | 2024-11-21 10:39 | XMS_ITS | Encounter Summary ---
Author Organization [employer] Address [address] [place] [address] 7 [place] [address] Care Team Providers Care Labor Relations Or Personnel Negotiator Name Role Phone Rocio Christie DO Primary Care Provider [phone] Reason for Visit * Reason Comments Med Refill Encounter Details Date Type Department Care Team (Late Contact Info) Description 11/01/2022 Refill [facility] [address] [place], [place] [phone] Rocio Christie DO [address] [place], [place] [phone] Essential hypertension Social History Tobacco Use Types [...] Department Care Team (Late Contact Info) Description 12/13/2024 10:00 AM EDT Clinical Support [facility] [address] [place] [address] Marisa Sims RN 02/27/2025 3:00 PM EST Office Visit [facility] [address] [place] [address] [place] [address] Karen Acuña, OD [address] [place] [address] documented as of this encounter Visit Diagnoses Diagnosis Essential hypertension Unspecified essential hypertension documented in this encounter Additional Health Concerns Assessment Noted Time PHQ-9 Depression Total Score: 12 023 10:43 AM EDT documented as of this encounter Care Teams Labor Relations Or Personnel Negotiator Relationship Specialty Start Date End Date Rocio Christie DO [address] [place] [address] PCP - General Family Medicine 03/22/18 documented as of this encounter
--- OUTSIDE RECORDS SUMMARY | 2024-11-21 10:39 | XMS_ITS | Encounter Summary ---
Author Organization [employer] Address [address] [facility] 7 [place] [address] Care Team Providers Care Social Worker Name Role Phone Rocio Christie DO Primary Care Provider [phone] Reason for Visit * Reason Onset Date Comments Call Back Request 09/10/2023 Encounter Details Date Type Department Care Team ([facility] st Contact Info) Description 09/10/2023 Telephone [facility] [address] [place], [place] [phone] Rocio Christie DO [address] [place], [place] [phone] Call Back Request Social History Tobacco Use [...] patient, patients son taking her on vacation. [employer] RV rescheduled for 10/25/23. Pt c/o new [...] Description 12/13/2024 10:00 AM EDT Clinical Support [facility] [address] [place] [address] Marisa Sims RN 02/27/2025 3:00 PM EST Office Visit [facility] [address] [place] [address] Karen Acuña, OD [address] [place] [address] documented as of this encounter Visit Diagnoses Not on filedocumented in this encounter Additional Health Concerns Assessment Noted Time PHQ-9 Depression Total Score: 16 024 1:38 PM EDT documented as of this encounter Care Teams Social Worker Relationship Specialty Start Date End Date Rocio Christie DO [address] [place] [address] PCP - General Family Medicine 03/22/18 documented as of this encounter
--- OUTSIDE RECORDS SUMMARY | 2024-11-21 10:39 | XMS_ITS | Encounter Summary ---
Author Organization [employer] Address [address] [place] [address] [address] [place] [address] Care Team Providers Care Die Attaching Machine Tender Name Role Phone Rocio Christie DO Primary Care Provider + [phone] Reason for Visit * Reason Comments Med Refill Encounter Details Date Type Department Care Team ([facility] Contact Info) Description 07/23/2022 Refill [facility] [address] [place], [place] [phone] Rocio Christie DO [address] [place], [place] [phone] Other chronic pain; Insomnia, unspecified type Social [...] Description 12/13/2024 10:00 AM EDT Clinical Support [facility] [address] [place] [address] Marisa Sims, RN 02/27/2025 3:00 PM EST Office Visit [facility] [address] [place] [address] Karen Acuña, OD [address] [place] [address] documented as of this encounter Visit Diagnoses Diagnosis Other chronic pain Insomnia, unspecified type documented in this encounter Additional Health Concerns Assessment Noted Time PHQ-9 Depression Total Score: 12 023 10:43 AM EDT documented as of this encounter Care Teams Die Attaching Machine Tender Relationship Specialty Start Date End Date Rocio Christie DO [address] [place] [address] PCP - General Family Medicine 03/22/18 documented as of this encounter
--- OUTSIDE RECORDS SUMMARY | 2024-11-21 10:39 | XMS_ITS | Encounter Summary ---
Author Organization [employer] Address [address] [facility] 7t [place] [address] Care Team Providers Care Swatch Maker Name Role Phone Rocio Christie DO Primary Care Provider + [phone] Reason for Visit * Reason Comments Med Refill Encounter Details Date Type Department Care Team ([facility] st Contact Info) Description 02/21/[address] [facility] [address] [place], [place] [phone] Rocio Christie DO [address] [place], [place] [phone] New onset type 2 diabetes mellitus (CMS/HCC) [...] Description 12/13/2024 10:00 AM EDT Clinical Support [facility] [address] [place] [address] Marisa Sims RN 02/27/2025 3:00 PM EST Office Visit [facility] [address] [place], [place] [phone] Karen Acuña, SHANTELLE [address] [place] [address] documented as of this encounter Visit Diagnoses Diagnosis New onset type 2 diabetes mellitus (CMS/HCC) documented in this encounter Additional Health Concerns Assessment Noted Time PHQ-9 Depression Total Score: 16 024 1:38 PM EDT documented as of this encounter Care Teams Swatch Maker Relationship Specialty Start Date End Date Rocio Christie DO [address] [place] [address] PCP - General Family Medicine 03/22/18 documented as of this encounter
--- OUTSIDE RECORDS SUMMARY | 2024-11-21 10:39 | XMS_ITS | Encounter Summary ---
Author Organization [employer] Address [address] [facility] 7t [place] [address] Care Team Providers Care Master Scheduler Name Role Phone Karina Christiefer Primary Care Provider + [phone] Encounter Details Date Type Department Care Team (Late st Contact Info) Description 07/01/2023 Orders Only [facility] [address] [place], [place] [phone] ProviderSeb MD Social History Tobacco Use Types [...] 12/13/2024 10:00 AM EDT Clinical Support [facility] [address] [place] [address] Marisa Sims RN 02/27/2025 3:00 PM EST Office Visit [facility] [address] [place], [place] [phone] Karen Acuña, OD [address] [place] [address] documented as of this encounter Procedures Procedure [...] documented as of this encounter Care Teams Master Scheduler Relationship Specialty Start Date End Date Rocio Christie DO [address] [place] [address] PCP - General Family Medicine 03/22/18 documented as of this encounter
--- OUTSIDE RECORDS SUMMARY | 2024-11-21 10:39 | XMS_ITS | Clinical Summary ---
Author Organization [employer] Address [address] [place] [address] [address] [place] [address] Care Team Providers Care Plywood Layup Line Core Feeder Name Role Phone PratikRocio Primary Care Provider [phone] Allergies Active Allergy Reactions Criticality Noted Date Comments Morphine Hives 12/14/2012 Other reaction(s): HIVES AND RASH, hives Other Reaction(s): HIVES AND RASH, hives, Rash/Dermatitis Medications * This document contains information received from the source organization and may not represent a complete record from that organization. amitriptyline (Elavil) 25 MG tablet Take 1 tablet by mouth at bed time. Active lidocaine (Lidoderm) 5 % patch Place 1 patch on the skin in the morning. 022 Active hydrOXYzine pamoate (Vistaril) 25 MG capsule Take 1 capsule by mouth every 6 (six) hours. 022 Active naloxone (Narcan) 4 mg/0.1 mL nasal spray Administer 0.1 mL into affected nostril(s). 021 Active nicotine (Nicoderm, Step 2) 14 MG/24HR patch Place 1 patch on the skin 1 (one) time each day. 022 Active docusate sodium (Colace) 100 MG capsule TAKE 1 CAPSULE BY MOUTH TWICE DAILY NEEDED 180 capsule 3 023 Active polyvinyl alcohol (Liquifilm Tears) 1.4 % ophthalmic solution INSTILL 1 DROP IN EACH EYE THREE TIMES DAILY NEEDED 023 Active cloNIDine (Catapres) 0.1 MG tabletIndications:E ssential hypertension TAKE 1 TABLET BY MOUTH TWICE DAILY IN THE MORNING AND AT BEDTIME 180 tablet 023 Active fluticasone (Flonase) 50 MCG/ACT nasal spray INHALE 2 SPRAYS IN EACH NOSTRIL ONCE DAILY 48 g 3 024 Active loratadine (Claritin) 10 MG tablet TAKE 1 TABLET BY MOUTH ONCE DAILY DIRECTED 90 tablet 1 Active Ventolin HFA 108 (90 Base) MCG/ACT inhalerIndications: Chronic obstructive pulmonary disease, unspecified COPD type ([facility]/HCC) INHALE 2 PUFFS BY MOUTH EVERY 4 HOURS NEEDED FOR WHEEZING OR SHORTNESS OF BREATH 18 g 2 Active nystatin (Mycostatin) 518807 UNIT/GM powderIndications:C andidal intertrigo APPLY TOPICALLY TO AFFECTED AREA(S) THREE TIMES DAILY 60 g 3 Active Symbicort 160-4.5 MCG/ACT inhaler Inhale 2 puffs 2 times daily. Rinse mouth with water after use to reduce aftertaste and incidence of candidiasis. Do not swallow. 3 each 3 Active Alcohol Swabs (Alcohol Prep) 70 % padsIndications:Typ e 2 diabetes mellitus without complication, without long-term current use of insulin ([facility]) USE DIRECTED TWICE DAILY 100 each Active nicotine (Nicoderm CQ) 14 MG/24HR patch Place 1 patch on the skin 1 (one) time each day at the same time. 42 patch 024 Active nicotine (Nicoderm CQ) 7 MG/24HR patch Place 1 patch on the skin 1 (one) time each day at the same time. 14 patch Active tacrolimus (Protopic) 0.1 % ointmentIndications :Psoriasis Apply topically 2 times daily. 60 g 2 024 2024 Active simethicone (Mylicon,Gas-X) 125 MG capsule Take 1 capsule (125 mg) by mouth every 6 (six) hours if needed for flatulence. 60 capsule Active Blood Glucose Monitoring Suppl (Replica LabsStyle Telluride Lite) w/Device kit Check BS twice a day as directed 1 kit Active TRUEplus Lancets 33G miscIndications:Typ e 2 diabetes mellitus without complication, without long-term current use of insulin ([facility]) TEST BLOOD SUGAR TWICE DAILY 100 each 11 Active FREESTYLE LITE test strip TEST BLOOD SUGAR TWICE DAILY 100 strip 11 Active halobetasol (UltraVATE) 0.05 % ointmentIndications :Psoriasiform dermatitis Apply topically 2 times daily. 50 g 2 024 Active pantoprazole (ProtoNix) 40 MG EC tablet [...] TABLET BY MOUTH AT BEDTIME 90 tablet 025 Active lisinopril 40 MG tablet TAKE 1 TABLET BY MOUTH AT BEDTIME 90 tablet 025 Active Fiber-Lax 625 MG tabletIndications:C hronic constipation TAKE 1 TABLET BY MOUTH TWICE DAILY IN THE MORNING AND IN THE EVENING 180 tablet 025 Active atorvastatin (Lipitor) 20 MG tablet TAKE 1 TABLET BY MOUTH AT BEDTIME 90 tablet 025 Active triamcinolone (Kenalog) 0.1 % creamIndications:Po st-inflammatory hyperpigmentation Apply topically 2 times daily. Inframammary areas for itching 30 g 2 025 Active Tirzepatide (Mounjaro) 2.5 MG/0.5ML solution auto-injectorIndica tions:Type 2 diabetes mellitus without complication, without long-term current use of insulin ([facility]) Inject 2.5 mg under the skin 1 (one) time per week. 2 mL 3 025 Active acetaminophen (Tylenol 8 Hour) 650 MG ER tabletIndications:P ain TAKE 1 TABLET BY MOUTH EVERY 8 HOURS NEEDED FOR PAIN OR FEVER DO NOT BREAK, CRUSH, DISSOLVE OR CHEW 60 tablet 2 025 Active mirtazapine (Remeron) 15 MG tabletIndications:I nsomnia, unspecified type TAKE 1 TABLET BY MOUTH AT BEDTIME 30 tablet 3 025 Active escitalopram (Lexapro) 10 MG tabletIndications:D epression, unspecified depression type TAKE 1 TABLET BY MOUTH EVERY MORNING 30 tablet 3 025 Active hydroCHLOROthiazide 12.5 MG tabletIndications:E ssential hypertension TAKE 1 TABLET BY MOUTH EVERY MORNING 90 tablet 1 025 Active Multiple Vitamin (multivitamin) tablet Take 1 tablet by mouth Once per day. 90 tablet 3 025 Active Diclofenac Sodium 1 % gel Apply 2 g topically if needed in the morning, at noon, in the evening, and at bedtime (pain). 150 g 3 025 Active Emollient (Eucerin Advanced Repair) cream Apply 1 Application topically 2 times daily. 454 g 025 Active senna (Senokot) 8.6 MG tabletIndications:C hronic constipation TAKE 2 TABLETS BY MOUTH EVERY DAY NEEDED FOR CONSTIPATION 180 tablet 1 025 Active zolpidem (Ambien) 10 MG tabletIndications:I nsomnia, unspecified type Take 1 tablet (10 mg) by mouth at bedtime. 28 tablet 025 Active albuterol (2.5 MG/3ML) 0.083% nebulizer solution INHALE 1 AMPULE USING A NEBULIZER EVERY 4 HOURS NEEDED FOR WHEEZING OR SHORTNESS OF BREATH 90 mL 2 025 Active oxybutynin XL (Ditropan-XL) 5 MG 24 hr tablet Take 1 tablet (5 mg) by mouth Once per day. Do not crush, chew, or split. 90 tablet 3 025 Active triamcinolone (Kenalog) 0.1 % ointment APPLY TOPICALLY TWICE DAILY IN THE MORNING AND AT BEDTIME NEEDED FOR RASH 30 g 025 Active oxyCODONE (Roxicodone) 5 MG immediate release tabletIndications:C hronic bilateral low back pain without sciatica Take 1 tablet (5 mg) by mouth every 8 (eight) hours if needed for severe pain for up to 28 days. Do not start before November 13, 2024. 84 tablet 025 2024 Active baclofen (Lioresal) 20 MG tablet Take 0.5 tablets (10 mg) by mouth if needed in the morning, at noon, and at bedtime for muscle spasms. 60 tablet 3 Active trimethoprim-polymy mainor b (Polytrim) ophthalmic solution Administer 1 drop into both eyes every 4 (four) hours for 10 days. 10 mL 025 2024 Active predniSONE (Deltasone) 10 MG tablet Take 6 tabs PO daily x 2 days then 5 tabs PO daily x 2 days then 4 tabs PO daily x 2 days then 3 tabs PO daily x 2 days then 2 tabs PO daily x 2 days then 1 tab PO daily x 2 days then 1/2 tab PO daily x 2 days 43 tablet Active azithromycin (Zithromax) 250 MG tablet Take 2 tabs PO today then 1 tab PO daily x 4 days 6 tablet Active guaiFENesin (Mucinex) 600 MG 12 hr tablet Take 1 tablet (600 mg) by mouth if needed in the morning and at bedtime for cough or congestion. Do not crush, chew, or split. 30 tablet 025 2025 Active ipratropium-albuter ol (Duo-Neb) 0.5-2.5 mg/3 mL nebulizer solutionIndications :COPD exacerbation (CMS/[facility]) Take 3 mL by nebulization every 6 (six) hours if needed for wheezing or shortness of breath. 180 mL 2 025 2025 Active oxybutynin XL (Ditropan-XL) 5 MG 24 hr tablet TAKE 1 TABLET BY MOUTH EVERY MORNING DO NOT BREAK, CRUSH, DISSOLVE OR CHEW 90 tablet 3 024 2024 Discontinued( Reorder (will not trigger notification to Pharmacy)) albuterol (2.5 MG/3ML) 0.083% nebulizer solution Take 3 mL by nebulization every 4 (four) hours if needed for wheezing or shortness of breath. 75 mL 2 024 2024 Discontinued baclofen (Lioresal) 20 MG tablet Take 0.5 tablets (10 mg) by mouth if needed in the morning, at noon, and at bedtime for muscle spasms. 60 tablet 3 025 2024 Discontinued( Reorder (will not trigger notification to Pharmacy)) triamcinolone (Kenalog) 0.1 % ointment Apply topically if needed in the morning and at bedtime for rash. 30 g 1 025 2024 Discontinued oxyCODONE (Roxicodone) 5 MG immediate release tabletIndications:C hronic bilateral low back pain without sciatica Take 1 tablet (5 mg) by mouth every 8 (eight) hours if needed for severe pain for up to 28 days. 84 tablet 025 2024 Discontinued( Reorder (will not trigger notification to Pharmacy)) naproxen (Naprosyn) 500 MG tabletIndications:I liopsoas bursitis of right hip Take 1 tablet (500 mg) by mouth if needed in the morning and at bedtime for mild pain or moderate pain. 30 tablet 025 2024 Hospital, Clinic, or Other Facility Administered Medication Ordered Dose Route Frequency Start Date End Date Status ipratropium-albutero l (Duo-Neb) 0.5-2.5 mg/3 mL nebulizer solution 3 mgIndications:COPD exacerbation (CMS/[facility]) 3 mg NEBULIZATION Once 11/21/2024 11/21/2024 Ended Active Problems Problem Noted Date Diagnosed Date Long-term current use of opiate analgesic 2024 Right groin pain 05/17/2024 Assessment & Plan [...] changes -cont regular BS monitoring -re-referred to wheel inspector for eval -cont lisinopril and lipitor daily -s/p optho eval DEC 2022 at [facility] for annual f/u -foot exam next visit* [...] Self Plan Patient to reach out to [facility] team as needed, Comply with medication , [...] Encounters Date Type Department Care Team Description 11/21/2024 8:40 AM EDT Office Visit [facility] [address] [place] [address] COPD exacerbation (CMS/HCC) (Primary Dx); Acute conjunctivitis of both eyes, unspecified acute conjunctivitis type 11/21/2024 Travel 11/12/2024 Orders Only [facility] [address] [place] [address] Rocio Christie DO Chronic right hip pain (Primary Dx) 11/10/2024 Refill [facility] [address] [place] [address] Rocio Christie DO Chronic bilateral low back pain without sciatica 11/08/2024 Refill [facility] [address] [place] [address] Rocio Christie DO 11/07/2024 Refill [facility] [address] [place] [address] Rocio Christie DO 10/31/2024 Refill [facility] [address] [place] [address] Wilfrid Sharp MD 10/17/2024 11:00 AM EDT Office Visit [facility] [address] [place] [address] Sha, Liliana, OD Type 2 diabetes mellitus without complication, without long-term current use of insulin (CMS/HCC) (Primary Dx) 10/17/2024 Travel 10/12/2024 Refill [facility] [address] [place] [address] Marisa Sims RN Chronic bilateral low back pain without sciatica; Insomnia, unspecified type 10/12/2024 Refill [facility] [place] [address] Zuleyka Zepeda RN Iliopsoas bursitis of right hip 10/03/2024 10:00 AM EDT Clinical Support [facility] [address] [place] [address] Marisa Sims, HOA Long-term current use of opiate analgesic (Primary Dx) 10/03/2024 Telephone [facility] [address] [place] [address] Marisa Sims RN UTOX Pos BZO today 10/03/2024 Travel 10/03/2024 Refill [facility] [place] [address] Rocio Christie DO Chronic constipation 09/20/2024 11:15 AM EDT Office Visit [facility] [place] [address] Rocio Christie DO Chronic right hip pain (Primary Dx); Change in nail appearance; Type 2 diabetes mellitus without complication, without long-term current use of insulin ([facility]); History of recent steroid use 09/20/2024 Travel 09/19/2024 Telephone [facility] [place] [address] Rocio Christie DO Chart Prep 09/14/2024 Orders Only [facility] [address] [place] [address] Rocio Christie DO 09/13/2024 Telephone [facility] [place] [address] Rocio Christie DO Nurse Triage; Medication Question 09/11/2024 Refill [facility] [place] [address] Rocio Christie DO Chronic bilateral low back pain without sciatica 08/29/2024 Refill [facility] [place] [address] Rocio Christie DO Essential hypertension from Last 3 Months Immunizations Immunization Administration Dates Next Due Influenza injectable quadriv [...] (212 lb) 11/21/2024 8:56 AM EDT Height 165.1 cm (5' 5 ) 08/07/2024 10:26 AM EDT Body Mass Index 35.28 08/07/2024 10:26 AM EDT Plan of Treatment Upcoming Encounters Date Type Department Care Team (Late st Contact Info) Description 12/13/2024 10:00 AM EDT Clinical Support [facility] [address] [place] [address] Marisa Sims RN 02/27/2025 3:00 PM EST Office Visit [facility] [address] [place] [address] Karen Acuña, OD [address] [place] [address] Health Maintenance Due Date Last Done Comments CT Colonography 1959 FIT DNA/Cologuard 1959 FIT 1960 FOBT 1960 Sigmoidoscopy 1959 Diabetes: Foot Exam 12/05/1969 Eye Exam 12/05/1969 Hepatitis A Vaccines (1 of 2 - Risk 2-dose series) 12/05/1978 Hepatitis B Vaccines (1 of 3 - Risk 3-dose series) 2019 Colonoscopy 09/02/2022 09/02/2012 Colorectal Cancer Screening 09/02/2022 Depression Monitoring 01/19/2024 07/20/2023, 024 Diabetes: Urine Protein Screening 03/03/2024 03/03/2023 Lipid Panel 03/03/2024 03/03/2023, 05/0 03/2022, 08/06/2021, Additional history exists SDOH Screening 10/03/2024 10/04/2023 COVID-19 Vaccine ( season) 2024 03/03/2023, 10/17/2021, 03/03/2021, Additional history exists Influenza Vaccine (#1) 2024 , 06/25/2022, 12/13/2020 Diabetes: Hemoglobin A1C 03/23/2025 025, 08/07/2024, 02/14/2024, Additional history exists Alcohol/Substance Use Screening 08/07/2025 08/07/2024 Disability Screening 08/07/2025 08/07/2024 Mammogram 09/14/2025 09/14/2024, 08/21, 09/03/2022, Additional history exists Tobacco Screening 11/21/2025 11/21/2024 Cervical Cancer Screening 12/08/2026 Pap Smear 12/08/2026 [...] Routine 11/21/2024 9:18 AM EDT COPD exacerbation ([facility]) XR CHEST 2 VIEWS STAT 11/21/2024 8:55 AM EDT COPD exacerbation ([facility]) BD DEXA AXIAL Routine 10/31/2024 11:30 AM EDT History of recent steroid use MR HIP WO CONTRAST RIGHT Routine 10/11/2024 5:06 AM EDT Chronic right hip pain POCT ERICA-14 URINE DRUG SCREEN Routine 10/03/2024 10:40 AM EDT Long-term current use of opiate analgesic DRUG MONITORING, BENZODIAZEPINES, QUANTITATIVE, URINE Routine 10/03/2024 9:45 AM EDT Long-term current use of opiate analgesic POCT GLYCATED HEMOGLOBIN, TOTAL Routine 09/20/2024 11:18 AM EDT Type 2 diabetes mellitus without complication, without long-term current use of insulin ([facility]) POCT GLUCOSE Routine 09/20/2024 11:17 AM EDT Type 2 diabetes mellitus without complication, without long-term current use of insulin ([facility]) BI MAMMOGRAM SCREENING TOMOSYNTHESIS BILATERAL Routine 09/14/2024 10:20 AM EDT THINPREP IMAGING PAP AND HPV MRNA E6/E7 WITH REFLEX TO HPV 16,18/45 Routine 12/09/2023 12:00 AM EDT ALBUMIN, RANDOM URINE W/CREATININE Routine [...] Recently Relevant to Health Maintenance Results * POCT Rapid COVID Ag (11/21/2024 9:18 AM EDT) Pathologist [facility] Rapid COVID Ag Negative Swab 11/21/2024 9:18 AM EDT Rocio Christie DO POINT OF CARE TEST ENTER/ADAM T ORDERABLES Final Result * XR Chest 2 Views (11/21/2024 8:55 AM EDT) Anatomical Region Laterality Modality Chest Radiographic Rosamaria ging 11/21/2024 8:55 AM EDT Narrative 11/21/2024 10:08 AM EDT [address] [address] XRay Report Signed Patient: Daly Neal MR#: [id number] : 1960 Acct:[id number] Age/Sex: 63 / F ADM Date: 11/21/24 Loc: [facility]ICKI Attending Dr: Rocio Christie DO Ordering Physician: Rocio Christie DO Date of Service: 11/21/24 Procedure(s): XR chest 2V Accession Number(s): [id number] cc: Rocio Christie DO Reason for Exam: [...] Efren Vazquez MD 11/21/2024 10:05 AM EDT Dictated By: Efren Vazquez MD Signed By: <Electronically signed by Efren Vazquez MD in OV> 11/21/24 1005 DD/ 0855 TD/TT: 11/21/24 0900 Apparel Designer: Procedure Note Donotuseinterpreter, Image - 11/21/[address] [address] XRay Report Signed Patient: Daly Neal EMR#: [id number] : 1960Acct:[id number] Age/Sex: 63 / FADM Date: 11/21/24 Loc: MICKI Attending Dr: Rocio Christie DO Ordering Physician: Rocio Christie DO Date of Service: 11/21/24 Procedure(s): XR chest 2V Accession Number(s): [id number] cc: Rocio Christie DO Reason for Exam: [...] Efren Vazquez MD 11/21/2024 10:05 AM EDT Dictated By: Efren Vazquez MD Signed By: <Electronically signed by Efren Vazquez MD in OV> 11/21/24 1005 DD/ 0855 TD/TT: 11/21/24 0900 Apparel Designer: Rocio Christie DO IMG XR PROCEDURES Edited Res ult - Final * BD DEXA Axial (10/31/2024 11:30 AM EDT) Anatomical Region Laterality Modality Body Radiographic Rosamaria ging 10/31/2024 11:3 0 AM EDT Narrative 10/31/2024 12:36 PM EDT [facility] [place] [address] Mammography Report Signed Patient: Daly Neal MR#: [id number] : 1960 Acct:[id number] Age/Sex: 63 / F ADM Date: 10/31/24 Loc: HO.MAMMO Attending Dr: Rocio Christie DO Ordering Physician: Rocio Christie DO Results: Date of Service: 10/31/24 Follow Up: Procedure(s): XR DEXA axial skeleton Accession Number(s): [id number] cc: Rocio Christie DO EXAMINATION: DXA BONE DENSITY AXIAL HISTORY: osteoporosis screening TECHNIQUE: 9DIAMOND Dual energy absorptiometry (DEXA) of the lumbar spine, total left hip, and femoral neck was performed. COMPARISON: There are no prior studies for comparison. FINDINGS: The bone mineral density of the lumbar spine is 1.087 g/cm2, corresponding to a T-score of -0.7, and a Z-score of 0.0. This is indicative of normal bone mineral density. The bone mineral density of the left total hip is 1.046 g/cm2, corresponding to a T-score of 0.3, and a Z-score of 0.8. This is indicative of normal bone mineral density. The bone mineral density of the left femoral neck is 1.261 g/cm2, corresponding to a T-score of 1.6, and a Z-score of 2.5. This is indicative of normal bone mineral density. FRACTURE RISK: The FRAX index suggests a risk of major osteoporotic fracture of 4.1%, and of hip fracture 0.1%. MM/XR DEXA axial skeleton IMPRESSION: Based on bone mineral density, and according to World Health Organization (WHO) criteria, the diagnosis is consistent with normal bone mineral density. Statistically, 68% of repeat scans fall within 1 SD (+/- 0.010 g/cm2 for AP spine L1-L4) and 1 SD (+/- 0.012 g/cm2 for femur total) FRAX is a trademark of the [employer] [place] for Metabolic Bone Disease, a World Health Organization (WHO) Collaborating Center. Electronically signed by: Mick Gillespie MD 10/31/2024 12:33 PM EDT Dictated By: Mick Gillespie MD Signed By: <Electronically signed by Mick Gillespie MD in OV> 10/31/24 1233 DD/ 1130 TD/TT: 10/31/24 1145 Apparel Designer: Procedure Note Donotuseinterpreter, Image - 10/31/[facility] [address] [place] [address] Mammography Report Signed Patient: Daly Neal EMR#: [id number] : 1960Acct:[id number] Age/Sex: 63 / FADM Date: 10/31/24 Loc: HENRIQUE Attending Dr: Rocio Christie DO Ordering Physician: Rocio Christieults: Date of Service: 10/31/24Follow Up: Procedure(s): XR DEXA axial skeleton Accession Number(s): [id number] cc: Rocio Christie DO EXAMINATION: DXA BONE DENSITY AXIAL HISTORY: osteoporosis screening TECHNIQUE: 9DIAMOND Dual energy absorptiometry (DEXA) of the lumbar spine, total left hip, and femoral neck was performed. COMPARISON: There are no prior studies for comparison. FINDINGS: The bone mineral density of the lumbar spine is 1.087 g/cm2, corresponding to a T-score of -0.7, and a Z-score of 0.0. This is indicative of normal bone mineral density. The bone mineral density of the left total hip is 1.046 g/cm2, corresponding to a T-score of 0.3, and a Z-score of 0.8. This is indicative of normal bone mineral density. The bone mineral density of the left femoral neck is 1.261 g/cm2, corresponding to a T-score of 1.6, and a Z-score of 2.5. This is indicative of normal bone mineral density. FRACTURE RISK: The FRAX index suggests a risk of major osteoporotic fracture of 4.1%, and of hip fracture 0.1%. MM/XR DEXA axial skeleton IMPRESSION: Based on bone mineral density, and according to World Health Organization (WHO) criteria, the diagnosis is consistent with normal bone mineral density. Statistically, 68% of repeat scans fall within 1 SD (+/- 0.010 g/cm2 for AP spine L1-L4) and 1 SD (+/- 0.012 g/cm2 for femur total) FRAX is a trademark of the [employer] [place] for Metabolic Bone Disease, a World Health Organization (WHO) Collaborating Center. Electronically signed by: Mick Gillespie MD 10/31/2024 12:33 PM EDT RP Dictated By: Mick Gillespie MD Signed By: <Electronically signed by Mick Gillespie MD in OV> 10/31/24 1233 DD/ 1130 TD/TT: 10/31/24 1145 Apparel Designer: Rocio Christie DO IMG DXA PROCEDURES Edited Re sult - Final * MR Hip w/o Contrast Right (10/11/2024 5:06 AM EDT) Anatomical Region Laterality Modality Magnetic Resonan ce 10/11/2024 5:06 AM EDT Narrative 10/11/2024 5:08 AM EDT [place] [address] Magnetic Resonance Report Signed Patient: Daly Neal MR#: [id number] : 1960 Acct:[id number] Age/Sex: 63 / F ADM Date: 10/07/24 Loc: HO.MRI Attending Dr: Rocio Christie DO Ordering Physician: Rocio Christie DO Date of Service: 10/07/24 Procedure(s): MR hip RT wo con Accession Number(s): [id number] cc: Rocio Christie DO CLINICAL HISTORY: persistent anterior R hip pain MR right hip without gadolinium Comparison: CR/SR - XR HIP 2 OR MORE VIEWS RIGHT - 05/17/24 10:41 EST Findings: No acute fracture, dislocation, or pathologic bone lesion. Small right hip effusion. Mild degenerative change. Acetabular labrum intact. Ligamentum teres intact. The right iliopsoas bursa is distended, and demonstrates a small amount of internal debris. Slight edema within the deep fibers of the right iliacus muscle. The iliopsoas tendon is intact. The pelvic contents are unremarkable. Impression: 1. Iliopsoas bursitis. Associated slight edema within the iliacus muscle deep fibers. 2. Small right hip effusion of uncertain etiology. This could be reactive. This document has been electronically signed by: Karma Toribio MD on 10/11/2024 05:06:03 Dictated By: Karma Toribio MD Signed By: <Electronically signed by Karma Toribio MD in OV> 10/11/24 050 DD/ 050 TD/TT: 10/11/24505 Apparel Designer: Procedure Note Donotuseinterpreter, Image - 10/11/[address] [address] Magnetic Resonance Report Signed Patient: Daly Neal EMR#: [id number] : 1960Acct:[id number] Age/Sex: 63 / FADM Date: 10/07/24 Loc: HO.MRI Attending Dr: Rocio Christie DO Ordering Physician: Rocio Christie DO Date of Service: 10/07/24 Procedure(s): MR hip RT wo con Accession Number(s): [id number] cc: Rocio Christie DO CLINICAL HISTORY: persistent anterior R hip pain MR right hip without gadolinium Comparison: CR/SR - XR HIP 2 OR MORE VIEWS RIGHT - 05/17/24 10:41 EST Findings: No acute fracture, dislocation, or pathologic bone lesion. Small right hip effusion. Mild degenerative change. Acetabular labrum intact. Ligamentum teres intact. The right iliopsoas bursa is distended, and demonstrates a small amount of internal debris. Slight edema within the deep fibers of the right iliacus muscle. The iliopsoas tendon is intact. The pelvic contents are unremarkable. Impression: 1. Iliopsoas bursitis. Associated slight edema within the iliacus muscle deep fibers. 2. Small right hip effusion of uncertain etiology. This could be reactive. This document has been electronically signed by: Karma Toribio MD on 10/11/2024 05:06:03 Dictated By: Karma Toribio MD Signed By: <Electronically signed by Karma Toribio MD in OV> 10/11/24 050 DD/ 050 TD/TT: 10/11/24505 Apparel Designer: Rocio Christie DO IMG MRI PROCEDURES Final Res ult * (ABNORMAL) POCT ERICA-14 Urine Drug Screen (10/03/2024 10:40 AM EDT) THC Negative Negative Cocaine Screen, Urine Negative Negative Opiate Screen, Urine Negative Negative Methamphetamine Screen Urine Negative Negative Amphetamine Screen, Urine Negative Negative Benzodiazepines Screen, Urine Positive(A) Negative Barbiturate Screen, Urine Negative Negative Methadone Screen, Urine Negative Negative Buprenophine Screen, Urine Negative Negative TCA, Urine Positive Negative MDMA Urine Negative Negative ng/mL Oxycodone Screen, Urine Positive Negative Phencyclidine (PCP), Urine Negative Negative Propoxyphene, Urine Negative Negative Fentanyl, Urine Negative Negative Urine Urine specimen obtained by clean catch procedure / Unknown 10/03/2024 10:40 AM EDT Marisa Pineda, HOA - 10/03/2024 10:40 AM EDT UTO[employer] cup Lot#[id number] Exp. 12/26/25 Internal Pass Control Rocio Christie DO POINT OF CARE TEST ENTER/ADAM T ORDERABLES Final Result * Drug Monitoring, Benzodiazepines, Quantitative, Urine (10/03/2024 9:45 AM EDT) Nordiazepam, GCMS Urine NEGATIVE [facility] Comment:COOWXN17 ng/mL Oxazepam, GCMS Urine NEGATIVE [facility] Comment:MCGTDN66 ng/mL Lorazepam GCMS Urine NEGATIVE [facility] Comment:XALBLW51 ng/mL Alprazolam, GCMS Urine NEGATIVE [facility] Comment:QFULSR77 ng/mL Alphahydroxytriazolam, GCMS Ur NEGATIVE [facility] Comment:UMSPVM46 ng/mL Temazepam, GCMS Urine NEGATIVE [facility] Comment:QWWOFH57 ng/mL Alphahydroxymidazolam,GC MS Ur NEGATIVE [facility] Comment:JFAKXY24 ng/mL Aminoclonazepam, GCMS Urine NEGATIVE [facility] Comment:MUAEOK05 ng/mL Flurazepam Metabolite,GCMS Ur NEGATIVE [facility] Comment:EJXOFD36 ng/mL Benzodiazepines Comments SEE NOTE [facility] Comment:NOTES AND COMMENTSTh is drug testing is for medical treatment only. Analysiswas performed as non-forensic testing and these resultsshould be used only by healthcare providers torender diagnosis or treatment, or to monitor progress ofmedical conditions.LDT Notes:Confirmation tests were developed and their analyticalperformance characteristics have been determined by [employer]. It has not been cleared orapproved by the FDA. This assay has been validated pursuantto the CLIA regulations and is used for clinical purposes.Healthcare Providers needing Interpretation assistance,please contact us at [phone] ( ) M-F,8am to 10pm ESTPERFORMING SITE:FORMERLY [facility] [employer] [facility], [address] [place] [phone] Loom Fixer: TRACY IVY MD, CLIA:[id number] Urine (Urine, Random) 10/03/2024 9:45 AM EDT 10/03/2024 4:38 PM EDT Rocio Christie DO LAB URINE ORDERABLES Final R esult [facility] [address] [place] [phone] * POCT HGB A1C (09/20/2024 11:18 AM EDT) Hemoglobin A1C 5.7 4.0 - 5.7 % QC Media Lot # [id number] Lot# Expiration Date Blood 09/20/2024 11:1 8 AM EDT Rocio Christie DO POINT OF CARE TEST ENTER/ADAM T ORDERABLES Final Result * POCT Glucose (09/20/2024 11:17 AM EDT) Glucose Blood, POC 106 60 - 200 mg/dL QC Media Lot # [id number] Lot# Expiration Date [id number] Blood Capillary blood specimen / Unknown 09/20/2024 11:17 AM EDT Rocio Christie DO POINT OF CARE TEST ENTER/ADAM T ORDERABLES Final Result * BI Mammogram Screening Tomosynthesis Bilateral (09/14/2024 10:20 AM EDT) Anatomical Region Laterality Modality Breast Bilateral Mammography 09/14/2024 10:2 0 AM EDT Narrative 09/30/2024 4:03 PM EDT [facility] [address] [place] [address] Mammography Report Signed Patient: Daly Neal MR#: [id number] : 1960 Acct:[id number] Age/Sex: 63 / F ADM Date: 09/14/24 Loc: HO.MAMMO Attending Dr: Rocio Christie DO Ordering Physician: Rocio Christie DO Results: 1N egative Date of Service: 09/14/24 Follow Up: 1 Year From Orig ina Mammogram Procedure(s): MM tomosynthesis screening BI Accession Number(s): [id number] cc: Rocio Christie DO EXAMINATION: MM SCREENING DIGITAL BREAST TOMOSYNTHESIS, BILATERAL CLINICAL INFORMATION: Screening. Asymptomatic. COMPARISON: Mammography: Comparison is made with available priors TECHNIQUE: Digital breast mammography with tomosynthesis is performed in both the craniocaudal and mediolateral oblique views along with computer-aided detection (CAD). FINDINGS: There are scattered areas of fibroglandular density (ACR BI-RADS breast composition Category b). There are no significant masses, abnormal calcifications, [...] target due date for their next mammogram. Electronically signed by: Charisma Amaya DO 09/30/2024 04:00 PM EDT RP Dictated By: Charisma Amaya DO Signed By: <Electronically signed by Charisma Amaya DO in OV> 09/30/24 1600 DD/ 1020 TD/TT: 09/14/24 1039 Apparel Designer: Procedure Note Donotuseinterpreter, Image - 09/30/2024 [facility] [address] [place] [address] Mammography Report Signed Patient: Daly Neal EMR#: [id number] : 1960Acct:[id number] Age/Sex: 63 / FADM Date: 09/14/24 Loc: HO.MAMMO Attending Dr: Rocio Christie DO Ordering Physician: Rocio Christieults: 1N egative Date of Service: 09/14/24Follow Up: 1 Year From Orig inal Mammogram Procedure(s): MM tomosynthesis screening BI Accession Number(s): [id number] cc: Rocio Christie DO EXAMINATION: MM SCREENING DIGITAL BREAST TOMOSYNTHESIS, BILATERAL CLINICAL INFORMATION: Screening. Asymptomatic. COMPARISON: Mammography: Comparison is made with available priors TECHNIQUE: Digital breast mammography with tomosynthesis is performed in both the craniocaudal and mediolateral oblique views along with computer-aided detection (CAD). FINDINGS: There are scattered areas of fibroglandular density (ACR BI-RADS breast composition Category b). There are no significant masses, abnormal calcifications, [...] target due date for their next mammogram. Electronically signed by: Charisma Amaya DO 09/30/2024 04:00 PM EDT RP Dictated By: Charisma Amaya DO Signed By: <Electronically signed by Charisma Amaya DO in OV> 09/30/24 1600 DD/ 1020 TD/TT: 09/14/24 1039 Apparel Designer: Rocio Piedracitlalli DO IMG BI PROCEDURES Edited Res ult - Final * ThinPrep Imaging Pap and HPV mRNA E6/E7 with Reflex to HPV 16,18/45 (12/09/2023 12:00 AM EDT) HPV 16 RNA [facility] HPV 18/45 RNA [facility] HPV nRNA E6/E7 Not Detected Not Detected [facility] Comment:Methodology: Transcr iption-Mediated AmplificationThis assay detects E6/E7 viral messenger RNA (mRNA) from 14high-risk HPV types (16,18,31,33,35,39,45,51,52,56,58,59,66,68).Cervical sources are required for HPV testing.If a vaginal source from a patient who has had atotal hysterectomy with removal of cervix wassubmitted, please contact the testing laboratoryfor alternative testing options.For additional information, please refer [email or web address]/faq/[email or web address](This link if provided for information/educational purposes only.)THIS TEST WAS PERFORMED AT:[employer] [place] [phone] IVY MD SOURCE: SEE NOTE [facility] Comment:None given Report Status: [facility] Clinical Information: SEE NOTE [facility] Comment:None given LMP: SEE NOTE [facility] Comment:NONE GIVEN Prev. PAP: SEE NOTE [facility] Comment:NONE GIVEN Prev. BX: SEE NOTE [facility] Comment:NONE GIVEN Statement Of Adequacy: SEE NOTE [facility] Comment:Satisfactory for lyric luation.Endocervical/transformation zone componentpresent.Partially obscuring inflammation General Categorization: [facility] Interpretation/Result: SEE NOTE [facility] Comment:Cytology Results: Ne gative for intraepitheliallesion or malignancy. Cytology Comment SEE NOTE [facility] Comment:This Pap test has be en evaluated with computerassisted technology. Sheet Metal Shop Foreman: SEE NOTE [facility] Comment:RMM, CT(ASCP)CT scre ening location: [address] [address] Review Sheet Metal Shop Foreman: SEE NOTE [facility] Comment:MPG, CT(ASCP)CT scre ening location: [address] [address] Pathologist TNP [facility] PAP Infection TNP [facility] See Note SEE NOTE [facility] Comment:EXPLANATORY NOTE:The Pap is a screening test for cervical cancer. It isnot a diagnostic test and is subject to false negativeand false positive results. It is most reliable when asatisfactory sample, regularly obtained, is submittedwith relevant clinical findings and history, and whenthe Pap result is evaluated along with historic andcurrent clinical information. 12/09/2023 12/09/2023 Narrative [facility] - 12/17/2023 12:02 PM EDT SEE SCANNED RESULTS IN EMR us Rocio Christie DO LAB PATHOLOGY ORDERABLES Fin al Result [facility] [address] [place] [phone] * Albumin, Random Urine W/Creatinine (03/03/2023 11:48 AM EST) Creatinine, Urine 64.66 mg/dL [facility] Microalbumin Urine 17.0 mg/L [facility] Microalbum Creatinine Ratio Ur 26.2 <30 ug/mg cr [facility] Comment:Albumin/Creatinine R atio Reference Ranges: Normal: < 30 ug/mg creatinine Microalbuminuria: 30 - 300 ug/mg creatinineClinical Albuminuria: > 300 ug/mg creatinine Urine (Urine, Random) 03/03/2023 11:48 AM EST 03/03/2023 1:14 PM EST Rocio Pratik DO LAB URINE ORDERABLES Final R esult Performing Organization Address City/[facility]/ZIP Co de Phone Number [facility] [address] [place] [phone] * Hepatitis C Antibody with Reflex to HCV, RNA, Quantitative, Real-Time PCR (03/03/2023 11:41 AM EST) Hepatitis C Antibody Nonreactive Nonreactive [facility] Comment:Antibodies to HCV no t detected; does not exclude early acuteHCV infection. Blood Venous blood specimen / Unknown 03/03/2023 11:41 AM EST 03/03/2023 1:18 PM EST Rocio Pratik LAB BLOOD ORDERABLES Final R pending sale to [facility] Performing Organization Address [facility] Co de Phone Number [facility] [address] [place] [phone] * HIV-1/2 Antigen and Antibodies, Fourth Generation, with Reflexes (03/03/2023 11:41 AM EST) HIV AB/AG Nonreactive Nonreactive [facility] Comment:HIV-1 p24 Ag and/or HIV-1/HIV-2 Ab not detected.A test result that is nonreactive does not exclude thepossibility of exposure to or infection with HIV-1 and/orHIV-2. Nonreactive results in this assay for individualswith prior exposure to HIV-1 and/or HIV-2 may be due toantigen and antibody levels that are below the limit ofdetection of this assay.The [employer] HIV Ag/Ab Combo assay result andsupplemental assay results should be interpreted inconjunction with the patient's clinical presentation,history and other laboratory results. If the results areinconsistent with clinical evidence, additional testing issuggested to confirm the result. Blood Venous blood specimen / Unknown 03/03/2023 11:41 AM EST 03/03/2023 1:18 PM EST Rocio Pratik DO LAB BLOOD ORDERABLES Final R esult Performing Organization Address City/[facility]/ZIP Co de Phone Number [facility] [address] [place] [phone] * (ABNORMAL) Lipid Panel, Standard (03/03/2023 11:41 AM EST) Triglycerides 96 <150 mg/dL [facility] Comment:Desirable Triglyceri de: less than 150 mg/dLBorderline High Triglyceride 150-199 mg/dLHigh Triglyceride: 200-499 mg/dLVery High Triglyceride: greater than or equal to 5OO mg/dL Cholesterol 133 <200 mg/dL [facility] Comment:Desirable Cholestero l: less than 200 mg/dLBorderline High Cholesterol: 200-239 mg/dLHigh Cholesterol: greater than 239 mg/dL LDL Cholesterol Calculated 80 <100 mg/dL [facility] Comment:Desirable LDL: less than 100 mg/dLNear Optimal/Above Optimal LDL: 110- 129 mg/dLBorderline High LDL: 130-159 mg/dLHigh LDL: 160-189 mg/dLVery High LDL: greater than or equal to 190 mg/dL HDL Cholesterol 34(L) >40 mg/dL [facility] Comment:Desirable HDL: great er than 40 mg/dL Note: This HDL assay may give artificially low results in patients with liver disease. Blood Venous blood specimen / Unknown 03/03/2023 11:41 AM EST 03/03/2023 1:18 PM EST Rocio Christie DO LAB BLOOD ORDERABLES Final R esult Performing Organization Address City/[facility]/ZIP Co de Phone Number [facility] [address] [place] [phone] * Hm Colonoscopy (09/02/2012 11:00 AM EDT) Historical Provider MD HEALTH MAINTENANCE Final Result from Last 3 Months or Most Recently Relevant to Health Maintenance Insurance MEDIC[place] [id number] [facility] STANDARD * Guarantor: Daly Neal Account Type Relation to Patient Date of Phone Billing Address Personal/Family Self [address] Care Teams Plywood Layup Line Core Feeder Relationship Specialty Start Date End Date Rocio Christie DO [address] [place] [phone] PCP - General Family Medicine 03/22/18
--- OUTSIDE RECORDS SUMMARY | 2024-11-21 10:39 | XMS_ITS | Encounter Summary ---
Author Organization [employer] Address [address] [facility] 7t [place] [address] Care Team Providers Care Wind Projects Supervisor Name Role Phone Rocio Christie DO Primary Care Provider [phone] Encounter Details Date Type Department Care Team ([facility] st Contact Info) Description 05/10/2024 Refill [facility] MEDICINE [address] [place], [place] [phone] Rocio Christie DO [address] [place], [place] [phone] Chronic constipation Social History Tobacco Use Types [...] 12/13/2024 10:00 AM EDT Clinical Support [facility] MEDICINE [address] [place] [address] Marisa Sims RN 02/27/2025 3:00 PM EST Office Visit [facility] OPTOMETRY [address] [place] [address] Karen Acuña OD [address] [place] [address] documented as of this encounter Visit Diagnoses Diagnosis Chronic constipation Unspecified constipation documented in this encounter Additional Health Concerns Assessment Noted Time PHQ-9 Depression Total Score: 16 024 1:38 PM EDT documented as of this encounter Care Teams Wind Projects Supervisor Relationship Specialty Start Date End Date Rocio Christie DO [address] [place] [address] PCP - General Family Medicine 03/22/18 documented as of this encounter
--- OUTSIDE RECORDS SUMMARY | 2024-11-21 10:40 | XMS_ITS | Encounter Summary ---
Author Organization [employer] Address [address] [facility] 7t [place] [address] Care Team Providers Care Animal Control Specialist Name Role Phone Rocio hCristie DO Primary Care Provider + [phone] Reason for Visit * Reason Comments Med Refill Encounter Details Date Type Department Care Team (Late st Contact Info) Description 10/13/2023 Refill [facility] [address] [place], [place] [phone] Rocio Christie DO 230 [place], [place] [phone] Hand dermatitis Social History Tobacco Use Types [...] 10:00 AM EDT Clinical Support [facility] [address] [place] [address] Marisa Sims RN 02/27/2025 3:00 PM EST Office Visit [facility] OPTOMETRY [address] [place] [address] Karen Acuña, OD [address] [place] [address] documented as of this encounter Visit Diagnoses Diagnosis Hand dermatitis Contact dermatitis and other eczema, due to unspecified cause documented in this encounter Additional Health Concerns Assessment Noted Time PHQ-9 Depression Total Score: 16 024 1:38 PM EDT documented as of this encounter Care Teams Animal Control Specialist Relationship Specialty Start Date End Date Rocio Christie DO [address] [place] [address] PCP - General Family Medicine 03/22/18 documented as of this encounter
--- OUTSIDE RECORDS SUMMARY | 2024-11-21 10:40 | XMS_ITS | Encounter Summary ---
Author Organization [employer] Address [address] [facility] 7t [place] [address] Care Team Providers Care [facility] Shift Lead Name Role Phone Oly Christienifer Primary Care Provider [phone] Encounter Details Date Type Department Care Team ([facility] st Contact Info) Description 05/18/2024 Orders Only [facility] MEDICINE [address] [place], [place] [phone] Soraya Oneal MD [address] [place], [place] [phone] Social History Tobacco Use Types Packs/Day Years [...] Description 12/13/2024 10:00 AM EDT Clinical Support [facility] MEDICINE [address] [place] [address] Marisa Sims RN 02/27/2025 3:00 PM EST Office Visit [facility] OPTOMETRY [address] [place], [place] [phone] Karen Acuña, OD [address] [place] [address] documented as of this encounter Visit Diagnoses Not on filedocumented in this encounter Additional Health Concerns Assessment Noted Time PHQ-9 Depression Total Score: 16 024 1:38 PM EDT documented as of this encounter Care Teams [facility] Shift Lead Relationship Specialty Start Date End Date Rocio Christie DO [address] [place] [address] PCP - General Family Medicine 03/22/18 documented as of this encounter
--- OUTSIDE RECORDS SUMMARY | 2024-11-21 10:40 | XMS_ITS | Encounter Summary ---
Author Organization [employer] Address [address] [facility] 7t [place] [address] Care Team Providers Care Animal Skinner Name Role Phone Rocio Christie DO Primary Care Provider + [phone] Encounter Details Date Type Department Care Team (Late st Contact Info) Description 05/19/2024 Orders Only [facility] [address] [place] [address] Provider, MD Seb Social History Tobacco Use [...] Description 12/13/2024 10:00 AM EDT Clinical Support [facility] MEDICINE [address] [place] [address] Marisa Sims RN 02/27/2025 3:00 PM EST Office Visit [facility] OPTOMETRY [address] [place], [place] [phone] Karen Acuña, OD [address] [place] [address] documented as of this encounter Procedures Procedure [...] as of this encounter Care Teams Animal Skinner Relationship Specialty Start Date End Date Rocio Christie DO 230 [place] [address] PCP - General Family Medicine 03/22/18 documented as of this encounter
--- OUTSIDE RECORDS SUMMARY | 2024-11-21 10:40 | XMS_ITS | Encounter Summary ---
Author Organization [employer] Address [address] [facility] 7t [place] [address] Care Team Providers Care Rodeo Clown Name Role Phone PratikRocio Primary Care Provider + [phone] Reason for Visit * Reason Comments Med Refill Encounter Details Date Type Department Care Team ([facility] st Contact Info) Description 09/23/2023 Refill [facility] MEDICINE [address] [place], [place] [phone] Jania Mcduffie MD [address] [place], [place] [phone] Other chronic pain Social History Tobacco Use [...] 12/13/2024 10:00 AM EDT Clinical Support [facility] MEDICINE [address] [place] [address] Marisa Sims, RN 02/27/2025 3:00 PM EST Office Visit [facility] OPTOMETRY [address] [place] [address] Karen Acuña, OD [address] [place] [address] documented as of this encounter Visit Diagnoses Diagnosis Other chronic pain documented in this encounter Additional Health Concerns Assessment Noted Time PHQ-9 Depression Total Score: 16 024 1:38 PM EDT documented as of this encounter Care Teams Rodeo Clown Relationship Specialty Start Date End Date Rocio Christie DO [address] [place] [address] PCP - General Family Medicine 03/22/18 documented as of this encounter
--- OUTSIDE RECORDS SUMMARY | 2024-11-21 10:40 | XMS_ITS | Encounter Summary ---
Author Organization [employer] Address [address] [place] [address] [address] [place] [address] Care Team Providers Care Internet Marketing Manager Name Role Phone Rocio Christie DO Primary Care Provider [phone] Encounter Details Date Type Department Care Team (Late st Contact Info) Description 04/01/2022 [facility] Only [facility] [address] [place] [address] Rocio Christie DO [address] [place] [address] Social History Tobacco Use Types Packs/Day Years [...] Description 12/13/2024 10:00 AM EDT Clinical Support [facility] MEDICINE [address] [place], [place] [phone] Marisa Sims RN 02/27/2025 3:00 PM EST Office Visit [facility] OPTOMETRY [address] [place], [place] [phone] Karen Acuña OD [address] [place] [address] documented as of this encounter Visit Diagnoses Not on filedocumented in this encounter Care Teams Internet Marketing Manager Relationship Specialty Start Date End Date Rocio Christie DO [address] [place] [address] PCP - General Family Medicine 03/22/18 documented as of this encounter
--- OUTSIDE RECORDS SUMMARY | 2024-11-21 10:40 | XMS_ITS | Encounter Summary ---
Author Organization [employer] Address [address] [place] [address] 7 [place] [address] Care Team Providers Care Leak Patcher Name Role Phone Rocio Christie DO Primary Care Provider Encounter Details Date Type Department Care Team (Late Contact Info) Description 05/18/2022 Abstract [facility] MEDICINE [address] [place], [place] [phone] Rocio Christie DO [address] [place] [address] Social History Tobacco Use Types Packs/Day Years [...] Description 12/13/2024 10:00 AM EDT Clinical Support [facility] MEDICINE [address] [place] [address] Marisa Sims RN 02/27/2025 3:00 PM EST Office Visit [facility] OPTOMETRY [address] [place] [address] Karen Acuña, OD [address] [place] [address] documented as of this encounter Visit Diagnoses Not on filedocumented in this encounter Care Teams Leak Patcher Relationship Specialty Start Date End Date Rocio Christie DO [address] [place] [phone] PCP - General Family Medicine 03/22/18 documented as of this encounter
--- OUTSIDE RECORDS SUMMARY | 2024-11-21 10:40 | XMS_ITS | Encounter Summary ---
Author Organization [employer] Address [address] [facility] 7t [place] [address] Care Team Providers Care Handbag Designer Name Role Phone Rocio Christie DO Primary Care Provider [phone] Reason for Visit * Reason Comments Med Refill Encounter Details Date Type Department Care Team ([facility] st Contact Info) Description 11/30/2023 Refill [facility] [address] [place], [place] [phone] Rocio Christie DO [address] [place] [address] Insomnia, unspecified type; Chronic bilateral low back [...] Description 12/13/2024 10:00 AM EDT Clinical Support [facility] MEDICINE [address] [place] [address] Marisa Sims RN 02/27/2025 3:00 PM EST Office Visit [facility] OPTOMETRY [address] [place], [place] [phone] Karen Acuña, OD [address] [place] [address] documented as of this encounter Visit Diagnoses Diagnosis Insomnia, unspecified type Chronic bilateral low back pain without sciatica documented in this encounter Additional Health Concerns Assessment Noted Time PHQ-9 Depression Total Score: 16 024 1:38 PM EDT documented as of this encounter Care Teams Handbag Designer Relationship Specialty Start Date End Date Rocio Christie DO [address] [place] [address] PCP - General Family Medicine 03/22/18 documented as of this encounter
== END 2024-11-21 09:34 | disposition home or self-care (01) ==
LOC: HO.HHCX 09:33
PROVIDERS: Visit Provider Family Medicine
DX: J44.1 Chronic obstructive pulmonary disease with (acute) exacerbation (principal)
CPT/HCPCS: 71046

== ENCOUNTER → 2024-11-21 09:34 | Outpatient (BNV) | payer MEDICAID, SELFPAY | PROVIDERS: Visit Provider Radiology Diagnostic Radiology | DX: J44.9 Chronic obstructive pulmonary disease, unspecified (principal) | CPT/HCPCS: 71046 ==

== ENCOUNTER 2024-12-11 13:38 | Outpatient (AMB) | payer MEDICARE, MEDICAID, SELFPAY ==
[2024-12-11 13:40] VITALS: BMI 31.5
--- NOTE | 2024-12-11 13:40 | MHC.OFFVIS ---
Vital Signs 12/11/24 13:40 Height 5 ft 7 in Weight 201 lb BMI 31.5 Intake Visit Reasons: OV-Right Hip OA - discuss KURTIS Intake Note: Daly 64 yr old female presents today for her follow up visit to discuss right hip O.A pain. Patient states there are no changes in pain or in medical history. Patient states her PCP sent her for an MRI and would like Dr Gipson to review. Allergies morphine (MORPHINE) Allergy (Unknown, Verified 12/11/24 13:45) HIVES AND RASH, hives HPI HPI OV-Right Hip OA - discuss KURTIS: Details: This is a 64 yo F with continued right hip pain. She describes right groin pain that is present with activity and while moving and trying to sleep. She is limited in almost all activities and is frustrated by this. She has a hip injection ~5 months ago that was helpful but only for one week. Now she uses a cane and feels that she is unable to engage in daily activities without pain. PFS Medical History GERD (gastroesophageal reflux disease) Hx of sleep apnea Asthma History of salivary gland disease Diabetes Costochondritis Depression Dyslipidemia Hypertension Surgical History Hx of cholecystectomy History of surgery on arm Hx of elbow surgery Hx of arthroscopy of left knee History of lung surgery S/P left rotator cuff repair History of carpal tunnel release Family History Mother HTN (hypertension) Maternal Grandfather HTN (hypertension) Son HTN (hypertension) Diabetes Father Diabetes Social History Household Members: Children Housing: House Are you a primary care transitions nurse to a significant other at home: No Do you presently have visiting nurse or other home services: No Alcohol intake: never Patient Tobacco Use Status: Current everyday Tobacco user Tobacco use type: Cigarette Cigarettes Per Day: 10 Years Smoked: 40 Physical Exam Exam Exam: Pleaseant F in NAD. She has an antalgic gait and uses a cane. She has a + [place] and a + impingement test Vital Signs: BMI result Body Mass Index 31.5 Results Reviewed Results Reviewed: I personally reviewed relevant radiographs. She has a subchondral acetabular cyst in the superior weight bearing portion of the right acetabulum I personally reviewed the MR images. Assessment & Plan Assessment & Plan (1) Osteoarthritis of right hip: Code(s): M16.11 - Unilateral primary osteoarthritis, right hip Category: Medical Plan: This is a 64-year-old woman with symptomatic right hip OA. She has a large subchondral cyst that is painful. She did have temporary relief with a steroid injection but overall mild relief. I think she would benefit from arthroplasty but she is very scared of any surgery. In the absence of surgery and injections would recommend physical therapy and activity as tolerated. She can let me know if she changes her mind but at this time she is adamant that she does not want surgical intervention. I would recommend she continue with the pain management doctors. Coding Level of Care Code Est Pt Level 3 (21938) Diagnoses Osteoarthritis of right hip M16.11
--- OUTSIDE RECORDS SUMMARY | 2024-12-11 16:06 | XMS_ITS | Encounter Summary ---
Demographics Address [address] [place] [address] [address] [place] [address] Mobile Phone Home Phone
--- OUTSIDE RECORDS SUMMARY | 2024-12-11 16:07 | XMS_ITS | Encounter Summary ---
Demographics Address [address] [place] [address] [address] [place] [address] Mobile Phone Home Phone Work Phone
--- OUTSIDE RECORDS SUMMARY | 2024-12-11 16:07 | XMS_ITS | Encounter Summary ---
Author Organization [employer] Address [address] [place] [address] 7 [place] [address] Support Name Relationship Address Phone
== END 2024-12-11 16:27 | disposition home or self-care (01) ==
PROVIDERS: Visit Provider Orthopaedic Surgery
DX: M16.11 Unilateral primary osteoarthritis, right hip (principal)
CPT/HCPCS: 99213

== ENCOUNTER → 2024-12-11 13:38 | Outpatient (BNVA) | payer MEDICARE, MEDICAID, SELFPAY | PROVIDERS: Visit Provider Orthopaedic Surgery | DX: M16.11 Unilateral primary osteoarthritis, right hip (principal) | CPT/HCPCS: 99212 ==

== ENCOUNTER 2025-01-16 10:55 | Outpatient (AMB) | payer MEDICARE, MEDICAID, SELFPAY ==
[2025-01-16 11:01] VITALS: BP 140/86; PULSE 99; O2SAT 96; BMI 31.6
--- NOTE | 2025-01-16 11:01 | MHC.OFFVIS ---
Vital Signs 01/16/25 11:01 Height 5 ft 7 in Weight 202 lb BMI 31.6 BP 140/86 H Blood Pressure Location Rt brachial Position Sitting Pulse 99 Pulse Source Pulse Oximeter Pulse Oximetry (%) 96 Oxygen Delivery Method Room Air Intake Visit Reasons: COPD Allergies morphine (MORPHINE) Allergy (Unknown, Verified 12/11/24 13:45) HIVES AND RASH, hives HPI HPI COPD: Details: 64-year-old lady, active 45 pack-years+ smoker, status post left lower lobectomy in July of 2019 for growing pulmonary nodule (atypical adenomatous hyperplasia), followed for moderate COPD and obstructive sleep apnea. ? Patient continues on Symbicort, and albuterol MDI with reasonable control of her symptoms. After the last office visit she had bronchoscopy with bronchoalveolar lavage and negative cultures. She denies recent exacerbations. She has been using her CPAP machine with good control of her underlying obstructive sleep apnea. [facility] Medical History GERD (gastroesophageal reflux disease) Hx of sleep apnea Asthma History of salivary gland disease Diabetes Costochondritis Depression Dyslipidemia Hypertension Surgical History Hx of cholecystectomy History of surgery on arm Hx of elbow surgery Hx of arthroscopy of left knee History of lung surgery S/P left rotator cuff repair History of carpal tunnel release Family History Mother HTN (hypertension) Maternal Grandfather HTN (hypertension) Son HTN (hypertension) Diabetes Father Diabetes Social History Household Members: Children Housing: House Are you a primary wild animal caretaker to a significant other at home: No Do you presently have visiting nurse or other home services: No Alcohol intake: never Patient Tobacco Use Status: Current everyday Tobacco user Tobacco use type: Cigarette Cigarettes Per Day: 10 Years Smoked: 40 Review of Systems Const Denies daytime sleepiness, Denies excessive sweating, Denies fatigue, Denies fever(s), Denies lethargy, Denies malaise, Denies night sweats, Denies snoring and Denies weight loss Eyes Denies blurry vision and Denies itchy eyes ENT Denies nasal congestion, Denies post nasal drip, Denies sinus pain, Denies sinus pressure and Denies other ( Thrush) Card Denies chest pain, Denies pedal edema, Denies dyspnea, Denies orthopnea and Denies paroxysmal nocturnal dyspnea Resp Denies cough, Denies hemoptysis, Denies excessive phlegm production, Denies dyspnea, Denies snoring and Denies wheezing GI Denies abdominal pain and Denies heartburn Musc Denies myalgias, Denies arthralgias and Denies joint swelling Skin/Breast Denies rash Neuro Denies memory loss and Denies seizure-like activity Psych Denies abnormal sleep pattern, Denies anxiety and Denies memory loss Endo Denies excessive sweating, Denies fatigue and Denies heat intolerance Simba/Lymph Denies easy bruising Aller/Immun Denies itchy eyes, Denies seasonal rhinorrhea and Denies wheezing Physical Exam Vital Signs: Last Vital Signs Pulse 99 01/16/25 11:01 BP 140/86 H 01/16/25 11:01 Pulse Ox 96 01/16/25 11:01 Oxygen Delivery Method Room Air 01/16/25 11:01 BMI result Body Mass Index 31.6 Const General: no acute distress and alert Nutritional Appearance: not obese Orientation/consciousness: Other orientation findings ( oriented) HEENT Head: Yes atraumatic Eyes General: appearance normal, both eyes and all related structures Sclerae: sclerae normal EOM: EOMs intact bilaterally Neck Neck: Yes supple Lymphatic: no lymphadenopathy noted Resp Effort & Inspection: normal respiratory effort and no use of accessory muscles Auscultation: clear to auscultation bilaterally Cardio Rate: regular rate Rhythm: regular rhythm Heart sounds: no gallops, no murmurs and no rubs Skin General skin exam: other ( warm) Extrem General: No clubbing, No cyanosis and No edema Assessment & Plan Assessment & Plan (1) COPD (chronic obstructive pulmonary disease): Code(s): J44.9 - Chronic obstructive pulmonary disease, unspecified Category: Medical Plan: Well controlled on current regimen of Symbicort and albuterol MDI. Continue current regimen. (2) DANDRE (obstructive sleep apnea): Code(s): G47.33 - Obstructive sleep apnea (adult) (pediatric) Category: Medical Plan: Well controlled on current CPAP therapy. Continue CPAP therapy. (3) Personal history of nicotine dependence: Code(s): Z87.891 - Personal history of nicotine dependence Category: Medical Plan: Will refer to lung cancer screening program. Orders: Referrals Lung Cancer Screening Referral Z87.891 - Personal history of nicotine dependence Coding Level of Care Code Est Pt Level 4 (00855) Complex EM visit Add On G2211 Diagnoses COPD (chronic obstructive pulmonary disease) J44.9 DANDRE (obstructive sleep apnea) G47.33 Personal history of nicotine dependence Z87.891
== END 2025-01-16 11:22 | disposition home or self-care (01) ==
LOC: HO.HPS 10:56
PROVIDERS: PCP Family Medicine; Visit Provider Internal Medicine Pulmonary Disease
DX: J44.9 Chronic obstructive pulmonary disease, unspecified (principal); G47.33 Obstructive sleep apnea (adult) (pediatric); Z87.891 Personal history of nicotine dependence
CPT/HCPCS: 99214; G2211

== ENCOUNTER → 2025-01-16 10:55 | Outpatient (BNVA) | payer MEDICARE, MEDICAID, SELFPAY | PROVIDERS: PCP Family Medicine; Visit Provider Internal Medicine Pulmonary Disease | DX: J44.9 Chronic obstructive pulmonary disease, unspecified (principal); Z87.891 Personal history of nicotine dependence; G47.33 Obstructive sleep apnea (adult) (pediatric); Z99.89 Dependence on other enabling machines and devices; Z90.2 Acquired absence of lung [part of] | CPT/HCPCS: 99212 ==

== ENCOUNTER 2025-03-05 11:20 | Outpatient (REF) | payer MEDICARE, MEDICAID, SELFPAY ==
[2025-03-05 14:04] LABS: Hematocrit 47.6 % (37.0-47.0); Hemoglobin 15.4 g/dl (12.0-16.0); Mean Corpuscular HGB Conc 32.4 g/dl (31.0-35.0); Mean Corpuscular Hemoglobin 27.7 pg (27.0-33.0); Mean Corpuscular Volume 85.6 fL (80.0-98.0); NRBC Abs Auto 0.000 X10*3/uL (0.0-0.012); NRBC Pct Auto 0.0 /100WBC (0.0-0.2); Platelet Count 278 X10*3/uL (160-400); Red Blood Count 5.56 X10*6/uL (4.20-5.50); White Blood Count 10.2 X10*3/uL (4.8-10.8)
[2025-03-05 14:19] LABS: Alanine Aminotransferase 22 U/L (0-31); Albumin Level 4.4 g/dL (3.5-5.0); Alkaline Phosphatase 97 U/L (39-117); Anion Gap 10 (12-20); Aspartate Amino Transferase 31 U/L (5-31); Blood Urea Nitrogen 12 mg/dL (9-16); Calcium 9.6 mg/dL (8.4-10.2); Carbon Dioxide 31 mmol/L (22-29); Chloride 105 mmol/L (96-108); Cholesterol 116 mg/dL (<200); Estimated Glomerular Filt Rate > 60; HDL Cholesterol 28 mg/dL (>40); Potassium 3.9 mmol/L (3.3-5.1); Sodium 142 mmol/L (135-145); Total Protein 6.7 g/dL (6.5-8.0); Triglycerides 140 mg/dL (<150)
[2025-03-05 14:20] LABS: Microalbum/Creatinine Ratio Ur 61.8 ug/mg cr (<30)
[2025-03-05 14:39] LABS: Free T4 (Free Thyroxine) 1.06 ng/dL (0.71-1.85); Thyroid Stimulating Hormone 1.36 uIU/mL (0.32-4.0)
[2025-03-06 05:17] LABS: HBS Num1 57.34 mIU/mL (0-7.99); HBsAGNum1 0.52 S/CO (0.00-0.99); HIV Num 1 0.06 S/CO (0.00-0.99); Hepatitis B Surface Antigen Negative (Negative); ~HepC Num1 0.10 S/CO (0.00-0.79); ~Hepatitis B Surface Antibody REACTIVE (Nonreactive); ~Hepatitis C Antibody Nonreactive (Nonreactive)
== END 2025-03-05 11:21 | disposition home or self-care (01) ==
LOC: HO.HHCL 11:20
PROVIDERS: PCP Family Medicine; Visit Provider Family Medicine
DX: E11.42 Type 2 diabetes mellitus with diabetic polyneuropathy (principal); E78.2 Mixed hyperlipidemia; Z20.2 Contact with and (suspected) exposure to infections with a predominantly sexual mode of transmission; Z11.4 Encounter for screening for human immunodeficiency virus [HIV]; Z68.34 Body mass index [BMI] 34.0-34.9, adult
CPT/HCPCS: 36415; 80048; 80061; 80076; 82043; 82105; 82306; 82550; 82570; 83036; 84439; 84443; 85027; 86592; 86706; 86803; 87340; 87389

== ENCOUNTER 2025-03-12 10:06 | Outpatient (REF) | payer MEDICARE, MEDICAID, SELFPAY ==
--- OUTSIDE RECORDS SUMMARY | 2024-06-06 08:20 | XMS_ITS ---
Author Organization [facility] Address [address] [place] [phone] Care Team Providers Care Research Food Technologist Name Role Phone Pratik Ritchie, Rocio Primary Care Provider Rakel Mick Bates [phone] REASON FOR VISIT Patient presents today for EPIGASTRIC PAIN, COLON SCREENING Encounters Encounter Location Date Provider Diagnosis [facility] [address] [place] [phone] 06/06/2024 Mick Cook Plan Of Treatment No Information Progress Notes * VON ORTIZDOB:[birth year] (64 yo F)Acc No.[id number]:06/06/2024 Progress Notes Patient: VON DIETRICH Provider: Gigi Cook MD :1960 A ge:63 Y S ex:Female Date:06/06/2024 Address:[address] [place] [address] [address] , [facility] Pcp:Rocio Christie M.D. Subjective: * Chief Complaints: * P atient presents today for EPIGASTRIC PAIN, COLON SCREENING Billing Information: * Procedure Codes: * The named appointment provid er may or may not be the originator of this progress note, and it is not deemed complete until electronically signed by the appointment provider. Sign off status: Pending * Provider: Gigi Cook MD Date: 0 06/06/2024 Generated for Es storm/Shyanne/Aaronitting on: 1 05/13/2024 07:19 AM EST
--- NOTE | ~2025-03-12 | CT_ITS ---
EXAMINATION: CT LUNG SCREENING HISTORY: Z87.891 - Personal history of nicotine dependence TECHNIQUE: Low dose axial images were obtained from the sternal notch to upper abdomen without IV contrast per standard departmental protocol. Sagittal and coronal reformatted images were also obtained and reviewed. One or more of the following techniques was used for dose reduction: Automated exposure control, adjustment of the mA and/or kV according to patient size, use of iterative reconstruction technique. DLP: 63 mGy-cm COMPARISON: Comparison is made with the prior examination dated 10/10/2021. FINDINGS: Lung nodules: There is a 3-4 mm nodule in the left upper lobe (series 5, image 49) which is larger than on the prior study. No additional pulmonary nodules are identified. Emphysema: mild Coronary Calcification: moderate Aortic Arch Calcification: mild Potentially Significant Incidentals : none Additional Chest Findings: There is no pleural or pericardial effusion. No mediastinal or axillary lymphadenopathy is identified. The heart is enlarged. There is dilatation of the ascending thoracic aorta measuring up to 4.2 cm in diameter. Visualized upper abdomen: The visualized portions of the liver, spleen, and adrenals have an unremarkable unenhanced appearance. CT/CT lung screening IMPRESSION: No suspicious pulmonary nodules are identified. LUNG-RADS ASSESSMENT: Lung-RADS 2: Benign MANAGEMENT: Continue annual screening with LDCT in 12 months Category S: N/A Electronically signed by: Mick Gillespie MD 03/12/2025 12:47 PM [facility]
--- OUTSIDE RECORDS SUMMARY | 2025-03-12 12:12 | XMS_ITS | Encounter Summary ---
Author Organization [employer] Address [address] [facility] 7t [place] [address] Care Team Providers Care Balance Wheel Arm Burnisher Name Role Phone Rocio Christie DO Primary Care Provider + [phone] Encounter Details Date Type Department Care Team (Late st Contact Info) Description 07/01/2023 Orders Only [facility] MEDICINE [address] [place], [place] [phone] ProviderSeb MD Social History Tobacco Use Types [...] as of this encounter Plan of Treatment Not on file documented as of this encounter Procedures Procedure [...] documented as of this encounter Care Teams Balance Wheel Arm Burnisher Relationship Specialty Start Date End Date Rocio Christie DO [address] [place] [address] PCP - General Family Medicine 03/22/18 documented as of this encounter
--- OUTSIDE RECORDS SUMMARY | 2025-03-12 12:12 | XMS_ITS | Encounter Summary ---
Author Organization [employer] Address [address] [facility] [address]t [place] [address] Care Team Providers Care Blood Bank Business Manager Name Role Phone Rocio Christie DO Primary Care Provider + [phone] Reason for Visit * Reason Comments Med Refill Encounter Details Date Type Department Care Team (Late st Contact Info) Description 05/04/2024 Refill [facility] [address] [place], [place] [phone] Rocio Christie DO [address] [place] [address] Insomnia, unspecified type; Chronic bilateral low back [...] on file documented as of this encounter Visit Diagnoses Diagnosis Insomnia, unspecified type Chronic bilateral low back pain without sciatica documented in this encounter Additional Health Concerns Assessment Noted Time PHQ-9 Depression Total Score: 16 024 1:38 PM EDT documented as of this encounter Care Teams Blood Bank Business Manager Relationship Specialty Start Date End Date Rocio Christie DO [address] [place] [address] PCP - General Family Medicine 03/22/18 documented as of this encounter
--- OUTSIDE RECORDS SUMMARY | 2025-03-12 12:12 | XMS_ITS | Encounter Summary ---
Author Organization [employer] Address [address] [facility] 7t [place] [address] Care Team Providers Care Global Transportation Manager Name Role Phone Rocio Christie DO Primary Care Provider + [phone] Encounter Details Date Type Department Care Team (Late st Contact Info) Description 05/19/2024 Orders Only [facility] [address] [place], [place] [phone] ProviderSeb MD Social History Tobacco Use Types [...] documented as of this encounter Care Teams Global Transportation Manager Relationship Specialty Start Date End Date Rocio Christie DO [address] [place] [address] PCP - General Family Medicine 03/22/18 documented as of this encounter
--- OUTSIDE RECORDS SUMMARY | 2025-03-12 12:12 | XMS_ITS | Encounter Summary ---
Author Organization [employer] Address [address] [facility] [address]t [place] [address] Care Team Providers Care Yeast Maker Name Role Phone Rocio Christie DO Primary Care Provider + [phone] Reason for Visit * Reason Onset Date Comments Call Back Request 09/10/2023 Encounter Details Date Type Department Care Team ([facility] st Contact Info) Description 09/10/2023 Telephone [facility] MEDICINE [address] [place], [place] [phone] Rocio Christie DO [address] [place], [place] [phone] Call Back Request Social History Tobacco Use [...] patient, patients son taking her on vacation. BUSINESS DEVELOPMENT SPECIALIST RV rescheduled for 10/25/23. Pt c/o new diabetic medication is 'eating her fingernails.' She's also asking about when she's due for more labs. Will send message to PCP and [place]. * Telephone Encounter - Ashley Sheets - 09/10/2023 10:33 AM EDT Tc from pt requesting a call back pt is requesting r/s appt. documented in this encounter Plan of Treatment Not on file documented as of this encounter Visit Diagnoses Not on filedocumented in this encounter Additional Health Concerns Assessment Noted Time PHQ-9 Depression Total Score: 16 024 1:38 PM EDT documented as of this encounter Care Teams Yeast Maker Relationship Specialty Start Date End Date Rocio Christie DO [address] [place] [address] PCP - General Family Medicine 1/1/19 documented as of this encounter
--- OUTSIDE RECORDS SUMMARY | 2025-03-12 12:12 | XMS_ITS | Encounter Summary ---
Author Organization [employer] Address [address] [place] [address] 7t [place] [address] Care Team Providers Care Tunnel Kiln Repairer Name Role Phone Rocio Christie DO Primary Care Provider [phone] Encounter Details Date Type Department Care Team (Late st Contact Info) Description 05/18/2022 Abstract [facility] MEDICINE [address] [place], [place] [phone] Rocio Christie DO [address] [place] [address] Social History Tobacco Use Types Packs/Day Years [...] on filedocumented in this encounter Care Teams Tunnel Kiln Repairer Relationship Specialty Start Date End Date Rocio Christie DO [address] [place] [address] PCP - General Family Medicine 03/22/18 documented as of this encounter
--- OUTSIDE RECORDS SUMMARY | 2025-03-12 12:12 | XMS_ITS | Encounter Summary ---
Author Organization [employer] Address [address] [facility] [address]t [place] [address] Care Team Providers Care Supervisor Assembly And Packing Name Role Phone Rocio Christie DO Primary Care Provider + [phone] Reason for Visit * Reason Comments Med Refill Encounter Details Date Type Department Care Team ([facility] st Contact Info) Description 10/13/2023 Refill [facility] [address] [place], [place] [phone] Rocio Christie DO [address] [place], [place] [phone] Hand dermatitis Social History Tobacco Use Types [...] documented as of this encounter Care Teams Supervisor Assembly And Packing Relationship Specialty Start Date End Date Rocio Christie DO [address] [place] [address] PCP - General Family Medicine 03/22/18 documented as of this encounter
--- OUTSIDE RECORDS SUMMARY | 2025-03-12 12:12 | XMS_ITS | Encounter Summary ---
Author Organization [employer] Address [address] [place] [address] [address]t [place] [address] Care Team Providers Care Superintendent Logging Name Role Phone Rocio Christie DO Primary Care Provider + [phone] Reason for Visit * Reason Comments Med Refill Encounter Details Date Type Department Care Team (Late st Contact Info) Description 11/01/[address] [facility] MEDICINE [address] [place], [place] [phone] Rocio Christie DO [address] [place], [place] [phone] Essential hypertension Social History Tobacco Use Types [...] documented as of this encounter Care Teams Superintendent Logging Relationship Specialty Start Date End Date Rocio Christie DO [address] [place] [address] PCP - General Family Medicine 03/22/18 documented as of this encounter
--- OUTSIDE RECORDS SUMMARY | 2025-03-12 12:12 | XMS_ITS | Patient Health Record ---
Author Organization [facility] Address [address] [place] [address] Care Team Providers Care Gate Supervisor Name Role Phone Rocio Christie M.D. Primary Care Provider Rakel vailable Mick Cook Unavailable [phone] Reason For Referral Referring Provider First Name Rocio Referring Provider Last Name Pratik Referred Organization [facility] Referred Provider Mick Cook Referred Address [address] [place] [address],[facility] [address],[place], [place],[address], Referred Provider Specialty Gastroentero logy Referral Priority Routine Encounters Encounter Location Date Provider Diagnosis [facility] [address] [place] [address] 06/06/2024 Mick Cook Plan Of Treatment No Information Insurance Providers Payer Name Payer Address Payer Phone Subscriber Number Group Number Insured Name Patient Relationship to Insured Coverage Start Date Coverage End Date MEDICAID OF [facility] [address] [place] [phone] [id number] VON ORTIZ Self - patient is the insured
--- OUTSIDE RECORDS SUMMARY | 2025-03-12 12:12 | XMS_ITS | Encounter Summary ---
Author Organization [employer] Address [address] [facility] 7t [place] [address] Care Team Providers Care Rn Acute Name Role Phone DorotheaRocio lennon Primary Care Provider + [phone] Reason for Visit * Reason Onset Date Comments [facility] ELECTRONIC EQUIPMENT INSTALLER RV today 03/12/2025 Encounter Details Date Type Department Care Team ([facility] st Contact Info) Description 03/12/2025 Telephone [facility] MEDICINE [address] [place] [address] Marisa Sims, [place] ELECTRONIC EQUIPMENT INSTALLER RV today Social History Tobacco Use Types Packs/Day Years Used Date Smoking Tobacco: Every Day Cigarettes Passive Smoke Exposure: Current Smokeless Tobacco: Never Alcohol Use Standard Drinks/Week Comments Never 0 (1 standard drink = 0.6 oz pur e alcohol) Depression Answer Date Recorded Patient Health Questionnaire-9 Score 19 03/02/2025 Patient Health Questionnaire-9 Score 19 03/02/2025 Last PHQ-9: Questionnaire Data Not on file 1 05/03/2024 Housing Stability Answer Date Recorded What is [...] Date Recorded Patient Health Questionnaire-2 Score 6 03/02/2025 Internet Access Answer Date Recorded Internet Access [...] Telephone Encounter - Marisa Sims RN - 03/12/2025 10:44 AM EST Pt was a [facility]NS for ELECTRONIC EQUIPMENT INSTALLER RV appointment today TC to patient, no answer. L/M asking her to call back to reschedule the appointment. documented in this encounter Plan of Treatment Not on file documented as of this encounter Goals Goal Patient Goal Type Associated Problems Recent Progress Patient-Stated? Author Help patients manage their type 2 diabetes Care Plan Help patients manage their type 2 diabetes No Zuleyka Zpeeda RN Weekly blood pressure task Care Plan Weekly blood pressure task No Zuleyka Zepeda RN Help patients manage their type 2 diabetes Care Plan Help patients manage their type 2 diabetes No Zuleyka Zepeda RN Patient has chronic kidney disease Care Plan Patient has chronic kidney disease No Zuleyka Zepeda RN Weekly blood pressure task Care Plan Weekly blood pressure task No Zuleyka Zepeda RN Patient has chronic kidney disease Care Plan Patient has chronic kidney disease Zuleyka De La Rosa RN Weekly blood pressure task Care Plan Weekly blood pressure task No Marisa Sims RN Weekly blood pressure task Care Plan Weekly blood pressure task No Marisa Sims RN Patient has chronic kidney disease Care Plan Patient has chronic kidney disease No Marisa Sims RN Patient has chronic kidney disease Care Plan Patient has chronic kidney disease No Marisa Sims RN Weekly blood pressure task Care Plan Weekly blood pressure task No Belén Oswald MA Weekly blood pressure task Care Plan Weekly blood pressure task No Belén Oswald MA Patient has chronic kidney disease Care Plan Patient has chronic kidney disease No Belén Oswald MA Patient has chronic kidney disease Care Plan Patient has chronic kidney disease No Belén Oswald MA Weekly blood pressure task Care Plan Weekly blood pressure task No Karen Acuña, OD Weekly blood pressure task Care Plan Weekly blood pressure task No Tarka Karen, OD Patient has chronic kidney disease Care Plan Patient has chronic kidney disease No TarkaFadumoKaren, OD Patient has chronic kidney disease Care Plan Patient has chronic kidney disease No Karen Acuña, OD Weekly blood pressure task Care Plan Weekly blood pressure task No Marisa Sims RN Weekly blood pressure task Care Plan Weekly blood pressure task No Marisa Sims RN Patient has chronic kidney disease Care Plan Patient has chronic kidney disease No Marisa Sims RN Patient has chronic kidney disease Care Plan Patient has chronic kidney disease No Marisa Sims RN Weekly blood pressure task Care Plan Weekly blood pressure task No Rocio Ayala PharmD Weekly blood pressure task Care Plan Weekly blood pressure task No Rocio Ayala PharmJoy Patient has chronic kidney disease Care Plan Patient has chronic kidney disease No Rocio Ayala, PharmD Patient has chronic kidney disease Care Plan Patient has chronic kidney disease No Rocio Ayala PharmD Weekly blood pressure task Care Plan Weekly blood pressure task No Belén Oswald MA Weekly blood pressure task Care Plan Weekly blood pressure task No Belén Oswald MA Patient has chronic kidney disease Care Plan Patient has chronic kidney disease No Belén Oswald MA Patient has chronic kidney disease Care Plan Patient has chronic kidney disease No Belén Oswald MA Weekly blood pressure task Care Plan Weekly blood pressure task No Dash Goodman MA Weekly blood pressure task Care Plan Weekly blood pressure task No Dash Goodman MA Patient has chronic kidney disease Care Plan Patient has chronic kidney disease No Dash Goodman MA Patient has chronic kidney disease Care Plan Patient has chronic kidney disease No Dash Goodman MA documented as of this encounter Visit Diagnoses Not on filedocumented in this encounter Additional Health Concerns Active Problems Noted Date Diagnosed Date Help patients manage their type 2 diabetes 02/05 Weekly blood pressure task 02/05/2025 Help patients manage their type 2 diabetes 02/05 Patient has chronic kidney disease 02/05/2025 Weekly blood pressure task 02/05/2025 Patient has chronic kidney disease 02/05/2025 Weekly blood pressure task 02/09/2025 Weekly blood pressure task 02/09/2025 Patient has chronic kidney disease 02/09/2025 Patient has chronic kidney disease 02/09/2025 Weekly blood pressure task 02/20/2025 Weekly blood pressure task 02/20/2025 Patient has chronic kidney disease 02/20/2025 Patient has chronic kidney disease 02/20/2025 Weekly blood pressure task 02/27/2025 Weekly blood pressure task 02/27/2025 Patient has chronic kidney disease 02/27/2025 Patient has chronic kidney disease 02/27/2025 Weekly blood pressure task 02/28/2025 Weekly blood pressure task 02/28/2025 Patient has chronic kidney disease 02/28/2025 Patient has chronic kidney disease 02/28/2025 Weekly blood pressure task 03/01/2025 Weekly blood pressure task 03/01/2025 Patient has chronic kidney disease 03/01/2025 Patient has chronic kidney disease 03/01/2025 Weekly blood pressure task 03/01/2025 Weekly blood pressure task 03/01/2025 Patient has chronic kidney disease 03/01/2025 Patient has chronic kidney disease 03/01/2025 Weekly blood pressure task 03/02/2025 Weekly blood pressure task 03/02/2025 Patient has chronic kidney disease 03/02/2025 Patient has chronic kidney disease 03/02/2025 Assessment Noted Time PHQ-9 Depression Total Score: 19 025 11:54 AM EST documented as of this encounter Care Teams Rn Acute Relationship Specialty Start Date End Date Rocio Christie DO [address] [place] [id number] PCP - General Family Medicine 03/22/18 documented as of this encounter
--- OUTSIDE RECORDS SUMMARY | 2025-03-12 12:12 | XMS_ITS | Encounter Summary ---
Author Organization [employer] Address [address] [place] [address] 7t [place] [address] Care Team Providers Care Garnett Feeder Name Role Phone Rocio Christie DO Primary Care Provider + [phone] Reason for Visit * Reason Comments Med Refill Encounter Details Date Type Department Care Team (Late st Contact Info) Description 07/23/2022 Refill [facility] MEDICINE [address] [place], [place] [phone] Rocio Christie DO [address] [place], [place] [phone] Other chronic pain; Insomnia, unspecified type Social [...] documented as of this encounter Care Teams Garnett Feeder Relationship Specialty Start Date End Date Rocio Christie DO [address] [place] [address] PCP - General Family Medicine 03/22/18 documented as of this encounter
--- OUTSIDE RECORDS SUMMARY | 2025-03-12 12:12 | XMS_ITS | Encounter Summary ---
Author Organization [employer] Address [address] [facility] 7t [place] [address] Care Team Providers Care Talend Developer Name Role Phone Rocio Christie DO Primary Care Provider + [phone] Reason for Visit * Reason Comments Med Refill Encounter Details Date Type Department Care Team (Late st Contact Info) Description 02/21/2024 Refill [facility] [address] [place], [place] [phone] Rocio Christie DO [address] [place], [place] [phone] New onset type 2 diabetes mellitus (CMS/HCC) [...] Diagnosis New onset type 2 diabetes mellitus (HCC) documented in this encounter Additional Health Concerns Assessment Noted Time PHQ-9 Depression Total Score: 16 024 1:38 PM EDT documented as of this encounter Care Teams Talend Developer Relationship Specialty Start Date End Date Rocio Christie DO [address] [place] [address] PCP - General Family Medicine 03/22/18 documented as of this encounter
--- OUTSIDE RECORDS SUMMARY | 2025-03-12 12:12 | XMS_ITS | Clinical Summary ---
Author Organization [facility] Address [address] [place] [address] Phone Care Team Providers Care Scanner Supervisor Name Role Phone Rocio Christie DO Primary Care Provider [phone] Allergies Active Allergy Reactions Criticality Noted Date Comments Morphine Hives 05/19/2024 Surgical History Surgery Date Site/Laterality Comments COLONOSCOPY PROCEDURE: HISTORICAL COLONOSCOPY ABDOMINAL SURGERY PROCEDURE: HISTORICAL ABDOMINAL SURGERY OTHER SURGICAL HISTORY 2017 PROCEDURE: [place] COLECTOMY PARTIAL W/ANASTOMOSIS; COMMENT: sigmoid/descending colon OTHER SURGICAL HISTORY PROCEDURE: PARTIAL REMOVAL OF LUNG Medical History Medical History Date Comments Asthma DX:Asthma History of diverticulitis of colon DX:History of diverticulitis of colon; COMMENT: surg repair 05/2017; sigmoid and descendign colon Lung nodule 2017 DX:Lung nodule; COMMENT: folllowed by PCP @ [facility] DANDRE (obstructive sleep apnea) DX :DANDRE [...] Used Date Smoking Tobacco: Every Day Cigarettes 0.5 Last attempted to quit: 08/08/2019 Smokeless Tobacco: Never Alcohol Use Standard Drinks/Week Comments No 0 (1 standard drink = 0.6 oz pur e alcohol) Comments Unknown Sex and Gender Information Value Date Recorded Sex Assigned at Female 05/19/2024 9:52 AM EST Legal Sex Female 12:18 AM EST Gender Identity Female 05/19/2024 9:52 AM EST Sexual Orientation Straight 05/19/2024 9: 52 AM EST Last Filed Vital Signs Vital Sign Reading [...] Last Done Comments Breast Cancer Screening 1959 Colorectal Cancer Screening: Colonoscopy 1959 Diabetes: Annual Foot Exam 12/05/1969 Diabetes: Annual Retina Eye Exam 12/05/1969 Hepatitis A Vaccines (1 of 2 - Risk 2-dose series) 12/05/1978 Cervical Cancer Screening: Pap Smear 12/05/1980 Hepatitis B Vaccines (1 of 3 - Risk 3-dose series) 2019 Osteoporosis Screening (Bone Density Screening) 02/28/2022 Social Influencers of Health Screening 02/28/2022 Depression Screening 03/22/2024 Diabetes: Annual Urine Albumin-Creatinine Ratio (uACR) 05/19/2024 Diabetes: Blood Sugar Control Test (HGBA1C) 08/13/2024 02/14/2024 COVID-19 Vaccine ( season) 2024 03/03/2023, 10/17/2021, 03/03/2021, Additional history exists Influenza Vaccine (#1) 2024 , 06/25/2022, 12/13/2020 Falls Risk Assessment 12/05/2024 Diabetes: Annual GFR (Glomerular Filtration Rate) 05/19/2025 [...] Pneumococcal Vaccine: 50+ Years Completed 06/25/2022, 05/13/2011 Hepatitis C Screening Completed 03/03/2023 RSV Immunization [...] LAB CHEMISTRY METHOD 05/19/2024 10:19 AM EST [facility] Potassium 4.2 3.5 - 5.5 mmol/L LAB CHEMISTRY METHOD 05/19/2024 10:19 AM EST [facility] Chloride 106 96 - 110 mmol/L LAB CHEMISTRY METHOD 05/19/2024 10:19 AM EST [facility] CO2 27 21 - 32 mmol/L LAB CHEMISTRY METHOD 05/19/2024 10:19 AM EST [facility] Anion Gap 6 [...] [facility] Comment:Calculation based on the [...] 05/19/2024 10:19 AM [facility] Blood Venous blood specimen / Unknown Venipuncture / Unknown 05/19/2024 9:18 AM EST 05/19/2024 9:26 AM EST us Rodney Silverman MD LAB BLOOD ORDERABLES Final R esult [facility] ([facility] [address] [place] [address], [place] [phone] from Last 3 Months or Most Recently Relevant to Health Maintenance Insurance [place] - [place] Care Teams Scanner Supervisor Relationship Specialty Start Date End Date Rocio Christie DO [address] [place] [address] PCP - General Internal Medicine 05/27/11
--- OUTSIDE RECORDS SUMMARY | 2025-03-12 12:12 | XMS_ITS | Encounter Summary ---
Author Organization [employer] Address [address] [facility] 7t [place] [address] Care Team Providers Care Electrical Plumbing Supervisor Name Role Phone Rocio Christie DO Primary Care Provider + [phone] Reason for Visit * Reason Comments Med Refill Encounter Details Date Type Department Care Team (Late st Contact Info) Description 02/15/2024 Refill [facility] [address] [place], [place] [phone] Rocio Christie DO [address] [place], [place] [phone] New onset type 2 diabetes mellitus (CMS/HCC) [...] documented as of this encounter Care Teams Electrical Plumbing Supervisor Relationship Specialty Start Date End Date Rocio Christie DO [address] [place] [address] PCP - General Family Medicine 03/22/18 documented as of this encounter
--- OUTSIDE RECORDS SUMMARY | 2025-03-12 12:12 | XMS_ITS | Encounter Summary ---
Author Organization [employer] Address [address] [facility] 7t [place] [address] Care Team Providers Care Electronic Bench Technician Name Role Phone Rocio Christie DO Primary Care Provider + [phone] Encounter Details Date Type Department Care Team ([facility] st Contact Info) Description 05/10/2024 Refill [facility] MEDICINE [address] [place], [place] [phone] Rocio Christie DO [address] [place], [place] [phone] Chronic constipation Social History Tobacco Use Types [...] documented as of this encounter Care Teams Electronic Bench Technician Relationship Specialty Start Date End Date Rocio Christie DO [address] [place] [address] PCP - General Family Medicine 03/22/18 documented as of this encounter
--- OUTSIDE RECORDS SUMMARY | 2025-03-12 12:12 | XMS_ITS | Encounter Summary ---
Author Organization [employer] Address [address] [facility] [address]t [place] [address] Care Team Providers Care Combining Machine Operator Name Role Phone Rocio Christie DO Primary Care Provider + [phone] Reason for Visit * Reason Comments Med Refill Encounter Details Date Type Department Care Team (Late st Contact Info) Description 11/30/2023 Refill [facility] [address] [place], [place] [phone] Rocio Christie DO [address] [place] [address] Insomnia, unspecified type; Chronic bilateral low back [...] documented as of this encounter Care Teams Combining Machine Operator Relationship Specialty Start Date End Date Rocio Christie DO [address] [place] [address] PCP - General Family Medicine 03/22/18 documented as of this encounter
--- OUTSIDE RECORDS SUMMARY | 2025-03-12 12:12 | XMS_ITS | Encounter Summary ---
Author Organization [employer] Address [address] [facility] 7t [place] [address] Care Team Providers Care Extrusion Utility Worker Name Role Phone Karina Christiefer Primary Care Provider + [phone] Reason for Visit * Reason Comments Med Refill Encounter Details Date Type Department Care Team (Late st Contact Info) Description 09/23/2023 Refill [facility] MEDICINE [address] [place], [place] [phone] Jania Mcduffie MD [address] [place], [place] [phone] Other chronic pain Social History Tobacco Use [...] documented as of this encounter Care Teams Extrusion Utility Worker Relationship Specialty Start Date End Date Rocio Christie DO [address] [place] [address] PCP - General Family Medicine 03/22/18 documented as of this encounter
--- OUTSIDE RECORDS SUMMARY | 2025-03-12 12:12 | XMS_ITS | Encounter Summary ---
Author Organization [employer] Address [address] [facility] 7t [place] [address] Care Team Providers Care Unarmed Security Officer Name Role Phone Rocio Christie DO Primary Care Provider + [phone] Reason for Visit * Reason Onset Date Comments Appointment Request 03/12/2025 Encounter Details Date Type Department Care Team ([facility] st Contact Info) Description 03/12/2025 Telephone [facility] MEDICINE [address] [place], [place] [phone] Rocio Christie DO [address] [place], [place] [phone] Appointment Request Social History Tobacco Use Types Packs/Day [...] encounter Miscellaneous Notes * Telephone Encounter - Theresa Guzman - 03/12/2025 11:17 AM EST Tc from pt requesting to reschedule missed apt today 03/12 Contact pt at [phone] documented in this encounter Plan of Treatment Not on file documented as of this encounter Goals Goal Patient Goal Type Associated Problems Recent Progress Patient-Stated? Author Help patients manage their type 2 diabetes Care Plan Help patients manage their type 2 diabetes No Zuleyka Zepeda RN Weekly blood pressure [...] Care Plan Weekly blood pressure task No Tarka, Karen, OD Weekly blood pressure task Care Plan Weekly blood pressure task No Tarka, Karen, OD Patient has chronic kidney disease Care Plan Patient has chronic kidney disease No Tarka Karen, OD Patient has chronic kidney disease Care Plan Patient has chronic kidney disease No Tarka Karen, OD Weekly blood pressure task Care Plan [...] blood pressure task No Rocio Ayala PharmD Patient has chronic kidney disease Care Plan Patient has chronic kidney disease No Rocio Ayala PharmJoy Patient has chronic [...] Plan Patient has chronic kidney disease No Belné Oswald MA Weekly blood pressure task Care Plan Weekly blood pressure task No Dash Goodman MA Weekly blood pressure task Care Plan Weekly blood pressure task No GoodmanDash shannon MA Patient has chronic kidney disease Care Plan Patient has chronic kidney disease No GoodmanDash shannon MA Patient has chronic kidney disease Care [...] documented as of this encounter Care Teams Unarmed Security Officer Relationship Specialty Start Date End Date Rocio Christie DO [address] [place] [id number] PCP - General Family Medicine 03/22/18 documented as of this encounter
--- OUTSIDE RECORDS SUMMARY | 2025-03-12 12:12 | XMS_ITS | Clinical Summary ---
Author Organization [employer] Address [address] [place] [address] [address] [place] [address] Care Team Providers Care Flight Attendant/Inflight Manager Name Role Phone Rocio Christie DO Primary Care Provider + [phone] Allergies Active Allergy Reactions Criticality Noted Date [...] patch on the skin in the morning. 2021 Active hydrOXYzine pamoate (Vistaril) 25 MG capsule Take 1 capsule by mouth every 6 (six) hours. 2021 Active naloxone (Narcan) 4 mg/0.1 mL nasal spray Administer 0.1 mL into affected nostril(s). 2020 Active nicotine (Nicoderm, Step 2) 14 MG/24HR patch Place 1 patch on the skin 1 (one) time each day. 2021 Active docusate sodium (Colace) 100 MG capsule TAKE 1 CAPSULE BY MOUTH TWICE DAILY NEEDED 180 capsule 3 2022 Active cloNIDine (Catapres) 0.1 MG tabletIndications:E ssential hypertension TAKE 1 TABLET BY MOUTH TWICE DAILY IN THE MORNING AND AT BEDTIME 180 tablet 2022 Active fluticasone (Flonase) 50 MCG/ACT nasal spray INHALE 2 SPRAYS IN EACH NOSTRIL ONCE DAILY 48 g 3 2023 Active loratadine (Claritin) 10 MG tablet TAKE 1 TABLET BY MOUTH ONCE DAILY DIRECTED 90 tablet 1 2023 Active Ventolin HFA 108 (90 Base) MCG/ACT inhalerIndications: Chronic obstructive pulmonary disease, unspecified COPD type (CMS/HCC) ([facility]) INHALE 2 PUFFS BY MOUTH EVERY 4 HOURS NEEDED FOR WHEEZING OR SHORTNESS OF BREATH 18 g 2 2023 Active Alcohol Swabs (Alcohol Prep) 70 % padsIndications:Typ e 2 diabetes mellitus without complication, without long-term current use of insulin ([facility]) USE DIRECTED TWICE DAILY 100 each 11 2023 Active nicotine (Nicoderm CQ) 14 MG/24HR patch Place 1 patch on the skin 1 (one) time each day at the same time. 42 patch 2023 Active nicotine (Nicoderm CQ) 7 MG/24HR patch Place 1 patch on the skin 1 (one) time each day at the same time. 14 patch 2023 Active simethicone (Mylicon,Gas-X) 125 MG capsule Take 1 capsule (125 mg) by mouth every 6 (six) hours if needed for flatulence. 60 capsule 2023 Active Blood Glucose Monitoring Suppl (ProsperWorksyle [place] Lite) w/Device kit Check BS twice a day as directed 1 kit 2023 Active pantoprazole (ProtoNix) 40 MG EC tablet TAKE 1 TABLET BY MOUTH EVERY MORNING 90 tablet 3 2024 Active hydrALAZINE (Apresoline) 50 MG tablet TAKE 1 AND 1/2 TABLETS BY MOUTH IN THE MORNING AND AT BEDTIME 270 tablet 3 2024 Active cholecalciferol VITAMIN D (Vitamin D-3) 50 MCG (2000 UT) tablet TAKE 1 TABLET BY MOUTH EVERY MORNING 90 tablet 3 2024 Active Aspirin Low Dose 81 MG EC tablet TAKE 1 TABLET BY MOUTH AT BEDTIME 90 tablet 3 2024 Active lisinopril 40 MG tablet TAKE 1 TABLET BY MOUTH AT BEDTIME 90 tablet 2024 Active Fiber-Lax 625 MG tabletIndications:C hronic constipation TAKE 1 TABLET BY MOUTH TWICE DAILY IN THE MORNING AND IN THE EVENING 180 tablet 3 2024 Active atorvastatin (Lipitor) 20 MG tablet TAKE 1 TABLET BY MOUTH AT BEDTIME 90 tablet 3 2024 Active triamcinolone (Kenalog) 0.1 % creamIndications:Po st-inflammatory hyperpigmentation Apply topically 2 times daily. Inframammary areas for itching 30 g 2 2024 Active acetaminophen (Tylenol 8 Hour) 650 MG ER tabletIndications:P ain TAKE 1 TABLET BY MOUTH EVERY 8 HOURS NEEDED FOR PAIN OR FEVER DO NOT BREAK, CRUSH, DISSOLVE OR CHEW 60 tablet 2 2024 Active Multiple Vitamin (multivitamin) tablet Take 1 tablet by mouth Once per day. 90 tablet 3 2024 Active Diclofenac Sodium 1 % gel Apply 2 g topically if needed in the morning, at noon, in the evening, and at bedtime (pain). 150 g 3 2024 Active Emollient (Eucerin Advanced Repair) cream Apply 1 Application topically 2 times daily. 454 g 3 2024 Active senna (Senokot) 8.6 MG tabletIndications:C hronic constipation TAKE 2 TABLETS BY MOUTH EVERY DAY NEEDED FOR CONSTIPATION 180 tablet 1 2024 Active oxybutynin XL (Ditropan-XL) 5 MG 24 hr tablet Take 1 tablet (5 mg) by mouth Once per day. Do not crush, chew, or split. 90 tablet 3 02/10/20 25 12:05 PM EST 2024 Active triamcinolone (Kenalog) 0.1 % ointment APPLY TOPICALLY TWICE DAILY IN THE MORNING AND AT BEDTIME NEEDED FOR RASH 30 g 1 2024 Active baclofen (Lioresal) 20 MG tablet Take 0.5 tablets (10 mg) by mouth if needed in the morning, at noon, and at bedtime for muscle spasms. 60 tablet 3 2024 Active ipratropium-albuter ol (Duo-Neb) 0.5-2.5 mg/3 mL nebulizer solutionIndications :COPD exacerbation (CMS/HCC) (HCC) Take 3 mL by nebulization every 6 (six) hours if needed for wheezing or shortness of breath. 180 mL 2 11/21 Active Symbicort 160-4.5 MCG/ACT inhaler INHALE 2 PUFFS TWICE DAILY. RINSE MOUTH AFTER USING. 30.6 g 3 02/10/20 25 12:05 PM EST 2024 Active albuterol (2.5 MG/3ML) 0.083% nebulizer solutionIndications :Chronic obstructive pulmonary disease, unspecified ([facility]) INHALE 1 AMPULE USING A NEBULIZER EVERY 4 HOURS NEEDED FOR WHEEZING OR SHORTNESS OF BREATH 75 mL 4 2024 Active ibuprofen 800 MG tabletIndications:C hronic right hip pain TAKE 1 TABLET BY MOUTH THREE TIMES DAILY 90 tablet 4 2024 Active TRUEplus Lancets 33G miscIndications:Typ e 2 diabetes mellitus without complication, without long-term current use of insulin ([facility]) TEST BLOOD SUGAR ONCE DAILY 100 each 3 02/10/20 25 12:04 PM EST 2024 Active glucose blood (FREESTYLE LITE) test stripIndications:Ty pe 2 diabetes mellitus without complication, without long-term current use of insulin ([facility]) TEST BLOOD SUGAR ONCE DAILY 100 strip 3 02/10/20 25 12:05 PM EST 2024 Active zolpidem (Ambien) 10 MG tabletIndications:I nsomnia, unspecified type TAKE 1 TABLET BY MOUTH AT BEDTIME 28 tablet 02/15/20 25 3:19 PM EST 2024 Active hydroCHLOROthiazide 12.5 MG tabletIndications:E ssential hypertension TAKE 1 TABLET BY MOUTH EVERY MORNING 90 tablet 1 2024 Active polyvinyl alcohol (Liquifilm Tears) 1.4 % ophthalmic solutionIndications :Dry eyes, bilateral Administer 1 drop into both eyes if needed for dry eyes. 15 mL 5 02/29/20 25 2:58 PM EST 2024 Active escitalopram (Lexapro) 10 MG tabletIndications:D epression, unspecified depression type Take 1 tablet (10 mg) by mouth in the morning. 30 tablet 3 03/09/20 25 1:08 PM EST 2024 Active oxyCODONE (Roxicodone) 5 MG immediate release tabletIndications:C hronic bilateral low back pain without sciatica Take 1 tablet (5 mg) by mouth every 6 (six) hours if needed for severe pain. 112 tablet 03/12/20 25 11:22 AM EST 04/10 Active clotrimazole (Lotrimin) 1 % cream Apply topically if needed in the morning and at bedtime (rash) for up to 28 days. 60 g 2 03/05/20 25 12:13 PM EST 04/04 Active Tirzepatide (Mounjaro) 5 MG/0.5ML solution auto-injectorIndica tions:Type 2 diabetes mellitus without complication, without long-term current use of insulin (HCC) Inject 5 mg under the skin 1 (one) time per week. 2 mL 3 03/05/20 25 12:13 PM EST 2024 Active melatonin 5 MG tablet Take 1-2 tablets (5-10 mg) by mouth if needed at bedtime (insomnia). 60 tablet 3 03/05/20 25 12:13 PM EST 2024 Active predniSONE (Deltasone) 20 MG tablet Take 3 tabs PO daily x 3 days then take 2 tabs PO daily x 3 days then take 1 tab PO daily x 3 days 18 tablet 03/05/20 25 12:13 PM EST 2024 Active nystatin (Mycostatin) 984379 UNIT/GM powderIndications:C andidal intertrigo APPLY TOPICALLY TO AFFECTED AREA(S) THREE TIMES DAILY 120 g 3 03/05/20 25 12:13 PM EST 2024 Active polyvinyl alcohol (Liquifilm Tears) 1.4 % ophthalmic solution INSTILL 1 DROP IN EACH EYE THREE TIMES DAILY NEEDED 02/27 Discontinued nystatin (Mycostatin) [id number] UNIT/GM powderIndications:C andidal intertrigo APPLY TOPICALLY TO AFFECTED AREA(S) THREE TIMES DAILY 60 g 3 03/02 Discontinued( Dose adjustment) halobetasol (UltraVATE) 0.05 % ointmentIndications :Psoriasiform dermatitis Apply topically 2 times daily. 50 g 2 03/02 Discontinued( Med list cleanup (will not trigger notification to Pharmacy)) hydroCHLOROthiazide 12.5 MG tabletIndications:E ssential hypertension TAKE 1 TABLET BY MOUTH EVERY MORNING 90 tablet 1 02/26 Discontinued predniSONE (Deltasone) 10 MG tablet Take 6 tabs PO daily x 2 days then 5 tabs PO daily x 2 days then 4 tabs PO daily x 2 days then 3 tabs PO daily x 2 days then 2 tabs PO daily x 2 days then 1 tab PO daily x 2 days then 1/2 tab PO daily x 2 days 43 tablet 03/02 Discontinued( Dose adjustment) azithromycin (Zithromax) 250 MG tablet Take 2 tabs PO today then 1 tab PO daily x 4 days 6 tablet 03/02 Discontinued( Therapy completed) guaiFENesin (Mucinex) 600 MG 12 hr tablet Take 1 tablet (600 mg) by mouth if needed in the morning and at bedtime for cough or congestion. Do not crush, chew, or split. 30 tablet 03/02 Discontinued( Therapy completed) escitalopram (Lexapro) 10 MG tabletIndications:D epression, unspecified depression type TAKE 1 TABLET BY MOUTH EVERY MORNING 30 tablet 3 03/01 Discontinued( Reorder (will not trigger notification to Pharmacy)) mirtazapine (Remeron) 15 MG tabletIndications:I nsomnia, unspecified type TAKE 1 TABLET BY MOUTH AT BEDTIME 30 tablet 3 03/01 Discontinued( Reorder (will not trigger notification to Pharmacy)) Mounjaro 2.5 MG/0.5ML solution auto-injectorIndica tions:Type 2 diabetes mellitus without complication, without long-term current use of insulin (HCC) INJECT ONE PEN (=2.5MG) SUBCUTANEOUSLY ONCE A WEEK DIRECTED 2 mL 3 02/10/20 25 12:05 PM EST 03/02 Discontinued( Dose adjustment) oxyCODONE (Roxicodone) 5 MG immediate release tabletIndications:C hronic bilateral low back pain without sciatica TAKE 1 TABLET BY MOUTH EVERY 8 HOURS NEEDED FOR SEVERE PAIN FOR UP TO 28 DAYS 84 tablet 02/15/20 25 3:19 PM EST 03/02 Discontinued( Dose adjustment) mirtazapine (Remeron) 15 MG tabletIndications:I nsomnia, unspecified type Take 1 tablet (15 mg) by mouth at bedtime. 30 tablet 3 03/02 Discontinued( Side effects) Active Problems Problem Noted Date Diagnosed Date [...] changes -cont regular BS monitoring -re-referred to commissary officer for eval -cont lisinopril and lipitor daily -s/p optho eval DEC 2022 at [facility] for annual f/u -foot exam next [...] Self Plan Patient to reach out to [facility] team as needed, Comply with medication [...] Encounters Date Type Department Care Team Description 03/12/2025 Telephone [facility] MEDICINE [address] [place] [phone] Rocio Christie DO Appointment Request 03/12/2025 Telephone [facility] MEDICINE [address] [place] [phone] Marisa Sims, RN [employer] RV today 03/02/2025 11:45 AM EST Office Visit [address] [phone] Rocio Christie DO Chronic bilateral low back pain without sciatica (Primary Dx); Type 2 diabetes mellitus without complication, without long-term current use of insulin (HCC); Encounter for immunization; Body mass index (BMI) 34.0-34.9, adult; Encounter for screening for other viral diseases; Encounter for screening for infections with a predominantly sexual mode of transmission; Polyneuropathy, unspecified; Mixed hyperlipidemia; Candidal intertrigo 03/02/2025 Travel 03/01/2025 Telephone [facility] MEDICINE [address] [place] [address] Rocio Christie DO Chart Prep 03/01/2025 Refill [facility] CHC MED & PEDS [address], [place] [phone] Rocio Christie DO Insomnia, unspecified type; Depression, unspecified depression type 02/27/2025 3:00 PM EST Office Visit [facility] OPTOMETRY [address] [place] [address] Karen Acuña, SHANTELLE Type 2 diabetes mellitus without complication, without long-term current use of insulin (HCC) (Primary Dx); Combined forms of age-related cataract of both eyes; Hypermetropia, bilateral; Dry eyes, bilateral 02/27/2025 Travel 02/25/2025 Refill [facility] MEDICINE [address] [place] [address] Rocio Christie DO Essential hypertension 02/20/2025 Telephone [facility] MEDICINE [address] [place] [address] Rocio Christie DO Recall Appointment 02/20/2025 Travel 02/09/2025 Refill [facility] MED [facility] PEDS [address], [place] [phone] Rocio Christie DO Chronic bilateral low back pain without sciatica; Insomnia, unspecified type 02/05/2025 Refill [facility] MEDICINE [address] [place] [address] Zuleyka Zepeda RN Type 2 diabetes mellitus without complication, without long-term current use of insulin (HCC) 01/10/2025 Refill [facility] MED [facility] PEDS [address] [place] [address] Rocio Christie DO Chronic bilateral low back pain without sciatica; Insomnia, unspecified type 01/08/2025 Refill [facility] MED & PEDS [address] [place] [address] Rocio Christie DO Chronic bilateral low back pain without sciatica; Insomnia, unspecified type 01/03/2025 Refill [facility] WALK-IN CENTER [address] [place] [phone] Rocio Christie DO Chronic obstructive pulmonary disease, unspecified (HCC); Chronic right hip pain 12/13/2024 10:00 AM EDT Clinical Support [facility] MEDICINE [address] [place] [phone] Marisa Sims RN Long-term current use of opiate analgesic (Primary Dx) 12/13/2024 Refill [facility] MEDICINE [address] [place] [phone] Marisa Sims RN Chronic right hip pain (Primary Dx) 12/13/2024 Travel 12/12/2024 Refill [facility] WALK-IN CENTER [address] [place] [address] Rocio Christie DO 12/11/2024 Refill [facility] MED & PEDS [address] [place] [address] Rocio Christie DO Chronic bilateral low back pain without sciatica; Insomnia, unspecified type from Last 3 Months Immunizations Immunization Administration Dates Next Due Influenza injectable quadriv alent preservative free 03/03/2023,06/25/2022,12/13/2020 Influenza, High Dose Seasona l, Preservative Free 03/02/2025 MMR 04/30/2000 Pfizer Covid-19 Vaccine 12+ 03/03/2023 [...] Sign Reading Time Taken Comments Blood Pressure 134/96 03/02/2025 11:45 AM EST Pulse 76 03/02/2025 11:45 AM EST Temperature 36.1 C (97 F) 03/02/2025 11:45 AM EST Respiratory Rate 21 03/02/2025 11:45 AM EST Oxygen Saturation 96% 11/21/2024 8:56 AM EDT Inhaled Oxygen Concentration - - Weight 93 kg (205 lb) 03/02/2025 11:45 AM EST Height 165.1 cm (5' 5 ) 03/02/2025 11:45 AM EST Body Mass Index 34.11 03/02/2025 11:45 AM EST Plan of Treatment Health Maintenance Due Date Last Done Comments CT Colonography 1959 FIT DNA/Cologuard 1959 FIT 1959 FOBT 1959 Sigmoidoscopy 1959 Diabetes: Foot Exam 12/05/1969 Hepatitis A Vaccines (1 of 2 - Risk 2-dose series) 12/05/1978 Hepatitis B Vaccines (1 of 3 - Risk 3-dose series) 2019 Colonoscopy 09/02/2022 09/02/2012 Colorectal Cancer Screening 09/02/2022 SDOH Screening 10/03/2024 10/04/2023 COVID-19 Vaccine ( season) 2024 03/03/2023, 10/17/2021, 03/03/2021, Additional history exists Alcohol/Substance Use Screening 08/07/2025 08/07/2024 Depression Monitoring 08/31/2025 03/02/2025, 025 Diabetes: Hemoglobin A1C 09/03/2025 025, 03/02/2025, 09/20/2024, Additional history exists Mammogram 09/14/2025 09/14/2024, 08/21, 09/03/2022, Additional history exists Tobacco Screening 03/02/2026 03/02/2025 Diabetes: Urine Protein Screening 03/05/2026 03/05/2025, 03/03/2023 Lipid Panel 03/05/2026 03/05/2025, 02/19, 07/20/2022, Additional history exists Cervical Cancer Screening 12/08/2026 Pap Smear 12/08/2026 12/09/2023, 11/21, 12/13/2020 Eye Exam 02/27/2027 02/27/2025, 11/2024, 02/27/2025, Additional history exists HPV/Cotest 12/08/2028 12/09/2023, 11/21, 11/19/2017 DTaP/Tdap/Td Vaccines (3 - Td or Tdap) 08/05/2031 08/04/2021, 05/13/2011, 08/04/2007, Additional history exists Zoster Vaccines Completed 07/02/2021, 12/20/2020 Pneumococcal Vaccine: 50+ Years Completed 06/25/2022, 05/13/2011 RSV Patients and Patients Aged 60 years or older Completed 06/09/2023 Influenza Vaccine Completed 03/02/2025, , 06/25/2022, Additional history exists Hepatitis C Screening Completed 03/05/2025 , 03/03/2023, 07/20/2022, Additional history exists HIB Vaccines Aged Out No longer eligi [...] on patient's age to complete this topic Goals Goal Patient Goal Type Associated Problems [...] Care Plan Weekly blood pressure task No Mraisa Sims RN Patient has chronic kidney disease [...] chronic kidney disease No Rocio Ayala PharmD Patient has chronic [...] Plan Patient has chronic kidney disease No Orquidea Goodmanuyomy, ALESSANDRA Patient has chronic kidney disease Care Plan Patient has chronic kidney disease No Goodman, Mairaomy, ALESSANDRA Procedures Procedure Name Priority Date/Time Associated Diagnosis Comments ALPHA FETOPROTEIN, TUMOR MARKER Routine 03/05/2025 11:25 AM EST Type 2 diabetes mellitus without complication, without long-term current use of insulin (HCC) Mixed hyperlipidemia CREATINE KINASE, TOTAL Routine 03/05/2025 11:25 AM EST Type 2 diabetes mellitus without complication, without long-term current use of insulin (HCC) HEPATITIS B SURFACE ANTIBODY, QUALITATIVE Routine 03/05/2025 11:25 AM EST Type 2 diabetes mellitus without complication, without long-term current use of insulin (HCC) Encounter for screening for other viral diseases RPR (MONITOR) W/REFL TITER Routine 03/05/2025 11:25 AM EST Type 2 diabetes mellitus without complication, without long-term current use of insulin (HCC) Encounter for screening for infections with a predominantly sexual mode of transmission HEPATITIS C AB W/REFL TO HCV RNA, QN, PCR Routine 03/05/2025 11:25 AM EST Type 2 diabetes mellitus without complication, without long-term current use of insulin (HCC) HIV 1/2 ANTIGEN/ANTIBODY, FOURTH GENERATION W/RFL Routine 03/05/2025 11:25 AM EST Type 2 diabetes mellitus without complication, without long-term current use of insulin (HCC) Polyneuropathy, unspecified HEPATITIS B SURFACE ANTIGEN, EIA Routine 03/05/2025 11:25 AM EST Type 2 diabetes mellitus without complication, without long-term current use of insulin (HCC) Encounter for screening for other viral diseases ALBUMIN, RANDOM URINE W/CREATININE Routine 03/05/2025 11:25 AM EST Type 2 diabetes mellitus without complication, without long-term current use of insulin (HCC) CBC Routine 03/05/2025 11:25 AM EST Type 2 diabetes mellitus without complication, without long-term current use of insulin (HCC) BASIC METABOLIC PANEL Routine 03/05/2025 11:25 AM EST Type 2 diabetes mellitus without complication, without long-term current use of insulin (HCC) HEMOGLOBIN A1C Routine 03/05/2025 11:25 AM EST Type 2 diabetes mellitus without complication, without long-term current use of insulin (HCC) HEPATIC FUNCTION PANEL Routine 03/05/2025 11:25 AM EST Type 2 diabetes mellitus without complication, without long-term current use of insulin (HCC) TSH Routine 03/05/2025 11:25 AM EST Type 2 diabetes mellitus without complication, without long-term current use of insulin (HCC) LIPID PANEL, STANDARD Routine 03/05/2025 11:25 AM EST Type 2 diabetes mellitus without complication, without long-term current use of insulin (HCC) VITAMIN D,25-OH,TOTAL,IA Routine 03/05/2025 11:25 AM EST Type 2 diabetes mellitus without complication, without long-term current use of insulin (HCC) Body mass index (BMI) 34.0-34.9, adult T4, FREE Routine 03/05/2025 11:25 AM EST Type 2 diabetes mellitus without complication, without long-term current use of insulin (HCC) POCT GLUCOSE (CPT-18840) Routine 03/02/2025 11:57 AM EST Type 2 diabetes mellitus without complication, without long-term current use of insulin (HCC) POCT GLYCATED HEMOGLOBIN, TOTAL Routine 03/02/2025 11:56 AM EST Type 2 diabetes mellitus without complication, without long-term current use of insulin (HCC) POCT ERICA-14 URINE DRUG SCREEN Routine 12/13/2024 10:26 AM EDT Long-term current use of opiate analgesic BI MAMMOGRAM SCREENING TOMOSYNTHESIS BILATERAL Routine 09/14/2024 10:20 AM EDT THINPREP IMAGING PAP AND HPV MRNA E6/E7 WITH REFLEX TO HPV 16,18/45 Routine 12/09/2023 12:00 AM EDT HM COLONOSCOPY Routine 09/02/2012 11:00 AM EDT from Last 3 Months or Most Recently Relevant to Health Maintenance Results * (ABNORMAL) Vitamin D, 25-Hydroxy, Total, Immunoassay (03/05/2025 11:25 AM EST) Vitamin D 25-OH Total 28.5(L) >30 ng/mL [facility] Comment: Health Based Reference Values*< 20 ng/mL [id number] ng/mL Insufficient> 30 ng/mL Sufficient*Jeovany SAGASTUME. N Engl J Med. 2007;357:266-280There is no well-established upper level of normal vitamin Dlevels. Some laboratories use 50 ng/mL as an upper limit ofnormal. However, toxicity is patient-dependent and may occurat any level. Careful correlation with the patient'spresentation is necessary and, if there is concern forvitamin D toxicity, treatment should be consideredirrespective of the serum level.Care must be taken in interpreting Vitamin D results fromdifferent laboratories and methodologies. Published datademonstrated that results from patients undergoinghemodialysis may show a negative bias when tested withvarious automated 25-OH vitamin D assays when compared toLC-MS/MS.When testing samples from patients whose predominant form ofVitamin D is Vitamin D2, such as patients receiving VitaminD2 supplementation, results that are subtherapeutic shouldbe confirmed with another method such as LC-MS/MS. Blood Venous blood specimen / Unknown 03/05/2025 11:25 AM EST 03/05/2025 1:40 PM EST us Rocio Christie DO LAB BLOOD ORDERABLES Final R esult [facility] [address] [place] [phone] * (ABNORMAL) Albumin, Random Urine W/Creatinine (03/05/2025 11:25 AM EST) Creatinine, Urine 215.05 mg/dL [facility] Microalbumin Urine 133.0 mg/L H [facility] Microalbum Creatinine Ratio Ur 61.8(H) <30 ug/mg cr [facility] Comment:Albumin/Creatinine R atio Reference Ranges: Normal: < 30 ug/mg creatinine Microalbuminuria: 30 - 300 ug/mg creatinineClinical Albuminuria: > 300 ug/mg creatinine Urine (Urine, Random) 03/05/2025 11:25 AM EST 03/05/2025 1:30 PM EST Rocio Christie LAB URINE ORDERABLES Final R esult Performing Organization Address [facility] de Phone Number [facility] [address] [place] [phone] * Hepatitis C Antibody with Reflex to HCV, RNA, Quantitative, Real-Time PCR (03/05/2025 11:25 AM EST) Pathologist [facility] Hepatitis C Antibody Nonreactive Nonreactive [facility] Comment:Antibodies to HCV no t detected; does not exclude early acuteHCV infection. Blood Venous blood specimen / Unknown 03/05/2025 11:25 AM EST 03/05/2025 1:40 PM EST Rocio Christie LAB BLOOD ORDERABLES Final R esult Performing Organization Address [facility] Co de Phone Number [facility] [address] [place] [phone] * Alpha-Fetoprotein, Tumor Marker (03/05/2025 11:25 AM EST) Alpha Fetoprotein 3.3 ng/mL [facility] Comment:Reference Range: <6. 1The use of AFP as a tumor marker in females is not recommended.This test was performed using the GoingOnchemiluminescent method. Values obtained fromdifferent assay methods cannot be usedinterchangeably. AFP levels, regardless ofvalue, should not be interpreted as absoluteevidence of the presence or absence of disease.THIS TEST WAS PERFORMED AT:[facility] [place] [phone] IVY MD Blood Venous blood specimen / Unknown 03/05/2025 11:25 AM EST 03/05/2025 1:40 PM EST Rocio Christie DO LAB BLOOD ORDERABLES Final R esult Performing Organization Address City/[facility]/ZIP Co de Phone Number [facility] [address] [place] [phone] * Hepatitis B surface antigen, EIA (03/05/2025 11:25 AM EST) Hepatitis B Surface Ag Negative Negative [facility] Blood Venous blood specimen / Unknown 03/05/2025 11:25 AM EST 03/05/2025 1:40 PM EST Rocio Christie DO LAB BLOOD ORDERABLES Final R esult Performing Organization Address [facility] Co de Phone Number [facility] [address] [place] [phone] * RPR (Monitor) with Reflex to??Titer (03/05/2025 11:25 AM EST) RPR (Monitor) w/Refl Titer NON-REACTI VE NON-REACT CHANELLE [facility] Comment:THIS TEST WAS PERFOR MED AT:[address] [place] [phone] IVY MD Rapid Plasma Reagin Ab Titer TNP [facility] Blood Venous blood specimen / Unknown 03/05/2025 11:25 AM EST 03/05/2025 1:40 PM EST Rocio Christie DO LAB BLOOD ORDERABLES Final R esult Performing Organization Address [facility] Co de Phone Number [facility] [address] [place] [address] [phone] * HIV-1/2 Antigen and Antibodies, Fourth Generation, with Reflexes (03/05/2025 11:25 AM EST) HIV AB/AG Nonreactive Nonreactive [facility] Comment:HIV-1 p24 Ag and/or HIV-1/HIV-2 Ab not detected.A test result that is nonreactive does not exclude thepossibility of exposure to or infection with HIV-1 and/orHIV-2. Nonreactive results in this assay for individualswith prior exposure to HIV-1 and/or HIV-2 may be due toantigen and antibody levels that are below the limit ofdetection of this assay.The [employer] HIV Ag/Ab Combo assay result andsupplemental assay results should be interpreted inconjunction with the patient's clinical presentation,history and other laboratory results. If the results areinconsistent with clinical evidence, additional testing issuggested to confirm the result. Blood Venous blood specimen / Unknown 03/05/2025 11:25 AM EST 03/05/2025 1:40 PM EST Rocio Christie DO LAB BLOOD ORDERABLES Final R esult Performing Organization Address [facility] Co de Phone Number [facility] [address] [place] [address] [phone] * Hepatitis B Surface Antibody, Qualitative (03/05/2025 11:25 AM EST) ~Hepatitis B Surface Antibody REACTIVE Nonreactive [facility] Comment:REACTIVE: > 11.99 mI U/mL Blood Venous blood specimen / Unknown 03/05/2025 11:25 AM EST 03/05/2025 1:40 PM EST Rocio Christie DO LAB BLOOD ORDERABLES Final R esult Performing Organization Address City/[facility]/ZIP Co de Phone Number [facility] [address] [place] [address] [phone] * (ABNORMAL) CBC (03/05/2025 11:25 AM EST) White Blood Count 10.2 4.8 - 10.8 X10*3/uL [facility] Red Blood Count 5.56(H) 4.20 - 5.50 X10*6/uL [facility] Hemoglobin 15.4 12.0 - 16.0 g/dl [facility] Hematocrit 47.6(H) 37.0 - 47.0 % [facility] Mean Corpuscular Volume 85.6 80.0 - 98.0 fL [facility] Mean Corpuscular Hemoglobin 27.7 27.0 - 33.0 pg [facility] Mean Corpuscular HGB Conc 32.4 31.0 - 35.0 g/dl [facility] Red Cell Distribution Width 14.4 11.0 - 16.0 % [facility] Platelet Count 278 160 - 400 X10*3/uL [facility] Mean Platelet Volume 11.4 9.4 - 12.3 fL [facility] NRBC Pct Auto 0.0 0.0 - 0.2 /100WBC [facility] NRBC Abs Auto 0.000 0.0 - 0.012 X10*3/uL [facility] Blood Venous blood specimen / Unknown 03/05/2025 11:25 AM EST 03/05/2025 1:40 PM EST us Rocio Christie DO LAB BLOOD ORDERABLES Final R esult [facility] [address] [place] [phone] * TSH (03/05/2025 11:25 AM EST) Thyroid Stimulating Hormone 1.36 0.32 - 4.0 uIU/mL [facility] Comment:TSH 3rd Generation ( [facility]) Blood Venous blood specimen / Unknown 03/05/2025 11:25 AM EST 03/05/2025 1:40 PM EST Rocio Pratik DO LAB BLOOD ORDERABLES Final R esult Performing Organization Address City/[facility]/ZIP Co de Phone Number [facility] [address] [place] [phone] * T4, Free (03/05/2025 11:25 AM EST) Free T4 (Free Thyroxine) 1.06 0.71 - 1.85 ng/dL [facility] Blood Venous blood specimen / Unknown 03/05/2025 11:25 AM EST 03/05/2025 1:40 PM EST Rocio Christie DO LAB BLOOD ORDERABLES Final R esult Performing Organization Address [facility] Co de Phone Number [facility] [address] [place] [phone] * Hemoglobin A1c (03/05/2025 11:25 AM EST) Hemoglobin A1c 5.7 <6.0 % [facility] Comment:Hemoglobin A1C Refer ence Range Adults: 4.8 - 6.0 % Non diabetic: < 6.0 % Goal: < 7.0 %Additional Action Suggested: > 8.0 %Note: Hemoglobin A1c results are invalid for patients with abnormal amounts of HbF. Blood transfusions may impact the HbA1c concentration in the patient sample. Estimated Average Glucose 117 mg/dL [facility] Comment:eAG = Estimated ave rage glucose which is %A1C expressed asaverage glucose, using the formula of the K0X-PoxucptRomldye Glucose study (ADAG), Diabetes Care, Vol.31,#8,Oct. 2007 Blood Venous blood specimen / Unknown 03/05/2025 11:25 AM EST 03/05/2025 1:40 PM EST Result [facility] Rocio Pratik DO LAB BLOOD ORDERABLES Final R esult Performing Organization Address [facility]/ZIP Co de Phone Number [facility] [address] [place] [phone] * (ABNORMAL) Creatine Kinase, Total (03/05/2025 11:25 AM EST) Creatine Kinase Total 248(H) 26 - 140 U/L [facility] Blood Venous blood specimen / Unknown 03/05/2025 11:25 AM EST 03/05/2025 1:40 PM EST Rocio Pratik [employer] LAB BLOOD ORDERABLES Final R esult Performing Organization Address [facility] Co de Phone Number [facility] [address] [place] [phone] * (ABNORMAL) Hepatic Function Panel (03/05/2025 11:25 AM EST) Bilirubin, Total 1.4(H) 0.0 - 1.0 mg/dL [facility] Bilirubin, Direct 0.4 0.0 - 0.5 mg/dL [facility] Aspartate Amino Transferase 31 5 - 31 U/L [facility] Alanine Aminotransferase 22 0 - 31 U/L [facility] Total Protein 6.7 6.5 - 8.0 g/dL [facility] Albumin Level 4.4 3.5 - 5.0 g/dL [facility] Alkaline Phosphatase 97 39 - 117 U/L [facility] Blood Venous blood specimen / Unknown 03/05/2025 11:25 AM EST 03/05/2025 1:40 PM EST Rocio Bartholomewfaviocitlalli [employer] LAB BLOOD ORDERABLES Final R esult Performing Organization Address [facility] Co de Phone Number [facility] [address] [place] [phone] * (ABNORMAL) Lipid Panel, Standard (03/05/2025 11:25 AM EST) Triglycerides 140 <150 mg/dL [facility] Comment:Desirable Triglyceri de: less than 150 mg/dLBorderline High Triglyceride 150-199 mg/dLHigh Triglyceride: 200-499 mg/dLVery High Triglyceride: greater than or equal to 5OO mg/dL Cholesterol 116 <200 mg/dL [facility] Comment:Desirable Cholestero l: less than 200 mg/dLBorderline High Cholesterol: 200-239 mg/dLHigh Cholesterol: greater than 239 mg/dL LDL Cholesterol Calculated 60 <100 mg/dL [facility] Comment:Desirable LDL: less than 100 mg/dLNear Optimal/Above Optimal LDL: 110- 129 mg/dLBorderline High LDL: 130-159 mg/dLHigh LDL: 160-189 mg/dLVery High LDL: greater than or equal to 190 mg/dL HDL Cholesterol 28(L) >40 mg/dL [facility] Comment:Desirable HDL: great er than 40 mg/dL Note: This HDL assay may give artificially low results in patients with liver disease. Blood Venous blood specimen / Unknown 03/05/2025 11:25 AM EST 03/05/2025 1:40 PM EST us Rocio Christie DO LAB BLOOD ORDERABLES Final R esult [facility] [address] [place] [address], [place] [phone] * (ABNORMAL) Basic Metabolic Panel (03/05/2025 11:25 AM EST) Sodium 142 135 - 145 mmol/L [facility] Potassium 3.9 3.3 - 5.1 mmol/L [facility] Chloride 105 96 - 108 mmol/L [facility] Carbon Dioxide 31(H) 22 - 29 mmol/L [facility] Anion Gap 10(L) 12 - 20 [facility] Urea Nitrogen (BUN) 12 9 - 16 mg/dL [facility] Creatinine, Serum 0.90 0.5 - 1.4 mg/dL [facility] Estimated Glomerular Filt Rate >60 [facility] Comment:Chronic Kidney Disea se: Estimated GFR < 60 mL/min/1.08n5Nigxnz Kidney Disease: Estimated GFR < 15 mL/min/1.73m2 Glucose 89 60 - 115 mg/dL [facility] Calcium 9.6 8.4 - 10.2 mg/dL [facility] Blood Venous blood specimen / Unknown 03/05/2025 11:25 AM EST 03/05/2025 1:40 PM EST Rocio Christie DO LAB BLOOD ORDERABLES Final R esult [facility] [address] [place] [phone] * POCT Glucose (03/02/2025 11:57 AM EST) Glucose Blood, POC 102 60 - 200 mg/dL Comment:Random QC Media Lot # [id number] Lot# Expiration Date 50190 Blood Capillary blood specimen / Unknown 03/02/2025 11:57 AM EST Rocio Christie DO POINT OF CARE TEST ENTER/ADAM T ORDERABLES Final Result * (ABNORMAL) POCT Hgb A1c (03/02/2025 11:56 AM EST) Hemoglobin A1C 5.9(A) 4.0 - 5.7 % QC Media Lot # [id number] Lot# Expiration Date ,333,561 Blood 03/02/2025 11:5 6 AM EST Rocio Christie DO POINT OF CARE TEST ENTER/ADAM T ORDERABLES Final Result * POCT ERICA-14 Urine Drug Screen (12/13/2024 10:26 AM EDT) THC Positive Negative Cocaine Screen, Urine Negative Negative Opiate Screen, Urine Negative Negative Methamphetamine Screen Urine Negative Negative Amphetamine Screen, Urine Negative Negative Benzodiazepines Screen, Urine Negative Negative Barbiturate Screen, Urine Negative Negative Methadone Screen, Urine Negative Negative Buprenophine Screen, Urine Negative Negative TCA, Urine Negative Negative MDMA Urine Negative Negative ng/mL Oxycodone Screen, Urine Positive Negative Phencyclidine (PCP), Urine Negative Negative Propoxyphene, Urine Negative Negative Fentanyl, Urine Negative Negative Urine Urine specimen obtained by clean catch procedure / Unknown 12/13/2024 10:26 AM EDT Narrative Marisa Sims RN - 12/13/2024 10:26 AM EDT UTOX cup Lot#[id number] Exp. 12/26/25 Internal Pass Control Rocio Christie DO POINT OF CARE TEST ENTER/ADAM T ORDERABLES Final Result * BI Mammogram Screening Tomosynthesis Bilateral (09/14/2024 10:20 AM EDT) Anatomical Region Laterality Modality Breast Bilateral Mammography 09/14/2024 10:2 0 AM EDT Narrative 09/30/2024 4:03 PM EDT [facility] [address] [place] [address] Mammography Report Signed Patient: Daly Neal MR#: [id number] : 1960 Acct:[id number] Age/Sex: 63 / F ADM Date: 09/14/24 Loc: .MAMMO Attending Dr: Rocio Christie DO Ordering Physician: Rocio Christie DO Results: 1N egative Date of Service: 09/14/24 Follow Up: 1 Year From [facility] Mammogram Procedure(s): MM tomosynthesis screening BI Accession Number(s): [id number] cc: Rocio Christie DO EXAMINATION: MM SCREENING [...] 09/30/24 1600 DD/ 1020 TD/TT: 09/14/24 1039 Early Morning Babysitter: Procedure Note Donotuseinterpreter, Image - 09/30/2024 [place] [facility] [address] [place] [address] Mammography Report Signed Patient: Daly Neal EMR#: [id number] : 1960Acct:[id number] Age/Sex: 63 / FADM Date: 09/14/24 Loc: .MAMMO Attending Dr: Rocio Christie DO Ordering Physician: Rocio Chrisite DOResults: 1N egative Date of Service: 09/14/24Follow Up: 1 Year From Orig ina Mammogram Procedure(s): MM tomosynthesis screening BI Accession Number(s): [id number] cc: Rocio Christie DO EXAMINATION: MM SCREENING [...] Charisma Amaya DO 09/30/2024 04:00 PM EDT Dictated By: Charisma Amaya DO Signed By: <Electronically signed by Charisma Amaya DO in OV> 09/30/24 1600 DD/ 1020 TD/TT: 09/14/24 1039 Early Morning Babysitter: Rocio Christie DO IMG BI PROCEDURES Edited Res ult - Final * ThinPrep Imaging Pap and HPV mRNA E6/E7 with Reflex to HPV 16,18/45 (12/09/2023 12:00 AM EDT) HPV 16 RNA [facility] HPV 18/45 RNA [facility] HPV nRNA E6/E7 Not Detected Not Detected [facility] Comment:Methodology: Transcr iption-Mediated AmplificationThis assay detects E6/E7 viral messenger RNA (mRNA) from 14high-risk HPV types (16,18,31,33,35,39,45,51,52,56,58,59,66,68).Cervical sources are required for HPV testing.If a vaginal source from a patient who has had atotal hysterectomy with removal of cervix wassubmitted, please contact the testing laboratoryfor alternative testing options.For additional information, please refer [email or web address]/EFV398c1(This link if provided for information/educational purposes only.)THIS TEST WAS PERFORMED AT:[address] [place] [phone] IVY MD SOURCE: SEE NOTE [facility] Comment:None given Report Status: [facility] Clinical Information: SEE NOTE [facility] Comment:None given LMP: SEE NOTE [facility] Comment:NONE GIVEN Prev. PAP: SEE NOTE [facility] Comment:NONE GIVEN Prev. BX: SEE NOTE [facility] Comment:NONE GIVEN Statement Of Adequacy: SEE NOTE [facility] Comment:Satisfactory for lyric luation.Endocervical/transformation zone componentpresent.Partially obscuring inflammation General Categorization: [facility] Interpretation/Result: SEE NOTE [facility] Comment:Cytology Results: Ne gative for intraepitheliallesion or malignancy. Cytology Comment SEE NOTE [facility] Comment:This Pap test has be en evaluated with computerassisted technology. Spot Washer: SEE NOTE [facility] Comment:RMM, CT(ASCP)CT scre ening location: [place] [address] Review Spot Washer: SEE NOTE [facility] Comment:MPG, CT(ASCP)CT scre ening location: [place] [address] Pathologist [facility] PAP Infection [facility] See Note SEE NOTE [facility] Comment:EXPLANATORY NOTE:The Pap is a screening test for cervical cancer. It isnot a diagnostic test and is subject to false negativeand false positive results. It is most reliable when asatisfactory sample, regularly obtained, is submittedwith relevant clinical findings and history, and whenthe Pap result is evaluated along with historic andcurrent clinical information. 12/09/2023 12/09/2023 Narrative [facility] - 12/17/2023 12:02 PM EDT SEE SCANNED RESULTS IN EMR us Rocio Christie DO LAB PATHOLOGY ORDERABLES Fin al Result [facility] [address] [place] [phone] * Hm Colonoscopy (09/02/2012 11:00 AM EDT) us Historical Provider HEALTH MAINTENANCE Final Result from Last 3 Months or Most Recently Relevant to Health Maintenance Additional Health Concerns Active Problems Noted Date [...] 03/02/2025 Patient has chronic kidney disease 03/02/2025 Insurance MEDICARE [facility] STAND[facility] Care Teams Flight Attendant/Inflight Manager Relationship Specialty Start Date End Date Rocio Christie DO [address] [place] [phone] PCP - General Family Medicine 03/22/18
--- OUTSIDE RECORDS SUMMARY | 2025-03-12 12:12 | XMS_ITS | Encounter Summary ---
Author Organization [employer] Address [address] [place] [address] [address] [place] [address] Care Team Providers Care Ui Software Developer Name Role Phone Rocio Christie DO Primary Care Provider [phone] Encounter Details Date Type Department Care Team (Late st Contact Info) Description 04/01/2022 Orders Only [facility] [address] [place], [place] [phone] Rocio Christie DO [address] [place], [place] [phone] Social History Tobacco Use Types Packs/Day Years [...] on filedocumented in this encounter Care Teams Ui Software Developer Relationship Specialty Start Date End Date Rocio Christie DO [address] [place], [place] [phone] PCP - General Family Medicine 03/22/18 documented as of this encounter
--- OUTSIDE RECORDS SUMMARY | 2025-03-12 12:13 | XMS_ITS | Encounter Summary ---
Author Organization [employer] Address [address] [facility] [address] [place] [address] Care Team Providers Care Senior [employer]os Software Engineer Name Role Phone Rocio Christie DO Primary Care Provider + [phone] Reason for Visit * Reason Comments Med Refill Encounter Details Date Type Department Care Team (Late st Contact Info) Description 01/08/2025 Refill [facility] [address] [place], [place] [phone] Rocio Christie DO [address] [place] [address] Chronic bilateral low back pain without sciatica; Insomnia, unspecified type Social History Tobacco Use [...] Chronic bilateral low back pain without sciatica Insomnia, unspecified type documented in this encounter Additional Health Concerns Assessment Noted Time PHQ-9 Depression Total Score: 16 024 1:38 PM EDT documented as of this encounter Care Teams Senior Ios Software Engineer Relationship Specialty Start Date End Date Rocio Christie DO [address] [place] [address] PCP - General Family Medicine 03/22/18 documented as of this encounter
--- OUTSIDE RECORDS SUMMARY | 2025-03-12 12:13 | XMS_ITS | Encounter Summary ---
Author Organization [employer] Address [address] [facility] [address] [place] [address] Care Team Providers Care Paster Hat Lining Name Role Phone Rocio Christie DO Primary Care Provider + [phone] Encounter Details Date Type Department Care Team ([facility] st Contact Info) Description 05/18/2024 Orders Only [facility] [address] [place], [place] [phone] Soraya Oneal MD [address] [place] [address] Social History Tobacco Use Types Packs/Day Years [...] documented as of this encounter Care Teams Paster Hat Lining Relationship Specialty Start Date End Date Rocio Christie DO [address] [place] [address] PCP - General Family Medicine 03/22/18 documented as of this encounter
== END 2025-03-12 10:07 | disposition home or self-care (01) ==
LOC: HO.CT 10:06
PROVIDERS: PCP Family Medicine; Visit Provider Physician Assistant Medical
DX: F17.210 Nicotine dependence, cigarettes, uncomplicated (principal)
CPT/HCPCS: 71271

== ENCOUNTER → 2025-03-12 10:08 | Outpatient (BNV) | payer MEDICARE, MEDICAID, SELFPAY | PROVIDERS: PCP Family Medicine; Visit Provider Radiology Diagnostic Radiology | DX: Z12.2 Encounter for screening for malignant neoplasm of respiratory organs (principal); Z87.891 Personal history of nicotine dependence | CPT/HCPCS: 71271 ==